=== PATIENT | male | born 1950 | race Caucasian/White ===

== ENCOUNTER 2022-09-02 14:22 | Observation (INO) | payer MEDICARE, OTHER, SELFPAY ==
[2022-09-02] VITALS (11 sets, daily range): BP systolic 139–187; BP diastolic 50–79; PULSE 52–63; RESP 18–20; TEMP 36.3–36.6; O2SAT 94–97; BMI 51.5; BMI 39.6
--- NOTE | 2022-09-02 14:27 | ECG_ITS ---
APPROVED REPORT Exam: Resting ECG HR:64 bpm ECG Measurements Heart Rate 64 AXES DE 206 P 54 QRSd 105 QRS 10 QT 431 T 20 QTc 441 Conclusion SINUS RHYTHM LOW QRS VOLTAGE IN PRECORDIAL LEADS [QRS DEFLECTION < 1.0 mV IN CHEST LEADS] BORDERLINE ECG UNCONFIRMED REPORT Electronically signed by : Jace Silvestre MD 09/02/2022 21:00:37
--- NOTE | 2022-09-02 14:52 | XR_ITS ---
FINAL REPORT CLINICAL HISTORY: Shortness of breath COMPARISON: none FINDINGS: A portable view of the chest was obtained. The heart is normal in size. There is evidence of prior median sternotomy. There are low lung volumes. The lungs are otherwise clear. There is no pleural effusion or pneumothorax. IMPRESSION: Low lung volumes.. Reviewed, Interpreted and Dictated by Nancy Jacobo MD Transcribed by Pearl Oswald Authenticated and . [facility]
--- NOTE | 2022-09-02 14:58 | HMH.EDGENADL ---
Discharge Plan Disposition Patient Disposition: Still a Patient Condition: Good Referrals Follow up/Referrals: Roberta Villalobos APRN [Primary Care Provider] - See instructions Clinical Impressions Clinical Impression: Bilateral leg weakness, Unable to care for self Discharge ED Provider: Lilly Dent General Adult HPI <Vinita Madison MD - Last Filed: 09/02/22 15:41> General Chief complaint: Weakness Stated complaint: Weakness, tired Time Seen by Provider: 09/02/22 14:44 History of Present Illness HPI narrative: Patient is a 71-year-old male presenting today with lower extremity weakness and inability to care for himself at home. He has a history of known strokes and on August 10 of last month he was at his [employer] member office with his when he had a loss of consciousness and some left lower extremity weakness they called 911 he refused to be transported. Since that time he has been at home and has been able to get out of bed or walk he has a history of chronic right lower extremity weakness from an old stroke but this left lower extremity weakness is new. He is also having increasing lower extremity and dependent edema and has a history of heart failure. He came in today because his says she is sick of taking care of him at home and that he wants to be admitted for rehab and believes that he likely had a stroke last month. He denies any new or different pain fevers or any other focal symptoms. Related Data Allergies Allergy/AdvReac Type Severity Reaction Status Date / Time No Known Allergies Allergy Verified 09/02/22 15:24 PFS <Vinita Madison MD - Last Filed: 09/02/22 15:41> [facility] Disclaimer: The information contained in this section may have been updated after the patient was seen, as this information can be updated by other users. Social History (Updated 09/02/22 @ 15:41 by Vinita Madison MD) Smoking Status: Former smoker alcohol intake: never current occupational status: other Travel in the last 8 weeks: None <Vinita Madison MD - Last Filed: 09/02/22 15:41> ROS Obtained: Yes All systems reviewed & no additional complaints except as documented Physical Exam <Vinita Madison MD - Last Filed: 09/02/22 15:41> General General appearance: alert Respiratory Respiratory exam: Present normal lung sounds bilaterally Cardiovascular Cardiovascular exam: Present other (Dependent edema bilateral lower extremities and posterior sacral locations) Neurological Exam Neurological exam: Present other (Left lower extremity weakness able to move them against gravity but no significant strength 4-5 strength bilaterally from a distal standpoint sensation decreased bilaterally to light touch) Medical Decision Making <Vinita Madison MD - Last Filed: 09/02/22 15:41> Javier Inquiry Pt receiving controlled substance: No Vital Signs: 09/02/22 14:22 09/02/22 14:34 09/02/22 15:01 Temperature 97.9 F Temperature Source Oral Pulse Rate 62 60 Pulse Rate [Left] 63 Respiratory Rate 19 Blood Pressure 139/50 L 154/64 H Blood Pressure [Right Arm] 154/64 H Blood Pressure Mean 68 94 Blood Pressure Mean [Right Arm] 94 02 Sat by Pulse Oximetry 95 97 96 09/02/22 15:03 Temperature Temperature Source Pulse Rate 60 Pulse Rate [Left] Respiratory Rate Blood Pressure 145/67 H Blood Pressure [Right Arm] Blood Pressure Mean 93 Blood Pressure Mean [Right Arm] 02 Sat by Pulse Oximetry 96 Lab Data Lab Results 09/02/22 15:00: WBC 4.2 L, RBC 3.83 L, Hgb 11.2 L, Hct 36.2 L, MCV 94.6 H, MCH 29.1, MCHC 30.8 L, RDW 14.3, Plt Count 261, MPV 7.2 L, Neut % (Auto) 39.3, Lymph % (Auto) 39.8, [place] % (Auto) 9.8 H, Eos % (Auto) 10.1, Baso % (Auto) 0.9, Neut # (Auto) 1.7 L, Lymph # (Auto) 1.7, [place] # (Auto) 0.4, Eos # (Auto) 0.4, Baso # (Auto) 0.0, Sodium 138, Potassium 4.3, Chloride 99, Carbon Dioxide 32 H, Anion Gap 11.3, BUN 55 H, Creatinine 2.90 H, Estimated Creat Clear 19, Estimated GFR 21 L, Est GF
[2022-09-02 15:11] LABS: Basophils % 0.9 % (0.1-2.0); Eosinophils # 0.4 K/mm3 (0.0-0.4); Eosinophils % 10.1 % (0.1-12.0); Hematocrit 36.2 % (42.0-52.0); Hemoglobin 11.2 g/dL (14.1-18.0); Lymphocytes # 1.7 K/mm3 (0.7-4.5); Lymphocytes % 39.8 % (10-50); Mean Corpuscular HGB Conc 30.8 g/dL (31.8-35.4); Mean Corpuscular Hemoglobin 29.1 pg (27.0-31.2); Mean Corpuscular Volume 94.6 fl (80-94); Mean Platelet Volume 7.2 fl (7.4-10.4); Monocytes # 0.4 K/mm3 (0.1-1.0); Monocytes % 9.8 % (1.7-9.3); Neutrophils # 1.7 K/mm3 (1.8-7.8); Neutrophils % 39.3 % (37.0-80.0); Platelet Count 261 K/mm3 (142-424); Red Blood Count 3.83 M/mm3 (4.60-6.20); Red Cell Distribution Width 14.3 % (11.5-17.5); White Blood Count 4.2 K/mm3 (4.8-10.8)
[2022-09-02 15:23] LABS: Alanine Aminotransferase 35 U/L (12-78); Albumin Level 3.6 g/dl (3.5-5.0); Alkaline Phosphatase 164 U/L (38-126); Anion Gap 11.3 mEq/L (5-15); Aspartate Amino Transferase 47 U/L (17-59); Bilirubin,Total 0.5 mg/dl (0.2-1.3); Blood Urea Nitrogen 55 mg/dl (9-20); Calcium 8.7 mg/dl (8.4-10.2); Carbon Dioxide 32 mmol/L (22.0-30.0); Chloride 99 mmol/L (98-107); Creatinine Clearance Estimated 19 mL/min (50-200); Estimated Glomerular Filt Rate 21 ml/min (>60); GFR (African American) 26 ML/MIN (>60); Globulin 3.6 g/dL (1.3-3.2); Magnesium 2.2 mg/dl (1.6-2.3); Phosphorous 4.6 mg/dl (2.5-4.5); Potassium 4.3 mmoL/L (3.5-5.1); Sodium 138 mmol/L (136-145); Total Protein,Serum 7.2 g/dl (6.3-8.2)
[2022-09-02 15:24] LABS: Glucose 407 mg/dl (74-100)
--- NOTE | 2022-09-02 15:28 | CT_ITS ---
FINAL REPORT TECHNIQUE: Thin section axial images were obtained from skull base to vertex without contrast. Coronal reconstruction images were obtained from the axial data. Exam was performed using dose reduction technique. CLINICAL HISTORY: weakness FINDINGS: There is atrophy with periventricular hypodensity. There is no mass effect or midline shift. There is no intracranial hemorrhage. There is no hydrocephalus. There is encephalomalacia in the left frontal lobe at the vertex and posterior left parietal lobe. The basilar cisterns are preserved. The posterior fossa is without acute abnormality. The soft tissues are without acute abnormality. No acute osseous abnormality is identified. IMPRESSION: No mass effect, midline shift, or hemorrhage. Atrophy with periventricular hypodensity. Areas of encephalomalacia, likely related to prior infarcts. Consider MRI if symptoms persist. Reviewed, Interpreted and Dictated by Nancy Jacobo MD Transcribed by Fernanda Salmeron Authenticated and [facility]
[2022-09-02 15:29] LABS: Creatine Kinase 130 U/L (55-170)
--- NOTE | 2022-09-02 15:32 | PC.NURSE ---
rounded on pt.to see if they had any needs. pt had no needs at this time also explained that we had had an emergency with another room and we will be with them as soon as possible
[2022-09-02 15:35] LABS: NT Pro Brain Natriuretic Pep. 2140 pg/mL (0-125)
[2022-09-02 15:42] LABS: Troponin I < 0.01 ng/ml (0.00-0.034)
[2022-09-02 16:15] LABS: Microscopic, Urine URINE MICROSCOPIC (MICROSCOPIC)
[2022-09-02 16:19] LABS: Appearance,Urine CLEAR (Clear); Bilirubin,Urine Negative (Negative); Blood, Urine TRACE-I (Negative); Color,Urine YELLOW (Yellow); Glucose,Urine (UA) 3+ (Negative); Ketones,Urine Negative (Negative); Leukocyte Esterase,Urine Negative (Negative); Nitrate,Urine Negative (Negative); Protein,Urine Negative (Negative); Urobilinogen,Urine 0.2 EU/dl (0.2)
[2022-09-02 16:39] LABS: RBC,Urine Occasional #/hpf (0-3)
--- NOTE | 2022-09-02 18:13 | PC.NURSE ---
arrived by stretcher from ED
[2022-09-02 18:57] LABS: POC Glucose,Bedside 357 (70-110)
[2022-09-02 19:10] LABS: Troponin I < 0.01 ng/ml (0.00-0.034)
--- NOTE | 2022-09-02 20:06 | EXP.HP ---
History of Present Illness *Admission Date: 09/02/22 *Reason for visit:: weakness *History of present illness: This is a 71-year-old male with PMHx diabetes insulin-dependent, CVA with right lower extremity residual been complaining of weakness since then, CAD s/p CABG, hypertension, HLD and CKD presenting today with bilateral lower extremity weakness and inability to care for himself at home. 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 Since that time he has been at home and has been able to get out of bed or walk he has a history of chronic right lower extremity weakness from an old stroke but this left lower extremity weakness is new. He is also having increasing lower extremity and dependent edema and has a history of heart failure. Admitted for further evaluation of and treatment. [facility] Disclaimer: The information contained in this section may have been updated after the patient was seen, as this information can be updated by other users. Medical History (Updated 09/02/22 @ 23:05 by Arnoldo Krishnan APRN) CKD (chronic kidney disease) Diabetes GERD (gastroesophageal reflux disease) H/O: CVA (cerebrovascular accident) HLD (hyperlipidemia) HTN (hypertension) Surgical History (Updated 09/02/22 @ 18:23 by Emma Riojas RN) H/O four vessel coronary artery bypass graft Family History (Updated 09/02/22 @ 18:06 by Emma Riojas RN) Other No significant family history Social History (Updated 09/02/22 @ 18:06 by Emma Riojas RN) Smoking Status: Former smoker alcohol intake: never current occupational status: retired and other Travel in the last 8 weeks: None Review of Systems Review of Systems Review of systems:: pertinent systems reviewed and negative unless documented below Meds Home Medications and Allergies Home Medications Medication Instructions Recorded Confirmed Type amlodipine 5 mg tablet 5 mg PO BID Blood Pressure 09/02/22 09/02/22 History atorvastatin 80 mg tablet 80 mg PO DAILY Cholesterol 09/02/22 09/02/22 History bumetanide 2 mg tablet 2 mg PO DAILY Diuretic 09/02/22 09/02/22 History clopidogrel 75 mg tablet 75 mg PO DAILY Antiplatelet/CVA 09/02/22 09/02/22 History famotidine 20 mg tablet 20 mg PO HS PRN GERD 09/02/22 09/02/22 History fenofibrate 160 mg tablet 160 mg PO DAILY Cholesterol 09/02/22 09/02/22 History gabapentin 300 mg capsule 300 mg PO TID Pain 09/02/22 09/02/22 History insulin detemir U-100 100 unit/mL 30 unit SQ HS Diabetes 09/02/22 09/02/22 History subcutaneous solution (Levemir U-100 Insulin) metoprolol tartrate 25 mg tablet 25 mg PO BID Blood Pressure 09/02/22 09/02/22 History montelukast 10 mg tablet 10 mg PO DAILY ALLERGIES 09/02/22 09/02/22 History pioglitazone 30 mg tablet 30 mg PO DAILY Diabetes 09/02/22 09/02/22 History New Prescriptions to Start Prescriptions: Allergies Allergy/AdvReac Type Severity Reaction Status Date / Time No Known Allergies Allergy Verified 09/02/22 15:24 Exam Data for Last 24 hours Vital signs and Labs for Last 24 Hours: Temp Pulse Resp BP Pulse Ox O2 Del Method 97.4 F L 63 18 158/54 H 94 L Room Air 09/02/22 20:00 09/02/22 20:00 09/02/22 20:00 09/02/22 20:00 09/02/22 20:00 09/02/22 20:00 Laboratory Results - last 24 hr 09/02/22 15:00: WBC 4.2 L, RBC 3.83 L, Hgb 11.2 L, Hct 36.2 L, MCV 94.6 H, MCH 29.1, MCHC 30.8 L, RDW 14.3, Plt Count 261, MPV 7.2 L, Neut % (Auto) 39.3, Lymph % (Auto) 39.8, [place] % (Auto) 9.8 H, Eos % (Auto) 10.1, Baso % (Auto) 0.9, Neut # (Auto) 1.7 L, Lymph # (Auto) 1.7, [place] # (Auto) 0.4, Eos # (Auto) 0.4, Baso # (Auto) 0.0, Sodium 138, Potassium 4.3, Chloride 99, Carbon Dioxide 32 H, Anion Gap 11.3, BUN 55 H, Creatinine 2.90 H, Estimated Creat Clear 19, Estimated GFR 21 L, Est GFR ( Amer) 26 L, Glucose 407 H*, Calcium 8.7
[2022-09-02 21:22] LABS: POC Glucose,Bedside 576 (70-110)
[2022-09-02 21:36] LABS: Troponin I < 0.01 ng/ml (0.00-0.034)
[2022-09-02 21:46] LABS: Glucose,Random 526 mg/dL (74-100)
--- NOTE | 2022-09-02 22:02 | PC.NURSE ---
FSBS WAS 576. SERUM GLUCOSE WAS 526. LUDY San NP NOTIFIED . SEE ORDERS.
[2022-09-03 04:00] VITALS: BP 138/68; PULSE 70; RESP 18; TEMP 36.5; O2SAT 95; BMI 40.0
[2022-09-03 05:20] LABS: POC Glucose,Bedside 530 (70-110)
[2022-09-03 05:48] LABS: Alanine Aminotransferase 40 U/L (12-78); Albumin Level 3.6 g/dl (3.5-5.0); Alkaline Phosphatase 157 U/L (38-126); Aspartate Amino Transferase 56 U/L (17-59); Bilirubin,Total 0.4 mg/dl (0.2-1.3); Blood Urea Nitrogen 62 mg/dl (9-20); Calcium 8.9 mg/dl (8.4-10.2); Carbon Dioxide 25 mmol/L (22.0-30.0); Chloride 102 mmol/L (98-107); Chol/HDL Ratio 3.5 (1-3.5); Cholesterol 113 mg/dl (140-200); Creatinine Clearance Estimated 22 mL/min (50-200); Estimated Glomerular Filt Rate 23 ml/min (>60); GFR (African American) 28 ML/MIN (>60); Globulin 3.6 g/dL (1.3-3.2); HDL Cholesterol 32 mg/dl (40-60); Sodium 135 mmol/L (136-145); Total Protein,Serum 7.2 g/dl (6.3-8.2); Triglycerides 107 mg/dl (30-150); VLDL Cholesterol 21 mg/dL (0-40)
[2022-09-03 05:50] LABS: Hemoglobin A1C 11.4 % (4.0-6.0)
[2022-09-03 05:51] LABS: Glucose 492 mg/dl (74-100)
--- NOTE | 2022-09-03 05:54 | PC.NURSE ---
fsbs 530. serum glucose 492. LUDY San NP NOTIFIED AND ORDER RECEIVED TO GIVE 15 UNITS HUMALOG.
[2022-09-03 05:59] LABS: Direct LDL Cholesterol 56.88 mg/dL (100-129)
--- NOTE | 2022-09-03 07:52 | HMH.PHAINT1 ---
Pharmacy Intervention Comments: Patient's home medications reviewed and verified with external pharmacy. -Cesario Montero, Pharm Student
[2022-09-03 08:00] VITALS: BP 156/83; PULSE 84; RESP 20; TEMP 36.5; O2SAT 95; O2SAT 96
--- NOTE | 2022-09-03 08:33 | EXP.PN ---
Subjective *Date: 09/03/22 *Time: 14:09 Interval history: Cr is 2.7, decreased from 2.9 glucose is 592 a1c is 11.4 No acute events overnight Exam Data for Last 24 hours Vital signs and Labs for Last 24 Hours: Temp Pulse Resp BP Pulse Ox O2 Del Method 97.7 F 70 18 138/68 95 Room Air 09/03/22 04:00 09/03/22 04:00 09/03/22 04:00 09/03/22 04:00 09/03/22 04:00 09/03/22 06:32 Laboratory Results - last 24 hr 09/02/22 15:00: WBC 4.2 L, RBC 3.83 L, Hgb 11.2 L, Hct 36.2 L, MCV 94.6 H, MCH 29.1, MCHC 30.8 L, RDW 14.3, Plt Count 261, MPV 7.2 L, Neut % (Auto) 39.3, Lymph % (Auto) 39.8, [place] % (Auto) 9.8 H, Eos % (Auto) 10.1, Baso % (Auto) 0.9, Neut # (Auto) 1.7 L, Lymph # (Auto) 1.7, [place] # (Auto) 0.4, Eos # (Auto) 0.4, Baso # (Auto) 0.0, Sodium 138, Potassium 4.3, Chloride 99, Carbon Dioxide 32 H, Anion Gap 11.3, BUN 55 H, Creatinine 2.90 H, Estimated Creat Clear 19, Estimated GFR 21 L, Est GFR ( Amer) 26 L, Glucose 407 H*, Calcium 8.7, Phosphorus 4.6 H, Magnesium 2.2, Total Bilirubin 0.5, AST 47, ALT 35, Alkaline Phosphatase 164 H, Total Creatine Kinase 130, Troponin I < 0.01, NT-Pro-B Natriuret Pep 2140 H, Total Protein 7.2, Albumin 3.6, Globulin 3.6 H, Albumin/Globulin Ratio 1.0 L 09/02/22 15:56: Urine Color Yellow, Urine Appearance Clear, Urine pH 6.0, Ur Specific Vera 1.010, Urine Protein Negative, Urine Glucose (UA) 3+, Urine Ketones Negative, Urine Blood Trace-i, Urine Nitrate Negative, Urine Bilirubin Negative, Urine Urobilinogen 0.2, Ur Leukocyte Esterase Negative, Urine RBC Occasional, Urine WBC None, Ur Squamous Epith Cells 3-5, Urine Bacteria None 09/02/22 18:01: Troponin I < 0.01 09/02/22 18:49: POC Glucose 357 H* 09/02/22 20:55: Random Glucose 526 H*, Troponin I < 0.01 09/02/22 21:15: POC Glucose 576 H* 09/03/22 05:11: POC Glucose 530 H* 09/03/22 05:22: Sodium 135 L, Potassium 5.0, Chloride 102, Carbon Dioxide 25, Anion Gap 13.0, BUN 62 H, Creatinine 2.70 H, Estimated Creat Clear 22, Estimated GFR 23 L, Est GFR ( Amer) 28 L, Glucose 492 H* D, Hemoglobin A1c 11.4 H, Calcium 8.9, Total Bilirubin 0.4, AST 56, ALT 40, Alkaline Phosphatase 157 H, Total Protein 7.2, Albumin 3.6, Globulin 3.6 H, Albumin/Globulin Ratio 1.0 L, Triglycerides 107, Cholesterol 113 L, LDL Cholesterol Direct 56.88 L, VLDL Cholesterol 21, HDL Cholesterol 32 L, Cholesterol/HDL Ratio 3.5 I & O for Last 24 hours: Intake & Output 08/31/22 09/01/22 09/02/22 09/03/22 23:59 23:59 23:59 23:59 Intake Total 1250 / 1250 Output Total 400 / 400 400 / 400 Balance -400 / 350 850 / 850 Weight 114.759 kg 115.694 kg Constitutional Constitutional: no acute distress *Routine HEENT Exam Head: Present normocephalic Eye: Present EOMI and PERRL ENT: Present mucous membranes moist *Routine Neck Exam Neck: Present supple; Absent lymphadenopathy *Routine Respiratory Exam Respiratory: Present CTA bilaterally *Routine Cardiovascular Exam Cardiovascular: Present RRR *Routine Abdominal Exam Abdominal: Present soft and normoactive bowel sounds; Absent tenderness *Routine Extremities Exam Extremities: Absent cyanosis, clubbing or edema *Routine Skin Exam Skin: Present warm; Absent rash *Routine Neurological Exam Neurological: Present alert and oriented X3 Assessment and Plan *Assessment and plan (1) Diabetes mellitus with hyperglycemia: Status: Acute Qualifiers: Diabetes mellitus type: type 2 Diabetes mellitus penitentiary insulin use: without penitentiary use Qualified Code(s): E11.65 - Type 2 diabetes mellitus with hyperglycemia Category: Medical Code(s): E11.65 - Type 2 diabetes mellitus with hyperglycemia (2) Weakness due to cerebrovascular accident (CVA): Status: Acute Category: Medical (3) Bilateral lower extremity edema: Status: Acute Category: Medical Code(s): R60.0 - Localized edema (4) Dyspnea: Status: Acute Qualifiers: Dyspnea type: uns
[2022-09-03 08:59] LABS: Basophils % 0.3 % (0.1-2.0); Eosinophils % 0.5 % (0.1-12.0); Hematocrit 34.2 % (42.0-52.0); Hemoglobin 11.1 g/dL (14.1-18.0); Lymphocytes % 18.1 % (10-50); Mean Corpuscular HGB Conc 32.5 g/dL (31.8-35.4); Mean Corpuscular Hemoglobin 29.9 pg (27.0-31.2); Mean Corpuscular Volume 92.2 fl (80-94); Mean Platelet Volume 10.7 fl (7.4-10.4); Monocytes % 1.5 % (1.7-9.3); Neutrophils # 3.1 K/mm3 (1.8-7.8); Neutrophils % 78.6 % (37.0-80.0); Platelet Count 201 K/mm3 (142-424); Red Blood Count 3.71 M/mm3 (4.60-6.20); Red Cell Distribution Width 14.2 % (11.5-17.5)
[2022-09-03 09:00] LABS: Lymphocytes # 0.7 K/mm3 (0.7-4.5); Monocytes # 0.1 K/mm3 (0.1-1.0)
--- NOTE | 2022-09-03 09:50 | PC.NURSE ---
SRNA NOTE: pt transfered from bed to chair with the assistance of physical therapy.
--- NOTE | 2022-09-03 09:59 | PC.NURSE ---
Courtesy Round Patient awake sitting up in bed with at bedside. Patient seemed to be content and voiced no needs at this time. Ice water refilled . Call light within reach.
--- NOTE | 2022-09-03 10:20 | SW/DCPLANNER ---
Addendum entered by Asha Bonner 09/04/22 10:29: Beatriz stuart/ [facility] stated that services will start Wednesday. Original Note: I spoke with this patient regarding plans once medically stable for discharge. PT/OT evaluated patient and recommended home w/ home health services. Patient is agreeable to home health at time of discharge and prefer to use [facility]. Discharge date is unknown at this time. Once ready for discharge patient information/order will be faxed to [facility].
--- NOTE | 2022-09-03 10:29 | HMH.PTEV ---
Physical Therapy Evaluation Rehab PT IP Evaluation Start: 09/02/22 23:12 Freq: ONCE Status: Active Protocol: Document 09/03/22 10:19 LUANA (Rec: 09/03/22 10:28 PHOLINDA [id number]) Subjective/History History History 71 yowm adm to [facility] with generalized weakness. Hx of poorly controlled DM, prior CVA with R hemiparesis, CAD with prior CABG, HTN, HLD, CKD . He lives with spouse, 3 steps to enter the home, uses a RW for ambulation, and his spouse assists him with all ADLs. Subjective Subjective He reports he feels tired and generally weak all the time and does not want to do much activity at home at baseline because of these problems. Rehab PT IP Eval Objective Appearance Patient Behavior Appropriate Patient Orientation Person,Place,Time Difficulty following instructions none Speech Pattern Clear Ambulation Patient Able to Ambulate Yes Ambulation Observation IP General Gait Pattern Observation Shuffling Step Ambulation Distance (feet) 10 Ambulation Assistive Device Rolling Walker Ambulation Ability Supervision/Stand by Balance Ability to Arise Able, uses arms to help Sitting Balance Steady, safe Standing Balance Unsteady Dynamic Sitting Balance Ability Fair Dynamic Standing Balance Ability Fair Transfers Bed Transfer Ability Supervision/Stand by Chair Transfer Ability Supervision/Stand by Sit to Stand Bed Transfer Ability Supervision/Stand by Sit to Stand Chair Transfer Ability Supervision/Stand by ROM All Extremities PT ROM Status WFL MMT LLE PT MMT WFL Rehab PT IP prob,goals,plan Problems Date of Evaluation: 09/03/22 Discharge Plan PT Discharge Plan Pt appears to be at baseline currently, which by his own admission is limited mobility peck. He is appropriate to return home once medically stable. Recommend Home Health therapy after d/c home. G -code Required No Eval Complexity Eval Charge Codes 59585 - High Complexity PHYSICIAN CERTIFICATION: I certify the specified therapy services for Praveen Pedroza are required, authorized,
[2022-09-03 10:39] LABS: White Blood Count 3.9 K/mm3 (4.8-10.8)
--- NOTE | 2022-09-03 10:55 | HMH.OTEV ---
OT Inpatient Evaluation Rehab OT IP Evaluation Start: 09/02/22 23:12 Freq: ONCE Status: Active Protocol: Document 09/03/22 10:47 [facility] (Rec: 09/03/22 10:55 [facility] [id number]) Rehab OT IP Assessment Subjective History Pt oriented x 3 on arrival. Pt agreeable to engage in therapy evaluation. Pt's present during therapy evaluation and supportive. Pt was admitted on 09/02/22 due to generalized weakness. Prior to being in the hosptial , pt lived at home with his . Normally pt requires assistance with all ADLs such as dressing and bathing. He also requires set up of food. He is dependent upon his for all IADLs (cleaning, cooking, laundry, etc). Pt uses a rolling walker during all functional transfers. Pt has a past medical history of: CKD (chronic kidney disease) Diabetes GERD (gastroesophageal reflux disease) H/O: CVA (cerebrovascular accident) HLD (hyperlipidemia) HTN (hypertension) Subjective It's hard to move around. Objective Patient Orientation Person,Place,Birthday Upper Extremity Gross ROM WFL Bed Mobility bed mobility-scooting,bed mobility - supine/sit,bed mobility - rolling Assist Level Supervision/Stand by Transfer Training Sit/Stand Transfer Assist Level Supervision/Stand by Chair Transfer Ability Supervision/Stand by Chair Transfer Technique Sit to/from Ambulatory Chair Transfer Assistive Devices Rolling Walker Lower Body Dressing Ability Assistance X1 Rehab OT IP prob,goals,plan Problems Date of Evaluation: 09/03/22 Rehab Potential Rehab Potential Innapropriate for Skilled Therapy Discharge Plan OT Discharge Plan At this time, pt appears to be at his baseline with functional transfers and ADL's . Pt can re
[2022-09-03 11:31] LABS: POC Glucose,Bedside 468 (70-110)
--- NOTE | 2022-09-03 11:33 | PC.NURSE ---
. notified fsbg above 450.
--- NOTE | 2022-09-03 11:44 | HMH.PHAINT1 ---
Pharmacy Intervention Comments: Patient's home medications reviewed and verified with external pharmacy. -Cesario Montero, Pharm Student
[2022-09-03 11:57] VITALS: BP 163/80; PULSE 67; RESP 20; TEMP 36.6; O2SAT 96
[2022-09-03 12:39] VITALS: BMI 40.0
--- NOTE | 2022-09-03 15:13 | PC.NURSE ---
PT. AOX4, UP WITH ASSIST TIMES 1 AND WALKER, FSBG HAVE BEEN HIGH AND MD. AWARE, DNI, PT AND OT WORKING WITH PATIENT.
[2022-09-03 16:00] VITALS: BP 140/81; PULSE 69; RESP 18; TEMP 36.7; O2SAT 96
[2022-09-03 16:24] LABS: POC Glucose,Bedside 313 (70-110)
[2022-09-03 20:00] VITALS: BP 126/64; PULSE 69; RESP 16; TEMP 36.4; O2SAT 96; O2SAT 98
[2022-09-03 21:56] LABS: POC Glucose,Bedside 320 (70-110)
[2022-09-04] VITALS: BP 137/62; PULSE 67; RESP 18; TEMP 36.8; O2SAT 97
[2022-09-04 04:00] VITALS: BP 149/77; PULSE 70; RESP 18; TEMP 36.6; O2SAT 98; BMI 41.1
[2022-09-04 06:48] LABS: Anion Gap 11.3 mEq/L (5-15); Blood Urea Nitrogen 62 mg/dl (9-20); Calcium 8.8 mg/dl (8.4-10.2); Carbon Dioxide 28 mmol/L (22.0-30.0); Chloride 106 mmol/L (98-107); Creatinine Clearance Estimated 23 mL/min (50-200); Estimated Glomerular Filt Rate 24 ml/min (>60); GFR (African American) 29 ML/MIN (>60); Glucose 136 mg/dl (74-100); Potassium 4.3 mmoL/L (3.5-5.1); Sodium 141 mmol/L (136-145)
[2022-09-04 07:22] LABS: Basophils % 0.5 % (0.1-2.0); Eosinophils % 3.1 % (0.1-12.0); Hematocrit 33.3 % (42.0-52.0); Hemoglobin 10.7 g/dL (14.1-18.0); Mean Corpuscular HGB Conc 32.1 g/dL (31.8-35.4); Mean Corpuscular Hemoglobin 29.6 pg (27.0-31.2); Mean Corpuscular Volume 92.2 fl (80-94); Mean Platelet Volume 10.2 fl (7.4-10.4); Monocytes % 9.5 % (1.7-9.3); Neutrophils # 4.2 K/mm3 (1.8-7.8); Neutrophils % 56.8 % (37.0-80.0); Platelet Count 257 K/mm3 (142-424); Red Blood Count 3.61 M/mm3 (4.60-6.20); Red Cell Distribution Width 14.4 % (11.5-17.5); White Blood Count 7.4 K/mm3 (4.8-10.8)
[2022-09-04 07:23] LABS: Eosinophils # 0.2 K/mm3 (0.0-0.4); Lymphocytes # 2.2 K/mm3 (0.7-4.5); Monocytes # 0.7 K/mm3 (0.1-1.0)
[2022-09-04 08:00] VITALS: BP 160/74; PULSE 62; RESP 18; TEMP 36.6; O2SAT 97
--- NOTE | 2022-09-04 08:46 | PC.NURSE ---
TECH NOTE; NOTIFIED NURSE OF BLOOD PRESSURE FOR 0800 VITAL SIGNS Joann SHERMAN, SRNA
--- NOTE | 2022-09-04 09:23 | EXP.DC.SUM ---
General Admission date:: 09/02/22 Discharge date: 09/04/22 HPI HPI HPI: This is a 71-year-old male with PMHx diabetes insulin-dependent, CVA with right lower extremity residual been complaining of weakness since then, CAD s/p CABG, hypertension, HLD and CKD presenting today with bilateral lower extremity weakness and inability to care for himself at home. 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 Since that time he has been at home and has been able to get out of bed or walk he has a history of chronic right lower extremity weakness from an old stroke but this left lower extremity weakness is new. He is also having increasing lower extremity and dependent edema and has a history of heart failure. Admitted for further evaluation of and treatment. Hospital Course Hospital Course Hospital Course: Mr. Pedroza is a 71 year old male with a PMH of insulin-dependent diabetes melltius, CVA with residual right lower extremity weakness, CHF, CAD s/p CABG, htn, hld and CKD. He presented to the ED because of generalized weakness over the past month. CT head revealed old CVA. Initial workup revealed severe hyperglycemia and kidney disease with a cr near 3 (unknown baseline). #real vs real on ckd #uncontrolled type 2 dm with hyperglycemia, a1c is 11.4 #bilateral lower extremity weakness #h/o CVA #h/o CHF The patient's blood sugars were elevated in the 400-500s. After resumption of his home prescription of insulin blood sugar levels normalized. Provided counseling with regard to compliance with medications especially insulin. The patient declined rehab or SNF placement. His strength improved throughout the hospital course. His kidney function was stable; cr trended 2.9 - 2.7 - 2.6. He will be going home with home health services with PT/OT. He will need to f/u with his PCP in one week. Exam Data for Last 24 hours Vital signs and Labs for Last 24 Hours: Temp Pulse Resp BP Pulse Ox O2 Del Method O2 Flow Rate 97.9 F 62 18 160/74 H 97 Room Air 2 09/04/22 08:00 09/04/22 08:00 09/04/22 08:00 09/04/22 08:00 09/04/22 08:00 09/04/22 08:00 09/03/22 11:00 Laboratory Results - last 24 hr 09/03/22 05:22: WBC 3.9 L 09/03/22 11:13: POC Glucose 468 H* 09/03/22 16:10: POC Glucose 313 H* 09/03/22 21:43: POC Glucose 320 H* 09/04/22 05:28: WBC 7.4 D, RBC 3.61 L, Hgb 10.7 L, Hct 33.3 L, MCV 92.2, MCH 29.6, MCHC 32.1, RDW 14.4, Plt Count 257 D, MPV 10.2, Neut % (Auto) 56.8, Lymph % (Auto) 30.0, [place] % (Auto) 9.5 H, Eos % (Auto) 3.1, Baso % (Auto) 0.5, Neut # (Auto) 4.2, Lymph # (Auto) 2.2, [place] # (Auto) 0.7, Eos # (Auto) 0.2, Baso # (Auto) 0.0, Sodium 141, Potassium 4.3, Chloride 106, Carbon Dioxide 28, Anion Gap 11.3, BUN 62 H, Creatinine 2.60 H, Estimated Creat Clear 23, Estimated GFR 24 L, Est GFR ( Amer) 29 L, Glucose 136 H, Calcium 8.8 I & O for Last 24 hours: Intake & Output 09/01/22 09/02/22 09/03/22 09/04/22 23:59 23:59 23:59 23:59 Intake Total 3290 / 3290 480 / 480 Output Total 400 / 400 1850 / 1850 500 / 500 Balance -400 / 350 1440 / 1440 - Weight 114.759 kg 115.694 kg 119.04 kg Constitutional Constitutional: no acute distress *Routine HEENT Exam Head: Present normocephalic Eye: Present EOMI and PERRL ENT: Present mucous membranes moist *Routine Neck Exam Neck: Present supple; Absent lymphadenopathy *Routine Respiratory Exam Respiratory: Present CTA bilaterally *Routine Cardiovascular Exam Cardiovascular: Present RRR *Routine Abdominal Exam Abdominal: Present soft and normoactive bowel sounds; Absent tenderness *Routine Extremities Exam Extremities: Absent cyanosis, clubbing or edema *Routine Skin Exam Skin: Present warm; Absent rash *Routine Neurological Exam Neurological: Present alert and oriented X3 Results Data Completed and Pending Labs on day of discharge:
--- NOTE | 2022-09-04 09:43 | HMH.PHAINT1 ---
Pharmacy Intervention Comments: Discharge medications reviewed with patient. No new medications -Shine Quinn, PharmD student
[2022-09-04 11:29] LABS: POC Glucose,Bedside 112 (70-110)
--- NOTE | 2022-09-07 14:06 | CARE MANAGER ---
Spoke with patient family member for post-discharge follow-up phone call, no issues noted.
== END 2022-09-04 10:17 | disposition home health service (06) ==
LOC: ER 17:43 → 2ND 17:52
PROVIDERS: Nurse Practitioner Family; Student in an Organized Health Care Education/Training Program; Admitting Provider Internal Medicine; Emergency Provider Emergency Medicine; PCP Nurse Practitioner Family; Visit Provider Internal Medicine
DX: E11.65 Type 2 diabetes mellitus with hyperglycemia (principal); R60.0 Localized edema; R06.00 Dyspnea, unspecified; D63.8 Anemia in other chronic diseases classified elsewhere; N18.5 Chronic kidney disease, stage 5; E78.5 Hyperlipidemia, unspecified; I12.0 Hypertensive chronic kidney disease with stage 5 chronic kidney disease or end stage renal disease; K21.9 Gastro-esophageal reflux disease without esophagitis; E11.22 Type 2 diabetes mellitus with diabetic chronic kidney disease; Z79.02 Long term (current) use of antithrombotics/antiplatelets; Z79.4 Long term (current) use of insulin; Z79.899 Other long term (current) drug therapy; Z95.1 Presence of aortocoronary bypass graft; I69.341 Monoplegia of lower limb following cerebral infarction affecting right dominant side; I50.9 Heart failure, unspecified
CPT/HCPCS: G0378; 36415; 70450; 71045; 80048; 80053; 80061; 81001; 82550; 82947; 82962; 83036; 83735; 83880; 84100; 84484; 85025; 93005; 97163; 97165; 99285

== ENCOUNTER 2024-10-09 08:54 | Outpatient (CLI) | payer MEDICARE, OTHER, SELFPAY ==
--- OUTSIDE RECORDS SUMMARY | 2023-08-30 07:50 | XMS_ITS ---
Author Organization [facility] Address [address] [place] [address] Care Team Providers Care Stonework Tracer Name Role Phone Migration, Provider Unavailable Unavailable Rene Patino Unavailable [phone] Encounters Encounter Location Date Provider Diagnosis [facility] [address] [facility] [address] [place] [address] 08/30/2023 Rene Patino Plan Of Treatment No Information Progress Notes * Praveen FOX MDOB:1950 ( 74 yo M)Acc No.[id number]:08/30/2023 Progress Notes Patient: Praveen DYE Provider: Keyla Patino PA-C :1950 A ge:72 Y S ex:Male Date:08/30/2023 [facility] [id number] Subjective: * Chief Complaints: * * Medical History: Objective: * Vitals: Assessment: Plan: * Treatment: Care Plan: * Problems: * Billing Information: * Visit Code: * Procedure Codes: * Electronic signature of JOHN Akers on 10/09/2024 at 09:09 AM EDT Sign off status: Pending * Provider: Keyla Patino PA-C Date: 08/30/2023 Generated for Printi ng/Faxing/eTransmitting on: 10/09/2024 09:09 AM EDT
--- OUTSIDE RECORDS SUMMARY | 2023-09-27 07:30 | XMS_ITS ---
Author Organization [facility] av [facility] Address [address] [place] [address] Care Team Providers Care Store Product Demonstrator Name Role Phone Migration, Provider Unavailable Unavailable Rene Patino Unavailable [phone] Encounters Encounter Location Date Provider Diagnosis [facility] [address] [facility] [address] [place] [address] 09/27/2023 Rene Patino Plan Of Treatment No Information Progress Notes * Praveen FOX MDOB:1950 ( 74 yo M)Acc No.[id number]:09/27/2023 Progress Notes Patient: Praveen DYE Provider: Keyla Patino PA-C :1950 A ge:72 Y S ex:Male Date:09/27/2023 [facility] [id number] Subjective: * Chief Complaints: * * Medical History: Objective: * Vitals: Assessment: Plan: * Treatment: Care Plan: * Problems: * Billing Information: * Visit Code: * Procedure Codes: * Electronic signature of JOHN Akers on 10/09/2024 at 09:12 AM EDT Sign off status: Pending * Provider: Keyla Patino PA-C Date: 09/27/2023 Generated for Printi ng/Faxing/eTransmitting on: 10/09/2024 09:12 AM EDT
--- OUTSIDE RECORDS SUMMARY | 2024-08-26 13:15 | XMS_ITS | Encounter Summary ---
Author Organization [employer] ([place], [place], [place], [place]) Address [address] [place] [address] Care Team Providers Care Mortar Mixer Operator Name Role Phone Nikolai Tse APRN Primary Care Provider + Encounter Details Date Type Department Care Team (Latest Contact Info) Description 08/26/2024 1:15 PM EDT Lab Patient [facility] [address] [place] [address] Nikolai Tse APRN [address] [place], [place] [phone] Urinary tract infection without hematuria, site unspecified Social History Tobacco Use Types Packs/Day Years Used Date Smoking Tobacco: Former Cigarettes Smokeless Tobacco: Never Alcohol Use Standard Drinks/Week Comments Never 0 (1 standard drink = 0.6 oz pur e alcohol) Utilities Answer Date Recorded In the past 12 months, has t he [employer], gas, oil, or water [employer] threatened to shut off services in your home? No 02/18/2024 Interpersonal Safety Answer Date Record ed How often does anyone, david leonard family and friends, physically hurt you? Never 02/18/2024 How often does anyone, david leonard family and friends, insult or talk down to you? Never 02/18/2024 How often does anyone, david leonard family and friends, threaten you with harm? Never 02/18/2024 How often does anyone, david leonard family and friends, scream or curse at you? Never 02/18/2024 Housing Stability Answer Date Recorded What is your living situation today? I have a [place] place to live 02/18/[address] you li ve. Do you have problems with any of the following? None of the above 02/18/2024 Food Insecurity Answer Date Recorded Within the past 12 months, y ou worried that your food would run out before you got money to buy more. Never true 02/18/2024 Within the past 12 months, t he food you bought just didn't last and you didn't have money to get more. Never true 02/18/2024 Transportation Needs Answer Date Record ed In the past 12 months, has l ack of reliable transportation kept you from medical appointments, meetings, work or from getting things needed for daily living? No 02/18/2024 Financial Resource Strain Answer Date R ecorded How hard is it for you to pa y for the very basics like food, housing, medical care, and heating? Would you say it is: Not hard at all 02/18/2024 Employment Answer Date Recorded Do you want help finding or keeping work or a job? I do not need or want help 02/18/2024 Family and Community Support Answer Pieter e Recorded If for any reason you need h elp with day-to-day activities such as bathing, preparing meals, shopping, managing finances, etc., do you get the help you need? I don't need any help 02/18/2024 Feeling Lonely or Isolated 0 02/17 Educational Attainment Answer Date [place] rded Do you speak a language other than [place] at [facility]? No 02/18/2024 Do you want help with school or training? For example, starting or completing job training or getting a high school diploma, GED or equivalent. No 02/18/2024 Physical Activity Answer Date Recorded Number of minutes of exercise per week 0 02/18/2024 Self Management Answer Date Recorded Because of a physical, menta l, or emotional condition, do you have serious difficulty concentrating, remembering, or making decisions? (5 years or older) No 02/18/2024 Because of a physical, menta l, or emotional condition, do you have difficulty doing errands alone such as visiting a doctor's office or shopping? (15 years or older) Yes 02/18/2024 Substance Use Answer Date Recorded How many times in the past y ear have you used prescription drugs for non-medical reasons? Never 02/18/2024 How many times in the past year have you used il legal drugs? Never 02/18/2024 Mental Health Answer Date Recorded Calculation of above two rows 0 Sex and Gender Information Value Date Recorded Sex Assigned at Not on file Legal Sex Male 4:12 PM CDT Gender Identity Not on file Sexual Orientation Not on file documented as of this encounter Plan of Treatment Not on file documented as of this encounter Visit Diagnoses Diagnosis Urinary tract infection without hematuria, site unspecified documented in this encounter Care Teams Mortar Mixer Operator Relationship Specialty Start Date End Date Nikolai Tse, CARPORT ERECTOR [address] [phone] PCP - General Nurse Practitioner 02/17/24 documented as of this encounter
--- OUTSIDE RECORDS SUMMARY | 2024-09-26 05:00 | XMS_ITS | Encounter Summary ---
Author Organization [facility] Address [address] [place] [address] Care Team Providers Care Meal Cooker Name Role Phone Nikolai Tse PLASTIC SURGERY MANAGER Primary Care Provi lui Encounter Details Date Type Department Care Team (Late st Contact Info) Description 09/26/2024 5:00 AM EDT Outside Facility Service [facility] [address] [place] [address] Kat Lee MD [address] [place] [address] Social History Tobacco Use Types Packs/Day Years Used Date Smoking Tobacco: Former Cigarettes Q uit: 2013 Passive Smoke Exposure: Past Smokeless Tobacco: Never Alcohol Use Standard Drinks/Week Comments Defer 0 (1 standard drink = 0.6 oz pur e alcohol) Sex and Gender Information Value Date Recorded Sex Assigned at Male 07/06/2024 2:09 PM EDT Legal Sex Male 1:34 PM EDT Gender Identity Not on file Sexual Orientation Not on file Occupation Industry Job Start Date Job End Date DISABILITY Not on file Not on file Not on file documented as of this encounter Plan of Treatment Not on file documented as of this encounter Visit Diagnoses Not on filedocumented in this encounter Care Teams Meal Cooker Relationship Specialty Start Date End Date Nikolai Tse APRN [address] [place] [address] PCP - General Nurse Practitioner 03/16/24 documented as of this encounter
--- OUTSIDE RECORDS SUMMARY | 2024-10-09 09:08 | XMS_ITS | Encounter Summary ---
Author Organization [employer] ([place], [place], [place], [place]) Address [address] [place] [address] Care Team Providers Care Soa Engineer Name Role Phone Nikolai Tse OPERATIONS BOARDMAN Primary Care Provider + Encounter Details Date Type Department Care Team (Late st Contact Info) Description 01/02/2019 Transcribed Document [facility] [place] [facility] [place] [address] ProviderKevin MD [address] [place], [place] [address] Social History Tobacco Use Types Packs/Day Years Used Date Smoking Tobacco: Never Assessed Sex and Gender Information Value Date Recorded Sex Assigned at Not on file Legal Sex Male 4:12 PM CDT Gender Identity Not on file Sexual Orientation Not on file documented as of this encounter Miscellaneous Notes * Cerner Conversion Note - Kevin ProviderMD - 01/02/2019 5:00 AM CORRECTIONAL OFFICER CAPTAIN Chart Check - Review Order Profile Entered On: 01/02/2019 3:13 EST Performed On: 01/02/2019 5:00 EST by Lacey Harris RN-Chad Chart Check Powerplans Initiated/Discontinued as Appropriate : Yes All Active Orders Reviewed : Yes Lacey Harris RN-Chad - 01/02/2019 3:13 EST documented in this encounter Plan of Treatment Not on file documented as of this encounter Visit Diagnoses Not on filedocumented in this encounter Care Teams Soa Engineer Relationship Specialty Start Date End Date [place] [address] PCP - General Nurse Practitioner 02/17/24 documented as of this encounter
--- OUTSIDE RECORDS SUMMARY | 2024-10-09 09:08 | XMS_ITS | Encounter Summary ---
Author Organization [employer] ([place], [place], [place], [place]) Address [address] [place] [address] Care Team Providers Care Catering Cook Name Role Phone Nikolai Tse APRN Primary Care Provider + Encounter Details Date Type Department Care Team (Late st Contact Info) Description 01/02/2019 Transcribed Document [facility] [place] [facility] [place] [address] ProviderKevin MD [address] [place], [place] [address] Social History Tobacco Use Types Packs/Day Years Used Date Smoking Tobacco: Never Assessed Sex and Gender Information Value Date Recorded Sex Assigned at Not on file Legal Sex Male 4:12 PM CDT Gender Identity Not on file Sexual Orientation Not on file documented as of this encounter Miscellaneous Notes * [employer]ner Conversion Note - Kevin Pickering MD - 01/02/2019 12:41 PM SYSTEM SAFETY MANAGER Pain Assessment Entered On: 01/02/2019 16:40 EST Performed On: 01/02/2019 15:47 EST by Stephanie Reardon, RN Intervention Information: morphine Performed by Stephanie Reardon, RN on 01/02/2019 15:17:00 EST morphine,2mg IV Push,Peripheral Line 1,Pain (Moderate 4-6) Pain Assessment Pain Assessment : Follow-up assessment Pain Scale Goal : 8 Pain Improved by Intervention : Yes Stephanie Reardon, RN - 01/02/2019 16:40 EST documented in this encounter Plan of Treatment Not on file documented as of this encounter Visit Diagnoses Not on filedocumented in this encounter Care Teams Catering Cook Relationship Specialty Start Date End Date Nikolai Tse, MULTIMEDIA ENGINEER [address] [place], [place] [phone] PCP - General Nurse Practitioner 02/17/24 documented as of this encounter
--- OUTSIDE RECORDS SUMMARY | 2024-10-09 09:08 | XMS_ITS | Encounter Summary ---
Author Organization [employer] ([place], [place], [place], [place]) Address [address] [place] [address] Care Team Providers Care Precinct Police Captain Name Role Phone Nikolai Tse APRN Primary Care Provider + Encounter Details Date Type Department Care Team (Late st Contact Info) Description 01/02/2019 Transcribed Document [facility] [place] [address] ProviderKevin MD [address] [place] [address] Social History Tobacco Use Types Packs/Day Years Used Date Smoking Tobacco: Never Assessed Sex and Gender Information Value Date Recorded Sex Assigned at Not on file Legal Sex Male 4:12 PM CDT Gender Identity Not on file Sexual Orientation Not on file documented as of this encounter Miscellaneous Notes * Cerner Conversion Note - Kevin Pickering MD - 01/02/2019 12:41 PM OPTICAL GOODS DRILLING MACHINE OPERATOR Pain Assessment Entered On: 01/02/2019 16:40 EST Performed On: 01/02/2019 15:22 EST by Stephanie Reardon, RN Intervention Information: acetaminophen-HYDROcodone Performed by Stephanie Reardon, RN on 01/02/2019 14:22:00 EST acetaminophen-HYDROcodone,1Tab Oral,Pain (Moderate 4-6) Pain Assessment Pain Assessment : Follow-up assessment Pain Scale Goal : 8 Pain Improved by Intervention : Yes Stephanie Reardon, RN - 01/02/2019 16:40 EST Electronically signed by Kyra [facility] Conversion Telepathist Cerner at 06/04/2022 9:51 AM CDT documented in this encounter Plan of Treatment Not on file documented as of this encounter Visit Diagnoses Not on filedocumented in this encounter Care Teams Precinct Police Captain Relationship Specialty Start Date End Date Nikolai Tse, CHRONOMETER TESTER [address] [place], [place] [phone] PCP - General Nurse Practitioner 02/17/24 documented as of this encounter
--- OUTSIDE RECORDS SUMMARY | 2024-10-09 09:08 | XMS_ITS | Encounter Summary ---
Author Organization [employer] ([place], [place], [place], [place]) Address [address] [place] [address] Care Team Providers Care Doorperson Name Role Phone Yanethanthony Nikolai Dhillon APRN Primary Care Provider + Encounter Details Date Type Department Care Team (Late st Contact Info) Description 01/03/2019 Transcribed Document [facility] [place] [address] [place] [address] Ananda Ibarra MD [address] [place] [address] Social History Tobacco Use Types Packs/Day Years Used Date Smoking Tobacco: Never Assessed Sex and Gender Information Value Date Recorded Sex Assigned at Not on file Legal Sex Male 4:12 PM CDT Gender Identity Not on file Sexual Orientation Not on file documented as of this encounter Miscellaneous Notes * Cerner Conversion Note - Ananda Ibarra MD - 01/03/2019 2:36 PM EST DATE OF DISCHARGE: 01/03/2019 Date of admission, December 23, 2018. CONSULTS: 1. Pedro Zepeda. 2. JOHN Dee. 3. Dr. Ritter. 4. Dr. Thierno Shane. 5. Dr. Samson Salmeron, Neurology. 6. Dr. Brooke Aden. 7. Dr. Akira Servin. Please see discharge summary dictated by Dr. Brooke Aden on December 28, 2018. HOSPITAL COURSE: The patient admitted initially on December 23, seen by Dr. Mckinney with Nephrology and by Dr. Samson Salmeron on December 23. The patient continued to improve. Please see discharge summary dictated by Dr. Brooke Aden on December 28. Seen by Dr. Salmeron on December 28, recommended aspirin. Agreed with TCAR. Not reordering lumbosacral MRIs. I do not think these studies will change the management of his condition. The patient was taken to the operating room on January 02, Octaviano Alba, stated left TCAR was performed without complication, neurologically intact, hemodynamically stable. Okay to transfer to telemetry. Okay to transfer to rehab. Okay with Neurology. DISCHARGE CONDITION: Stable. DISPOSITION: [facility]. ACTIVITY: Advance as tolerated with physical therapy. DIET: Healthy heart, diabetic diet. FOLLOWUP INSTRUCTIONS: Follow up with Neurology, Vascular Surgery, primary care provider. DISCHARGE MEDICATIONS: 1. Aspirin 81 mg daily. 2. Vitamin D3, 1000 p.o. daily. 3. Pioglitazone 30 mg daily. 4. Januvia 100 mg daily. 5. Norvasc 5 mg b.i.d. 6. Atorvastatin 80 mg at bedtime. 7. Plavix 75 mg daily. 8. Fenofibrate 145 mg p.o. daily. 9. Gabapentin 300 mg at bedtime. 10. Hydralazine 25 mg t.i.d. 11. Lantus 30 subcutaneous at bedtime. 12. Lispro before each meals. 13. Metoprolol 25 mg p.o. b.i.d. Thirty-five minutes spent on the followup and discharge on this pleasant patient. Greater than 50% of the time spent on counselling and coordination. /[id number] Ananda Ibarra MD TEQ/AQ / TEQ / MODL /[id number] CC: MD Ally Spicer, JOHN Tyler MD documented in this encounter Plan of Treatment Not on file documented as of this encounter Visit Diagnoses Not on filedocumented in this encounter Care Teams Doorperson Relationship Specialty Start Date End Date Nikolai Tse, LIVESTOCK AUCTIONEER [address] [place], [place] [phone] PCP - General Nurse Practitioner 02/17/24 documented as of this encounter
--- OUTSIDE RECORDS SUMMARY | 2024-10-09 09:09 | XMS_ITS | Encounter Summary ---
Author Organization [employer] ([place], [place], [place], [place]) Address [address] [place] [address] Care Team Providers Care Still Operator Name Role Phone Nikolai Tse APRN Primary Care Provider + Encounter Details Date Type Department Care Team (Late st Contact Info) Description 01/02/2019 Transcribed Document [facility] [place] [facility] [place] [address] ProviderKevin MD [address] [place], [place] [address] Social History Tobacco Use Types Packs/Day Years Used Date Smoking Tobacco: Never Assessed Sex and Gender Information Value Date Recorded Sex Assigned at Not on file Legal Sex Male 4:12 PM CDT Gender Identity Not on file Sexual Orientation Not on file documented as of this encounter Miscellaneous Notes * Cerner Conversion Note - Kevin Pickering MD - 01/02/2019 11:49 AM DIRECTOR OF ORTHOPEDICS Patient: PRAVEEN FOX Age: 68 Years Sex: Male : 1950 *Operation 1. L TCAR Indication for Surgery 1. Symptomatic L ICA stenosis, tandem lesions high lesions) *Preoperative Diagnosis 1. Symptomatic L ICA stenosis, tandem lesions high lesions) *Postoperative Diagnosis 1. Symptomatic L ICA stenosis, tandem lesions high lesions) *Surgeon(s) Primary Surgeon CARISSA HANSON MD (Surgeon/Proceduralist, First) THOMAS FOX MD-AIDEN *Estimated Blood Loss min *Findings good flow post-procedure *Specimen(s) none Complications none Date of Service Date/Time of Service SN - Proc - Start Time: 01/02/19 10:55:00 (01/02/19 11:01:53) documented in this encounter Plan of Treatment Not on file documented as of this encounter Visit Diagnoses Not on filedocumented in this encounter Care Teams Still Operator Relationship Specialty Start Date End Date Nikolai Tse, DANCE COSTUME DESIGNER [address] [place] [address] PCP - General Nurse Practitioner 02/17/24 documented as of this encounter
--- OUTSIDE RECORDS SUMMARY | 2024-10-09 09:09 | XMS_ITS | Encounter Summary ---
Author Organization [employer] ([place], [place], [place], [place]) Address [address] [place] [address] Care Team Providers Care Nozzle And Sleeve Worker Name Role Phone Nikolai Tse APRN Primary Care Provider + Encounter Details Date Type Department Care Team (Late st Contact Info) Description 01/02/2019 Transcribed Document [facility] Family Medicine [facility] [place] [address] ProviderKevin MD [address] [place] [address] Social History Tobacco Use Types Packs/Day Years Used Date Smoking Tobacco: Never Assessed Sex and Gender Information Value Date Recorded Sex Assigned at Not on file Legal Sex Male 4:12 PM CDT Gender Identity Not on file Sexual Orientation Not on file documented as of this encounter Miscellaneous Notes * Cerner Conversion Note - Kevin Pickering MD - 01/02/2019 12:39 PM VP CONSTRUCTION Patient: PRAVEEN FOX Age: 68 Years Sex: Male : 1950 Subjective Patient was seen and examined postoperatively and ICU. He reports feeling well and has no complaints. Vital Signs T: 36.3 ??C TMIN: 36.3 ??C TMAX: 36.7 ??C HR: 59(Monitored) RR: 20 BP: 165/72 BP: 98/46(Line) SpO2: 95% Oxygen Settings (Last) Oxygen Therapy Mode: Nasal cannula (01/02/19 09:22:00) Oxygen Flow Rate: 2 Liter/Min (01/02/19 09:22:00) Intake & Output Totals Last 24 Hours (7a-7a) Input Total: 730 mL Output Total: 300 mL Balance: 430 mL Physical Exam General: [Alert and oriented, well nourished, no acute distress]. Neurologic: [Awake, alert, and oriented X3, CN II-XII intact]. Eye: [PERRL, EOMI, normal conjuctiva]. HENT: [Normocephalic, clear tympanic membranes, normal hearing, moist oral mucosa, no scleral icterus, no sinus tenderness]. Neck: [Supple, non-tender, no carotid bruits, no JVD, no lymphadenopathy]. Lungs: [Clear to auscultation and percussion, non-labored respiration]. Heart: [Normal rate, regular rhythm, no murmur, gallop or edema]. Abdomen: [Soft, non-tender, non-distended, normal bowel sounds, no masses]. Musculoskeletal: [Normal range of motion and strength, no tenderness or swelling]. Skin: [Left neck scar noted Psychiatric: [Cooperative, appropriate mood and affect]. Neuro: Cranial nerves intact, strength is 5 out of 5 in all extremities, gross sensation intact Assessment/Plan 1. Left AKOSUA stroke due to left ICA stenosis s/p L TCAR today , complicated by watershed ischemia due to hypotension. Patient's symptoms are improving. Neurology following. Continue aspirin, plavix, and lipitor 2. CKD stage 3, currently at baseline as per nephrology 3. HTN urgency, better today, management as per nephrology, I will be adding hydralazine 25mg by mouth 3 times a day VTE Prophylaxis - Medical Clopidogrel 75 mg, Oral, Tab, Daily, NOW, Start 12/24/18 22:05:00 EST (TACO ELY) Heparin 5,000 Units, SubCutaneous, Inj, [id number], Routine, Start 12/23/18 14:00:00 EST (MARIN MCCLELLAND MD) Medications Ambien, 5 mg= 1 Tab, Oral, At Bedtime, PRN amLODIPine, 5 mg= 1 Tab, Oral, BID Ancef, 2 Gram= 50 mL, IV Piggyback, PREOP aspirin, 81 mg= 1 Tab, Oral, Daily Ativan, 0.5 mg= 0.25 mL, IV Push, Q6H, PRN atorvastatin, 80 mg= 2 Tab, Oral, At Bedtime calcium gluconate, 2 Gram, IV Piggyback, 1-Time cloNIDine, 0.1 mg= 1 Tab, Oral, Q3H, PRN Colace, 100 mg= 1 Cap, Oral, BID gabapentin, 300 mg= 1 Cap, Oral, At Bedtime Habitrol 21 mg/24 hr transdermal film, extended release, 1 Patch, TransDermal, Daily heparin, 5000 Units= 1 mL, SubCutaneous, [id number] hydrALAZINE, 10 mg= 0.5 mL, IV Push, Q3H, PRN hydrALAZINE, 25 mg= 1 Tab, Oral, TID insulin lispro sliding scale, Scale C:, SubCutaneous, AC and at Bedtime Lactated Ringers Injection intravenous solution 1,000 mL, 1000 mL, IntraVENous Lantus, 30 Units= 0.3 mL, SubCutaneous, At Bedtime Lopressor, 25 mg= 1 Tab, Oral, BID miconazole 2% topical powder, 1 Application, Topical, BID Milk of Magnesia 8% oral suspension, 30 mL, Oral, Q6H, PRN Normal Saline 500 mL, 500 mL, IntraVENous Normal Saline Flush, 10 mL, IV Push, Q12H Normal Saline Flush, 10 mL, IV Push, See Comment, PRN oxyCODONE, 5 mg= 1 Tab, Oral, Q6H, PRN Plavix, 75 mg= 1 Tab, Oral, Daily Protonix, 40 mg= 1 Tab, Oral, Daily TriCor 145 mg oral tablet, 145 mg= 1 Tab, Oral, Daily Tylenol, 650 mg= 2 Tab, Oral, Q6H, PRN Zofran, 4 mg= 2 mL, IV Push, Q4H, PRN Lab Results Test Name Test Result Date/Time Sodium Level 142 mmol/L 01/02/2019 06:03 EST Potassium Level 4.1 mmol/L 01/02/2019 06:03 EST Chloride Level 111 mmol/L 01/02/2019 06:03 EST Carbon Dioxide Level 26 mmol/L 01/02/2019 06:03 EST Anion Gap 9 01/02/2019 06:03 EST Glucose Level 207 mg/dL (High) 01/02/2019 06:03 EST Blood Urea Nitrogen 29 mg/dL (High) 01/02/2019 06:03 EST Creatinine Level 1.80 mg/dL (High) 01/02/2019 06:03 EST eGFR 45 mL/min/1.73m2 (Low) 01/02/2019 06:03 EST eGFR NonAfrican 37 mL/min/1.73m2 (Low) 01/02/2019 06:03 EST Bun/Creatinine 16.1 01/02/2019 06:03 EST Calcium Level 8.8 mg/dL 01/02/2019 06:03 EST Protein Total 7.0 Gram/dL 01/02/2019 06:03 EST Albumin Level 3.0 Gram/dL (Low) 01/02/2019 06:03 EST Globulin 4.0 Gram/dL 01/02/2019 06:03 EST A/G Ratio 0.8 (Low) 01/02/2019 06:03 EST Bilirubin Total 0.4 mg/dL 01/02/2019 06:03 EST Alk Phos 61 Units/Liter 01/02/2019 06:03 EST AST 21 Units/Liter 01/02/2019 06:03 EST ALT 35 Units/Liter 01/02/2019 06:03 EST Magnesium Level 2.2 mg/dL 01/02/2019 06:03 EST Device Comment 1 Notified MD RBV 01/02/2019 08:56 EST Device Comment 1 Received Meds 01/01/2019 16:30 EST Glucose POC2 207 mg/dL (High) 01/02/2019 08:56 EST Glucose POC2 309 mg/dL (High) 01/01/2019 16:30 EST WBC 7.2 K/uL 01/02/2019 06:03 EST RBC 4.34 Million/uL 01/02/2019 06:03 EST Hgb 12.7 g/dL (Low) 01/02/2019 06:03 EST Hct 39.9 % (Low) 01/02/2019 06:03 EST MCV 91.9 fL 01/02/2019 06:03 EST MCH 29.3 pg 01/02/2019 06:03 EST MCHC 31.8 Gram/dL (Low) 01/02/2019 06:03 EST Platelet Count 377 K/uL (High) 01/02/2019 06:03 EST MPV 9.5 fL 01/02/2019 06:03 EST RDW 13.2 % 01/02/2019 06:03 EST Slide Review No 01/02/2019 06:03 EST ABO/Rh (ECHO) O POS 01/02/2019 09:05 EST ABO/Rh Repeat O POS 01/02/2019 06:03 EST Antibody Screen Negative ABSC 01/02/2019 09:05 EST Electronically signed by Kyra, [facility] Conversion Linux Unix Engineer Cerner at 06/04/2022 9:45 AM CDT documented in this encounter Plan of Treatment Not on file documented as of this encounter Visit Diagnoses Not on filedocumented in this encounter Care Teams Nozzle And Sleeve Worker Relationship Specialty Start Date End Date Nikolai Tse, AUTOMATIC SPLICING MACHINE OPERATOR [address] [place], [place] [id number] PCP - General Nurse Practitioner 02/17/24 documented as of this encounter
--- OUTSIDE RECORDS SUMMARY | 2024-10-09 09:09 | XMS_ITS | Encounter Summary ---
Author Organization [employer] ([place], [place], [place], [place]) Address [address] [place] [address] Care Team Providers Care Instructional Manager Name Role Phone LinuskarimeMayakeerthianh Dhillon APRN Primary Care Provider + Encounter Details Date Type Department Care Team (Late st Contact Info) Description 01/02/2019 Transcribed Document [facility] [facility] [place] [address] ProviderKevin MD [address] [place] [address] Social History Tobacco Use Types Packs/Day Years Used Date Smoking Tobacco: Never Assessed Sex and Gender Information Value Date Recorded Sex Assigned at Not on file Legal Sex Male 4:12 PM CDT Gender Identity Not on file Sexual Orientation Not on file documented as of this encounter Miscellaneous Notes * Cerner Conversion Note - Kevin Pickering MD - 01/02/2019 9:20 AM LEAD PRESSMAN ROTO GRAVURE PRINTING On Going Discharge Planning Entered On: 01/02/2019 9:21 EST Performed On: 01/02/2019 9:20 EST by BISI VIRGEN, RN-Marketing Research InternRisk Mgr Progress Note Discharge Arrangements : Patient Post-Acute Information Patient Name: PRAVEEN FOX Gender: Male : [birth year] Age: 68 Years No Post-Acute Placement(s) Listed No Post-Acute Service(s) Listed No [place] Referral(s) Listed BISI VIRGEN, RN-Marketing Research Intern - 01/02/2019 9:21 EST Barriers to Discharge Identified : Clinical Condition of Patient Barriers to Discharge Unresolved : Clinical Condition of Patient Designation of Choice Signed : No Patient Offered Choice/Affiliations Explained : No Were Referrals Sent to Post Acute Providers : No Does the Patient have a Floor to SNF Benefit? : No Is the Patient Meeting Medical Necessity : Yes Physician Agreeable to Move Forward with D/C Plan? : No Did you Attend Multidisciplinary Rounds? : No BISI VIRGEN RN-Marketing Research Intern - 01/02/2019 9:20 EST Narrative Progress Note Narrative Progress Note : Pt scheduled for left CEA today. Transfer to ICU post op. [facility] following. Historical Progress Note : CEA scheduled for Wednesday. Lara from [facility] following. BISI VIRGEN RN-Marketing Research Intern - 12/30/18 10:10:39 CEA scheduled for Wednesday. Lara from [facility] following. BISI VIRGEN RN-Marketing Research Intern - 12/29/18 15:14:54 CEA scheduled for Wednesday per vascular. Lara from [facility] following for rehab when ready for discharge. BISI VIRGEN RN-Marketing Research Intern - 12/28/18 16:31:32 CEA scheduled for Wednesday per vascular. Lara from [facility] states that they most likely cannot take pt for a few days and then send back for procedure. states that she cannot take pt home until after rehab. Called Dr Anh Aden to make him aware. He stated that pt would stay until after procedure. Lara from [facility] following for rehab when ready for discharge. BISI VIRGEN RN-Marketing Research Intern - 12/28/18 16:34:36 surgical consult and recommended left cea--decision TBD by Dr. Green and family. Pt will need inpt rehab and Lara from [facility] is following. may qualify for ems r/t mentation and and weakness. RODNEY CRENSHAW RN-Marketing Research Intern - 12/27/18 10:57:09 [place] from [facility] following for potential DC 12/27 via EMS. RODNEY CRENSHAW RN-Marketing Research Intern - 12/26/18 11:08:12 BISI VIRGEN RN-Marketing Research Intern - 01/02/2019 9:21 EST Electronically signed by [facility] Conversion Auditing Control Clerk Cerner at 06/04/2022 9:30 AM CDT documented in this encounter Plan of Treatment Not on file documented as of this encounter Visit Diagnoses Not on filedocumented in this encounter Care Teams Instructional Manager Relationship Specialty Start Date End Date Nikolai Tse, STATISTICAL SECRETARY [address] [place], [place] [phone] PCP - General Nurse Practitioner 02/17/24 documented as of this encounter
--- OUTSIDE RECORDS SUMMARY | 2024-10-09 09:09 | XMS_ITS | Encounter Summary ---
Author Organization [employer] ([place], [place], [place], [place]) Address [address] [place] [address] Care Team Providers Care Train Engineer Name Role Phone Nikolai Tse APRN Primary Care Provider + Encounter Details Date Type Department Care Team (Late st Contact Info) Description 01/02/2019 Transcribed Document [facility] Family Medicine [facility] [place] [address] ProviderKevin MD [address] [place], [place] [address] Social History Tobacco Use Types Packs/Day Years Used Date Smoking Tobacco: Never Assessed Sex and Gender Information Value Date Recorded Sex Assigned at Not on file Legal Sex Male 4:12 PM CDT Gender Identity Not on file Sexual Orientation Not on file documented as of this encounter Miscellaneous Notes * Cerner Conversion Note - Kevin ProviderMD - 01/02/2019 10:15 AM PUBLIC INFORMATION COORDINATOR CONSUMER MARKETING SPECIALIST Attempt to Treat Entered On: 01/02/2019 11:49 EST Performed On: 01/02/2019 10:15 EST by WALDO BACON SLP Attempt to Treat Inability to Treat Comment : Pt off the floor for CEA. Will then be taken to the ICU. Will need resume tx orders. Will check tomorrow. WALDO BACON SLP - 01/02/2019 11:48 EST Electronically signed by Kyra [facility] Conversion Assembler Flexible Leads Cerner at 06/04/2022 9:42 AM CDT documented in this encounter Plan of Treatment Not on file documented as of this encounter Visit Diagnoses Not on filedocumented in this encounter Care Teams Train Engineer Relationship Specialty Start Date End Date Nikolai Tse, SET UP WORKER [address] [place], [place] [phone] PCP - General Nurse Practitioner 02/17/24 documented as of this encounter
--- OUTSIDE RECORDS SUMMARY | 2024-10-09 09:09 | XMS_ITS | Encounter Summary ---
Author Organization [employer] ([place], [place], [place], [place]) Address [address] [place] [address] Care Team Providers Care Health Assessment And Treatment Teacher Name Role Phone Nikolai Tse APRN Primary Care Provider + Encounter Details Date Type Department Care Team (Late st Contact Info) Description 01/01/2019 Transcribed Document [facility] [place] Family Medicine [facility] [place] [address] ProviderKevin MD [address] [place], [place] [address] Social History Tobacco Use Types Packs/Day Years Used Date Smoking Tobacco: Never Assessed Sex and Gender Information Value Date Recorded Sex Assigned at Not on file Legal Sex Male 4:12 PM CDT Gender Identity Not on file Sexual Orientation Not on file documented as of this encounter Miscellaneous Notes * Cerner Conversion Note - Kevin ProviderMD - 01/01/2019 5:00 AM NATIONAL SECRETARY Chart Check - Review Order Profile Entered On: 01/01/2019 4:28 EST Performed On: 01/01/2019 5:00 EST by Klarissa Mayer, RN Chart Check Powerplans Initiated/Discontinued as Appropriate : Yes All Active Orders Reviewed : Yes Klarissa Mayer RN - 01/01/2019 4:28 EST documented in this encounter Plan of Treatment Not on file documented as of this encounter Visit Diagnoses Not on filedocumented in this encounter Care Teams Health Assessment And Treatment Teacher Relationship Specialty Start Date End Date Nikolai Tse APRN [address] [phone] PCP - General Nurse Practitioner 02/17/24 documented as of this encounter
--- OUTSIDE RECORDS SUMMARY | 2024-10-09 09:09 | XMS_ITS | Encounter Summary ---
Author Organization [employer] ([place], [place], [place], [place]) Address [address] [place] [address] Care Team Providers Care Crochet Machine Operator Name Role Phone Nikolai Tse APRN Primary Care Provider + Encounter Details Date Type Department Care Team (Late st Contact Info) Description 01/02/2019 Transcribed Document [facility] [place] Family Medicine [facility] [place] [address] ProviderKevin MD [address] [place], [place] [address] Social History Tobacco Use Types Packs/Day Years Used Date Smoking Tobacco: Never Assessed Sex and Gender Information Value Date Recorded Sex Assigned at Not on file Legal Sex Male 4:12 PM CDT Gender Identity Not on file Sexual Orientation Not on file documented as of this encounter Miscellaneous Notes * Cerner Conversion Note - Kevin ProviderMD - 01/02/2019 1:03 PM SENIOR PROCESS ENGINEER Attempt to Treat, PT Entered On: 01/02/2019 13:04 EST Performed On: 01/02/2019 13:03 EST by ADAN MARRERO PTA Attempt to Treat Unable to Treat Due To : Patient Unavailable Inability to Treat Comment : Patient is having cartoid endoarterectomy; will required reorder to resume PT. ADAN MARRERO PTA - 01/02/2019 13:03 EST Electronically signed by Kyra [facility] Conversion Warp Worker Cerner at 06/04/2022 9:45 AM CDT documented in this encounter Plan of Treatment Not on file documented as of this encounter Visit Diagnoses Not on filedocumented in this encounter Care Teams Crochet Machine Operator Relationship Specialty Start Date End Date Nikolai Tse, AUTO PHONE INSTALLER [address] [phone] PCP - General Nurse Practitioner 02/17/24 documented as of this encounter
--- OUTSIDE RECORDS SUMMARY | 2024-10-09 09:09 | XMS_ITS | Encounter Summary ---
Author Organization [employer] ([place], [place], [place], [place]) Address [address] [place] [address] Care Team Providers Care Workgroup Leader Name Role Phone Linuskarime Nikolai Dhillon APRN Primary Care Provider + Encounter Details Date Type Department Care Team (Late st Contact Info) Description 01/02/2019 Transcribed Document [facility] Family Medicine [facility] [place] [address] ProviderKevin MD [address] [place] [address] Social History Tobacco Use Types Packs/Day Years Used Date Smoking Tobacco: Never Assessed Sex and Gender Information Value Date Recorded Sex Assigned at Not on file Legal Sex Male 4:12 PM CDT Gender Identity Not on file Sexual Orientation Not on file documented as of this encounter Miscellaneous Notes * Cerner Conversion Note - Kevin ProviderMD - 01/02/2019 2:00 AM AS400 ANALYST Service Unit Operator Details Entered On: 01/02/2019 1:53 EST Performed On: 01/02/2019 2:00 EST by Lacey Harris RN-Resource Order Details Transport Mode Order Detail : Bed (including specialty) Isolation Precautions Order Detail : Standard Precautions Order Detail : N/A IV Order Detail : 1 Oxygen Order Detail : 1 Nurse Collect Order Detail : 0 Lift/Transfer : Moderate assist Central Line Order Detail : No Room Service : Needs Assistance Arterial Line : No Lacey Harris RN-Resource - 01/02/2019 1:53 EST documented in this encounter Plan of Treatment Not on file documented as of this encounter Visit Diagnoses Not on filedocumented in this encounter Care Teams Workgroup Leader Relationship Specialty Start Date End Date Nikolai Tse, PAPER PRODUCTS SUPERVISOR [address] [place], [place] [phone] PCP - General Nurse Practitioner 02/17/24 documented as of this encounter
--- OUTSIDE RECORDS SUMMARY | 2024-10-09 09:09 | XMS_ITS | Clinical Summary ---
Author Organization [facility] Address [address] [place] [address] Care Team Providers Care Flight Engineer Instructor Name Role Phone Roberta Villalobos Chel ANGELA Primary Care Provider Medications erythromycin (Romycin) 5 MG/GM ophthalmic ointment Apply 1 application to left eye 4 (four) times a day if needed (as needed for discomfort). ~1 cm instilled into affected eye 4 times per day x 7 days (quantity = 3.5 g tube) 3.5 g 3 Active Active Problems Problem Noted Date Diagnosed Date Stroke 02/19/2022 Overview (02/19/2022): s/p 2x left carotid stents Immunizations Immunization Administration Dates Next Due Tdap 02/19/2022 Family History Medical History Relation Name Comments Heart failure Father Hypertension Father Stroke Father Diabetes Mother Relation Name Status Comments Father Mother Social History Tobacco Use Types Packs/Day Years Used Date Smoking Tobacco: Former Cigarettes 0.5 50 Passive Smoke Exposure: Current Tobacco Cessation:Counseling Given: Not Answered Sex and Gender Information Value Date Recorded Sex Assigned at Not on file Legal Sex Male 6:56 PM EDT Gender Identity Not on file Sexual Orientation Not on file Last Filed Vital Signs Vital Sign Reading Time Taken Comments Blood Pressure 128/72 02/19/2022 3:36 PM EST Pulse 75 02/19/2022 3:36 PM EST Temperature 36.6 C (97.8 F) 02/19/2022 3:36 PM EST Respiratory Rate 18 02/19/2022 3:36 PM EST Oxygen Saturation 99% 02/19/2022 3:36 PM EST Inhaled Oxygen Concentration - - Weight - - Height - - Body Mass Index - - Plan of Treatment Health Maintenance Due Date Last Done Comments [facility]-Depression Screening 1950 [facility]-Hepatitis C Screening 1950 [facility]-Medicare Annual Wellness (AWV) 1950 [facility]-/Child/Adol SDOH Screenings 1950 [facility]- SDOH Screenings 1966 [facility]-Adult SDOH Screenings 1966 [facility]-Pneumococcal Vaccine: 50+ Years (1 of 1 - PCV) 1998 [facility]-Zoster Vaccines (1 of 2) 1998 [facility]-RSV Vaccine: 60+ Years or (1 - 1-dose 75+ series) 09/30/2023 [facility]-SPHCI-50 Vaccine ( - 2023- season) 2023 11/04/2021, 11/28/2020, 05/16/2020, Additional history exists [facility]-Influenza Vaccine (#1) 2024 11/10/2020, [facility]-DTaP,Tdap,and Td Vaccines (2 - Td or Tdap) 02/20/2032 02/19/2022 HPV Vaccines Aged Out No longer eligi ble based on patient's age to complete this topic [facility]-HIB Vaccines Aged Out No longer e ligible based on patient's age to complete this topic [facility]-Hepatitis A Vaccines Aged Out No longer eligible based on patient's age to complete this topic [facility]-IPV Vaccines Aged Out No longer e ligible based on patient's age to complete this topic [facility]-Rotavirus Vaccines Aged Out No lo nger eligible based on patient's age to complete this topic Insurance MEDICARE [employer] Care Teams Flight Engineer Instructor Relationship Specialty Start Date End Date Roberta Villalobos APRN [address] [place] [address] PCP - General Family Medicine 02/19/22
--- OUTSIDE RECORDS SUMMARY | 2024-10-09 09:09 | XMS_ITS | Encounter Summary ---
Author Organization [employer] ([place], [place], [place], [place]) Address [address] [place] [address] Care Team Providers Care Ux Specialist Name Role Phone Nikolai Tse APRN Primary Care Provider + Encounter Details Date Type Department Care Team (Late st Contact Info) Description 01/03/2019 Transcribed Document [facility] [place] Family Medicine [address] [place] [address] ProviderKevin MD [address], [place] [id number] Social History Tobacco Use Types Packs/Day Years Used Date Smoking Tobacco: Never Assessed Sex and Gender Information Value Date Recorded Sex Assigned at Not on file Legal Sex Male 4:12 PM CDT Gender Identity Not on file Sexual Orientation Not on file documented as of this encounter Miscellaneous Notes * Cerner Conversion Note - Kevin Pickering MD - 01/03/2019 2:34 PM FUR MATCHER Patient: PRAVEEN FOX Age: 68 Years Sex: Male : 1950 Subjective Patient had TCAR procedure yesterday and tolerated procedure well. He feels right sided weakness is continuing to get better and is looking forward to going to [facility] this afternoon. Review of Systems Heme - Patient remains on Plavix. Dr. Ritter stopped aspirin yesterday. Eyes - patient denies any trouble seeing on the right side. Objective Vitals & Measurements T: 36.8 ??C TMIN: 36.3 ??C TMAX: 36.9 ??C HR: 71 RR: 25 BP: 142/62 BP: 125/59(Line) SpO2: 99% HT: 170.18 cm WT: 94.4 kg BMI: 32.6 Physical Exam Patient is alert and oriented to person, place and time. Motor - 5/5 in both arms and legs. Tone - normal in both arms and legs. PERRL CN 2 - able to count fingers in all visual rasheed. CN 3, 4 and 6 - intact extraocular muscles. Facies Symmetric Tongue - midline No dysarthria Coordination - intact finger to nose and heel to winters bilaterally . Reflexes - 0-1+ sensory Exam - no extinction to double simultaneous stimulation in arms. Assessment/Plan Praveen Fox is a 68-year-old male with multiple stroke risk factors including diabetes, hypertension, hyperlipidemia, and coronary artery disease, who on December 22 had some transient right arm numbness followed by right leg weakness. He waited until December 23 to go to [facility] and then was transferred here. The patient had worsening right sided hemiparesis on the morning of December 24 after receiving Hydralazine for hypertension while sitting in chair . When he worsened , his systolic blood pressure was transiently 104. I think he had extension of his stroke on the morning of December 24 in the setting of relative hypotension. The patient however, has greatly improved since December 24. His cranial MRI of December 26 shows multiple small areas of cortical infarction ( left > right ) and many of these areas of ischemia appear to be in the watershed areas of the bilateral AKOSUA/MCA distribution. His CTA of the neck shows severe stenosis of the left ICA. Thus , he underwent a TCAR for the left carotid stenosis on January 02 and tolerated procedure without any clinical concern for a new stroke. I feel that his initial stroke of December 22 was probably a left AKOSUA stroke secondary to the left ICA stenosis and then he had watershed infarctions in the setting of hypotension on December 24 . He is clinically improving. RECOMMENDATIONS: At this time, I would recommend the followin. I agree with the stroke order sets that have been ordered. 2. I agree with heparin for DVT prevention. 3. I have added Plavix to aspirin as this stroke occurred while on aspirin . However, yesterday the vascular surgery service stopped aspirin. 4. I agree with TCAR . 5. I am not reordering lumbar and sacral MRIs as I do not think these studies will change the management of condition. I have left instructions for patient to discuss the lumbar CT report from [facility] with his outpatient physicians. I have discussed this with patient and his today as well. 6. If his heart monitor was to show atrial fibrillation, we would need to consider anticoagulating the patient. 7. At discharge, he should follow up with an outpatient neurologist and we instructed him not to drive until released by physician. 8. Try to avoid hypotension if possible. I have spent over 25 minutes on this case today . Over half that time was spent reviewing chart, counseling patient and coordinating cre with staff regarding discharge planning. Medications Inpatient acetaminophen-HYDROcodone 325 mg-5 mg oral tablet, 1 Tab, Oral, Q4H, PRN amLODIPine, 5 mg= 1 Tab, Oral, BID Ancef, 2 Gram= 50 mL, IV Piggyback, PREOP atorvastatin, 80 mg= 2 Tab, Oral, At Bedtime cloNIDine, 0.1 mg= 1 Tab, Oral, Q3H, PRN Colace, 100 mg= 1 Cap, Oral, BID gabapentin, 300 mg= 1 Cap, Oral, At Bedtime Habitrol 21 mg/24 hr transdermal film, extended release, 1 Patch, TransDermal, Daily heparin, 5000 Units= 1 mL, SubCutaneous, [id number] hydrALAZINE, 10 mg= 0.5 mL, IV Push, Q3H, PRN hydrALAZINE, 25 mg= 1 Tab, Oral, TID insulin lispro sliding scale, Scale C:, SubCutaneous, AC and at Bedtime labetalol, 10 mg= 2 mL, IV Push, Q1H, PRN Lactated Ringers Injection intravenous solution 1,000 mL, 1000 mL, IntraVENous Lantus, 30 Units= 0.3 mL, SubCutaneous, At Bedtime Lopressor, 25 mg= 1 Tab, Oral, BID miconazole 2% topical powder, 1 Application, Topical, BID Milk of Magnesia 8% oral suspension, 30 mL, Oral, Q6H, PRN morphine, 2 mg= 1 mL, IV Push, Q2H, PRN Normal Saline 500 mL, 500 mL, IntraVENous Normal Saline Flush, 10 mL, IV Push, Q12H Normal Saline Flush, 10 mL, IV Push, See Comment, PRN oxyCODONE, 5 mg= 1 Tab, Oral, Q6H, PRN phenylephrine injection 20 mg + NaCl 0.9% for drip 250 mL Plavix, 75 mg= 1 Tab, Oral, Daily Protonix, 40 mg= 1 Tab, Oral, Daily TriCor 145 mg oral tablet, 145 mg= 1 Tab, Oral, Daily Tylenol, 650 mg= 2 Tab, Oral, Q6H, PRN Zofran, 4 mg= 2 mL, IV Push, Q4H, PRN Zofran, 4 mg= 2 mL, IV Push, Q4H, PRN Electronically signed by [facility] Conversion Head Usher Cerner at 06/04/2022 10:01 AM CDT documented in this encounter Plan of Treatment Not on file documented as of this encounter Visit Diagnoses Not on filedocumented in this encounter Care Teams Ux Specialist Relationship Specialty Start Date End Date Nikolai Tse APRN [address] [place] [id number] PCP - General Nurse Practitioner 02/17/24 documented as of this encounter
--- OUTSIDE RECORDS SUMMARY | 2024-10-09 09:09 | XMS_ITS | Encounter Summary ---
Author Organization [employer] ([place], [place], [place], [place]) Address [address] [place] [address] Care Team Providers Care Director Trading Name Role Phone Nikolai Tse APRN Primary Care Provider + Encounter Details Date Type Department Care Team (Late st Contact Info) Description 01/03/2019 Transcribed Document [facility] [place] Family Medicine [facility] [place] [address] ProviderKevin MD [address] [place] [address] Social History Tobacco Use Types Packs/Day Years Used Date Smoking Tobacco: Never Assessed Sex and Gender Information Value Date Recorded Sex Assigned at Not on file Legal Sex Male 4:12 PM CDT Gender Identity Not on file Sexual Orientation Not on file documented as of this encounter Miscellaneous Notes * Cerner Conversion Note - Kevin Pickering MD - 01/03/2019 11:20 AM PIGGERY WORKER Patient: PRAVEEN FOX [facility]: [id number] Age: 68 Years Sex: Male : 1950 Subjective At the time of nephrology rounds, the patient is ablating in the hallway with a walker and assisted by therapy staff. He continues to have some right leg weakness but otherwise he is feeling much better. He tolerated his left carotid surgery without difficulty. He denies neck pain, fever, sweats, chills. He denies new weakness, paralysis or numbness. In general he's feeling better and he is anticipating discharge to rehabilitation today. Vital Signs T: 36.4 ??C TMIN: 35.6 ??C TMAX: 36.6 ??C HR: 63 HR: 63 RR: 10 BP: 116/57 BP: 128/56(Line) SpO2: 98% HT: 170.18 cm WT: 94.4 kg BMI: 32.6 Oxygen Settings (Last) Oxygen Therapy Mode: Nasal cannula (01/03/19 08:26:00) Oxygen Flow Rate: 2 Liter/Min (01/03/19 08:26:00) Intake & Output Totals Last 24 Hours (7a-7a) Input Total: 1091.625 mL Output Total: 700 mL Balance: 391.625 mL Physical Exam Gen.: Alert, no acute distress, ambulates with a walker HEENT: No temporal wasting, no scleral icterus, no conjunctival erythema Neck: Left supraclavicular surgical incision is clean dry and intact, good range of motion, no associated erythema, warmth or drainage. Cardiovascular: Normal S1-S2, regular rhythm, normal rate no rub no gallop Pulmonary: Clear to auscultation bilaterally no wheezes or rhonchi, fair air movement Musculoskeletal good muscle tone no significant lower extremity edema Neuro/psych: Mood and affect are appropriate, thoughts are fluent, moves all extremities spontaneously, right leg weakness persists. Right leg strength is 4+/5 Skin: No lesions, rashes or ecchymoses, I did not examine the sacral area, surgical site is recovering well. Assessment and plan: Chronic kidney disease stage III CVA Vascular surgery and left carotid endarterectomy Diabetes mellitus with probable diabetic nephropathy From a nephrology standpoint he is clinically stable. His creatinine is being maintained at 1.8 mg/dL. He will need routine outpatient nephrology clinic follow-up after he has completed his rehabilitation. From a nephrology standpoint he is okay for discharge to rehabilitation today. I'm encouraged that he tolerated his vascular surgery without difficulty. He needs good oral nutrition and good oral fluid intake. He also needs good glycemic control in order to avoid hyperglycemia and osmotic diuresis. I've discussed the case briefly with vascular surgery team members. Epifanio Blum M.D. Nephrology Partner with , Dr. Cole and Dr. Jackson dictated with [employer] recognition system Medications acetaminophen-HYDROcodone 325 mg-5 mg oral tablet, 1 [...] Daily heparin, 5000 Units= 1 mL, SubCutaneous, [id number] hydrALAZINE, 10 mg= 0.5 mL, IV Push, [...] Test Name Test Result Date/Time Sodium Level 141 mmol/L 01/03/2019 03:06 EST Potassium Level 4.3 mmol/L 01/03/2019 03:06 EST Chloride Level 113 mmol/L (High) 01/03/2019 03:06 EST Carbon Dioxide Level 24 mmol/L 01/03/2019 03:06 EST Anion Gap 8 (Low) 01/03/2019 03:06 EST Glucose Level 153 mg/dL (High) 01/03/2019 03:06 EST Blood Urea Nitrogen 29 mg/dL (High) 01/03/2019 03:06 EST Creatinine Level 1.80 mg/dL (High) 01/03/2019 03:06 EST eGFR 45 mL/min/1.73m2 (Low) 01/03/2019 03:06 EST eGFR NonAfrican 37 mL/min/1.73m2 (Low) 01/03/2019 03:06 EST Bun/Creatinine 16.1 01/03/2019 03:06 EST Calcium Level 8.7 mg/dL 01/03/2019 03:06 EST Protein Total 6.3 Gram/dL (Low) 01/03/2019 03:06 EST Albumin Level 2.7 Gram/dL (Low) 01/03/2019 03:06 EST Globulin 3.6 Gram/dL 01/03/2019 03:06 EST A/G Ratio 0.8 (Low) 01/03/2019 03:06 EST Bilirubin Total 0.3 mg/dL 01/03/2019 03:06 EST Alk Phos 33 Units/Liter 01/03/2019 03:06 EST AST 18 Units/Liter 01/03/2019 03:06 EST ALT 32 Units/Liter 01/03/2019 03:06 EST Magnesium Level 1.7 mg/dL 01/03/2019 03:06 EST Device Comment 1 Protocols Followed 01/02/2019 21:01 EST Device Comment 1 Protocols Followed 01/02/2019 16:34 EST Device Comment 1 Received Meds 01/02/2019 13:06 EST Glucose POC2 225 mg/dL (High) 01/03/2019 10:25 EST Glucose POC2 123 mg/dL (High) 01/03/2019 06:19 EST Glucose POC2 169 mg/dL (High) 01/02/2019 21:01 EST Glucose POC2 135 mg/dL (High) 01/02/2019 16:34 EST Glucose POC2 188 mg/dL (High) 01/02/2019 13:06 EST WBC 5.9 K/uL 01/03/2019 03:06 EST WBC 8.2 K/uL 01/02/2019 13:43 EST RBC 3.59 Million/uL (Low) 01/03/2019 03:06 EST RBC 3.86 Million/uL (Low) 01/02/2019 13:43 EST Hgb 10.6 g/dL (Low) 01/03/2019 03:06 EST Hgb 11.5 g/dL (Low) 01/02/2019 13:43 EST Hct 32.5 % (Low) 01/03/2019 03:06 EST Hct 35.1 % (Low) 01/02/2019 13:43 EST MCV 90.5 fL 01/03/2019 03:06 EST MCV 90.9 fL 01/02/2019 13:43 EST MCH 29.5 pg 01/03/2019 03:06 EST MCH 29.8 pg 01/02/2019 13:43 EST MCHC 32.6 Gram/dL 01/03/2019 03:06 EST MCHC 32.8 Gram/dL 01/02/2019 13:43 EST Platelet Count 298 K/uL 01/03/2019 03:06 EST Platelet Count 369 K/uL 01/02/2019 13:43 EST MPV 9.4 fL 01/03/2019 03:06 EST MPV 9.3 fL (Low) 01/02/2019 13:43 EST RDW 13.3 % 01/03/2019 03:06 EST RDW 13.3 % 01/02/2019 13:43 EST Neut % 49.1 % 01/02/2019 13:43 EST Neut # 4.02 K/uL 01/02/2019 13:43 EST Lymph % 31.6 % 01/02/2019 13:43 EST Lymph # 2.59 x10(3)/uL 01/02/2019 13:43 EST [place] % 10.0 % (High) 01/02/2019 13:43 EST [place] # 0.82 K/uL 01/02/2019 13:43 EST Eos % 7.7 % (High) 01/02/2019 13:43 EST Eos # 0.63 x10(3)/uL 01/02/2019 13:43 EST Baso % 1.0 % 01/02/2019 13:43 EST Baso # 0.08 x10(3)/uL 01/02/2019 13:43 EST Slide Review No 01/03/2019 03:06 EST Slide Review No 01/02/2019 13:43 EST IG# 0.05 x10(3)/uL 01/02/2019 13:43 EST IG% 0.60 % 01/02/2019 13:43 EST Electronically signed by Kyra, [facility] Conversion Fender Finisher Cerner at 06/04/2022 10:01 AM CDT documented in this encounter Plan of Treatment Not on file documented as of this encounter Visit Diagnoses Not on filedocumented in this encounter Care Teams Director Trading Relationship Specialty Start Date End Date Nikolai Tse, PANEL EDGE PAINTER [address] [place] [address] PCP - General Nurse Practitioner 02/17/24 documented as of this encounter
--- OUTSIDE RECORDS SUMMARY | 2024-10-09 09:09 | XMS_ITS | Encounter Summary ---
Author Organization [employer] ([place], [place], [place], [place]) Address [address] [place] [address] Care Team Providers Care Regional Office Coordinator Name Role Phone Nikolai Tse Aeljo ANGELA Primary Care Provider + Encounter Details Date Type Department Care Team (Late st Contact Info) Description 01/02/2019 Transcribed Document [facility] [place] Family Medicine [address] [place] [address] ProviderKevin MD [address], [place] [address] Social History Tobacco Use Types Packs/Day Years Used Date Smoking Tobacco: Never Assessed Sex and Gender Information Value Date Recorded Sex Assigned at Not on file Legal Sex Male 4:12 PM CDT Gender Identity Not on file Sexual Orientation Not on file documented as of this encounter Miscellaneous Notes * Cerner Conversion Note - Kevin Pickering MD - 01/02/2019 10:55 AM MEAT LOINER [facility] Main OR Preop Summary Primary Physician: CARISSA HANSON MD Finalized Date/Time: 01/02/19 13:52:28 Pt. Name: PRAVEEN FOX D.O.B./Sex: 1950 Male Med Rec #: [id number] Physician: PAT JACKSON MD Financial #: [id number] Pt. Type: I Room/Bed: [facility] Admit/Disch: 12/23/18 13:03:00 - Institution: [facility] PreOp Case Times Entry 1 In Preop 01/02/19 08:40:00 Ready for Holding n/a Room Patient Ready for 01/02/19 09:34:00 Surgery Patient Out of Preop 01/02/19 10:27:00 Patient Out of n/a Holding Room Last Modified By: Stefani Garcia, RN 01/02/19 13:52:26 [facility] PreOp Case Times Audit 01/02/19 13:52:26 Branch Operations Manager: [email or web address] Modifier: [email or web address] <+> 1 Patient Out of Preop 01/02/19 09:39:45 Branch Operations Manager: [email or web address] Modifier: [email or web address] <+> 1 Patient Ready for Surgery Finalized By: Stefani Garcia, RN Document Signatures Signed By: Stefani Garcia RN 01/02/19 13:52 Electronically signed by Kyra [facility] Conversion Sheet Tailer Cerner at 06/04/2022 9:30 AM CDT documented in this encounter Plan of Treatment Not on file documented as of this encounter Visit Diagnoses Not on filedocumented in this encounter Care Teams Regional Office Coordinator Relationship Specialty Start Date End Date Nikolai Tse, FISHERIES BIOLOGIST [address] [place] [id number] PCP - General Nurse Practitioner 02/17/24 documented as of this encounter
--- OUTSIDE RECORDS SUMMARY | 2024-10-09 09:09 | XMS_ITS | Encounter Summary ---
Author Organization [employer] ([place], [place], [place], [place]) Address [address] [place] [address] Care Team Providers Care Hospital Technician Name Role Phone LinuslongNikolai cruz APRN Primary Care Provider + Encounter Details Date Type Department Care Team (Late st Contact Info) Description 01/01/2019 Transcribed Document [facility] [place] [facility] [place] [address] ProviderKevin MD [address] [place] [address] Social History Tobacco Use Types Packs/Day Years Used Date Smoking Tobacco: Never Assessed Sex and Gender Information Value Date Recorded Sex Assigned at Not on file Legal Sex Male 4:12 PM CDT Gender Identity Not on file Sexual Orientation Not on file documented as of this encounter Miscellaneous Notes * Cerner Conversion Note - Kevin Pickering MD - 01/01/2019 12:17 PM FARM MACHINE OPERATOR Patient: PRAVEEN FOX Age: 68 Years Sex: Male : 1950 Subjective He generally feels okay. He has no focal complaints. He reports a good appetite. He denies shortness of breath, fever or sweats. He denies nausea. He believes that his right leg strength is improving. He is anticipating carotid endarterectomy surgery tomorrow. Vital Signs T: 36.4 ??C TMIN: 36.3 ??C TMAX: 36.6 ??C HR: 66 RR: 16 BP: 150/60 SpO2: 98% Oxygen Settings (Last) Oxygen Therapy Mode: Room air (12/31/18 20:00:00) Oxygen Flow Rate: 2 Liter/Min (12/25/18 14:30:00) Intake & Output Totals Last 24 Hours (7a-7a) Input Total: 500 mL Output Total: 250 mL Balance: 250 mL Physical Exam Gen.: Alert, no acute distress, talkative Cardiovascular: Normal S1-S2, regular rhythm, normal rate no rub no gallop Pulmonary: Clear to auscultation bilaterally no wheezes or rhonchi, fair air movement Gastrointestinal: Abdomen is soft, nontender, nondistended, no guarding Musculoskeletal good muscle tone no significant lower extremity edema Neuro/psych: Mood and affect are appropriate, thoughts are fluent, some residual right leg weakness. This seems slightly better than yesterday. No other focal deficits. Skin: No lesions, rashes or ecchymoses, I did not examine the sacral area Assessment and plan: Chronic kidney disease stage III Acute kidney injury CVA Diabetes mellitus type 2-uncontrolled Acute kidney injury on chronic kidney disease stage III: His serum creatinine continues to make slow improvements. From a nephrology standpoint he is okay to undergo CEA surgery tomorrow. We will initiate gentle maintenance IV fluids at midnight in order to maintain volume status/renal perfusion in the perioperative setting. I'm reassured about his clinical stability. CVA: His right leg weakness seems to be stabilizing. He is receiving medical therapy with antiplatelet agents, beta ann, aspirin and statin. Diabetes mellitus type II, uncontrolled: He continues to make poor choices regarding food selection. He describes eating candy. -He should avoid hyperglycemia since this results in glucosuria and osmotic diuresis. Epifanio Blum M.D. Nephrology Partner with , Dr. Cole and Dr. Jackson dictated with [employer] recognition system Medications Ambien, 5 mg= 1 Tab, Oral, At Bedtime, PRN amLODIPine, 5 mg= 1 Tab, Oral, BID aspirin, 81 mg= 1 Tab, Oral, Daily [...] Daily heparin, 5000 Units= 1 mL, SubCutaneous, [id number] hydrALAZINE, 10 mg= 0.5 mL, IV Push, Q3H, PRN hydrALAZINE, 25 mg= 1 Tab, Oral, TID insulin lispro sliding scale, Scale C:, SubCutaneous, AC and at Bedtime Lantus, 30 Units= 0.3 mL, SubCutaneous, At Bedtime Lopressor, 25 mg= 1 Tab, Oral, BID miconazole 2% topical powder, 1 Application, Topical, BID Milk of Magnesia 8% oral suspension, 30 mL, Oral, Q6H, PRN Normal Saline 1,000 mL, 1000 mL, IntraVENous Normal Saline Flush, 10 mL, [...] Test Result Date/Time Sodium Level 141 mmol/L 01/01/2019 06:52 EST Potassium Level 4.2 mmol/L 01/01/2019 06:52 EST Chloride Level 111 mmol/L 01/01/2019 06:52 EST Carbon Dioxide Level 25 mmol/L 01/01/2019 06:52 EST Anion Gap 9 01/01/2019 06:52 EST Glucose Level 166 mg/dL (High) 01/01/2019 06:52 EST Blood Urea Nitrogen 33 mg/dL (High) 01/01/2019 06:52 EST Creatinine Level 1.80 mg/dL (High) 01/01/2019 06:52 EST eGFR 45 mL/min/1.73m2 (Low) 01/01/2019 06:52 EST eGFR NonAfrican 37 mL/min/1.73m2 (Low) 01/01/2019 06:52 EST Bun/Creatinine 18.3 01/01/2019 06:52 EST Calcium Level 9.6 mg/dL 01/01/2019 06:52 EST Protein Total 7.5 Gram/dL 01/01/2019 06:52 EST Albumin Level 3.1 Gram/dL (Low) 01/01/2019 06:52 EST Globulin 4.4 Gram/dL 01/01/2019 06:52 EST A/G Ratio 0.7 (Low) 01/01/2019 06:52 EST Bilirubin Total 0.4 mg/dL 01/01/2019 06:52 EST Alk Phos 50 Units/Liter 01/01/2019 06:52 EST AST 22 Units/Liter 01/01/2019 06:52 EST ALT 32 Units/Liter 01/01/2019 06:52 EST Magnesium Level 2.0 mg/dL 01/01/2019 06:52 EST Device Comment 1 Received Meds 01/01/2019 05:58 EST Device Comment 1 Received Meds 12/31/2018 20:51 EST Glucose POC2 151 mg/dL (High) 01/01/2019 05:58 EST Glucose POC2 308 mg/dL (High) 12/31/2018 20:51 EST WBC 7.4 K/uL 01/01/2019 06:52 EST RBC 4.86 Million/uL 01/01/2019 06:52 EST Hgb 14.0 g/dL 01/01/2019 06:52 EST Hct 44.3 % 01/01/2019 06:52 EST MCV 91.2 fL 01/01/2019 06:52 EST MCH 28.8 pg 01/01/2019 06:52 EST MCHC 31.6 Gram/dL (Low) 01/01/2019 06:52 EST Platelet Count 381 K/uL (High) 01/01/2019 06:52 EST MPV 9.3 fL (Low) 01/01/2019 06:52 EST RDW 13.2 % 01/01/2019 06:52 EST Slide Review No 01/01/2019 06:52 EST Electronically signed by [facility], [facility] Conversion Front Loader Residential Driver Cerner at 06/04/2022 9:32 AM CDT documented in this encounter Plan of Treatment Not on file documented as of this encounter Visit Diagnoses Not on filedocumented in this encounter Care Teams Hospital Technician Relationship Specialty Start Date End Date Nikolai Tse, MACHINIST 2ND SHIFT [address] [phone] PCP - General Nurse Practitioner 02/17/24 documented as of this encounter
--- OUTSIDE RECORDS SUMMARY | 2024-10-09 09:09 | XMS_ITS | Encounter Summary ---
Author Organization [employer] ([place], [place], [place], [place]) Address [address] [place] [address] Care Team Providers Care Pipe Blanks Cut Off Saw Operator Name Role Phone LinuskarimeMayakeerthianthony Dhillon APRN Primary Care Provider + Encounter Details Date Type Department Care Team (Late st Contact Info) Description 01/01/2019 Transcribed Document [facility] [place] [facility] [place] [address] ProviderKevin MD [address] [place] [address] Social History Tobacco Use Types Packs/Day Years Used Date Smoking Tobacco: Never Assessed Sex and Gender Information Value Date Recorded Sex Assigned at Not on file Legal Sex Male 4:12 PM CDT Gender Identity Not on file Sexual Orientation Not on file documented as of this encounter Miscellaneous Notes * Cerner Conversion Note - Kevin Pickering MD - 01/01/2019 10:46 AM COMMUNICATIONS TOWER TECHNICIAN Patient: [facility]: [id number] Age: 68 Years Sex: Male : 1950 Subjective Patient was seen and examined this morning, he denies any speech deficits, or right-sided symptoms. Vital Signs T: 36.3 ??C TMIN: 36.3 ??C TMAX: 36.6 ??C HR: 59 RR: 16 BP: 160/77 SpO2: 98% Oxygen Settings (Last) Oxygen Therapy Mode: Room air (12/31/18 20:00:00) Oxygen Flow Rate: 2 Liter/Min (12/25/18 14:30:00) Intake & Output Totals Last 24 Hours (7a-7a) Input Total: 500 mL Output Total: 250 mL Balance: 250 mL Physical Exam General: [Alert and oriented, [...] and strength, no tenderness or swelling]. Skin: [Skin is warm, dry and pink, no rashes or lesions]. Psychiatric: [Cooperative, appropriate mood and affect]. neuro: Cranial nerves intact, strength is 5 out of 5 in all extremities, gross sensation intact Assessment/Plan 1. Left AKOSUA stroke due to left ICA stenosis , complicated by watershed ischemia due to hypotension. Patient will go for left TCAR on Wednesday. Patient's symptoms are improving. Neurology following. Continue [...] (TACO ELY) Heparin 5,000 Units, SubCutaneous, Inj, [id number], Routine, Start 12/23/18 14:00:00 EST (MARIN MCCLELLAND [...] Daily heparin, 5000 Units= 1 mL, SubCutaneous, [id number] hydrALAZINE, 10 mg= 0.5 mL, IV Push, [...] Sodium Level 141 mmol/L 01/01/2019 06:52 EST Sodium Level 140 mmol/L 12/31/2018 11:07 EST Potassium Level 4.2 mmol/L 01/01/2019 06:52 EST Potassium Level 4.5 mmol/L 12/31/2018 11:07 EST Chloride Level 111 mmol/L 01/01/2019 06:52 EST Chloride Level 108 mmol/L 12/31/2018 11:07 EST Carbon Dioxide Level 25 mmol/L 01/01/2019 06:52 EST Carbon Dioxide Level 26 mmol/L 12/31/2018 11:07 EST Anion Gap 9 01/01/2019 06:52 EST Anion Gap 10 12/31/2018 11:07 EST Glucose Level 166 mg/dL (High) 01/01/2019 06:52 EST Glucose Level 329 mg/dL (High) 12/31/2018 11:07 EST Blood Urea Nitrogen 33 mg/dL (High) 01/01/2019 06:52 EST Blood Urea Nitrogen 33 mg/dL (High) 12/31/2018 11:07 EST Creatinine Level 1.80 mg/dL (High) 01/01/2019 06:52 EST Creatinine Level 2.20 mg/dL (High) 12/31/2018 11:07 EST eGFR 45 mL/min/1.73m2 (Low) 01/01/2019 06:52 EST eGFR 36 mL/min/1.73m2 (Low) 12/31/2018 11:07 EST eGFR NonAfrican 37 mL/min/1.73m2 (Low) 01/01/2019 06:52 EST eGFR NonAfrican 30 mL/min/1.73m2 (Low) 12/31/2018 11:07 EST Bun/Creatinine 18.3 01/01/2019 06:52 EST Bun/Creatinine 15.0 12/31/2018 11:07 EST Calcium Level 9.6 mg/dL 01/01/2019 06:52 EST Calcium Level 9.1 mg/dL 12/31/2018 11:07 EST Protein Total 7.5 Gram/dL 01/01/2019 06:52 EST Protein Total 6.9 Gram/dL 12/31/2018 11:07 EST Albumin Level 3.1 Gram/dL (Low) 01/01/2019 06:52 EST Albumin Level 3.0 Gram/dL (Low) 12/31/2018 11:07 EST Globulin 4.4 Gram/dL 01/01/2019 06:52 EST Globulin 3.9 Gram/dL 12/31/2018 11:07 EST A/G Ratio 0.7 (Low) 01/01/2019 06:52 EST A/G Ratio 0.8 (Low) 12/31/2018 11:07 EST Bilirubin Total 0.4 mg/dL 01/01/2019 06:52 EST Bilirubin Total 0.4 mg/dL 12/31/2018 11:07 EST Alk Phos 50 Units/Liter 01/01/2019 06:52 EST Alk Phos 50 Units/Liter 12/31/2018 11:07 EST AST 22 Units/Liter 01/01/2019 06:52 EST AST 21 Units/Liter 12/31/2018 11:07 EST ALT 32 Units/Liter 01/01/2019 06:52 EST ALT 30 Units/Liter 12/31/2018 11:07 EST Magnesium Level 2.0 mg/dL 01/01/2019 06:52 EST Magnesium Level 2.2 mg/dL 12/31/2018 11:07 EST Device Comment 1 Received Meds 01/01/2019 05:58 EST Device Comment 1 Received Meds 12/31/2018 20:51 EST Device Comment 1 Received Meds 12/31/2018 11:29 EST Glucose POC2 151 mg/dL (High) 01/01/2019 05:58 EST Glucose POC2 308 mg/dL (High) 12/31/2018 20:51 EST Glucose POC2 304 mg/dL (High) 12/31/2018 11:29 EST WBC 7.4 K/uL 01/01/2019 06:52 EST WBC 6.0 K/uL 12/31/2018 11:07 EST RBC 4.86 Million/uL 01/01/2019 06:52 EST RBC 4.37 Million/uL 12/31/2018 11:07 EST Hgb 14.0 g/dL 01/01/2019 06:52 EST Hgb 12.7 g/dL (Low) 12/31/2018 11:07 EST Hct 44.3 % 01/01/2019 06:52 EST Hct 40.0 % (Low) 12/31/2018 11:07 EST MCV 91.2 fL 01/01/2019 06:52 EST MCV 91.5 fL 12/31/2018 11:07 EST MCH 28.8 pg 01/01/2019 06:52 EST MCH 29.1 pg 12/31/2018 11:07 EST MCHC 31.6 Gram/dL (Low) 01/01/2019 06:52 EST MCHC 31.8 Gram/dL (Low) 12/31/2018 11:07 EST Platelet Count 381 K/uL (High) 01/01/2019 06:52 EST Platelet Count 361 K/uL 12/31/2018 11:07 EST MPV 9.3 fL (Low) 01/01/2019 06:52 EST MPV 9.5 fL 12/31/2018 11:07 EST RDW 13.2 % 01/01/2019 06:52 EST RDW 13.3 % 12/31/2018 11:07 EST Slide Review No 01/01/2019 06:52 EST Slide Review No 12/31/2018 11:07 EST Electronically signed by [facility], [facility] Conversion French Professor Cerner at 06/04/2022 9:48 AM CDT documented in this encounter Plan of Treatment Not on file documented as of this encounter Visit Diagnoses Not on filedocumented in this encounter Care Teams Pipe Blanks Cut Off Saw Operator Relationship Specialty Start Date End Date Nikolai Tse, NATIONAL SERVICE OFFICER [address] [place] [address] PCP - General Nurse Practitioner 02/17/24 documented as of this encounter
--- OUTSIDE RECORDS SUMMARY | 2024-10-09 09:09 | XMS_ITS | Encounter Summary ---
Author Organization [employer] ([place], [place], [place], [place]) Address [address] [place] [address] Care Team Providers Care Prime Broker Name Role Phone Linuskarime Mayakeerthianthony Dhillon APRN Primary Care Provider + Encounter Details Date Type Department Care Team (Late st Contact Info) Description 01/02/2019 Transcribed Document [facility] [place] [facility] [place] [address] ProviderKevin MD [address] [place], [place] [address] Social History Tobacco Use Types Packs/Day Years Used Date Smoking Tobacco: Never Assessed Sex and Gender Information Value Date Recorded Sex Assigned at Not on file Legal Sex Male 4:12 PM CDT Gender Identity Not on file Sexual Orientation Not on file documented as of this encounter Miscellaneous Notes * Cerner Conversion Note - Kevin Pickering MD - 01/02/2019 9:22 AM ELECTRICAL SIGN WIRER HELPER Procedural Documentation Entered On: 01/02/2019 9:23 EST Performed On: 01/02/2019 9:22 EST by Uma Lin RN Procedure Documentation Procedure to be Performed : irina Time Out Pause Time : 01/02/2019 9:16 EST All Activity Suspended : Yes Team Verbally Confirms Information : Correct patient identity, Correct side and site are marked, Consent form is present and accurate, Agreement on the procedure to be done Procedure Performed : irina Proper Use of Sterile Apparel per Policy : Yes Procedure Case Attendee : JAYNE THOMPSON MD-ANS Procedure Case Attendee Role : Anesthesiologist Procedure Case Attendee Role 2 : covered buckle assembler Case Attendee 2 : Uma Lin RN Procedure Case Attendee Role 3 : covered buckle assembler Case Attendee 3 : CHERYL LAKHANI RN Wright, Vicky P, RN - 01/02/2019 9:22 EST Postprocedure Documentation Current Time : 9:22 EST Uma Lin RN - 01/02/2019 9:22 EST Gopi Level I Post Anesthesia Assessment Gopi I Activity Status : Moves 4 extremities voluntarily or on command Gopi l Respiratory Component : Able to deep breathe and cough freely Gopi I Circulation Component : BP 20% of preanesthetic level Gopi I Consciousness : Arouses on calling Gopi l Oxygen Saturation : Needs oxygen to maintain > 92% Gopi l Score : 8 Uma Lin RN - 01/02/2019 9:22 EST Vital Measurements Systolic Blood Pressure : 163 mmHg (HI) Diastolic Blood Pressure : 65 mmHg Uma Lin RN - 01/02/2019 9:30 EST Pulse Method : Arterial line Pulse Source : Arterial Uma Lin RN - 01/02/2019 9:22 EST Peripheral Pulse Rate : 60 bpm Uma Lin RN - 01/02/2019 9:30 EST Pulse Rhythm : Regular Uma Lin RN - 01/02/2019 9:22 EST Respiratory Rate : 13 Breaths/Min (LOW) Uma Lin RN - 01/02/2019 9:30 EST Blood Pressure Location : Arterial Blood Pressure Source : Arterial Pressure Line Blood Pressure Position : Supine Uma Lin RN - 01/02/2019 9:22 EST Oxygen Therapy Oxygen Titrated : No Oxygen Therapy Mode : Nasal cannula Oxygen Flow Rate : 2 Liter/Min Pulse Oximeter Probe Site : Hand, right O2 Saturation Monitoring Frequency : Continuous Uma Lin RN - 01/02/2019 9:22 EST Oxygen Saturation : 97 % Uma Lin RN - 01/02/2019 9:30 EST Oxygen Humidification : None Uma Lin RN - 01/02/2019 9:22 EST Electronically signed by Suzy Rae Conversion Search Engine Optimization Specialist Cerner at 06/04/2022 9:42 AM CDT documented in this encounter Plan of Treatment Not on file documented as of this encounter Visit Diagnoses Not on filedocumented in this encounter Care Teams Prime Broker Relationship Specialty Start Date End Date Nikolai Tse, ELECTROTYPER [address] [place] [address] PCP - General Nurse Practitioner 02/17/24 documented as of this encounter
--- OUTSIDE RECORDS SUMMARY | 2024-10-09 09:09 | XMS_ITS | Encounter Summary ---
Author Organization [employer] ([place], [place], [place], [place]) Address [address] [place] [address] Care Team Providers Care Water Taxi Operator Name Role Phone Linuskarime Mayakeerthianthony Dhillon APRN Primary Care Provider + Encounter Details Date Type Department Care Team (Late st Contact Info) Description 01/01/2019 Transcribed Document [facility] [place] Family Medicine [facility] [place] [address] ProviderKevin MD [address] [place], [place] [id number] Social History Tobacco Use Types Packs/Day Years Used Date Smoking Tobacco: Never Assessed Sex and Gender Information Value Date Recorded Sex Assigned at Not on file Legal Sex Male 4:12 PM CDT Gender Identity Not on file Sexual Orientation Not on file documented as of this encounter Miscellaneous Notes * Cerner Conversion Note - Kevin Pickering MD - 01/01/2019 2:00 AM PREPAROLE COUNSELING AIDE Volunteer Recruitment Coordinator Details Entered On: 01/01/2019 1:49 EST Performed On: 01/01/2019 2:00 EST by Klarissa Mayer, RN Order Details Transport Mode Order Detail : Bed (including specialty) Isolation Precautions Order Detail : Standard Precautions Order Detail : N/A IV Order Detail : 1 Oxygen Order Detail : 1 Nurse Collect Order Detail : 0 Lift/Transfer : Moderate assist Central Line Order Detail : No Room Service : Needs Assistance Arterial Line : No Klarissa Mayer RN - 01/01/2019 1:49 EST documented in this encounter Plan of Treatment Not on file documented as of this encounter Visit Diagnoses Not on filedocumented in this encounter Care Teams Water Taxi Operator Relationship Specialty Start Date End Date Nikolai Tse, DIRECTOR OF COMPLIANCE [address] [place], [place] [id number] PCP - General Nurse Practitioner 02/17/24 documented as of this encounter
--- OUTSIDE RECORDS SUMMARY | 2024-10-09 09:09 | XMS_ITS | Encounter Summary ---
Author Organization [employer] ([place], [place], [place], [place]) Address [address] [place] [address] Care Team Providers Care Notch Grinder Name Role Phone Nikolai Tse APRN Primary Care Provider + Encounter Details Date Type Department Care Team (Late st Contact Info) Description 01/02/2019 Transcribed Document [facility] [place] [address] ProviderKevin MD [address] [place] [place], [place] [address] Social History Tobacco Use Types Packs/Day Years Used Date Smoking Tobacco: Never Assessed Sex and Gender Information Value Date Recorded Sex Assigned at Not on file Legal Sex Male 4:12 PM CDT Gender Identity Not on file Sexual Orientation Not on file documented as of this encounter Miscellaneous Notes * Cerner Conversion Note - Kevin ProviderMD - 01/02/2019 10:37 AM KINDERGARTEN AIDE Attempt to Treat, OT Entered On: 01/02/2019 10:38 EST Performed On: 01/02/2019 10:37 EST by RAFAT ANDERSON OTR/Chel Attempt to Treat Unable to Treat Due To : Patient on hold Inability to Treat Comment : Pt off floor for L CEA. OT will need new orders s/p procedure to resume therapy. RN aware. Notification : FRANCISCO Kat SHEENAGH E OTR/L - 01/02/2019 10:37 EST Electronically signed by [facility] Conversion Corrugator Operator Cerner at 06/04/2022 9:33 AM CDT documented in this encounter Plan of Treatment Not on file documented as of this encounter Visit Diagnoses Not on filedocumented in this encounter Care Teams Notch Grinder Relationship Specialty Start Date End Date Nikolai Tse, MANAGER INVENTORY CONTROL [address] [place] [address] PCP - General Nurse Practitioner 02/17/24 documented as of this encounter
--- OUTSIDE RECORDS SUMMARY | 2024-10-09 09:09 | XMS_ITS | Encounter Summary ---
Author Organization [employer] ([place], [place], [place], [place]) Address [address] [place] [address] Care Team Providers Care Materials Clerk Name Role Phone Nikolai Tse APRN Primary Care Provider + Encounter Details Date Type Department Care Team (Late st Contact Info) Description 01/01/2019 Transcribed Document [facility] [place] Family Medicine [facility] [address] ProviderKevin MD [address] [place] [address] Social History Tobacco Use Types Packs/Day Years Used Date Smoking Tobacco: Never Assessed Sex and Gender Information Value Date Recorded Sex Assigned at Not on file Legal Sex Male 4:12 PM CDT Gender Identity Not on file Sexual Orientation Not on file documented as of this encounter Miscellaneous Notes * Cerner Conversion Note - Kevin Pickering MD - 01/01/2019 5:45 PM SLEEVE MAKER Spiritual Care Short Form Entered On: 01/01/2019 19:45 EST Performed On: 01/01/2019 17:45 EST by COLLEEN ZAMBRANO Chaplain-Non Cert General Information, Spiritual Care Spiritual Care Referred by : Financial Cost Analyst initiated Reason for Visit : Initial Ministry Provided to : Patient, Family/Significant other Intervention/Comment/Summary Points : Pre-surgery visit to patient; his and several family members were present. Patent said he is ready for his procedure and had no distressing concerns at time of visit. No other needs at this time. Spiritual/Emotional Acuity : No Concern Spiritual Framework : Integrated, provides strength/resource Hinduism Preference : Other: unaffiliated at this time, though raised [employer] COLLEEN ZAMBRANO Chaplain-Non Cert - 01/01/2019 19:43 EST Electronically signed by [facility], [facility] Conversion Composite Bond Technician Cerner at 06/04/2022 9:46 AM CDT documented in this encounter Plan of Treatment Not on file documented as of this encounter Visit Diagnoses Not on filedocumented in this encounter Care Teams Materials Clerk Relationship Specialty Start Date End Date Nikolai Tse, FOSTER CARE WORKER [address] [place] [address] PCP - General Nurse Practitioner 02/17/24 documented as of this encounter
--- OUTSIDE RECORDS SUMMARY | 2024-10-09 09:09 | XMS_ITS | Encounter Summary ---
Author Organization [employer] ([place], [place], [place], [place]) Address [address] [place] [address] Care Team Providers Care Special Tester Name Role Phone Nikolai Tse Alejo ANGELA Primary Care Provider + Encounter Details Date Type Department Care Team (Late st Contact Info) Description 01/02/2019 Transcribed Document [facility] [place] [address] [place] [address] ProviderKevin MD [address] [place] [address] Social History Tobacco Use Types Packs/Day Years Used Date Smoking Tobacco: Never Assessed Sex and Gender Information Value Date Recorded Sex Assigned at Not on file Legal Sex Male 4:12 PM CDT Gender Identity Not on file Sexual Orientation Not on file documented as of this encounter Miscellaneous Notes * Cerner Conversion Note - Kevin Pickering MD - 01/02/2019 10:[address] [facility] Main OR IntraOp Summary Primary Physician: CARISSA HANSON MD Finalized Date/Time: 01/10/19 13:46:50 Pt. Name: SUPA PEDROZAO.B./Sex: 1950 Male Med Rec #: [id number] Physician: PAT JACKSON MD Financial #: [id number] Pt. Type: I Room/Bed: [facility] Admit/Disch: 12/23/18 13:03:00 - 01/03/19 15:52:00 Institution: [facility] IntraOp Case Attendance Entry 1 Entry 2 Entry 3 Case Attendee CARISSA HANSON MD ABEDI, HOME CALLEJAS Elizabeth A, RN Role Performed Surgeon/Proceduralist, Surgeon/Proceduralist, Latex Fashions Designer, First First Third Time In 01/02/19 10:29:00 01/02/19 11:13:00 01/02/19 10:29:00 Time Out 01/02/19 12:06:00 01/02/19 12:06:00 01/02/19 12:06:00 Procedure Aortic Stent Placement Aortic Stent Placement Aortic Stent Placement Endovascular(Left) Endovascular(Left) Endovascular(Left) Other Attendee Superficial Wound Closed By: Last Modified By: Gladis He, Gladis Lucero, Gladis Lucero, RN 01/02/19 12:08:05 01/02/19 12:08:05 01/02/19 12:08:05 Entry 4 Entry 5 Entry 6 Case Attendee RAMSEY SALAS, SCRUB Ashlee Monte [employer] Taylor, Tara, TECH Cardiovascular Helper Maintenance Cleaning Role Performed Scrub, First Helper Maintenance Cleaning Helper Maintenance Cleaning Time In 01/02/19 10:29:00 01/02/19 10:29:00 01/02/19 10:29:00 Time Out 01/02/19 11:10:00 01/02/19 12:06:00 01/02/19 12:06:00 Procedure Aortic Stent Placement Aortic Stent Placement Aortic Stent Placement Endovascular(Left) Endovascular(Left) Endovascular(Left) Other Attendee Superficial Wound Closed By: Last Modified By: Gladis He, Gladis Lucero, RN Gladis He, RN 01/02/19 12:08:05 01/02/19 12:08:05 01/02/19 12:08:05 Entry 7 Entry 8 Entry 9 Case Attendee REAGAN GARCIA MD-LATANYA LAYNE, JULIO CÉSAR, OTHER, ATTENDEE #1 GROUND INSTRUCTOR ADVANCED Role Performed Anesthesiologist of GROUND INSTRUCTOR ADVANCED/Nurse Willow Analyst Vendor Record Time In 01/02/19 10:29:00 01/02/19 10:29:00 01/02/19 10:29:00 Time Out 01/02/19 12:06:00 01/02/19 12:06:00 01/02/19 12:06:00 Procedure Aortic Stent Placement Aortic Stent Placement Aortic Stent Placement Endovascular(Left) Endovascular(Left) Endovascular(Left) Other Attendee ENOCH RODRIGUEZ Superficial Wound Closed By: Last Modified By: Gladis He RN Napier, Elizabeth A, RN Napier, Elizabeth A, RN 01/02/19 12:08:05 01/02/19 12:08:05 01/02/19 12:08:05 Entry 10 Case Attendee Stephanie Nayak RN Role Performed Latex Fashions Designer, First Time In 01/02/19 11:06:00 Time Out 01/02/19 11:42:00 Procedure Aortic Stent Placement Endovascular(Left) Other Attendee Superficial Wound Closed By: Last Modified By: Gladis He RN 01/02/19 12:08:05 [facility] IntraOp Case Attendance Audit 01/02/19 12:08:05 Tow Motor Driver: EANAPIER Modifier: EANAPIER 1 <+> Time Out 1 <*> Procedure Aortic Stent Placement Endovascular(Left) 2 <+> Time Out 2 <*> Procedure Aortic Stent Placement Endovascular(Left) 3 <+> Time Out 3 <*> Procedure Aortic Stent Placement Endovascular(Left) 4 <*> Procedure Aortic Stent Placement Endovascular(Left) 5 <+> Time Out 5 <*> Procedure Aortic Stent Placement Endovascular(Left) 6 <+> Time Out 6 <*> Procedure Aortic Stent Placement Endovascular(Left) 7 <+> Time Out 7 <*> Procedure Aortic Stent Placement Endovascular(Left) 8 <+> Time Out 8 <*> Procedure Aortic Stent Placement Endovascular(Left) 9 <+> Time Out 9 <*> Procedure Aortic Stent Placement Endovascular(Left) 10 <*> Procedure Aortic Stent Placement Endovascular(Left) 01/02/19 11:46:14 Tow Motor Driver: EANAPIER Modifier: EANAPIER 10 <+> Time Out 10 <*> Procedure Aortic Stent Placement Endovascular(Left) 01/02/19 11:24:04 Tow Motor Driver: EANAPIER Modifier: EANAPIER 2 <*> Time In 01/02/19 10:29:00 2 <*> Procedure Aortic Stent Placement Endovascular(Left) 4 <+> Time Out 4 <*> Procedure Aortic Stent Placement Endovascular(Left) 01/02/19 11:06:32 Tow Motor Driver: BRUCENAPIER Modifier: EANAPIER <+> 10 Case Attendee <+> 10 Role Performed <+> 10 Time In <+> 10 Procedure 01/02/19 11:01:53 Tow Motor Driver: RAVINDRAPIER Modifier: EANAPIER <+> 1 Procedure <+> 2 Procedure 3 <*> Procedure Aortic Stent Placement Endovascular(Left) 4 <*> Procedure Aortic Stent Placement Endovascular(Left) 5 <*> Procedure Aortic Stent Placement Endovascular(Left) 6 <*> Procedure Aortic Stent Placement Endovascular(Left) 7 <*> Procedure Aortic Stent Placement Endovascular(Left) 8 <*> Procedure Aortic Stent Placement Endovascular(Left) 9 <*> Procedure Aortic Stent Placement Endovascular(Left) 01/02/19 10:59:22 Tow Motor Driver: RAVINDRAPIER Modifier: EANAPIER 3 <*> Procedure Aortic Stent Placement Endovascular(Left) 4 <*> Procedure Aortic Stent Placement Endovascular(Left) 5 <*> Procedure Aortic Stent Placement Endovascular(Left) 6 <*> Procedure Aortic Stent Placement Endovascular(Left) 7 <*> Procedure Aortic Stent Placement Endovascular(Left) 8 <+> Time In 8 <*> Procedure Aortic Stent Placement Endovascular(Left) 9 <+> Time In 9 <*> Procedure Aortic Stent Placement Endovascular(Left) 01/02/19 10:55:04 Tow Motor Driver: CHULA Modifier: EANAPIER 3 <+> Time In 3 <*> Procedure Aortic Stent Placement Endovascular(Left) 4 <+> Time In 4 <*> Procedure Aortic Stent Placement Endovascular(Left) 5 <+> Time In 5 <*> Procedure Aortic Stent Placement Endovascular(Left) 6 <+> Time In 6 <*> Procedure Aortic Stent Placement Endovascular(Left) 7 <+> Time In 7 <*> Procedure Aortic Stent Placement Endovascular(Left) <+> 8 Case Attendee <+> 8 Role Performed <+> 8 Procedure <+> 9 Case Attendee <+> 9 Role Performed <+> 9 Procedure <+> [address] [facility] IntraOp Case Times Entry 1 Patient In Room Time 01/02/19 10:29:00 Out Room Time 01/02/19 12:06:00 Anesthesia Start Time 01/02/19 10:29:00 Stop Time 01/02/19 12:06:00 Surgery / Procedure Times Start Time 01/02/19 10:55:00 Stop Time 01/02/19 11:45:00 Last Modified By: Gladis He RN 01/02/19 12:07:17 [facility] IntraOp Case Times Audit 01/02/19 12:07:17 Tow Motor Driver: EANAPIER Modifier: EANAPIER <+> 1 Out Room Time <+> 1 Stop Time 01/02/19 11:46:45 Tow Motor Driver: EANAPIER Modifier: EANAPIER <+> 1 Stop Time 01/02/19 10:54:26 Tow Motor Driver: EANAPIER Modifier: EANAPIER <+> [address] [facility] IntraOp Cautery Entry 1 ESU Identification Cautery Type Monopolar ESU ID Number [id number] ID Type Hospital Number Cautery Settings Cut Setting 30 Coag Setting 30 ESU Grounding Pad Ground Pad Type Reusable electrode pad Grounding Pad Site Right Buttock Grounding Pad Gladis He RN Applied By Grounding Pad Site Intact, Warm, Dry Skin Condition Before Cautery Grounding Pad Site Unchanged Skin Condition After Cautery Last Modified By: Gladis He RN 01/02/19 10:57:18 [facility] IntraOp Communication Entry 1 Entry 2 Communication To Family/Significant other Family/Significant other Comment START CLOSE Communication By Gladis He RN Edwards, Kelsey, RN Date and Time 01/02/19 10:55:00 01/02/19 11:46:00 Last Modified By: Gladis He RN Napier, Elizabeth A, RN 01/02/19 10:55:29 01/02/19 11:46:37 [facility] IntraOp Communication Audit 01/02/19 11:46:37 Tow Motor Driver: EANAPIER Modifier: EANAPIER <+> 2 Communication By <+> 2 Date and Time <+> 2 Communication To <+> [address] [facility] IntraOp Counts Verification Entry 1 Entry 2 Procedure Aortic Stent Placement Aortic Stent Placement Endovascular(Left) Endovascular(Left) Count Info Count Type Sponge, Sharps, Sponge, Sharps, Miscellaneous Miscellaneous Counts Verification Baseline/pre-procedure Before wound closure Sequence Count Results Not Applicable If Incorrect or Waived complete the Counts Action Taken form: If Intentional Retention, complete the Intential Retention form: Counts Performed By Count Performed By RAMSEY SALAS, RAMSEY FRANKLIN SCRUB (Scrub) TECH TECH Count Performed By Gladis He RN Edwards, Kelsey, RN (RN) Last Modified By: Gladis He RN Napier, Elizabeth A, RN 01/02/19 12:07:08 01/02/19 11:53:34 [facility] IntraOp Counts Verification Audit 01/02/19 12:07:08 Tow Motor Driver: EANAPIER Modifier: EANAPIER 1 <*> Procedure Aortic Stent Placement Endovascular(Left) 01/02/19 11:53:34 Tow Motor Driver: EANAPIER Modifier: EANAPIER 2 <*> Procedure Aortic Stent Placement Endovascular(Left) 2 <+> Count Performed By (Scrub) 2 <+> Count Performed By (RN) 01/02/19 10:56:30 Tow Motor Driver: EANAPIER Modifier: EANAPIER <+> 2 Procedure <+> 2 Count Type <+> 2 Counts Verification Sequence [facility] IntraOp Counts Final Entry 1 Procedure Aortic Stent Placement Endovascular(Left) Final Count Info Count Type Sponge, Sharps, Miscellaneous Counts Verification Skin Closure/end of Sequence procedure Count Results Correct, surgeon notified Counts Performed By Count Performed By Ashlee Monte [employer] (Scrub) Count Performed By Stephanie Nayak RN (RN) Last Modified By: Gladis He RN 01/02/19 11:53:55 [facility] IntraOp Counts Final Audit 01/02/19 11:53:55 Tow Motor Driver: EANAPIER Modifier: EANAPIER 1 <*> Procedure Aortic Stent Placement Endovascular(Left) 1 <+> Count Results 1 <+> Count Performed By (Scrub) 1 <+> Count Performed By (RN) [facility] IntraOp Departure from OR Entry 1 Integumentary Assessment Integumentary WDL Assessment WDL Transfer/Handoff Transfer to ICU - Cardiovascular Handoff Method Bedside/Face to face Post-op Transport Bed (including Via specialty) Patient Transport Gladis He, Accompanied by RN, LATANYA GONSALVES APRN, JACOB Transfer/Handoff ICU BED REQUESTED Comments Last Modified By: Gladis He RN 01/02/19 12:07:58 [facility] IntraOp Departure from OR Audit 01/02/19 12:07:58 Tow Motor Driver: CHULA Modifier: BRUCENAPIER <+> 1 Patient Transport Accompanied by [facility] IntraOp Dressing and Packing Entry 1 Type Dressing Location GROIN Wound Dressing Item Occlusive dressing Applied By CARISSA HANSON MD Last Modified By: Gladis He RN 01/02/19 11:01:52 [facility] IntraOp Fire Risk Assessment Entry 1 Fire Info Surgical Site or 1- Yes Incision Above the Xyphoid Open O2 Source 1- Yes (Mask or Cannula) Available Ignition 1- Yes (ESU, Laser, Light Source) Fire Risk 3 Assessment Score Fire Score Fire Risk Yes Assessment Complete Fire Risk Gladis He RN Assessment Verified By Fire Risk 01/02/19 10:58:00 Assessment Verified Date/Time Fire Risk High Risk Protocol Yes Implemented Standard Fire Yes Safety Precautions Followed Last Modified By: Gladis He RN 01/02/19 10:58:01 General Comments: MD NOTIFIED. [facility] IntraOp General Case Inspector Agricultural Commodities 1 Case Information OR OR 20 [facility] Case Level 1 Room Verified Yes Wound Class I - Clean Specialty SN Endovascular Anesthesia Type MAC ASA Class 3 Diagnosis Preop Diagnosis CAROTID STENOSIS Postop Same As Preop Yes Postop Diagnosis CAROTID STENOSIS Last Modified By: Gladis He RN 01/02/19 10:58:19 [facility] IntraOp General Case Data Audit 01/02/19 10:58:19 Tow Motor Driver: CHULA Modifier: EANAPIER <+> 1 Specialty <+> 1 ASA Class <+> 1 Anesthesia Type <+> 1 Postop Same As Preop <+> 1 Preop Diagnosis <+> 1 Postop Diagnosis <+> [address] [facility] IntraOp Implant Log Entry 1 Type Implant (Synthetic) Implant Log Implant Type Other Implant STNT TRNSCRTD ENROUTE Identification [id number] Description Implant Quantity 1 Implant Site OPSITE Implant [id number] Identification Lot Number Implant [facility] Identification Citrus Picker Name: Implant [id number] Identification Catalog Number Implant Has an Yes Expiration Date Implant Expiration 06/15/19 Date Tissue Implant Last Modified By: Gladis He RN 01/02/19 11:52:48 [facility] IntraOp Implant Log Audit 01/02/19 11:52:48 Tow Motor Driver: CHULA Modifier: CHULA 1 <*> Implant Identification Description KHRIS TRNSCRTD CLAUDIA [id number] [facility] IntraOp Intraoperative Assessment Entry 1 Handoff Method Online nursing summary Valid History / Yes Physical in Chart Preoperative Yes Checklist Reviewed/Evaluated Allergies Reviewed Yes Patient is Latex No Sensitive Isolation Not applicable Precautions Noted Level of WDL Consciousness (WDL = Alert, Oriented to Person, Place, and Time) Skin Assessment Yes Verified Present Upon IVs Arrival to OR Last Modified By: Gladis He RN 01/02/19 10:59:06 [facility] IntraOp Intraoperative Equipment Entry 1 Type Monitoring Equipment Equipment Other Intraop Monitoring Electrocardiogram Three lead placement (ECG) Electrode Placement Blood Pressure Arterial Pressure Line Source Blood Pressure Arterial Location Pulse Oximeter Hand, left Probe Site Antiembolic Devices Scopes Photo/Video Documentation Last Modified By: Gladis He RN 01/02/19 11:01:07 [facility] IntraOp Medication Admin Entry 1 Entry 2 Entry 3 Medication/Irrigant REMY VISIPAQUE 320MG 150 REMY NACL 0.9PCT HPRN lidocaine 1% 50ml vial 200ML --[id number] 1000U .5L -[id number] - [id number] Combo Med List Time Administered Route of contrast flush SUB Q Administration Dose Dose 20 2000 10 Unit of Measure ml units ml Volume Administered By CARISSA HANSON MD VOSKRESENSKY, IGOR, MD VOSKRESENSKY, IGOR, MD Procedure Irrigation Irrigant Volume In Irrigant Volume Out Last Modified By: Gladis He RN Napier, Elizabeth A, RN Napier, Elizabeth A, RN 01/02/19 11:47:42 01/02/19 11:02:32 01/02/19 11:02:32 Entry 4 Medication/Irrigant REMY VISIPAQUE 320MG 150 200ML --[id number] Combo Med List Time Administered Route of contrast Administration Dose Dose Unit of Measure ml Volume Administered By CARISSA HANSON MD Procedure Irrigation Irrigant Volume In Irrigant Volume Out Last Modified By: Gladis He RN 01/02/19 11:02:32 [facility] IntraOp Medication Admin Audit 01/02/19 11:47:42 Tow Motor Driver: CHULA Modifier: EANAPIER 1 <*> Dose 55 01/02/19 11:02:32 Tow Motor Driver: ISAACER Modifier: EANAPIER <+> 2 Medication/Irrigant <+> 2 Route of Administration <+> 2 Administered By <+> 2 Dose <+> 2 Unit of Measure <+> 3 Medication/Irrigant <+> 3 Route of Administration <+> 3 Administered By <+> 3 Dose <+> 3 Unit of Measure <+> 4 Medication/Irrigant <+> 4 Route of Administration <+> 4 Administered By <+> [address] [facility] IntraOp Patient Positioning Entry 1 Procedure Aortic Stent Placement Endovascular(Left) Body Position Supine Left Arm Position Tucked and padded at side Right Arm Position Tucked and padded at side Left Leg Position Uncrossed, parallel Right Leg Position Uncrossed, parallel Feet Uncrossed Yes Pressure Points Yes Checked Positioning Devices Head Rest, Safety Strap, Thighs, Pad, Elbow, Pad, Heel, Roll, Shoulder Positioned By Gladis He RN, CARISSA HANSON MD, LATANYA GONSALVES APRN, GROUND INSTRUCTOR ADVANCED Position Verified Positioning Yes Verified by Anesthesia Positioning Yes Verified by Surgeon Last Modified By: Gladis He RN 01/02/19 11:03:31 [facility] IntraOp Sign In Entry 1 Patient, Site, Yes Procedure Identified Surgical Consent Yes Confirmed Relevant Surgical Yes Documents Available Surgical Site N/A Marked by person performing procedure Anesthesia Machine Yes Check Completed Medication Checks Yes Completed Allergies Yes Airway Difficult Yes Airway/Aspiration Risk Difficult Yes Airway/Aspiration Intervention Equipment Available Blood Loss Risk Yes Blood Loss Yes Intervention Equipment Prepared and Ready Blood Identifiers Yes Verified Per Policy Hypothermia Risk Yes Warming Measures Yes Taken Last Modified By: Gladis He RN 01/02/19 10:59:21 [facility] IntraOp Sign Out Entry 1 RN Confirmation Surgical Yes Procedure(s) Identified Instrument, Sponge Yes and Sharps Counts Correct/Documented Equipment Problems N/A Documented Specimen Labeled N/A Correctly Urinary Catheter N/A Documented in IView Sharp Patient Yes Recovery Concerns Reviewed with Anesthesia Provider, Surgeon and RN Sharp Patient Yes Management Concerns Reviewed with Anesthesia Provider, Surgeon and RN Safety Checklist Yes Elements Complete? RN Sign Out Gladis He RN Signature RN Sign Out 01/02/19 12:07:00 Signature Date/Time Plan of Care Outcome - Fire Risk OUTCOME STATEMENT: Goal met Patient is free from injury related to surgical fire Plan of Care Outcome - Pt Positioning OUTCOME STATEMENT: Goal met Absence of signs and symptoms of positioning injury. Plan of Care Outcome - Skin Prep OUTCOME STATEMENT: Goal met Intraoperative care is consistent with measures to prevent infection Plan of Care Outcome - Xray/Images OUTCOME STATEMENT: Goal met Absence of observable signs or symptoms of radiation injury Plan of Care Outcome - Counts OUTCOME STATEMENT: Goal met Absence of signs and symptoms of injury related to extraneous objects Last Modified By: Gladis He RN 01/02/19 12:07:43 [facility] IntraOp Sign Out Audit 01/02/19 12:07:43 Tow Motor Driver: CHULA Modifier: BRUCENAPIER <+> 1 RN Sign Out Signature Date/Time [facility] IntraOp Skin Prep Entry 1 Procedure Aortic Stent Placement Endovascular(Left) Prescribed Yes Pre-Surgical Prep Completed Prep Area LEFT NECK, BILATERAL GROINS Intraop Prep Integumentary WDL Assessment WDL Prep Agents Chloraprep Prep by Gladis He RN Hair Removal Methods Clipper/Scissors Hair Removal Site LEFT NECK Hair Removal By Gladis He RN Last Modified By: Gladis He RN 01/02/19 11:00:44 [facility] IntraOp Surgical Procedures Entry 1 Procedure Aortic Stent Placement Endovascular Modifiers Left Additional (LT TCAR) Procedure Description Primary Procedure Yes Primary Surgeon CARISSA HANSON MD Start 01/02/19 10:55:00 Stop 01/02/19 11:45:00 Anesthesia Type MAC Specialty SN Endovascular Wound Class I - Clean Last Modified By: Gladis He RN 01/02/19 12:08:14 [facility] IntraOp Surgical Procedures Audit 01/02/19 12:08:14 Tow Motor Driver: CHULA Modifier: EANAPIER 1 <*> Procedure Aortic Stent Placement Endovascular 1 <+> Stop 01/02/19 11:03:48 Tow Motor Driver: RAVINDRAPISANIA Modifier: EANAPIER 1 <*> Procedure Aortic Stent Placement Endovascular 1 <+> Specialty 1 <*> Anesthesia Type General [facility] IntraOp Temp Regulation Devices Entry 1 Temp Regulation Temperature Room temperature, Warm Regulation Device blankets Temperature Lower body Regulation Site Temperature Gladis He RN Regulation Device Applied by Last Modified By: Gladis He RN 01/02/19 11:01:40 [facility] IntraOP Time Out Entry 1 Procedure to be Aortic Stent Placement Performed Endovascular(Left) Time Out Time Out Pause Time 01/02/19 10:52:00 All activity Yes suspended (unless life threatening emergency) Team Verbally Correct patient Confirms Information identity, Correct side and site are marked, Consent form is present and accurate, Agreement on the procedure to be done, Correct patient position, Relevant images/results properly labeled/appropriately displayed, Confirm antibiotics have been administered, Confirm the skin prep has dried, Confirm prosthesis/implant/devic e is present, Performed in location of procedure after prepped/draped Antibiotic Yes Prophylaxis Administered Or In Progress Within the Last 60 Minutes Beta Kaushal Yes Administered Venous N/A Thromboembolism Prophylaxis Required Anticipated Critical Events Surgeon None expected Anesthesia Provider None expected Nursing Assures Sterility of instruments, Equipment concerns or issues, Implant Availability Essential Imaging Yes Labeled and Displayed Last Modified By: Gladis He RN 01/02/19 11:34:31 [facility] IntraOP Time Out Audit 01/02/19 11:34:31 Tow Motor Driver: CHULA Modifier: CHULA 1 <+> Beta Kaushal Administered 1 <*> All activity suspended (unless life Yes threatening emergency) 1 <+> Venous Thromboembolism Prophylaxis Required 1 <+> Antibiotic Prophylaxis Administered Or In Progress Within the Last 60 Minutes 1 <+> Surgeon 1 <+> Anesthesia Provider 1 <+> Nursing Assures 1 <+> Essential Imaging Labeled and Displayed 1 <*> Time Out Pause Time 01/02/19 10:52:00 1 <*> Procedure to be Performed Aortic Stent Placement Endovascular(Left) 1 <+> Team Verbally Confirms Information 2 <-> Beta Kaushal Administered Yes 2 <-> All activity suspended (unless life Yes threatening emergency) 2 <-> Venous Thromboembolism Prophylaxis N/A Required 2 <-> Antibiotic Prophylaxis Administered Yes Or In Progress Within the Last 60 Minutes 2 <-> Surgeon None expected 2 <-> Anesthesia Provider None expected 2 <-> Nursing Assures Sterility of instruments, Equipment concerns or issues, Implant Availability 2 <-> Essential Imaging Labeled and Yes Displayed 2 <-> Time Out Pause Time 01/02/19 10:52:00 2 <-> Procedure to be Performed Aortic Stent Placement Endovascular(Left) 2 <-> Team Verbally Confirms Information Correct patient identity, Correct side and site are marked, Consent form is present and accurate, Agreement on the procedure to be done, Correct patient position, Relevant images/results properly labeled/appropriately displayed, Confirm antibiotics have been administered, Confirm the skin prep has dried, Confirm prosthesis/implant/device is present, Performed in location of procedure after prepped/draped 01/02/19 10:59:05 Tow Motor Driver: CHULA Modifier: RAVINDRAPIER 1 <*> All activity suspended (unless life Yes threatening emergency) 1 <*> Time Out Pause Time 01/02/19 10:52:00 1 <*> Procedure to be Performed Aortic Stent Placement Endovascular(Left) <+> 2 Beta Kaushal Administered <+> 2 All activity suspended (unless life threatening emergency) <+> 2 Venous Thromboembolism Prophylaxis Required <+> 2 Antibiotic Prophylaxis Administered Or In Progress Within the Last 60 Minutes <+> 2 Surgeon <+> 2 Anesthesia Provider <+> 2 Nursing Assures <+> 2 Essential Imaging Labeled and Displayed <+> 2 Time Out Pause Time <+> 2 Procedure to be Performed <+> 2 Team Verbally Confirms Information [facility] IntraOp X-Ray and Images Entry 1 X-Ray/Imaging Type Fluoroscopy Fluoroscopy Type Fixed Site OPSITE Ceramic Tile Setter Name Ashlee Monte [employer] Protective Devices Yes Used Exposure Time 4.0 Last Modified By: Gladis He RN 01/02/19 11:53:02 [facility] IntraOp X-Ray and Images Audit 01/02/19 11:53:02 Tow Motor Driver: CHULA Modifier: CHULA 1 <+> Protective Devices Used 1 <*> Fluoroscopy Type C-Arm Case Comments <None> Finalized By: SHARATH RAWLS Document Signatures Signed By: SHARATH RAWLS 01/03/19 17:09 Gladis He RN 01/02/19 12:08 SHARATH RAWLS 01/10/19 13:46 Unfinalized History Date/Time Username Reason for Unfinalizing Freetext Reason for Unfinalizing 01/03/19 17:06 WATTSDR Correct Billing 01/10/19 13:46 WATTSDR Correct Billing documented in this encounter Plan of Treatment Not on file documented as of this encounter Visit Diagnoses Not on filedocumented in this encounter Care Teams Special Tester Relationship Specialty Start Date End Date Nikolai Tse, NURSE RECEPTIONIST [address] [place], [place] [id number] PCP - General Nurse Practitioner 02/17/24 documented as of this encounter
--- OUTSIDE RECORDS SUMMARY | 2024-10-09 09:09 | XMS_ITS | Encounter Summary ---
Author Organization [employer] ([place], [place], [place], [place]) Address [address] [place] [address] Care Team Providers Care Client Support Associate Name Role Phone Yanethanthony Nikolai Dhillon APRN Primary Care Provider + Encounter Details Date Type Department Care Team (Late st Contact Info) Description 01/02/2019 Transcribed Document [facility] [place] Family Medicine [facility] [place] [address] ProviderKevin MD [address] [place], [place] [address] Social History Tobacco Use Types Packs/Day Years Used Date Smoking Tobacco: Never Assessed Sex and Gender Information Value Date Recorded Sex Assigned at Not on file Legal Sex Male 4:12 PM CDT Gender Identity Not on file Sexual Orientation Not on file documented as of this encounter Miscellaneous Notes * Cerner Conversion Note - Kevin Pickering MD - 01/02/2019 12:41 PM FRIT BURNER Consult Phone Call Documentation Entered On: 01/02/2019 14:19 EST Performed On: 01/02/2019 12:41 EST by Betty Griffith, [facility] Unit Coord Phone Call for Consults Consult Phone Call/Page Attempt : Other: Dr. Salmeron already on case. for post stroke Provider Service Notified Name : Neurology Betty Griffith, [facility] Unit Coord - 01/02/2019 14:18 EST Electronically signed by Kyra [facility] Conversion Barrel Plater Cerner at 06/04/2022 9:56 AM CDT documented in this encounter Plan of Treatment Not on file documented as of this encounter Visit Diagnoses Not on filedocumented in this encounter Care Teams Client Support Associate Relationship Specialty Start Date End Date Nikolai Tse, COST MANAGER [address] [place] [address] PCP - General Nurse Practitioner 02/17/24 documented as of this encounter
--- OUTSIDE RECORDS SUMMARY | 2024-10-09 09:10 | XMS_ITS | Encounter Summary ---
Author Organization [employer] ([place], [place], [place], [place]) Address [address] [place] [address] Care Team Providers Care Healthcare Market Consultant Name Role Phone Linuskarime Mayabertrand Alejo ANGELA Primary Care Provider + Encounter Details Date Type Department Care Team (Late st Contact Info) Description 01/03/2019 Transcribed Document [facility] [address] [place] [address] Ananda Baker MD [address] [place] [address] Social History Tobacco Use Types Packs/Day Years Used Date Smoking Tobacco: Never Assessed Sex and Gender Information Value Date Recorded Sex Assigned at Not on file Legal Sex Male 4:12 PM CDT Gender Identity Not on file Sexual Orientation Not on file documented as of this encounter Miscellaneous Notes * Cerner Conversion Note - Ananda Baker MD - 01/03/2019 12:00 PM EST Patient: PRAVEEN FOX Age: 68 years Sex: Male : 1950 Associated Diagnoses: None Author: ANANDA BAKER MD-INT Subjective Chief complaint. January 03, 2019. No fevers or chills. Patient's very pleasant is at the bedside. Patient still suffers from right-sided weakness. He has right-handed. Patient had stent placed in the left carotid yesterday without complications. No shortness of breath coughing wheezing. No dysuria hematuria. Patient's still weak on the left side but his speech and language has improved. The states that he's cussing at his baseline which is normal for him. Review of Systems Constitutional: Decreased activity, No fever, No chills. Respiratory: No shortness of breath, No cough. Cardiovascular: No chest pain, No palpitations. Gastrointestinal: No nausea, No vomiting, No diarrhea, No constipation. Genitourinary: No dysuria. Musculoskeletal: Right-sided weakness improving. Neurologic: Alert and oriented X4, No confusion. Psychiatric: No anxiety, No depression. Health Status Allergies: Allergic Reactions (Selected) No Known Allergies, Allergies (1) Active Reaction No Known Allergies None Documented Problem list: Medical At risk for sleep apnea / IMO [id number] / Confirmed CAD - Coronary artery disease / SNOMED CT 8870462931 / Confirmed HLD - Hyperlipidemia / SNOMED CT 399392111 / Confirmed HTN - Hypertension / SNOMED CT 5772836752 / Confirmed Type 2 diabetes mellitus / SNOMED CT 459726248 / Confirmed, Active Problems (9) At risk for sleep apnea CAD - Coronary artery disease Chronic kidney insufficiency Diabetes mellitus type II HLD - Hyperlipidemia HTN - Hypertension Hyperlipidemia Hypertension Type 2 diabetes mellitus Current medications: (Selected) Inpatient Medications Ordered Ancef: 2 Gram, 50 mL, 100 mL/Hr, IV Piggyback, PREOP Colace: 100 mg, Oral, BID Habitrol 21 mg/24 hr transdermal film, extended release: 1 Patch, TransDermal, Daily Lactated Ringers Injection intravenous solution 1,000 mL: 20 mL/Hr, IntraVENous Lantus: 30 Units, SubCutaneous, At Bedtime Lopressor: 25 mg, Oral, BID Milk of Magnesia 8% oral suspension: 30 mL, Oral, Q6H, PRN: Constipation Normal Saline 500 mL: 50 mL/Hr, IntraVENous Normal Saline Flush: 10 mL, IV Push, Q12H Normal Saline Flush: 10 mL, IV Push, See Comment, PRN: IV Use Plavix: 75 mg, Oral, Daily Protonix: 40 mg, Oral, Daily TriCor 145 mg oral tablet: 145 mg, Oral, Daily Tylenol: 650 mg, Oral, Q6H, PRN: Fever Zofran: 4 mg, IV Push, Q4H, PRN: Nausea Zofran: 4 mg, IV Push, Q4H, PRN: Nausea/Vomiting acetaminophen-HYDROcodone 325 mg-5 mg oral tablet: 1 Tab, Oral, Q4H, PRN: Pain (Moderate 4-6) amLODIPine: 5 mg, Oral, BID atorvastatin: 80 mg, Oral, At Bedtime cloNIDine: 0.1 mg, Oral, Q3H, PRN: Hypertension gabapentin: 300 mg, Oral, At Bedtime heparin: 5,000 Units, SubCutaneous, [id number] hydrALAZINE: 10 mg, IV Push, Q3H, PRN: Hypertension hydrALAZINE: 25 mg, Oral, TID insulin lispro sliding scale: Scale C:, SubCutaneous, AC and at Bedtime labetalol: 10 mg, IV Push, Q1H, PRN: Hypertension miconazole 2% topical powder: 1 Application, Topical, BID morphine: 2 mg, IV Push, Q2H, PRN: Pain (Moderate 4-6) oxyCODONE: 5 mg, Oral, Q6H, PRN: Pain (Moderate 4-6) phenylephrine injection 20 mg + NaCl 0.9% for drip 250 mL: TITRATE, IntraVENous Documented Medications Documented D3 1000 oral tablet: Tab, Oral, Daily, 0 Refill(s) Gen-Pioglitazone: 30 mg, 0 Refill(s) Januvia 100 mg oral tablet: 1 Tab, Oral, Daily, 30 Tab, 0 Refill(s) Lantus 100 units/mL subcutaneous solution: 30 Units, SubCutaneous, At Bedtime, 0 Refill(s) Lopressor 50 mg oral tablet: 0.5 Tab, Oral, BID, 0 Refill(s) Plavix 75 mg oral tablet: 1 Tab, Oral, Daily, 0 Refill(s) amLODIPine 5 mg oral tablet: 1 Tab, Oral, BID, 0 Refill(s) aspirin 81 mg oral tablet, chewable: 1 Tab, Oral, Daily, 0 Refill(s) atorvastatin 40 mg oral tablet: 2 Tab, Oral, At Bedtime, 0 Refill(s) fenofibrate 145 mg oral tablet: 1 Tab, Oral, Daily, 0 Refill(s) gabapentin 300 mg oral capsule: 1 Cap, Oral, Once a day (at bedtime), 30 Cap, 0 Refill(s) insulin lispro 100 units/mL injectable solution: Scale C:, SubCutaneous, AC and at Bedtime, 0 Refill(s), Home Medications (12) Active amLODIPine 5 mg oral tablet 5 mg = 1 Tab, Oral, BID aspirin 81 mg oral tablet, chewable 81 mg = 1 Tab, Oral, Daily atorvastatin 40 mg oral tablet 80 mg = 2 Tab, Oral, At Bedtime D3 1000 oral tablet , Oral, Daily fenofibrate 145 mg oral tablet 145 mg = 1 Tab, Oral, Daily gabapentin 300 mg oral capsule 300 mg = 1 Cap, Oral, Once a day (at bedtime) Gen-Pioglitazone 30 mg insulin lispro 100 units/mL injectable solution Scale C:, SubCutaneous, AC and at Bedtime Januvia 100 mg oral tablet 100 mg = 1 Tab, Oral, Daily Lantus 100 units/mL subcutaneous solution 30 Units, SubCutaneous, At Bedtime Lopressor 50 mg oral tablet 25 mg = 0.5 Tab, Oral, BID Plavix 75 mg oral tablet 75 mg = 1 Tab, Oral, Daily , Medications (30) Active Scheduled: (16) #NaCl 0.9% *FLUSH* inj 10 mL 10 mL, IV Push, Q12H amLODIPine 5 mg tab 5 mg 1 Tab, Oral, BID atorvastatin 40 mg tab 80 mg 2 Tab, Oral, At Bedtime ceFAZolin/D5w 2 Gram 50 mL, IV Piggyback, PREOP clopidogrel 75 mg tab 75 mg 1 Tab, Oral, Daily docusate sodium 100 mg cap 100 mg 1 Cap, Oral, BID fenofibrate 145 mg tab 145 mg 1 Tab, Oral, Daily gabapentin 300 mg cap 300 mg 1 Cap, Oral, At Bedtime heparin 5,000 units/1 mL inj 5,000 Units 1 mL, SubCutaneous, [id number] hydrALAZINE 25 mg tab 25 mg 1 Tab, Oral, TID insulin glargine 1 unit/0.01 mL inj 30 Units 0.3 mL, SubCutaneous, At Bedtime insulin lispro 1 unit/0.01 mL inj Scale C:, SubCutaneous, AC and at Bedtime metoprolol tartrate 25 mg tab 25 mg 1 Tab, Oral, BID miconazole nitrate 2% pwd 45 g 1 Application, Topical, BID nicotine 21 mg/24 hr patch 1 Patch, TransDermal, Daily pantoprazole EC 40 mg tab 40 mg 1 Tab, Oral, Daily Continuous: (3) lactated ringers 1,000 mL 1,000 mL, IntraVENous, 20 mL/Hr NaCl 0.9% 500 mL 500 mL, IntraVENous, 50 mL/Hr phenylephrine 20 mg + NaCl 0.9% T ITRATE 250 mL 250 mL, IntraVENous PRN: (11) #NaCl 0.9% *FLUSH* inj 10 mL 10 mL, IV Push, See Comment acetaminophen 325 mg tab 650 mg 2 Tab, Oral, Q6H acetaminophen/HYDROcodone 325/5 mg tab 1 Tab, Oral, Q4H cloNIDine 0.1 mg tab 0.1 mg 1 Tab, Oral, Q3H hydrALAZINE 20 mg/1 mL inj 10 mg 0.5 mL, IV Push, Q3H labetalol 20 mg/4 mL inj *SYRINGE* 10 mg 2 mL, IV Push, Q1H magnesium hydroxide 8% liq 30 mL 30 mL, Oral, Q6H morphine 2 mg/1 ml inj 2 mg 1 mL, IV Push, Q2H ondansetron 4 mg/2 mL inj 4 mg 2 mL, IV Push, Q4H ondansetron 4 mg/2 mL inj 4 mg 2 mL, IV Push, Q4H oxyCODONE 5 mg tab 5 mg 1 Tab, Oral, Q6H Objective VS/Measurements Vitals Signs (last 24 hrs) Last Charted Minimum Maximum Temp 98.3 (JAN 03 12:00) L 96.1 (JAN 02 13:30) 98.5 (JAN 03 08:00) Apical HR 63 (JAN 03 10:36) 63 (JAN 03 10:36) 63 (JAN 03 10:36) Mon HR 68 (JAN 03 12:00) 49 (JAN 03 00:09) 106 (JAN 03 09:00) Resp Rate H 25 (JAN 03 09:00) L 8 (JAN 02 17:45) H 25 (JAN 03 09:00) SBP H 142 (JAN 03 12:00) 97 (JAN 02 16:30) H 151 (JAN 02 18:00) DBP 62 (JAN 03 12:00) L 46 (JAN 02 18:15) 74 (JAN 02 18:00) MAP 89 (JAN 03 12:00) 65 (JAN 02 17:45) 98 (JAN 02 16:15) SpO2 99 (JAN 03 12:00) L 91 (JAN 02 18:30) 100 (JAN 03 07:00) Physical Examination VS/Measurements Vitals Signs (last 24 hrs) Last Charted Minimum Maximum Temp 98.3 (JAN 03 12:00) L 96.1 (JAN 02 13:30) 98.5 (JAN 03 08:00) Apical HR 63 (JAN 03 10:36) 63 (JAN 03 10:36) 63 (JAN 03 10:36) Mon HR 68 (JAN 03 12:00) 49 (JAN 03 00:09) 106 (JAN 03 09:00) Resp Rate H 25 (JAN 03 09:00) L 8 (JAN 02 17:45) H 25 (JAN 03 09:00) SBP H 142 (JAN 03 12:00) 97 (JAN 02 16:30) H 151 (JAN 02 18:00) DBP 62 (JAN 03 12:00) L 46 (JAN 02 18:15) 74 (JAN 02 18:00) MAP 89 (JAN 03 12:00) 65 (JAN 02 17:45) 98 (JAN 02 16:15) SpO2 99 (JAN 03 12:00) L 91 (JAN 02 18:30) 100 (JAN 03 07:00) , Measurements from flowsheet : Measurements 01/03/2019 6:15 EST Height Source Stated Height Entry Format Hickman Height/Length, IRAQI (ft) 5 ft Height/Length IRAQI 7 Inch CLINICALHEIGHT 170.18 cm [place] Body Weight 65 kg Weight Source Bed scale Weight Entry Format Metric, kilograms Weight METRIC kg 94.4 kg CLINICALWEIGHT 94.4 kg Body Surface Area (BSA) 2.06 m2 Body Mass Index 32.6 kg/m2 HI General: Alert and oriented, No acute distress. Eye: Pupils are equal, round and reactive to light, Extraocular movements are intact. HENT: Normocephalic, Normal hearing. Neck: Supple, No jugular venous distention. Respiratory: Lungs are clear to auscultation, Breath sounds are equal. Cardiovascular: Normal rate, Regular rhythm. Gastrointestinal: Soft, Non-tender, Normal bowel sounds. Genitourinary: No costovertebral angle tenderness. Lymphatics: No lymphadenopathy neck, axilla, groin. Musculoskeletal: Normal range of motion, Normal strength, Right-sided weakness. Integumentary: Dry, Intact. Neurologic: Alert, Oriented, Normal sensory. Psychiatric: Cooperative, Appropriate mood & affect. Review / Management Results review: Labs (Last four charted values) WBC 5.9 (NOV 19) 8.2 (NOV 18) 7.2 (NOV 18) 7.4 (NOV 17) HB L 10.6 (NOV 19) L 11.5 (NOV 18) L 12.7 (NOV 18) 14.0 (NOV 17) HCT L 32.5 (NOV 19) L 35.1 (NOV 18) L 39.9 (NOV 18) 44.3 (NOV 17) Plt 298 (NOV 19) 369 (NOV 18) H 377 (NOV 18) H 381 (NOV 17) Na 141 (NOV 19) 142 (NOV 18) 141 (NOV 17) 140 (NOV 16) K 4.3 (NOV 19) 4.1 (NOV 18) 4.2 (NOV 17) 4.5 (NOV 16) Cl H 113 (NOV 19) 111 (NOV 18) 111 (NOV 17) 108 (NOV 16) CO2 24 (NOV 19) 26 (NOV 18) 25 (NOV 17) 26 (NOV 16) BUN H 29 (NOV 19) H 29 (NOV 18) H 33 (NOV 17) H 33 (NOV 16) Cr H 1.80 (NOV 19) H 1.80 (NOV 18) H 1.80 (NOV 17) H 2.20 (NOV 16) Glu R H 153 (NOV 19) H 207 (NOV 18) H 166 (NOV 17) H 329 (NOV 16) Ca 8.7 (NOV 19) 8.8 (NOV 18) 9.6 (NOV 17) 9.1 (NOV 16) PT 11.0 (NOV 10) INR 1.0 (NOV 10) AST 18 (NOV 19) 21 (NOV 18) 22 (NOV 17) 21 (NOV 16) ALT 32 (NOV 19) 35 (NOV 18) 32 (NOV 17) 30 (NOV 16) ALK P 33 (NOV 19) 61 (NOV 18) 50 (NOV 17) 50 (NOV 16) T Bili 0.3 (NOV 19) 0.4 (NOV 18) 0.4 (NOV 17) 0.4 (NOV 16) PTN L 6.3 (NOV 19) 7.0 (NOV 18) 7.5 (NOV 17) 6.9 (NOV 16) ALB L 2.7 (JAN 03) L 3.0 (JAN 02) L 3.1 (JAN 01) L 3.0 (DEC 31) . Impression and Plan . Left AKOSUA stroke due to left ICA stenosis s/p L TCAR , -complicated by watershed ischemia due to hypotension. Patient's symptoms are improving. -Right-sided weakness improving but not to baseline. -Neurology following. - Continue aspirin, - plavix 75 mg - lipitor 2. CKD stage 3, currently at baseline as per nephrology -Creatinine 1.8 down to 1.8. 3. HTN urgency, -, management as per nephrology, - hydralazine 25mg by mouth 3 times a day -Amlodipine 5 mg twice a day -Metoprolol 25 mg twice a day. 4.Diabetes on insulin. -Lantus 30 daily -Sliding scale insulin see. 5. Dyslipidemia. Lipitor. TriCor 145 mg daily. 6. Pain. Gabapentin 3 mg by mouth daily at bedtime. 7. GI. Protonix 40 daily. January 03, 2019. 35 minutes spent on the follow-up this really pleasant 68-year-old gentleman. Patient did have acute stroke is right-sided strength is improving but awaiting for placement. Just had a stent placed yesterday. Patient's white blood cell counts 5, hemoglobin is 10, creatinine is 1.8. [employer] dictation system used. Computer program makes numerous spelling grammar mistakes. If you have any questions or concerns do not hesitate call Dr. Ananda Sharp at cell phone number [phone]. documented in this encounter Plan of Treatment Not on file documented as of this encounter Visit Diagnoses Not on filedocumented in this encounter Care Teams Healthcare Market Consultant Relationship Specialty Start Date End Date Nikolai Tse, MOTORBOAT OPERATOR [address] [id number] PCP - General Nurse Practitioner 02/17/24 documented as of this encounter
--- OUTSIDE RECORDS SUMMARY | 2024-10-09 09:10 | XMS_ITS | Encounter Summary ---
Author Organization [employer] ([place], [place], [place], [place]) Address [address] [place] [address] Care Team Providers Care Hop Strainer Name Role Phone Nikolai Tse APRN Primary Care Provider + Encounter Details Date Type Department Care Team (Late st Contact Info) Description 01/03/2019 Transcribed Document [facility] [place] [facility] [place] [address] ProviderKevin MD [address] [place] [address] Social History Tobacco Use Types Packs/Day Years Used Date Smoking Tobacco: Never Assessed Sex and Gender Information Value Date Recorded Sex Assigned at Not on file Legal Sex Male 4:12 PM CDT Gender Identity Not on file Sexual Orientation Not on file documented as of this encounter Miscellaneous Notes * Cerner Conversion Note - Kevin Pickering MD - 01/03/2019 1:38 PM GAS WELL PUMPER Final Discharge Planning Entered On: 01/03/2019 13:41 EST Performed On: 01/03/2019 13:38 EST by RAMSEY SAUCEDO Rn-Optical Fabrication Technician Final Discharge Planning Patient/Family Notified of Plan : Yes RAMSEY SAUCEDO Rn-Optical Fabrication Technician - 01/03/2019 13:50 EST Discharge Arrangements : Patient Post-Acute Information Patient Name: PRAVEEN FOX Gender: Male : [birth year] Age: 68 Years No Post-Acute Placement(s) Listed No Post-Acute Service(s) Listed No [place] Referral(s) Listed RAMSEY SAUCEDO Rn-Optical Fabrication Technician - 01/03/2019 14:00 EST Patient Offered Choice/Affiliations Explained : Yes Designation of Choice Signed : Yes Important Medicare Message Reviewed With : Patient Important Medicare Message Reviewed D/T : 01/03/2019 13:30 EST Transportation Needs : Family/Friend Discharge To Care Management : [facility]Inpatient [facility] Facility[facility] RAMSEY SAUCEDO Rn-Optical Fabrication Technician - 01/03/2019 13:38 EST Physician Notified of Patient Discharge Comment : Patient to be evaluated by Neuro f/u for postop from Vascular procedure; Dr. Ibarra requests any additional information from Neurology so he can incorporate into the d/c summary. Pt to be admitted to the Stroke Unit, transported by patient's spouse. RAMSEY SAUCEDO Rn-Optical Fabrication Technician - 01/03/2019 13:50 EST Final Narrative Note Historical Narrative Note : Anticipate d/c to [facility]; IM/Choice completed; RAMSEY SAUCEDO Rn-Optical Fabrication Technician - 01/03/19 13:51:57 Anticipate d/c to [facility]; IM/Choice completed; [facility] advised pt needs to be seen by provider within 24 hr, MRR. RAMSEY SAUCEDO Rn-Optical Fabrication Technician - 01/03/19 13:58:19 RAMSEY SAUCEDO Rn-Optical Fabrication Technician - 01/03/2019 14:00 EST Final Narrative Note : Anticipate d/c to [facility]; IM/Choice completed; [facility] advised pt needs to be seen by provider within 24 hr, MRR. RAMSEY SAUCEDO Rn-Optical Fabrication Technician - 01/03/2019 13:56 EST Electronically signed by Kyra [facility] Conversion General Labor Forklift Operator Cerner at 06/04/2022 9:47 AM CDT documented in this encounter Plan of Treatment Not on file documented as of this encounter Visit Diagnoses Not on filedocumented in this encounter Care Teams Hop Strainer Relationship Specialty Start Date End Date Nikolai Tse, TENNIS PLAYER [address] [place] [address] PCP - General Nurse Practitioner 02/17/24 documented as of this encounter
--- OUTSIDE RECORDS SUMMARY | 2024-10-09 09:10 | XMS_ITS | Encounter Summary ---
Author Organization [employer] ([place], [place], [place], [place]) Address [address] [place] [address] Care Team Providers Care Complaint Adjuster Name Role Phone Nikolai Tse APRN Primary Care Provider + Encounter Details Date Type Department Care Team (Late st Contact Info) Description 01/03/2019 Transcribed Document [facility] [place] Family Medicine [address] [place] [address] ProviderKevin MD [address] [place], [place] [id number] Social History Tobacco Use Types Packs/Day Years Used Date Smoking Tobacco: Never Assessed Sex and Gender Information Value Date Recorded Sex Assigned at Not on file Legal Sex Male 4:12 PM CDT Gender Identity Not on file Sexual Orientation Not on file documented as of this encounter Miscellaneous Notes * Cerner Conversion Note - Kevin Pickering MD - 01/03/2019 3:00 AM INBOUND TELEMARKETER Nutrition Assessment Entered On: 01/03/2019 11:43 EST Performed On: 01/03/2019 11:42 EST by ARETHA CORTES RD, [place] Nutrition Assessment Nutrition Assessment Reason : Follow Up ARETHA CORTES RD, [place] - 01/03/2019 11:42 EST Nutrition Recommendations Dietitian Recommendations : 01/03: Rescreened pt, continues eating well, avg 75-100% of meals. LBM 12/30. RD previously provided diet edu, no other nutrition dx at this time, RD will continue to rescreen q 7-10 days 12/28: Rescreen. surgery recommending L-CEA. Decision still pending. Pt is also pending rehab. During visit, pt reported a good appetite with no n/v/d. He has constipation, but per family, it was an issue prior to admit. Pt and family unsure of any recent wt changes. His UBW is ~200#. Pt dislikes ONS. Family at bedside reported that the pt is eating very well. He is on a diabetic diet. Family did not have any nutrition questions at this time and usually monitor his carbohydrate intake. Will re-screen in 5-[address] available PRN. 12/24: RD consult rec'd for stroke. Seen by LOFT WORKER today and placed on 60gCHO diet. Intakes are being established. Spoke with RN who states family brought pt food in today and he ordered lunch. Pt is eating well. Noted no wt recorded in pt chart. Labs/meds reviewed. No skin breakdown noted. LBM 12/23. RD will rescreen in 3-4 days to reassess po intakes and provide diet education if desired. RD available prn. ARETHA CORTES RD, LD - 01/03/2019 11:42 EST documented in this encounter Plan of Treatment Not on file documented as of this encounter Visit Diagnoses Not on filedocumented in this encounter Care Teams Complaint Adjuster Relationship Specialty Start Date End Date Nikolai Tse, JULIO CÉSAR [address] [place] [id number] PCP - General Nurse Practitioner 02/17/24 documented as of this encounter
--- OUTSIDE RECORDS SUMMARY | 2024-10-09 09:10 | XMS_ITS | Encounter Summary ---
Author Organization [employer] ([place], [place], [place], [place]) Address [address] [place] [address] Care Team Providers Care Sales Representative Public Utilities Name Role Phone Maya Tsekeerthianthony Dhillon APRN Primary Care Provider + Encounter Details Date Type Department Care Team (Late st Contact Info) Description 03/17/2018 Transcribed Document [facility] [place] [facility] [place] [address] ProviderKevin MD [address] [place] [id number] Social History Tobacco Use Types Packs/Day Years Used Date Smoking Tobacco: Never Assessed Sex and Gender Information Value Date Recorded Sex Assigned at Not on file Legal Sex Male 4:12 PM CDT Gender Identity Not on file Sexual Orientation Not on file documented as of this encounter Miscellaneous Notes * Cerner Conversion Note - Kevin Pickering MD - 03/17/2018 6:30 PM PHYSICIAN [address] [place] [address] Patient Copy Patient Information: Name: PRAVEEN FOX Current Date: 03/17/2018 18:30:02 : 1950 Patient Address: [address] [place] [address] Patient Attending Physician: KRISTINE GENAO MD-CAR Primary Care Provider: HEAVENLY BREWER PA-ADAM Primary Care Provider Discharge Diagnosis: Weight on Admission: 191 lb, 0 oz Comment: Follow-up Instructions: With: Address: When: KRISTINE GENAO [address] [facility] [facility], [address] [place] [id number] Technical Machine (1) Within 2 to 3 days Comments: Follow-up as instructed Discharge Instructions: Diet after Discharge: Resume usual diet as tolerated Activity after Discharge: Rest and relax today, No heavy lifting over 10 pounds Driving after Discharge: Other: May NOT drive for 24 hours Showering/Bathing:Other: May remove bandage and shower after 24 hours. May NOT bath or soak for 5 days. Immunizations Documented During Stay: No Immunizations Found Heart Failure Discharge Instructions (if any): Stroke Related Discharge Instructions (if any): Warfarin Related Discharge Instructions (if any): Final Medication List: Other Medications aspirin 81 Milligram(s). aspirin (aspirin 81 mg oral tablet) 3 Tablet(s) Oral Every Day. cholecalciferol (D3 1000 oral tablet) Oral Every Day. fenofibrate 160 Milligram(s) Oral Every Day. losartan (losartan 50 mg oral tablet) 1/2 tab Oral Every Day. metoclopramide 25 Milligram(s) Oral Two Times A Day. pioglitazone (Gen-Pioglitazone) 30 Milligram(s). vancomycin 250 Milligram(s) Every 6 Hours. Patient Allergies: No Known Allergies Medication Instructions: Take your medications faithfully. Do NOT skip medication. Do NOT stop taking medications without the direction of a physician. Carry a list of your medications with you at all times, and take this medication list with you to your first follow up visit. Report any side effects. Avoid herbal remedies unless discussed with your physician. As part of your treatment plan, your physician may have prescribed a limited course of a controlled substance. This medication may be given to help people with moderate or severe pain or for other medical conditions, but there are risks involved with treatment. Common side effects may include nausea, constipation, drowsiness, sweating, itching, dry mouth, and rash. More serious side effects may include cognitive and motor impairment, like problems with thinking, concentrating, alertness, and movement (e.g. slowed reflexes), and driving and operating heavy machinery can be dangerous. It is important for you to talk to your physician if you have these side effects or questions. These controlled substances can produce physical dependence and be habit-forming if taken for an extended period of time, which means that the body has gotten used to them and may experience withdrawal symptoms if they are abruptly stopped. Withdrawal symptoms can include runny nose, sweating, goose bumps, diarrhea, abdominal cramping, rapid heartbeat, difficulty sleeping, and nervousness. Patient education materials: Carbohydrate Counting for Diabetes Mellitus, Adult Carbohydrate counting is a method for keeping track of how many carbohydrates you eat. Eating carbohydrates naturally increases the amount of sugar (glucose) in the blood. Counting how many carbohydrates you eat helps keep your blood glucose within normal limits, which helps you manage your diabetes (diabetes mellitus). It is important to know how many carbohydrates you can safely have in each meal. This is different for every person. A diet and nutrition services associate (registered dietitian) can help you make a meal plan and calculate how many carbohydrates you should have at each meal and snack. Carbohydrates are found in the following foods: ??? Grains, such as breads and cereals. ??? Dried beans and soy products. ??? Starchy vegetables, such as potatoes, peas, and corn. ??? Fruit and fruit juices. ??? Milk and yogurt. ??? Sweets and snack foods, such as cake, cookies, candy, chips, and soft drinks. How do I count carbohydrates? There are two ways to count carbohydrates in food. You can use either of the methods or a combination of both. Reading Nutrition Facts on packaged foodThe Nutrition Facts list is included on the labels of almost all packaged foods and beverages in the [place] It includes: ??? The serving size. ??? Information about nutrients in each serving, including the grams (g) of carbohydrate per serving. To use the ?Nutrition Facts : ??? Decide how many servings you will have. ??? Multiply the number of servings by the number of carbohydrates per serving. ??? The resulting number is the total amount of carbohydrates that you will be having. Learning standard serving sizes of other foodsWhen you eat foods containing carbohydrates that are not packaged or do not include Nutrition Facts on the label, you need to measure the servings in order to count the amount of carbohydrates: ??? Measure the foods that you will eat with a food scale or measuring cup, if needed. ??? Decide how many standard-size servings you will eat. ??? Multiply the number of servings by 15. Most carbohydrate-rich foods have about 15 g of carbohydrates per serving. ? For example, if you eat 8 oz (170 g) of strawberries, you will have eaten 2 servings and 30 g of carbohydrates (2 servings x 15 g = 30 g). ??? For foods that have more than one food mixed, such as soups and casseroles, you must count the carbohydrates in each food that is included. The following list contains standard serving sizes of common carbohydrate-rich foods. Each of these servings has about 15 g of carbohydrates: ? hamburger bun or ? Danish muffin. ? oz (15 mL) syrup. ? oz (14 g) jelly. ??? 1 slice of bread. ??? 1 six-inch tortilla. ??? 3 oz (85 g) cooked rice or pasta. ??? 4 oz (113 g) cooked dried beans. ??? 4 oz (113 g) starchy vegetable, such as peas, corn, or potatoes. ??? 4 oz (113 g) hot cereal. ??? 4 oz (113 g) mashed potatoes or ? of a large baked potato. ??? 4 oz (113 g) canned or frozen fruit. ??? 4 oz (120 mL) fruit juice. ??? 4?6 crackers. ??? 6 chicken nuggets. ??? 6 oz (170 g) unsweetened dry cereal. ??? 6 oz (170 g) plain fat-free yogurt or yogurt sweetened with artificial sweeteners. ??? 8 oz (240 mL) milk. ??? 8 oz (170 g) fresh fruit or one small piece of fruit. ??? 24 oz (680 g) popped popcorn. Example of carbohydrate counting Sample meal??? 3 oz (85 g) chicken breast. ??? 6 oz (170 g) brown rice. ??? 4 oz (113 g) corn. ??? 8 oz (240 mL) milk. ??? 8 oz (170 g) strawberries with sugar-free whipped topping. Carbohydrate calculation1. Identify the foods that contain carbohydrates: ??? Rice. ??? [place]. ??? Milk. ??? Strawberries. 2. Calculate how many servings you have of each food: ??? 2 servings rice. ??? 1 serving corn. ??? 1 serving milk. ??? 1 serving strawberries. 3. Multiply each number of servings by 15 g: ??? 2 servings rice x 15 g = 30 g. ??? 1 serving corn x 15 g = 15 g. ??? 1 serving milk x 15 g = 15 g. ??? 1 serving strawberries x 15 g = 15 g. 4. Add together all of the amounts to find the total grams of carbohydrates eaten: ??? 30 g + 15 g + 15 g + 15 g = 75 g of carbohydrates total. This information is not intended to replace advice given to you by your health care provider. Make sure you discuss any questions you have with your health care provider. Document Released: 02/01/2006 Document Revised: 08/21/2016 Document Reviewed: 07/15/2016 [employer] Interactive Patient Education ? 2017 [employer] Coronary Angiogram A coronary angiogram is an X-ray procedure that is used to examine the arteries in the heart. In this procedure, a dye (contrast dye) is injected through a long, thin tube (catheter). The catheter is inserted through the groin, wrist, or arm. The dye is injected into each artery, then X-rays are taken to show if there is a blockage in the arteries of the heart. This procedure can also show if you have valve disease or a disease of the aorta, and it can be used to check the overall function of your heart muscle. You may have a coronary angiogram if: ??? You are having chest pain, or other symptoms of angina, and you are at risk for heart disease. ??? You have an abnormal electrocardiogram (ECG) or stress test. ??? You have chest pain and heart failure. ??? You are having irregular heart rhythms. ??? You and your health care provider determine that the benefits of the test information outweigh the risks of the procedure. Let your health care provider know about: ??? Any allergies you have, including allergies to contrast dye. ??? All medicines you are taking, including vitamins, herbs, eye drops, creams, and qacv-riy-qtxvgzj medicines. ??? Any problems you or family members have had with anesthetic medicines. ??? Any blood disorders you have. ??? Any surgeries you have had. ??? History of kidney problems or kidney failure. ??? Any medical conditions you have. ??? Whether you are or may be . What are the risks? Generally, this is a safe procedure. However, problems may occur, including: ??? Infection. ??? Allergic reaction to medicines or dyes that are used. ??? Bleeding from the access site or other locations. ??? Kidney injury, especially in people with impaired kidney function. ??? Stroke (rare). ??? Heart attack (rare). ??? Damage to other structures or organs. What happens before the procedure? Staying hydratedFollow instructions from your health care provider about hydration, which may include: ??? Up to 2 hours before the procedure ? you may continue to drink clear liquids, such as water, clear fruit juice, black coffee, and plain tea. Eating and drinking restrictionsFollow instructions from your health care provider about eating and drinking, which may include: ??? 8 hours before the procedure ? stop eating heavy meals or foods such as meat, fried foods, or fatty foods. ??? 6 hours before the procedure ? stop eating light meals or foods, such as toast or cereal. ??? 2 hours before the procedure ? stop drinking clear liquids. General instructions ??? Ask your health care provider about: ? Changing or stopping your regular medicines. This is especially important if you are taking diabetes medicines or blood thinners. ? Taking medicines such as ibuprofen. These medicines can thin your blood. Do not take these medicines before your procedure if your health care provider instructs you not to, though aspirin may be recommended prior to coronary angiograms. ??? Plan to have someone take you home from the hospital or clinic. ??? You may need to have blood tests or X-rays done. What happens during the procedure? An IV tube will be inserted into one of your veins. ??? You will be given one or more of the following: ? A medicine to help you relax (sedative). ? A medicine to numb the area where the catheter will be inserted into an artery (local anesthetic). ??? To reduce your risk of infection: ? Your health care team will wash or sanitize their hands. ? Your skin will be washed with soap. ? Hair may be removed from the area where the catheter will be inserted. ??? You will be connected to a continuous ECG monitor. ??? The catheter will be inserted into an artery. The location may be in your groin, in your wrist, or in the fold of your arm (near your elbow). ??? A type of X-ray (fluoroscopy) will be used to help guide the catheter to the opening of the blood vessel that is being examined. ??? A dye will be injected into the catheter, and X-rays will be taken. The dye will help to show where any narrowing or blockages are located in the heart arteries. ??? Tell your health care provider if you have any chest pain or trouble breathing during the procedure. ??? If blockages are found, your health care provider may perform another procedure, such as inserting a coronary stent. The procedure may vary among health care providers and hospitals. What happens after the procedure? After the procedure, you will need to keep the area still for a few hours, or for as long as told by your health care provider. If the procedure is done through the groin, you will be instructed to not bend and not cross your legs. ??? The insertion site will be checked frequently. ??? The pulse in your foot or wrist will be checked frequently. ??? You may have additional blood tests, X-rays, and a test that records the electrical activity of your heart (ECG). ??? Do notdrive for 24 hours if you were given a sedative. Summary ??? A coronary angiogram is an X-ray procedure that is used to look into the arteries in the heart. ??? During the procedure, a dye (contrast dye) is injected through a long, thin tube (catheter). The catheter is inserted through the groin, wrist, or arm. ??? Tell your health care provider about any allergies you have, including allergies to contrast dye. ??? After the procedure, you will need to keep the area still for a few hours, or for as long as told by your health care provider. This information is not intended to replace advice given to you by your health care provider. Make sure you discuss any questions you have with your health care provider. Document Released: 08/08/2003 Document Revised: 11/13/2016 Document Reviewed: 11/13/2016 [employer] Interactive Patient Education ? 2017 [employer] Moderate Conscious Sedation, Adult, Care After These instructions provide you with information about caring for yourself after your procedure. Your health care provider may also give you more specific instructions. Your treatment has been planned according to current medical practices, but problems sometimes occur. Call your health care provider if you have any problems or questions after your procedure. What can I expect after the procedure? After your procedure, it is common: ??? To feel sleepy for several hours. ??? To feel clumsy and have poor balance for several hours. ??? To have poor judgment for several hours. ??? To vomit if you eat too soon. Follow these instructions at home: For at least 24 hours after the procedure: ??? Do not: ? Participate in activities where you could fall or become injured. ? Drive. ? Use heavy machinery. ? Drink alcohol. ? Take sleeping pills or medicines that cause drowsiness. ? Make important decisions or sign legal documents. ? Take care of children on your own. ??? Rest. Eating and drinking ??? Follow the diet recommended by your health care provider. ??? If you vomit: ? Drink water, juice, or soup when you can drink without vomiting. ? Make sure you have little or no nausea before eating solid foods. General instructions ??? Have a responsible adult stay with you until you are awake and alert. ??? Take ordd-iwh-esuuori and prescription medicines only as told by your health care provider. ??? If you smoke, do not smoke without supervision. ??? Keep all follow-up visits as told by your health care provider. This is important. Contact a health care provider if: ??? You keep feeling nauseous or you keep vomiting. ??? You feel light-headed. ??? You develop a rash. ??? You have a fever. Get help right away if: ??? You have trouble breathing. This information is not intended to replace advice given to you by your health care provider. Make sure you discuss any questions you have with your health care provider. Document Released: 11/22/2013 Document Revised: 07/06/2016 Document Reviewed: 05/23/2016 [employer] Interactive Patient Education ? 2017 [employer] CIGARETTE SMOKING: The facts are clear, cigarette smoking will shorten your life. Smoking can cause many illnesses along the way. As a healthcare provider, we recommend that you stop smoking. Assistance with quitting is available by contacting 9-707-IXUX-NOW. This is a free resource providing counseling, support, and referral. Or you may contact your personal physician. 4 WAYS TO GET AHEAD OF SEPSIS SEPSIS is a MEDICAL EMERGENCY. Time matters! Infections put you and your family at risk for a life-threatening condition called sepsis. Sepsis is the body???s extreme response to an infection. It is life-threatening, and without timely treatment, sepsis can rapidly lead to tissue damage, organ failure, and . Sepsis happens when an infection you already have???in your skin, lungs, urinary tract or somewhere else???triggers a chain reaction throughout your body. 1 PREVENT INFECTIONS Take good care of chronic conditions. Talk to your doctor about getting the recommended vaccines. 2 PRACTICE GOOD HYGIENE Wash your hands frequently. Keep cuts or open sores clean and covered until they are healed. 3 KNOW THE SYMPTOMS Confusion or disorientation Shortness of breath High heart rate Fever, shivering, or feeling very cold Extreme pain or discomfort Clammy or sweaty skin 4 ACT FAST Get medical care IMMEDIATELY if you suspect sepsis or if you have an infection that???s not getting better or is getting worse. To learn more about sepsis and how to prevent infections, visit www.cdc.gov/sepsis. STROKE is an EMERGENCY Every [employer] ACT F.A.S.T! FACE ?? Facial droop ?? Uneven smile ARM ?? Arm numbness ?? Arm weakness SPEECH ?? Slurred speech ?? Difficulty speaking or understanding TIME ?? Call 911 and get to the hospital immediately Have the ambulance go to the nearest stroke center. STROKE Risk Factors High blood pressure High cholesterol Heart Disease Diabetes Smoking Heavy alcohol use Physical inactivity and obesity Atrial Fibrillation (irregular heartbeat) Family history of stroke Reminder: Be sure to sign up for the [employer] patient portal, which gives you 24/ access to your medical information ??? including these discharge instructions ??? using your computer, smartphone, or tablet. Just go to groopify to get started. Questions? Call . [facility] would like to thank you for allowing us to assist you with your healthcare needs. DOMINIQUE Turner DANNY M, (or quality control representative) have received the above patient education materials/instructions and have verbalized understanding: Patient Signature _ Date/Time Patient Beef Farmer Signature (if needed) Date/Time Clinician/Hospital Beef Farmer Signature (if needed) Date/Time Electronically signed by Kyra, [facility] Conversion Salvage Engineer Cerner at 06/04/2022 9:39 AM CDT documented in this encounter Plan of Treatment Not on file documented as of this encounter Visit Diagnoses Not on filedocumented in this encounter Care Teams Sales Representative Public Utilities Relationship Specialty Start Date End Date Nikolai Tse, TERRITORY MANAGER [address] [place] [address] PCP - General Nurse Practitioner 02/17/24 documented as of this encounter
--- OUTSIDE RECORDS SUMMARY | 2024-10-09 09:10 | XMS_ITS | Encounter Summary ---
Author Organization [employer] ([place], [place], [place], [place]) Address [address] [place] [address] Care Team Providers Care Public Transit Bus Driver Name Role Phone Nikolai Tse APRN Primary Care Provider + Encounter Details Date Type Department Care Team (Late st Contact Info) Description 01/09/2019 Transcribed Document [facility] [place] [facility] [place] [address] ProviderKevin MD [facility] [place], [place] [id number] Social History Tobacco Use Types Packs/Day Years Used Date Smoking Tobacco: Never Assessed Sex and Gender Information Value Date Recorded Sex Assigned at Not on file Legal Sex Male 4:12 PM CDT Gender Identity Not on file Sexual Orientation Not on file documented as of this encounter Miscellaneous Notes * Cerner Conversion Note - Kevin Pickering MD - 01/09/2019 3:29 PM INCIDENT RESPONSE ENGINEER Nursing Discharge Summary Entered On: 01/09/2019 15:30 EST Performed On: 01/09/2019 15:29 EST by ELANA BECKER RN Discharge Documentation Discharge Date/Time : 01/03/2019 14:52 EST Patient Disposition, General : Discharge Discharge To : Extended care facility Name of Receiving Facility/Provider : [facility] Comment : pt's brother present also ELANA BECKER RN - 01/09/2019 15:29 EST Electronically signed by Kyra [facility] Conversion Database Support Cerner at 06/04/2022 9:37 AM CDT documented in this encounter Plan of Treatment Not on file documented as of this encounter Visit Diagnoses Not on filedocumented in this encounter Care Teams Public Transit Bus Driver Relationship Specialty Start Date End Date Nikolai Tse, OIL WELL SERVICE UNIT OPERATOR [address] [place], [place] [phone] PCP - General Nurse Practitioner 02/17/24 documented as of this encounter
--- OUTSIDE RECORDS SUMMARY | 2024-10-09 09:10 | XMS_ITS | Encounter Summary ---
Author Organization [employer] ([place], [place], [place], [place]) Address [address] [place] [address] Care Team Providers Care Senior Designer/Art Director Name Role Phone Nikolai Tse APRN Primary Care Provider + Encounter Details Date Type Department Care Team (Late st Contact Info) Description 01/03/2019 Transcribed Document [facility] [place] [facility] [place] [address] ProviderKevin MD [address] [place], [place] [id number] Social History Tobacco Use Types Packs/Day Years Used Date Smoking Tobacco: Never Assessed Sex and Gender Information Value Date Recorded Sex Assigned at Not on file Legal Sex Male 4:12 PM CDT Gender Identity Not on file Sexual Orientation Not on file documented as of this encounter Miscellaneous Notes * Cerner Conversion Note - Kevin ProviderMD - 01/03/2019 10:32 AM EARLY YEARS TEACHER Attempt to Treat, OT Entered On: 01/03/2019 10:33 EST Performed On: 01/03/2019 10:32 EST by ELSA CAMEJO OTR/Chel Attempt to Treat Unable to Treat Due To : Patient on hold Inability to Treat Comment : Pt needs new order after aortic stent placement. Will re-eval when order is given and pt appropriate for therapy. ELSA CAMEJO OTR/Chel - 01/03/2019 10:32 EST documented in this encounter Plan of Treatment Not on file documented as of this encounter Visit Diagnoses Not on filedocumented in this encounter Care Teams Senior Designer/Art Director Relationship Specialty Start Date End Date Nikolai Tse, CLIENT SUPPORT COORDINATOR [address] [place] [phone] PCP - General Nurse Practitioner 02/17/24 documented as of this encounter
--- OUTSIDE RECORDS SUMMARY | 2024-10-09 09:10 | XMS_ITS | Encounter Summary ---
Author Organization [employer] ([place], [place], [place], [place]) Address [address] [place] [address] Care Team Providers Care Advisory Software Engineer Name Role Phone Nikolai Tse APRN Primary Care Provider + Encounter Details Date Type Department Care Team (Late st Contact Info) Description 01/03/2019 Transcribed Document [facility] [place] [address] [place] [address] ProviderKevin MD [address] [place], [place] [id number] Social History Tobacco Use Types Packs/Day Years Used Date Smoking Tobacco: Never Assessed Sex and Gender Information Value Date Recorded Sex Assigned at Not on file Legal Sex Male 4:12 PM CDT Gender Identity Not on file Sexual Orientation Not on file documented as of this encounter Miscellaneous Notes * Cerner Conversion Note - Kevin Pickering MD - 01/03/2019 2:46 PM PAPER BOX MAKER Stroke/Warfarin Instructions Entered On: 01/03/2019 14:48 EST Performed On: 01/03/2019 14:46 EST by Lilly Lake RN Stroke/Warfarin Instructions Stroke/TIA Discharge Ins : Open Warfarin Discharge Ins : N/A Lilly Lake RN - 01/03/2019 14:46 EST Stroke/TIA Discharge Instructions Individualized Stroke Risk Factors *Q : Carotid stenosis, Diabetes Stroke Education Handouts Given *Q : Yes Lilly Lake RN - 01/03/2019 14:46 EST Stroke Education Materials Given-Grid Activation of EMS *Q : Verbalizes understanding Follow-up Care After Discharge *Q : Verbalizes understanding Medications prescribed at [place] *Q : Verbalizes understanding Risk Factors for Stroke *Q : Verbalizes understanding Warning S&S of Stroke *Q : Verbalizes understanding Lilly Lake RN - 01/03/2019 14:46 EST Stroke/TIA Signs/Symptoms to Report Immediately : Sudden onset difficulty speaking, Sudden onset difficulty understanding speech, Sudden onset change in vision, Sudden onset weakness particulary on one side of the body, Sudden onset numbness/tingling, Sudden severe headache, Sudden dizziness or trouble with gait, Call : EMS activation is crucial My LDL Level: : LDL Level Cholesterol LDL Calculation: 49.8 mg/dL (12/24/18 07:03:00) Lilly Lake RN - 01/03/2019 14:46 EST Electronically signed by Kyra, [facility] Conversion Utilization Engineer Cerner at 06/04/2022 9:56 AM CDT documented in this encounter Plan of Treatment Not on file documented as of this encounter Visit Diagnoses Not on filedocumented in this encounter Care Teams Advisory Software Engineer Relationship Specialty Start Date End Date Nikolai Tse, CLINIC ASSISTANT [address] [place] [address] PCP - General Nurse Practitioner 02/17/24 documented as of this encounter
--- OUTSIDE RECORDS SUMMARY | 2024-10-09 09:10 | XMS_ITS | Encounter Summary ---
Author Organization [facility] ([place], [place], [place], [place]) Address [address] [place] [address] Care Team Providers Care Ginner Name Role Phone Nikolai Tse APRN Primary Care Provider + Encounter Details Date Type Department Care Team (Late st Contact Info) Description 01/03/2019 Transcribed Document [facility] [place] [address] [place] [address] ProviderKevin MD [address] [place], [place] [phone] Social History Tobacco Use Types Packs/Day Years Used Date Smoking Tobacco: Never Assessed Sex and Gender Information Value Date Recorded Sex Assigned at Not on file Legal Sex Male 4:12 PM CDT Gender Identity Not on file Sexual Orientation Not on file documented as of this encounter Miscellaneous Notes * Cerner Conversion Note - Kevin Pickering MD - 01/03/2019 6:15 AM CIGAR PACKER Height and Weight, Clinical Dosing Entered On: 01/03/2019 6:15 EST Performed On: 01/03/2019 6:15 EST by Lenard Jett RN Height and Weight, Clinical Dosing Height Source : Stated Height Entry Format : [place] Height, Feet : 5 ft(Converted to: 152 cm, 60 Inch) Height, Inches : 7 Inch(Converted to: 0 ft 7 Inch, 17.78 cm) Clinical Height : 170.18 cm Weight Source : Bed scale Weight Entry Format : Metric, kilograms Weight, Kilograms : 94.4 kg(Converted to: 208 lb 2 oz) Clinical Dosing Weight : 94.4 kg Body Surface Area (BSA) : 2.06 m2 Body Mass Index : 32.6 kg/m2 (HI) [place] Body Weight : 65 kg Lenard Jett RN - 01/03/2019 6:15 EST Electronically signed by Rolando Rae Conversion Stitching Machine Feeder Or Offbearer Cerner at 06/04/2022 9:50 AM CDT documented in this encounter Plan of Treatment Not on file documented as of this encounter Visit Diagnoses Not on filedocumented in this encounter Care Teams Ginner Relationship Specialty Start Date End Date Nikolai Tse, HEALTH CARE MANAGER [address] [place] [address] PCP - General Nurse Practitioner 02/17/24 documented as of this encounter
--- OUTSIDE RECORDS SUMMARY | 2024-10-09 09:10 | XMS_ITS | Encounter Summary ---
Author Organization [employer] ([place], [place], [place], [place]) Address [address] [place] [address] Care Team Providers Care Small Engine Mechanic Name Role Phone Nikolai Tse APRN Primary Care Provider + Encounter Details Date Type Department Care Team (Late st Contact Info) Description 01/06/2019 Transcribed Document [facility] [place] [address] ProviderKevin MD [address] [place] [id number] Social History Tobacco Use Types Packs/Day Years Used Date Smoking Tobacco: Never Assessed Sex and Gender Information Value Date Recorded Sex Assigned at Not on file Legal Sex Male 4:12 PM CDT Gender Identity Not on file Sexual Orientation Not on file documented as of this encounter Miscellaneous Notes * Cerner Conversion Note - Kevin Pickering MD - 01/06/2019 8:46 AM OFFLINE CUTTER DATE OF PROCEDURE: 01/02/2019 SURGEON: Juan Ritter MD PREOPERATIVE DIAGNOSIS: Symptomatic 80% left internal carotid artery stenosis with a tandem lesion. POSTOPERATIVE DIAGNOSIS: Symptomatic 80% left internal carotid artery stenosis with a tandem lesion. PROCEDURES PERFORMED: Left transcarotid artery revascularization. FARMWORKER CRANBERRY: Bud Hdz MD. INDICATION FOR PROCEDURE: This is a 68-year-old male who presented with left hemispheric stroke secondary to an ulcerated 80% plaque in the proximal left internal carotid artery. On the CT scan, the patient was noted to have tandem lesions making distal control for a standard carotid endarterectomy high risk. The patient was deemed to be a good candidate for a TCAR procedure due to his tandem lesion and anatomic inability to access distal normal internal carotid artery for clamping. The patient was offered the procedure for stroke risk reduction and is brought to the operating room for intervention. TCAR DETAILS: Aorta type 1 arch. Lesion is symptomatic. Lesion diameter stenosis is 80%. Length of lesion is 25 mm. Lesion localized to the left ICA. ICA tortuosity is mild. 50% calcium circumference around the lesion. Access is transverse under local anesthesia. Total embolic protection time was 10 minutes of flow reversal. Lesion was crossed with an 0.014 [employer] guidewire. Predilatation performed with a 5 mm x 20 mm balloon distally and a 6 mm x 20 mm balloon proximally. Stenting is performed utilizing Enroute 8 x 40 mm stent. No post-dilation of stent was performed. CONTRAST VOLUME USED: 20 mL. TOTAL FLUOROSCOPY TIME: 4 minutes. TOTAL DOSE AREA FOR RADIATION: 31.26 Gy per cm2. TOTAL PROCEDURE TIME: 45 minutes. OPERATIVE PROCEDURE IN DETAIL: The patient was brought to the operating room and laid on the operating table in supine position. The patient's left neck was prepped and draped in standard surgical fashion. Perioperative antibiotics were administered. Final time-out was performed. Base of the left neck was ultrasounded, and common carotid artery was identified. Bifurcation of the carotid artery was identified as well. Base of the neck was then infiltrated with local anesthetic, and a transverse incision was made with a scalpel. Subcutaneous dissection was performed utilizing Metzenbaum scissors, and small self-retaining retractors were placed. The sternocleidomastoid muscle was split along the longitudinal fibers, and dissection was carried down to the common carotid artery. Heparin was administered, and ACT was maintained over 250 seconds throughout the procedure. At this point in time, common carotid artery was circumferentially dissected and encircled with vessel loop. Attention was then turned to the right femoral vein. Vessel was identified with ultrasound guidance. Skin and subcutaneous tissue were infiltrated with local anesthetic. Vein was accessed utilizing micropuncture technique, and Enroute flow reversal venous sheath was placed and flushed. Attention was then turned back to the left neck where access site was identified and a 5-0 Prolene stitch was placed. Artery was then accessed utilizing micropuncture technique, and a micro wire along with the sheath was advanced to 2.5 cm. At this point in time, left carotid angiogram was performed. The degree of stenosis was difficult to identify due to the ulcerated lesion. However, on the CT scan, the lesion was at least 80% causing at least an 80% stenosis. Once this was accomplished, the micro sheath was reinserted and advanced into the external carotid artery for engage technique. The micro wire was exchanged for the stiff wire, and the Enroute sheath was advanced and positioned into the common carotid artery. The sheath was then affixed to the skin with silk sutures. At this point in time, the flow reversal system was connected and checked signifying good flow reversal. Images were then obtained of the left carotid artery to ensure that the sheath was in good position and away from the arterial wall. Once we were satisfied with the position of the sheath and visualized the bifurcation well, we proceeded with our intervention. A TCAR time-out was performed at this time. The blood pressure was maintained between 140 and 160 mmHg. Robinul was administered. The vessel loops on the common carotid artery were pulled up, and flow reversal was checked once more showing good arteriovenous flow. At this point in time, the 0.014 guidewire was advanced past the lesion and positioned in the mid ICA. Over this wire, a 5 mm [employer] balloon was advanced, and angioplasty of the distal lesion was performed. Insufflation was up to 8 atmospheres. This balloon was then removed, and a 6 mm balloon was used proximally for predilation. Once this was accomplished, the 8 x 40 mm Enroute stent was advanced over this wire and deployed. Deployment was visualized to be in good position. After this, 2 minutes was allowed to elapse for any debris to be removed via flow reversal. After this, we performed completion angiogram that showed excellent position of the stent with full coverage of the lesion. The vessel loops were then removed, and antegrade flow was reestablished. Another minute was lapsed to allow for any additional debris to be removed via reversal of flow. Once this minute elapsed, we disconnected the arteriovenous sheath and drained the rest of the blood back into the patient via the venous circulation. The venous sheath was removed, and pressure was held for manual hemostasis. The arterial sheath was then removed from the left common carotid artery, and the 5-0 Prolene suture was tightened for hemostasis. Heparin effect was reversed with protamine. Meticulous hemostasis was achieved around the carotid artery. Wound was irrigated and closed in layers. There was no hematoma. Skin was closed with 4-0 Monocryl. Dermabond was applied. Sterile dressing was applied in the right groin. At this point in time, the patient was awakened. He had normal neurologic exam. He was taken to the stretcher and taken to ICU in stable condition. /[id number] Juan Ritter MD IV/AQ / IV / MODL /[id number] documented in this encounter Plan of Treatment Not on file documented as of this encounter Visit Diagnoses Not on filedocumented in this encounter Care Teams Small Engine Mechanic Relationship Specialty Start Date End Date Nikolai Tse, JULIO CÉSAR [address] [place] [id number] PCP - General Nurse Practitioner 02/17/24 documented as of this encounter
--- OUTSIDE RECORDS SUMMARY | 2024-10-09 09:10 | XMS_ITS | Encounter Summary ---
Author Organization [employer] ([place], [place], [place], [place]) Address [address] [place] [address] Care Team Providers Care Telephone Solicitor Supervisor Name Role Phone Lin[place]armie Nikolai Dhillon APRN Primary Care Provider + Encounter Details Date Type Department Care Team (Late st Contact Info) Description 01/03/2019 Transcribed Document [facility] [place] [facility] [place] [address] ProviderKevin MD [address] [place] [id number] Social History Tobacco Use Types Packs/Day Years Used Date Smoking Tobacco: Never Assessed Sex and Gender Information Value Date Recorded Sex Assigned at Not on file Legal Sex Male 4:12 PM CDT Gender Identity Not on file Sexual Orientation Not on file documented as of this encounter Miscellaneous Notes * Cerner Conversion Note - Kevin Pickering MD - 01/03/2019 9:13 AM WIRE MACHINE CUTTER Re-Evaluation, Physical Therapy Entered On: 01/03/2019 11:37 EST Performed On: 01/03/2019 9:13 EST by Jessica Barnhart Student-Physical Therapist General Information, PT Visit Type, PT : Re-evaluation Jessica Barnhart Student-Physical Therapist - 01/03/2019 11:19 EST Patient Orders : Order Date Order Ordering 12/23/2018 13:27 PT Evaluation and Treatment Ordered By: MARIN MCCLELLAND MD 12/24/2018 09:53 PT Additional Treatment Ordered By: ARNOLD COOK, PT 01/03/2019 08:49 PT Evaluation and Treatment Ordered By: PAT JACKSON MD Active Diagnoses : 12/28/2018 12:00 Weakness TALIB BURROUGHS, PT - 01/03/2019 14:27 EST Therapy Diagnosis, PT : Impaired gait and functional mobility secondary to RLE weakness. Onset of Problem, PT : 12/23/2018 EST Jessica Barnhart Student-Physical Therapist - 01/03/2019 11:19 EST Admission Date : 12/23/2018 13:03 TALIB BURROUGHS, PT - 01/03/2019 14:27 EST Assisted by, PT : Physical Therapist Jessica Barnhart Student-Physical Therapist - 01/03/2019 11:19 EST Personal Devices : Personal Devices No Devices Recorded Assistive Devices : Assistive Devices No Devices Recorded TALIB BURROUGHS, PT - 01/03/2019 14:27 EST General Information Comment, PT : Admitted with RLE and numbness secondary to L AKOSUA stroke s/p L TCAR on 01/02. Pt also diagnosed with severe stenosis of L5-S1. PMHx: T2DM, HTN, HLD, CAD, chronic kidney insufficiency Jessica Barnhart Student-Physical Therapist - 01/03/2019 11:38 EST General Status Patient Received Status : Up in chair, Chair alarm activated Treatment Start Time : 01/03/2019 8:51 EST Patient Left Status : Up in chair, Chair alarm activated, Family/Visitors at bedside, All needs met and within reach RN/PCT Informed Comment : FRANCISCO Carr OK'd PT re-eval Treatment End Time : 01/03/2019 9:13 EST Treatment Time : 22 Minute(s) Jessica Barnhart Student-Physical Therapist - 01/03/2019 11:19 EST History and Environment Living Situation, Therapy : Home Patient Lives With : Spouse Persons Assisting Patient at Home : Spouse Professional Skilled Services : None Persons Providing Information : Patient, Spouse Home Equipment Therapy, PT : Cane Home Setup : Basement Bedroom Location : Main level Bathroom #1 Location : Main level Bathroom #1 Features : Tub Stairs : Yes Stair Location(s) : Inside, Outside Stairs Inside Comment : Patient does not have to climb steps inside home; does not need to go into basement Outside Stairs, Number of Steps : 2 Railing Outside : Yes Jessica Barnhart Student-Physical Therapist - 01/03/2019 11:19 EST Prior Level of Function PT GRID Prior LOF Ambulation, Household : Independent Prior LOF Ambulation, Community : Independent Prior LOF Bed Mobility : Independent Prior LOF Toileting : Independent Prior LOF Transfer : Independent Jessica Barnhart Student-Physical Therapist - 01/03/2019 11:19 EST Prior LOF Assist with ADL Comment : Pt ind. with ADLs Jessica Barnhart Student-Physical Therapist - 01/03/2019 11:19 EST Intervention Summary Heart Rate/Pulse Pre-intervention : 82 bpm BP Systolic Pre-intervention : 128 mmHg BP Diastolic Pre-intervention : 68 mmHg O2 Pre-Intervention : 2L SpO2 Pre-Intervention : 96 % Heart Rate/Pulse Post-intervention : 90 bpm BP Systolic Post-intervention : 113 mmHg BP Diastolic Post-intervention : 58 mmHg O2 Post-Intervention : 2L SpO2 Post-Intervention : 94 % Jessica Barnhart Student-Physical Therapist - 01/03/2019 11:19 EST Upper Extremity Right UE Active ROM : WFL Right UE Strength : L Left UE Active ROM : WFL Left UE Strength : L Right UE Strength : [facility] Left UE Strength : [facility] Jessica Barnhart Student-Physical Therapist - 01/03/2019 11:19 EST Lower Extremity RLE Active ROM : [facility] Right LE Strength : [facility] LLE Active ROM : [facility] Left LE Strength : [facility] Jessica Barnhart Student-Physical Therapist - 01/03/2019 11:19 EST Right Lower Extremity MMT Knee Flexion (0-140) : 4/good Knee Extension (0-0) : 5/normal Ankle Dorsiflexion (0-20) : 4/good Ankle Plantarflexion (0-45) : 4/good Jessica Barnhart Student-Physical Therapist - 01/03/2019 11:19 EST Lower Extremity Comment : Pt had some weakness evident in RLE with ambulation but with MMT had good strength. Pt fatigues with ambulation and has decreased foot clearance on R. Jessica Barnhart Student-Physical Therapist - 01/03/2019 11:19 EST Functional Mobility Mobility Grid Sit to Stand : Supervision/set-up Stand to Sit : Supervision/set-up Jessica Barnhart Student-Physical Therapist - 01/03/2019 11:19 EST Sit to Stand Device : Belt, gait, Walker, front wheel Stand to Sit Device : Belt, gait, Walker, front wheel Jessica Barnhart Student-Physical Therapist - 01/03/2019 11:19 EST Gait Training/Assessment, PT Gait Assistance Level : Supervision Walking Distance : ~120' x 2 one seated rest break RWx Ambulatory Devices : Gait belt, Walker, front wheel Gait Deviations : Yes Left Lower Gait Deviation : Stance time, increased Right Lower Gait Deviation : Ataxia, Circumduction, Foot clearance, decreased, Other: ER of R foot Gait Training Comment : Pt had some decreased foot clearance on R LE and with further ambulation and activity as he fatigued clearance became less. Pt circumducts somewhat to allow clearance but does swing through for the most part with RLE. Jessica Barnhart, Student-Physical Therapist - 01/03/2019 11:19 EST Neurological/Sensory Overall Sensory Response : Impaired Overall Sensory Response Comment : Pt reported some slight numbness/tingling in RUE but reported intact sensation on LUE and BLE Jessica Barnhart, Student-Physical Therapist - 01/03/2019 11:19 EST Cognition Assessment, PT Orientation : Oriented x 4 Safety/Judgment Comment : intact Follows Basic Command Assessment : intact Attention Assessment : Present Attention Assessment Comment : intact Jessica Barnhart Student-Physical Therapist - 01/03/2019 11:19 EST [facility] Topics Physical Therapy Education Grid Gait Training : Verbalizes understanding, Returns demonstration, Needs reinforcement Role of Physical Therapy : Verbalizes understanding, Returns demonstration Safety : Verbalizes understanding, Returns demonstration, Needs reinforcement Transfer Training : Needs reinforcement, Returns demonstration, Verbalizes understanding Use of Assistive Device : Verbalizes understanding, Returns demonstration, Needs reinforcement Jessica Barnhart, Student-Physical Therapist - 01/03/2019 11:19 EST Indication Assesessment, PT Physical Therapy Indicated : Yes PT Problem List : Impaired, activities daily living, Impaired, bed mobility, Impaired, coordination/proprioception, Impaired, endurance tolerance, Impaired, gait, Impaired, stair mobility, Impaired, standing balance, Impaired, strength, Impaired, transfers Potential Barriers To Therapy : None evident Rehabilitation Potential : Good Jessica Barnhart, Student-Physical Therapist - 01/03/2019 11:19 EST Plan of Care, PT PT Tx Plan/Goals Established w Patient : Yes PT Frequency Rehab : Other: 1-2x/day PT Duration Rehab : Fourteen days PT Treatments Planned : Balance training, Bed mobility training, Gait training, Neuromuscular reeducation, Safety education, Stair training, Therapeutic exercises, Transfer training Jessica Barnhart, Student-Physical Therapist - 01/03/2019 11:19 EST Short Term Goals Mobility/Bed Mobility STG PT Grid Goal #1 Goal #2 Activity : Supine to sit Sit to stand Assist : Independent, modified Independent, modified Date to Meet : 01/10/2019 EST 01/10/2019 EST Goal Status : Revised Revised Comment : re-evion 01/03 re-evion 01/03 TALIB BURROUGHS, PT - 01/03/2019 14:27 EST TALIB BURROUGHS, PT - 01/03/2019 14:27 EST Transfer STG Grid Goal #1 Destination : Chair, with arms Type : Stand Pivot Sit Assist : Independent, modified Equipment : Walker, front wheel Date to Meet : 12/31/2018 EST Goal Status : Discontinue Comment : re-evion 01/03 TALIB BURROUGHS, PT - 01/03/2019 14:27 EST Ambulation STG Grid Goal #1 Device : Walker, front wheel Distance : 50' Cues : Minimum verbal cues Assist : Assist, minimal Date to Meet : 12/31/2018 EST Goal Status : Goal met Date Met : 12/30/2018 EST Jessica Barnhart, Student-Physical Therapist - 01/03/2019 11:19 EST Long-Term Goals Ambulation LTG Grid Goal #1 Device : Walker, front wheel Distance : 200' Cues : No cues Assist : Independent, modified Date to Meet : 01/17/2019 EST Goal Status : Revised Comment : re-evion 01/03 TALIB BURROUGHS, PT - 01/03/2019 14:27 EST Treatment Note Subjective Comment : Pt agreed to PT re-eval Patient's Response to Treatment : Pt tolerated treatment well. Pt became fatigued after ambulating. Jessica Barnhart, Student-Physical Therapist - 01/03/2019 11:19 EST Assessment : Pt was supervision for to and from sit transfers from bedside chair using RWx. Pt walked ~120' with a seated rest break and an additional 120' back to room to return to bedside chair. Pt became fatigued upon return to room and had more difficulty clearing R toe with gait. Pt circumducts slightly and foot remains in externally rotated position with gait. When cued to straighten out his foot pt reported he was unable. Pt will likely benefit from continued PTx in this setting to address these impairments. Pt would likely benefit from continued PTx upon discharge. Plan for Treatment : Continue per POC PT has reviewed PT student documentation and is in agreement. TALIB BURROUGHS, PT - 01/03/2019 14:27 EST Pain Assessment Pain Scaled Used : 0-10 Pain scale Pain Score Pre-Intervention : 0 Jessica Barnhart, Student-Physical Therapist - 01/03/2019 11:19 EST Image 1 - Images currently included in the form version of this document have not been included in the text rendition version of the form. Anticipated Discharge Needs, OT/PT Anticipated Discharge to : Unit, rehabilitation Anticipated Home Equipment : None Anticipated D/C Provider Notified : Physical Therapy Recommend Continued Therapy at Discharge : Yes Jessica Barnhart Student-Physical Therapist - 01/03/2019 11:[address] [facility] Charges PT Re-Evaluation : 1 Jessica Barnhart Student-Physical Therapist - 01/03/2019 11:19 EST Electronically signed by Kyra [facility] Conversion Health Services Coordinator Cerner at 06/04/2022 9:50 AM CDT documented in this encounter Plan of Treatment Not on file documented as of this encounter Visit Diagnoses Not on filedocumented in this encounter Care Teams Telephone Solicitor Supervisor Relationship Specialty Start Date End Date Nikolai Tse, EVP MANAGING DIRECTOR [address] [place] [id number] PCP - General Nurse Practitioner 02/17/24 documented as of this encounter
--- OUTSIDE RECORDS SUMMARY | 2024-10-09 09:10 | XMS_ITS | Encounter Summary ---
Author Organization [employer] ([place], [place], [place], [place]) Address [address] [place] [address] Care Team Providers Care Slat Basket Top Maker Name Role Phone Nikolai Tse APRN Primary Care Provider + Encounter Details Date Type Department Care Team (Late st Contact Info) Description 01/03/2019 Transcribed Document [facility] [place] [facility] [place] [address] ProviderKevin MD [address] [place] [id number] Social History Tobacco Use Types Packs/Day Years Used Date Smoking Tobacco: Never Assessed Sex and Gender Information Value Date Recorded Sex Assigned at Not on file Legal Sex Male 4:12 PM CDT Gender Identity Not on file Sexual Orientation Not on file documented as of this encounter Miscellaneous Notes * Cerner Conversion Note - Kevin Pickering MD - 01/03/2019 12:46 PM PLAIN GOODS HEMMER QA CONSULTANT Attempt to Treat Entered On: 01/03/2019 12:47 EST Performed On: 01/03/2019 12:46 EST by LALITA BENITEZ SLP Attempt to Treat Unable to Treat Due To : Pending order clarification Inability to Treat Comment : Awaiting new orders for continued cognitive tx. Per RN, pt likely d/c to [facility] today. Notification : FRANCISCO Carr CARLY, QA CONSULTANT - 01/03/2019 12:46 EST documented in this encounter Plan of Treatment Not on file documented as of this encounter Visit Diagnoses Not on filedocumented in this encounter Care Teams Slat Basket Top Maker Relationship Specialty Start Date End Date Nikolai Tse, METAL ENGINEERING PROCESS WORKER [address] [place], [place] [phone] PCP - General Nurse Practitioner 02/17/24 documented as of this encounter
--- OUTSIDE RECORDS SUMMARY | 2024-10-09 09:10 | XMS_ITS | Encounter Summary ---
Author Organization [employer] ([place], [place], [place], [place]) Address [address] [place] [address] Care Team Providers Care Signals Intelligence Analyst Name Role Phone Dedrick Nikolai Dhillon APRN Primary Care Provider + Encounter Details Date Type Department Care Team (Late st Contact Info) Description 03/17/2018 Transcribed Document [facility] Family Medicine [address] [place] [address] ProviderKevin MD [address] [place] [address] Social History Tobacco Use Types Packs/Day Years Used Date Smoking Tobacco: Never Assessed Sex and Gender Information Value Date Recorded Sex Assigned at Not on file Legal Sex Male 4:12 PM CDT Gender Identity Not on file Sexual Orientation Not on file documented as of this encounter Miscellaneous Notes * Cerner Conversion Note - Kevin Pickering MD - 03/17/2018 6:28 PM INSTRUMENT LENS INSPECTOR Discharge Instructions Entered On: 03/17/2018 18:29 EST Performed On: 03/17/2018 18:28 EST by JOSEPHINE ZAIDI RN DC Instructions HWD Stroke/TIA Discharge Ins : N/A Heart Failure Discharge Ins : N/A Warfarin Discharge Ins : N/A Diet After Discharge : Resume usual diet as tolerated Activity After Discharge : Rest and relax today, No heavy lifting over 10 pounds Driving After Discharge : Other: May NOT drive for 24 hours Showering/Bathing : Other: May remove bandage and shower after 24 hours. May NOT bath or soak for 5 days. JOSEPHINE ZAIDI RN - 03/17/2018 18:28 EST Electronically signed by Interface, Sj Conversion [employer] Solution Architect Cerner at 06/04/2022 9:43 AM CDT documented in this encounter Plan of Treatment Not on file documented as of this encounter Visit Diagnoses Not on filedocumented in this encounter Care Teams Signals Intelligence Analyst Relationship Specialty Start Date End Date Nikolai Tse, BURGLARY INVESTIGATOR [address] [place] [id number] PCP - General Nurse Practitioner 02/17/24 documented as of this encounter
--- OUTSIDE RECORDS SUMMARY | 2024-10-09 09:10 | XMS_ITS | Encounter Summary ---
Author Organization [employer] ([place], [place], [place], [place]) Address [address] [place] [address] Care Team Providers Care Sales Assistant Name Role Phone Nikolai Tse APRN Primary Care Provider + Encounter Details Date Type Department Care Team (Late st Contact Info) Description 01/04/2019 Transcribed Document [facility] [place] [facility] [place] [address] ProviderKevin MD [address] [place] [id number] Social History Tobacco Use Types Packs/Day Years Used Date Smoking Tobacco: Never Assessed Sex and Gender Information Value Date Recorded Sex Assigned at Not on file Legal Sex Male 4:12 PM CDT Gender Identity Not on file Sexual Orientation Not on file documented as of this encounter Miscellaneous Notes * Cerner Conversion Note - Kevin Pickering MD - 01/04/2019 8:35 AM PULMONOLOGY TECHNICIAN Discharge Summary, PT Entered On: 01/04/2019 8:39 EST Performed On: 01/04/2019 8:35 EST by Jessica Barnhart Student-Physical Therapist Discharge Summary Discharge Summary Provider Notified : Physical Therapy Reason for Discharge : Discharged from hospital Discharged to, Therapy : Unit, rehabilitation Discharge Equipment, PT : None Jessica Barnhart Student-Physical Therapist - 01/04/2019 8:35 EST Discharge Summary Comment, PT : On 01/03 session pt was supervision for to and from sit [...] likely benefit from continued PTx upon discharge. Pt met 1/4 goals in this setting. PT in agreement with student documentation. TALIB BURROUGHS, PT - 01/04/2019 8:40 EST Short Term Goals Mobility/Bed Mobility STG PT Grid Goal #1 Goal #2 Activity : Supine to sit Sit to stand Assist : Independent, modified Independent, modified Date to Meet : 01/10/2019 EST 01/10/2019 EST Goal Status : Not met Not met Comment : daniel 01/03 daniel 01/03 Jessica Barnhart, Student-Physical Therapist - 01/04/2019 8:35 EST Jessica Barnhart, Student-Physical Therapist - 01/04/2019 8:35 EST Transfer STG Grid Goal #1 Destination : Chair, with arms Type : Stand Pivot Sit Assist : Independent, modified Equipment : Walker, front wheel Date to Meet : 12/31/2018 EST Goal Status : Discontinue Comment : daniel 01/03 Jessica Barnhart, Student-Physical Therapist - 01/04/2019 8:35 EST Ambulation STG Grid Goal #1 Device : Walker, front wheel Distance : 50' Cues : Minimum verbal cues Assist : Assist, minimal Date to Meet : 12/31/2018 EST Goal Status : Goal met Date Met : 12/30/2018 EST Jessica Barnhart, Student-Physical Therapist - 01/04/2019 8:35 EST Chcf Goals Ambulation LTG Grid Goal #1 Device : Walker, front wheel Distance : 200' Cues : No cues Assist : Independent, modified Date to Meet : 01/17/2019 EST Goal Status : Not met Comment : daniel 01/03 Jessica Barnhart, Student-Physical Therapist - 01/04/2019 8:35 EST documented in this encounter Plan of Treatment Not on file documented as of this encounter Visit Diagnoses Not on filedocumented in this encounter Care Teams Sales Assistant Relationship Specialty Start Date End Date Nikolai Tse, FIELD ORGANIZER [address] [place] [address] PCP - General Nurse Practitioner 02/17/24 documented as of this encounter
--- OUTSIDE RECORDS SUMMARY | 2024-10-09 09:10 | XMS_ITS | Encounter Summary ---
Author Organization [employer] ([place], [place], [place], [place]) Address [address] [place] [address] Care Team Providers Care Custom Clothier Name Role Phone Dedrick Nikolai Dhillon APRN Primary Care Provider + Encounter Details Date Type Department Care Team (Late st Contact Info) Description 01/03/2019 Transcribed Document [facility] [place] [facility] [place] [address] ProviderKevin MD [place] [address] Social History Tobacco Use Types Packs/Day Years Used Date Smoking Tobacco: Never Assessed Sex and Gender Information Value Date Recorded Sex Assigned at Not on file Legal Sex Male 4:12 PM CDT Gender Identity Not on file Sexual Orientation Not on file documented as of this encounter Miscellaneous Notes * Cerner Conversion Note - Kevin Pickering MD - 01/03/2019 2:49 PM MEDICAL AUDITOR Nursing Discharge Summary Entered On: 01/03/2019 14:52 EST Performed On: 01/03/2019 14:49 EST by Lilly Lake RN Discharge Documentation Patient Disposition, General : Discharge Discharge To : Rehabilitation unit/facility Name of Receiving Facility/Provider : [facility] Mode Of Departure, General Discharge : Private vehicle Accompanied By, Discharge : Friend, Spouse IV Discontinued : Yes Medications Given to Patient : No Personal Belongings With Patient : Yes Pt's Own Supply of Medications Returned : No Prescriptions Given to Patient : No Discharge Instructions Reviewed With, Opportunity For Questions Given : Patient, Spouse Patient Education Completed : Yes Teaching Method : Explanation, Printed materials Teaching Evaluation : Verbalizes understanding Education Comment : pt's brother present also Nurse Report w/Opportunity for Questions : Called External Facility Requested Documentation : Yes Lilly Lake, RN - 01/03/2019 14:49 EST Electronically signed by Kyra, [facility] Conversion Safety Director Cerner at 06/04/2022 9:37 AM CDT documented in this encounter Plan of Treatment Not on file documented as of this encounter Visit Diagnoses Not on filedocumented in this encounter Care Teams Custom Clothier Relationship Specialty Start Date End Date Nikolai Tse, SIEBEL CONSULTANT [address] [place] [address] PCP - General Nurse Practitioner 02/17/24 documented as of this encounter
--- OUTSIDE RECORDS SUMMARY | 2024-10-09 09:10 | XMS_ITS | Encounter Summary ---
Author Organization [facility] Address [address] [place] [address] Care Team Providers Care Group Program Manager Name Role Phone Nikolai Tse THERAPIST Primary Care Provi lui Encounter Details Date Type Department Care Team (Late st Contact Info) Description 04/24/2024 Results Follow-Up [facility] CARDIOLOGY [address] [phone] Chandrika Hoover, THERAPIST [address] [place] [address] Social History Tobacco Use Types Packs/Day Years [...] on filedocumented in this encounter Care Teams Group Program Manager Relationship Specialty Start Date End Date Nikolai Tse APRN [address] [address] PCP - General Nurse Practitioner 03/16/24 documented as of this encounter
--- OUTSIDE RECORDS SUMMARY | 2024-10-09 09:10 | XMS_ITS | Encounter Summary ---
Author Organization [employer] ([place], [place], [place], [place]) Address [address] [place] [address] Care Team Providers Care Security Systems Sales Representative Name Role Phone Nikolai Tse APRN Primary Care Provider + Encounter Details Date Type Department Care Team (Late st Contact Info) Description 01/03/2019 Transcribed Document [facility] [place] [facility] [place] [address] ProviderKevin MD [address] [place] [address] Social History Tobacco Use Types Packs/Day Years Used Date Smoking Tobacco: Never Assessed Sex and Gender Information Value Date Recorded Sex Assigned at Not on file Legal Sex Male 4:12 PM CDT Gender Identity Not on file Sexual Orientation Not on file documented as of this encounter Miscellaneous Notes * Cerner Conversion Note - Kevin Pickering MD - 01/03/2019 2:14 PM ANIMAL SERVICES OFFICER Discharge Summary, [facility] Entered On: 01/03/2019 14:16 EST Performed On: 01/03/2019 14:14 EST by LALITA BENITEZ, CAMELIA Discharge Notation. [facility] Dysphagia Treatment After Discharge : No Discharge Diet : Regular Discharge Liquids : Thin Discharge Cognitive Deficits : Yes Ongoing Cognitive Treatment Indicated : Yes Discharge Summary Comment, [facility] : Pt being d/c'd to [facility]. Cognitive deficits persist. Pt would benefit from continued cognitive tx. 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 Pt's speech is mildly dysarthric but without apraxia. 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 Pt's speech is largely fluent but with some hesitations and word finding difficulties. He has difficulty with higher level auditory comprehension questions as well as directions. He has fairly confrontational naming skills (8/10). Breakdown occurs during conversation and in unstructured thought organization tasks (5/15 in 60 seconds with concrete category). In addition, pt was also not oriented to year though had circumlocutions until he was able to state 2018. At this time, pt would benefit from aphasia and speech therapy, and may benefit from further cog-linguistic testing in the future. No definitive time has been set for CEA but ST will follow. Education with pt and brother LALITA BENITEZ, [facility] - 01/03/2019 14:14 EST LTG Lang/Comm/Cog LTG [facility] Assisted Goal 1 Assisted Goal 2 Assisted Goal 3 Goals : Improved auditory/spoken language comprehension at the time of discharge Improved spoken language expression at the time of discharge Improved speech intelligibility at the time of discharge Status : Not met Not met Not met LALITA BENITEZ SLP - 01/03/2019 14:14 EST LALITA BENITEZ SLP - 01/03/2019 14:14 EST LALITA BENITEZ SLP - 01/03/2019 14:14 EST STG Lang_Comm_Cog Treatment Frequency, LCC : 5 times per wk Treatment Plan Est w/Pt/Caregvr, LCC : Yes Treatment Duration, LCC : Two weeks Therapy at Next Level of Care, LCC : Acute inpatient rehab LALITA BENITEZ SLP - 01/03/2019 14:14 EST Motor Speech STG Grid Goal #1 Activity : Improve intelligibility of speech Status : Progressing, continue LALITA BENITEZ SLP - 01/03/2019 14:14 EST Auditory Comprehension Grid Goal #1 Goal #2 Activity : Answer yes/no questions, complex Follow directions, 3 step commands simple Status : Not met Not met LALITA BENITEZ SLP - 01/03/2019 14:14 LALITA ROGER SLP - 01/03/2019 14:14 EST Verbal Expression STG Grid Goal #1 Goal #2 Activity : Verbally complete phrases Generate items in a category Status : Not met Not met LALITA BENITEZ SLP - 01/03/2019 14:14 LALITA ROGER SLP - 01/03/2019 14:14 EST Reading Comprehension STG Grid Goal #1 Activity : Other: probe LALITA BENITEZ SLP - 01/03/2019 14:14 EST Written Exrpression STG Grid Goal #1 Activity : Other: probe Status : Not met LALITA BENITEZ SLP - 01/03/2019 14:14 EST Electronically signed by [facility], [facility] Conversion Insurance Salesperson Cerner at 06/04/2022 9:39 AM CDT documented in this encounter Plan of Treatment Not on file documented as of this encounter Visit Diagnoses Not on filedocumented in this encounter Care Teams Security Systems Sales Representative Relationship Specialty Start Date End Date Nikolai Tse, MANAGER MANAGEMENT [address] [place] [address] PCP - General Nurse Practitioner 02/17/24 documented as of this encounter
--- OUTSIDE RECORDS SUMMARY | 2024-10-09 09:10 | XMS_ITS | Encounter Summary ---
Author Organization [employer] ([place], [place], [place], [place]) Address [address] [place] [address] Care Team Providers Care Shop And Alteration Tailor Name Role Phone LinuslongMaya cruzkeerthianthony Dhillon APRN Primary Care Provider + Encounter Details Date Type Department Care Team (Late st Contact Info) Description 01/03/2019 Transcribed Document [facility] [place] Family Medicine [address] [place] [address] ProviderKevin MD [address] [place] [address] Social History Tobacco Use Types Packs/Day Years Used Date Smoking Tobacco: Never Assessed Sex and Gender Information Value Date Recorded Sex Assigned at Not on file Legal Sex Male 4:12 PM CDT Gender Identity Not on file Sexual Orientation Not on file documented as of this encounter Miscellaneous Notes * Cerner Conversion Note - Kevin Pickering MD - 01/03/2019 3:17 PM CHECKROOM CHIEF [facility] [place], [place] [id number] DOMINIQUE SUPA M :1950 Visit Time:12/23/2018 Your Visit Summary Your Care Team Admitting Physician - PAT JACKSON MD Attending Physician - PAT JACKSON MD Primary Care Physician - HEAVENLY BREWER PA-ADAM Referring Physician - TACO HINOJOSA (REF)MD-INT Your Diagnosis Acute cerebrovascular insufficiency, Acute cerebrovascular insufficiency Weakness Discharge Vitals Temperature 36.8 ??C Heart Rate 71 Blood Pressure 166/71 What to do next Instructions From Your Care Team Diet after Discharge: _, _, _ Fluid Restriction after Discharge: _ Activity after Discharge: _, _, _ Lifting Restrictions: _ Weight Bearing: _ Bedrest: _ Driving after Discharge: _ May Return to Work/School: Showering/Bathing: _, _ Notify Provider of: Wound/Incision Care after Discharge: _, _ Medical Equipment for Home Use: Home Health Services: Community Services: [facility]/Stroke Unit Report # [phone]; [phone] Discharge Follow Up Instructions: call [phone] for routine follow up appointment in nephrology clinic with Dr. Blum after rehab. needs labs collected prior to appointment: BMP, CBC, UA, random urine protein, random urine creatinine, phosphorus, intact PTH diagnosis CKD stage 3 Activity: Discharge Activity: Activity as tolerated Diet: Discharge Diet: Heart healthy diet Follow-Up Appointments Follow Up with CARISSA HANSON When In 2 weeks 01/17/2019 [facility] Where: [address] [place] [address]- Business (1) Follow Up with HEAVENLY BREWER PA-FAM When Within 2 to 3 days Where: [address] [place] [address]- Follow Up with neurology in 2 weeks. pcp in 2 weeks. When Within 2 to 3 days Follow Up with EULOGIO RIVAS When Within 6 weeks Comments [facility] Where: [address] [place] [address]- Business (1) Follow Up with Patient should discuss the CT Scan of lumbar spine done at [facility] with his outpatient physicians. When Within 2 to 3 days Medications What How Much When Instructions Next Dose amLODIPine (amLODIPine 5 mg oral tablet) 1 Tablet(s) Oral Two Times A Day clopidogrel (Plavix 75 mg oral tablet) 1 Tablet(s) Oral Every Day hydrALAZINE (hydrALAZINE 25 mg oral tablet) 1 Tablet(s) Oral Three Times A Day Printed Prescription insulin glargine (Lantus 100 units/ mL subcutaneous solution) 30 Unit(s) SubCutaneous At Bedtime insulin lispro (insulin lispro 100 units/ mL injectable solution) Scale C: SubCutaneous Before Meals and at Bedtime aspirin (aspirin 81 mg oral tablet, chewable) 1 Tablet(s) Oral Every Day atorvastatin (atorvastatin 40 mg oral tablet) 2 Tablet(s) Oral At Bedtime fenofibrate (fenofibrate 145 mg oral tablet) 1 Tablet(s) Oral Every Day metoprolol (Lopressor 50 mg oral tablet) 0.5 Tablet(s) Oral Two Times A Day cholecalciferol (D3 1000 oral tablet) Oral Every Day gabapentin (gabapentin 300 mg oral capsule) 1 Capsule(s) Oral Once a day (at bedtime) pioglitazone (Gen-Pioglitazone) 30 Milligram(s) SITagliptin (Januvia 100 mg oral tablet) 1 Tablet(s) Oral Every Day Take your medications faithfully. Do NOT skip [...] cramping, rapid heartbeat, difficulty sleeping, and nervousness. Please dispose of unused and medications per your retail pharmacy guidance. Allergies No Known Allergies Immunizations This Visit No Immunizations Found Stroke/TIA Instructions Individualized Stroke Risk Factors Individualized Stroke Risk Factors *Q: Carotid stenosis, Diabetes Stroke/TIA Signs/Symptoms to Report Immediately: Sudden onset difficulty speaking, Sudden onset difficulty understanding speech, Sudden onset change in vision, Sudden onset weakness particulary on one side of the body, Sudden onset numbness/tingling, Sudden severe headache, Sudden dizziness or trouble with gait, Call : EMS activation is crucial Mutually Agreed Upon Goals My LDL Level: My LDL Level: Education Materials Stroke Prevention Some medical conditions and behaviors are associated with a higher chance of having a stroke. You can help prevent a stroke by making nutrition, lifestyle, and other changes, including managing any medical conditions you may have. What nutrition changes can be made? Eat healthy foods. You can do this by: ? Choosing foods high in fiber, such as fresh fruits and vegetables and whole grains. ? Eating at least 5 or more servings of fruits and vegetables a day. Try to fill half of your plate at each meal with fruits and vegetables. ? Choosing lean protein foods, such as lean cuts of meat, poultry without skin, fish, tofu, beans, and nuts. ? Eating low-fat dairy products. ? Avoiding foods that are high in salt (sodium). This can help lower blood pressure. ? Avoiding foods that have saturated fat, trans fat, and cholesterol. This can help prevent high cholesterol. ? Avoiding processed and premade foods. ??? Follow your health care provider's specific guidelines for losing weight, controlling high blood pressure (hypertension), lowering high cholesterol, and managing diabetes. These may include: ? Reducing your daily calorie intake. ? Limiting your daily sodium intake to 1,500 milligrams (mg). ? Using only healthy fats for cooking, such as olive oil, canola oil, or sunflower oil. ? Counting your daily carbohydrate intake. What lifestyle changes can be made? Maintain a healthy weight. Talk to your health care provider about your ideal weight. ??? Get at least 30 minutes of moderate physical activity at least 5 days a week. Moderate activity includes brisk walking, biking, and swimming. ??? Do not use any products that contain nicotine or tobacco, such as cigarettes and e-cigarettes. If you need help quitting, ask your health care provider. It may also be helpful to avoid exposure to secondhand smoke. ??? Limit alcohol intake to no more than 1 drink a day for non women and 2 drinks a day for men. One drink equals 12 oz of beer, 5 oz of wine, or 1?? oz of hard liquor. ??? Stop any illegal drug use. ??? Avoid taking control pills. Talk to your health care provider about the risks of taking control pills if: ? You are over 35 years old. ? You smoke. ? You get migraines. ? You have ever had a blood clot. What other changes can be made? Manage your cholesterol levels. ? Eating a healthy diet is important for preventing high cholesterol. If cholesterol cannot be managed through diet alone, you may also need to take medicines. ? Take any prescribed medicines to control your cholesterol as told by your health care provider. ??? Manage your diabetes. ? Eating a healthy diet and exercising regularly are important parts of managing your blood sugar. If your blood sugar cannot be managed through diet and exercise, you may need to take medicines. ? Take any prescribed medicines to control your diabetes as told by your health care provider. ??? Control your hypertension. ? To reduce your risk of stroke, try to keep your blood pressure below 130/80. ? Eating a healthy diet and exercising regularly are an important part of controlling your blood pressure. If your blood pressure cannot be managed through diet and exercise, you may need to take medicines. ? Take any prescribed medicines to control hypertension as told by your health care provider. ? Ask your health care provider if you should monitor your blood pressure at home. ? Have your blood pressure checked every year, even if your blood pressure is normal. Blood pressure increases with age and some medical conditions. ??? Get evaluated for sleep disorders (sleep apnea). Talk to your health care provider about getting a sleep evaluation if you snore a lot or have excessive sleepiness. ??? Take [id number] and prescription medicines only as told by your health care provider. Aspirin or blood thinners (antiplatelets or anticoagulants) may be recommended to reduce your risk of forming blood clots that can lead to stroke. ??? Make sure that any other medical conditions you have, such as atrial fibrillation or atherosclerosis, are managed. What are the warning signs of a stroke? The warning signs of a stroke can be easily remembered as BEFAST. ??? B is for balance. Signs include: ? Dizziness. ? Loss of balance or coordination. ? Sudden trouble walking. ??? E is for eyes. Signs include: ? A sudden change in vision. ? Trouble seeing. ??? F is for face. Signs include: ? Sudden weakness or numbness of the face. ? The face or eyelid drooping to one side. ??? A is for arms. Signs include: ? Sudden weakness or numbness of the arm, usually on one side of the body. ??? S is for speech. Signs include: ? Trouble speaking (aphasia). ? Trouble understanding. ??? T is for time. ? These symptoms may represent a serious problem that is an emergency. Do not wait to see if the symptoms will go away. Get medical help right away. Call your local emergency services (911 in the [place] Do not drive yourself to the hospital. ??? Other signs of stroke may include: ? A sudden, severe headache with no known cause. ? Nausea or vomiting. ? Seizure. Where to find more information For more information, visit: ??? [place] Stroke Association: www.strokeassociation.org ??? National Stroke Association: www.stroke.org Summary ??? You can prevent a stroke by eating healthy, exercising, not smoking, limiting alcohol intake, and managing any medical conditions you may have. ??? Do not use any products that contain nicotine or tobacco, such as cigarettes and e-cigarettes. If you need help quitting, ask your health care provider. It may also be helpful to avoid exposure to secondhand smoke. ??? Remember BEFAST for warning signs of stroke. Get help right away if you or a loved one has any of these signs. This information is not intended to replace advice given to you by your health care provider. Make sure you discuss any questions you have with your health care provider. Document Released: 03/11/2005 Document Revised: 03/09/2017 Document Reviewed: 03/09/2017 [employer] Patient Education ?? 2019 [employer] Emergency Awareness and Preventative Care STROKE is an EMERGENCY Every Minute Counts Act FAST and Check for these signs: FACE Does the face look uneven? ARM Does one arm drift down? SPEECH Does their speech sound strange? TIME Call at any sign of stroke Stroke Risk Factors Atrial Fibrillation (irregular heartbeat) Diabetes Family history of stroke Heart Disease Heavy alcohol use High Blood Pressure High Cholesterol Physical inactivity and obesity Smoking Cigarette Smoking The facts are clear, cigarette smoking will shorten your life. Smoking can cause many illnesses along the way. As a healthcare provider, we recommend that you stop smoking. Assistance with quitting is available by contacting 7-524-ELHE-NOW. This is a free resource providing counseling, support, and referral. Or you may contact your personal physician. National Suicide Prevention Lifeline: The National Suicide Prevention Lifeline is a national network of local crisis centers that provides free and confidential emotional support to people in suicidal crisis or emotional distress 24 hours a day, 7 days a week. Don't Wait! Stop a Heart Attack Before it Starts What is a heart attack? A heart attack is damage or to a part of the heart from severely decreased or lack of blood flow to the heart. Over time, arteries can become narrow from the buildup of fat and cholesterol, which is called plaque. The plaque can rupture causing a blood clot to form. When the blood clot forms, the artery can become severely narrowed or completely blocked, causing a heart attack. Heart attack is the leading cause of in the [place]. 85% of muscle damage occurs within the first 2 hours. Delay in the recognition of heart attack symptoms increases the chances of . Know the early symptoms of a heart attack: Nausea Feeling of fullness in chest Jaw Pain Pain that travels down one or both arms Fatigue/being tired Anxiety Back Pain Chest pressure, squeezing, or discomfort Shortness of breath Sweating, or a cold sweat Feeling of impending doom There are unusual signs of a heart attack, too! Women, the elderly, and diabetics may present with atypical symptoms: Fainting/dizziness Weakness Confusion Risk Factors for a Heart Attack Some heart disease risk factors, such as age and family history, cannot be changed. Others, like smoking and lack of exercise, can be changed. Smoking High Cholesterol High Blood Pressure Family History Obesity Age Gender (Males are at higher risk) Lack of Exercise Diabetes Diet Stress Excessive Alcohol Intake If you or someone you know is experiencing the signs and symptoms of a heart attack, DON???T DELAY. Call immediately and seek help. If someone collapses, perform CPR! Do not attempt to drive if you are having symptoms of heart attack. Hands-Only CPR Why Hands-Only CPR? Hands-Only CPR has been shown to be as effective as conventional CPR for cardiac arrests that occur outside of a hospital. Survival depends on immediately receiving CPR from someone nearby. How do you perform Hands-Only CPR? There are two easy steps: Call 9-1-1 if you see a teen or adult collapse Push hard and fast in the center of the chest at a beat of 100 beats per minute. Save a life! 4 WAYS TO GET AHEAD OF SEPSIS SEPSIS is a MEDICAL EMERGENCY. Time matters! Infections put you and your family at risk for a life-threatening condition called sepsis. Sepsis is the body's extreme response to an infection. It is life-threatening, and without timely treatment, sepsis can rapidly lead to tissue damage, organ failure, and . Sepsis happens when an infection you already have-in your skin, lungs, urinary tract or somewhere else-triggers a chain reaction throughout your body. 1 [...] sepsis or if you have an infection that is not getting better or is getting worse. To learn more about sepsis and how to prevent infections, visit www.cdc.gov/sepsis. Test Results Laboratory or Other Results This Visit (last charted value for your 12/23/2018 visit) Hematology 01/03/2019 3:06 AM WBC: 5.9 K/uL -- Normal range between ( 3.6 and 9.5 ) RBC: 3.59 Million/uL -- Normal range between ( 4.20 and 5.70 ) Hct: 32.5 % -- Normal range between ( 40.1 and 51.0 ) Hgb: 10.6 g/dL -- Normal range between ( 13.5 and 17.3 ) Platelet Count: 298 K/uL -- Normal range between ( 163 and 369 ) MCH: 29.5 pg -- Normal range between ( 25.6 and 32.2 ) MCHC: 32.6 Gram/dL -- Normal range between ( 32.2 and 36.5 ) MCV: 90.5 fL -- Normal range between ( 79.0 and 94.8 ) Slide Review: No RDW: 13.3 % -- Normal range between ( 11.7 and 14.9 ) MPV: 9.4 fL -- Normal range between ( 9.4 and 12.4 ) 01/02/2019 1:43 PM Eos %: 7.7 % -- Normal range between ( 0.0 and 7.0 ) Sauk #: 0.82 K/uL -- Normal range between ( 0.16 and 1.00 ) Eos #: 0.63 x10(3)/uL -- Normal range between ( 0.00 and 0.80 ) Sauk %: 10.0 % -- Normal range between ( 3.0 and 9.0 ) Baso %: 1.0 % -- Normal range between ( 0.0 and 1.5 ) Baso #: 0.08 x10(3)/uL -- Normal range between ( 0.00 and 0.20 ) Neut %: 49.1 % -- Normal range between ( 34.0 and 71.0 ) Neut #: 4.02 K/uL -- Normal range between ( 1.56 and 6.13 ) Lymph %: 31.6 % -- Normal range between ( 19.3 and 53.1 ) Lymph #: 2.59 x10(3)/uL -- Normal range between ( 1.00 and 3.90 ) IG#: 0.05 x10(3)/uL -- Normal range between ( 0.00 and 0.05 ) IG%: 0.60 % -- Normal range between ( 0.00 and 0.60 ) Blood Bank 01/02/2019 9:05 AM ABO/Rh (ECHO): O POS Antibody Screen: Negative ABSC 01/02/2019 6:03 AM ABO/Rh Repeat: O POS Urine Chemistry 12/25/2018 10:20 AM Creatinine Urine Random: 91 mg/dL Sodium Ur [place]: 104 mMole/Liter Protein Ur [place]: 40 mg/dL General Chemistry 01/03/2019 10:25 AM Glucose POC2: 225 mg/dL -- Normal range between ( 70 and 110 ) 01/03/2019 3:06 AM Creatinine Level: 1.80 mg/dL -- Normal range between ( 0.70 and 1.30 ) Sodium Level: 141 mmol/L -- Normal range between ( 136 and 146 ) Potassium Level: 4.3 mmol/L -- Normal range between ( 3.5 and 5.1 ) Chloride Level: 113 mmol/L -- Normal range between ( 102 and 112 ) Carbon Dioxide Level: 24 mmol/L -- Normal range between ( 21 and 32 ) Anion Gap: 8 -- Normal range between ( 9 and 20 ) Bilirubin Total: 0.3 mg/dL -- Normal range between ( 0.2 and 1.2 ) A/G Ratio: 0.8 -- Normal range between ( 1.1 and 2.5 ) ALT: 32 Units/Liter -- Normal range between ( 16 and 61 ) AST: 18 Units/Liter -- Normal range between ( 5 and 37 ) Globulin: 3.6 Gram/dL -- Normal range between ( 1.5 and 4.5 ) Alk Phos: 33 Units/Liter -- Normal range between ( 27 and 136 ) Bun/Creatinine: 16.1 -- Normal range between ( 8.0 and 20.0 ) Calcium Level: 8.7 mg/dL -- Normal range between ( 8.4 and 10.1 ) eGFR : 45 mL/min/1.73m2 eGFR NonAfrican: 37 mL/min/1.73m2 Glucose Level: 153 mg/dL -- Normal range between ( 74 and 106 ) Magnesium Level: 1.7 mg/dL -- Normal range between ( 1.5 and 2.4 ) Blood Urea Nitrogen: 29 mg/dL -- Normal range between ( 7 and 22 ) Protein Total: 6.3 Gram/dL -- Normal range between ( 6.4 and 8.2 ) Albumin Level: 2.7 Gram/dL -- Normal range between ( 3.4 and 5.0 ) 01/02/2019 9:01 PM Device Comment 1: Device Comment 1 12/30/2018 11:19 AM Device Comment 2: Device Comment 2 12/24/2018 7:03 AM Hgb A1C: 12.6 % eAVG Glucose: 315 mg/dL Coagulation 12/25/2018 7:33 AM INR: 1.0 -- Normal range between ( 0.9 and 1.1 ) PT: 11.0 Second(s) -- Normal range between ( 9.6 and 12.0 ) Lipid Studies 12/24/2018 7:03 AM Cholesterol Tot: 117 mg/dL -- Normal range between ( 0 and 199 ) Cholesterol HDL: 25.0 mg/dL Cholesterol LDL Calculation: 49.8 mg/dL -- Normal range between ( 0.0 and 99.0 ) Cholesterol VLDL Calculation: 42.2 mg/dL -- Normal range between ( 5.0 and 40.0 ) Cholesterol/HDL Ratio: 4.7 -- Normal range between ( 0.0 and 3.2 ) Triglyceride: 211 mg/dL -- Normal range between ( 0 and 249 ) LDL/HDL Ratio: 2.0 -- Normal range between ( 0.0 and 3.6 ) Endocrinology 12/24/2018 7:03 AM TSH: 3.500 mcInt Units/mL -- Normal range between ( 0.358 and 3.740 ) Computed Tomography 12/26/2018 3:03 PM CTA Neck: CTA Neck 12/26/2018 3:01 PM CTA Head: CTA Head 12/24/2018 2:[address] Head WO: CT Head WO Magnetic Resonance Imaging 12/26/2018 8:34 AM MRI Brain WO: MRI Brain WO Echo 12/23/2018 2:40 PM EC 2D Echo Complete W Bubble Study: EC 2D Echo Complete W Bubble Study Vascular Ultrasound 12/23/2018 2:06 PM VL Carotid Duplex BILAT: VL Carotid Duplex BILAT Patient Name:SUPA FOX I have received and understand this information and was given the opportunity to ask questions. Patient/Ceramist Name: Patient/Ceramist Signature: Relationship to Patient: Clinician/Hospital Ceramist Signature: Date: documented in this encounter Plan of Treatment Not on file documented as of this encounter Visit Diagnoses Not on filedocumented in this encounter Care Teams Shop And Alteration Tailor Relationship Specialty Start Date End Date Nikolai Tse, CALF SKINNER [address] [id number] PCP - General Nurse Practitioner 02/17/24 documented as of this encounter
--- OUTSIDE RECORDS SUMMARY | 2024-10-09 09:10 | XMS_ITS | Encounter Summary ---
Author Organization [employer] ([place], [place], [place], [place]) Address [address] [place] [address] Care Team Providers Care Superintendent Measurement Name Role Phone Nikolai Tse APRN Primary Care Provider + Encounter Details Date Type Department Care Team (Late st Contact Info) Description 01/03/2019 Transcribed Document [facility] [address] [place] [address] ProviderKevin MD [address] [place] [address] Social History Tobacco Use Types Packs/Day Years Used Date Smoking Tobacco: Never Assessed Sex and Gender Information Value Date Recorded Sex Assigned at Not on file Legal Sex Male 4:12 PM CDT Gender Identity Not on file Sexual Orientation Not on file documented as of this encounter Miscellaneous Notes * Cerner Conversion Note - Kevin Pickering MD - 01/03/2019 8:30 AM HOME ECONOMIST CONSUMER SERVICE Patient: PRAVEEN FOX Age: 68 Years Sex: Male : 1950 Subjective Patient is doing well. No acute events noted No neurologic complaints No other major complaints Vital Signs T: 36.4 ??C TMIN: 35.6 ??C TMAX: 36.6 ??C HR: 51(Monitored) RR: 10 BP: 116/57 BP: 128/56(Line) SpO2: 98% HT: 170.18 cm WT: 94.4 kg BMI: 32.6 Physical Exam GEN: A&Ox3 CARD: RRR PULM: clear Left NECK: incision c/d/i, no hematoma, trachea is midline Right femoral vein access site: no hematoma, soft NEURO: CN II-XII intact, no deficit appreciated Assessment/Plan Symptomatic LEFT ICA stenosis Procedure 01/02/19: Left TCAR(op note pending) -Neurologically intact (stable deficit) -Hemodynamically stable >will need routine TCAR post op neurology evaluation >ok to transfer to tele >ok to d/c to rehab when med team deems appropriate Acute cerebrovascular insufficiency I67.81, Acute cerebrovascular insufficiency I67.81 Weakness R53.1 Medications Inpatient acetaminophen-HYDROcodone 325 mg-5 mg oral [...] Daily heparin, 5000 Units= 1 mL, SubCutaneous, [id number] hydrALAZINE, 10 mg= 0.5 mL, IV Push, [...] mg= 2 mL, IV Push, Q4H, PRN Home amLODIPine 5 mg oral tablet, 5 mg= 1 Tab, Oral, BID aspirin 81 mg oral tablet, chewable, 81 mg= 1 Tab, Oral, Daily atorvastatin 40 mg oral tablet, 80 mg= 2 Tab, Oral, At Bedtime D3 1000 oral tablet, Oral, Daily fenofibrate 145 mg oral tablet, 145 mg= 1 Tab, Oral, Daily gabapentin 300 mg oral capsule, 300 mg= 1 Cap, Oral, Once a day (at bedtime) Gen-Pioglitazone, 30 mg insulin lispro 100 units/mL injectable solution, Scale C:, SubCutaneous, AC and at Bedtime Januvia 100 mg oral tablet, 100 mg= 1 Tab, Oral, Daily Lantus 100 units/mL subcutaneous solution, 30 Units, SubCutaneous, At Bedtime Lopressor 50 mg oral tablet, 25 mg= 0.5 Tab, Oral, BID Plavix 75 mg oral tablet, 75 mg= 1 Tab, Oral, Daily Labs Results DEC 30 07:01 140 110 H 34 / H 233 4.6 28 H 2.00 \ JAN 03 03:06 \ L 10.6 / 5.9 298 / L 32.5 \ Albumin Level: 2.7 Gram/dL Low Alk Phos: 33 Units/Liter ALT: 32 Units/Liter Anion Gap: 8 Low AST: 18 Units/Liter Bilirubin Total: 0.3 mg/dL Calcium Level: 8.7 mg/dL Magnesium Level: 1.7 mg/dL Protein Total: 6.3 Gram/dL Low Imaging Results (Last 24 Hours) No Radiology Results Found Problem List/Past Medical History Ongoing At risk for sleep apnea CAD - Coronary artery disease Chronic kidney insufficiency Diabetes mellitus type II HLD - Hyperlipidemia HTN - Hypertension Hyperlipidemia Hypertension Type 2 diabetes mellitus Historical No qualifying data Procedure/Surgical History CABG x 4 (2012), CABG, Circumcision, Heart Cath. Allergies No Known Allergies documented in this encounter Plan of Treatment Not on file documented as of this encounter Visit Diagnoses Not on filedocumented in this encounter Care Teams Superintendent Measurement Relationship Specialty Start Date End Date Nikolai Tse, QUENCHER OPERATOR [address] [place] [address] PCP - General Nurse Practitioner 02/17/24 documented as of this encounter
--- OUTSIDE RECORDS SUMMARY | 2024-10-09 09:10 | XMS_ITS | Encounter Summary ---
Author Organization [employer] ([place], [place], [place], [place]) Address [address] [place] [address] Care Team Providers Care Transformer Builder Name Role Phone LinuslongMaya cruzkeerthianthony Dhillon APRN Primary Care Provider + Encounter Details Date Type Department Care Team (Late st Contact Info) Description 01/03/2019 Transcribed Document [facility] Family Medicine [address] [place] [address] ProviderKevin MD [address] [place] [address] Social History Tobacco Use Types Packs/Day Years Used Date Smoking Tobacco: Never Assessed Sex and Gender Information Value Date Recorded Sex Assigned at Not on file Legal Sex Male 4:12 PM CDT Gender Identity Not on file Sexual Orientation Not on file documented as of this encounter Miscellaneous Notes * Cerner Conversion Note - Kevin Pickering MD - 01/03/2019 2:58 PM MECHANICAL PRODUCT ENGINEER [facility] [place], [place] [id number] YOVANY SUPA M :1950 Visit Time:12/23/2018 Your Visit Summary Your Care Team Admitting Physician - PAT JACKSON MD Attending Physician - PAT JACKSON MD Primary Care Physician - HEAVENLY BREWER PA-ADAM Referring Physician - TACO HINOJOSA (REF)MD-INT Your Diagnosis Acute cerebrovascular insufficiency, Acute cerebrovascular insufficiency Weakness Discharge Vitals Temperature 36.8 ??C Heart Rate 71 Respiratory Rate 25 Blood Pressure 166/71 What to do next [...] Home Use: Home Health Services: Community Services: [facility]/Stroke Unit Report # [phone]; [phone] Discharge Follow Up Instructions: call [phone] for routine follow up appointment in nephrology clinic with Dr. Blum after rehab. needs labs collected prior to appointment: BMP, CBC, UA, random urine protein, random urine creatinine, phosphorus, intact PTH diagnosis CKD stage 3 Activity: Discharge Activity: Activity as tolerated Diet: Discharge Diet: Heart healthy diet Follow-Up Appointments Follow Up with CARISSA HANSON When In 2 weeks 01/17/2019 [facility] Where: [address] [facility] [place] [address]- Business (1) Follow Up with HEAVENLY BREWER PA-FAM When Within 2 to 3 days Where: [address] [place] [address]- Follow Up with neurology in 2 weeks. pcp in 2 weeks. When Within 2 to 3 days Follow Up with EULOGIO RIVAS When Within 6 weeks Comments [facility] Where: [address] [place] [address]- Business (1) Follow Up with Patient should discuss the CT Scan of lumbar spine done at [facility] with his outpatient physicians. When Within 2 [...] lot or have excessive sleepiness. ??? Take cgel-llw-clfhreg and prescription medicines only as told by [...] more information For more information, visit: ??? [place] Stroke Association: www.strokeassociation.org ??? National Stroke Association: [...] 03/11/2005 Document Revised: 03/09/2017 Document Reviewed: 03/09/2017 [employer]Control Interactive Patient Education ?? 2019 [employer] Inc[employer] Emergency Awareness and Preventative Care STROKE [...] Assistance with quitting is available by contacting 9-587-DNXENOW. This is a free resource providing counseling, support, and referral. Or you may contact your personal physician. [place] Suicide Prevention Lifeline: The National Suicide Prevention [...] range between ( 0.0 and 7.0 ) [place] #: 0.82 K/uL -- Normal range between ( 0.16 and 1.00 ) [place] #: 0.63 x10(3)/uL -- Normal range between ( 0.00 and 0.80 ) [place] %: 10.0 % -- Normal range between [...] Creatinine Urine Random: 91 mg/dL Sodium Ur [place]: 104 mMole/Liter Protein Ur [place]: 40 mg/dL General Chemistry 01/03/2019 10:25 AM [...] was given the opportunity to ask questions. Patient/Personal Care Aide Name: Patient/Personal Care Aide Signature: Relationship to Patient: Clinician/Hospital Personal Care Aide Signature: Date: Electronically signed by Kyra, [facility] Conversion Store Sales Consultant Cerner at 06/04/2022 9:54 AM CDT documented in this encounter Plan of Treatment Not on file documented as of this encounter Visit Diagnoses Not on filedocumented in this encounter Care Teams Transformer Builder Relationship Specialty Start Date End Date Nikolai Tse, CORROSION CONTROL TECHNICIAN [address] [place] [address] PCP - General Nurse Practitioner 02/17/24 documented as of this encounter
--- OUTSIDE RECORDS SUMMARY | 2024-10-09 09:10 | XMS_ITS | Encounter Summary ---
Author Organization [employer] ([place], [place], [place], [place]) Address [address] [place] [address] Care Team Providers Care Lead Athlete Name Role Phone Nikolai Tse APRN Primary Care Provider + Encounter Details Date Type Department Care Team (Late st Contact Info) Description 01/03/2019 Transcribed Document [facility] [place] Medicine [address] [place] [address] ProviderKevin MD [address] [place], [place] [address] Social History Tobacco Use Types Packs/Day Years Used Date Smoking Tobacco: Never Assessed Sex and Gender Information Value Date Recorded Sex Assigned at Not on file Legal Sex Male 4:12 PM CDT Gender Identity Not on file Sexual Orientation Not on file documented as of this encounter Miscellaneous Notes * Cerner Conversion Note - Kevin Pickering MD - 01/03/2019 3:05 PM CARDIOTHORACIC ICU RN Patient Education Materials Follows: Stroke Prevention Some medical conditions and behaviors [...] of beer, 5 oz of wine, or 1? oz of hard liquor. ??? Stop any [...] lot or have excessive sleepiness. ??? Take rtah-mhd-fkqthfx and prescription medicines only as told by [...] more information For more information, visit: ??? [place] Stroke Association: www.strokeassociation.org ??? National Stroke Association: [...] 03/11/2005 Document Revised: 03/09/2017 Document Reviewed: 03/09/2017 ElseSellaround Interactive Patient Education ? 2019 [employer] documented in this encounter Plan of Treatment Not on file documented as of this encounter Visit Diagnoses Not on filedocumented in this encounter Care Teams Lead Athlete Relationship Specialty Start Date End Date Nikolai Tse, CITIZENSHIP INSTRUCTOR [address] [place], [place] [id number] PCP - General Nurse Practitioner 02/17/24 documented as of this encounter
--- OUTSIDE RECORDS SUMMARY | 2024-10-09 09:10 | XMS_ITS | Encounter Summary ---
Author Organization [employer] ([place], [place], [place], [place]) Address [address] [place] [address] Care Team Providers Care Funeral Arrangement Director Name Role Phone Nikolai Tse APRN Primary Care Provider + Encounter Details Date Type Department Care Team (Late st Contact Info) Description 03/17/2018 Transcribed Document [facility] [place] [address] [place] [address] ProviderKevin MD [address] [place], [place] [address] Social History Tobacco Use Types Packs/Day Years Used Date Smoking Tobacco: Never Assessed Sex and Gender Information Value Date Recorded Sex Assigned at Not on file Legal Sex Male 4:12 PM CDT Gender Identity Not on file Sexual Orientation Not on file documented as of this encounter Miscellaneous Notes * Cerner Conversion Note - Kevin Pickering MD - 03/17/2018 6:30 PM WATER/WASTEWATER ENGINEER Patient Education Materials Follows: Carbohydrate Counting for Diabetes Mellitus, Adult Carbohydrate [...] different for every person. A diet and operation specialist (registered dietitian) can help you make a [...] of carbohydrates: ? hamburger bun or ? Slovenian muffin. ? oz (15 mL) syrup. ? [...] foods that contain carbohydrates: ??? Rice. ??? Roll. ??? Milk. ??? Strawberries. 2. Calculate how [...] 02/01/2006 Document Revised: 08/21/2016 Document Reviewed: 07/15/2016 [employer] Interactive Patient Education ? 2017 [employer] Pharmacology Moderate Conscious Sedation, Adult, Care After These [...] you are awake and alert. ??? Take nmwq-yeo-npsetmq and prescription medicines only as told by [...] 11/22/2013 Document Revised: 07/06/2016 Document Reviewed: 05/23/2016 [employer] Interactive Patient Education ? 2017 Elsevier Inc. Radiology Coronary Angiogram A coronary angiogram is an [...] including vitamins, herbs, eye drops, creams, and zzsz-dlj-ydvaaig medicines. ??? Any problems you or family [...] 08/08/2003 Document Revised: 11/13/2016 Document Reviewed: 11/13/2016 Elsevier Interactive Patient Education ? 2017 [employer] documented in this encounter Plan of Treatment Not on file documented as of this encounter Visit Diagnoses Not on filedocumented in this encounter Care Teams Funeral Arrangement Director Relationship Specialty Start Date End Date Nikolai Tse, JULIO CÉSAR [address] [place] [address] PCP - General Nurse Practitioner 02/17/24 documented as of this encounter
--- OUTSIDE RECORDS SUMMARY | 2024-10-09 09:10 | XMS_ITS | Encounter Summary ---
Author Organization [facility] Address [address] [id number] Care Team Providers Care Assistant Executive Housekeeper Name Role Phone Roberta Villalobos JULIO CÉSAR Primary Care Provider Encounter Details Date Type Department Care Team (Late st Contact Info) Description 02/19/2022 Ophth Exam [facility] [address] [place] [address] Keith Abreu MD [address] [place] [address] Social History Tobacco Use Types Packs/Day Years Used Date Smoking Tobacco: Former Cigarettes 0.5 50 Passive Smoke Exposure: Current Sex and Gender Information Value Date Recorded Sex Assigned at Not on file Legal Sex Male 6:56 PM EDT Gender Identity Not on file Sexual Orientation Not on file COVID-19 Exposure Response Date Recorded In the last 10 days, have yo u been in contact with someone who was confirmed or suspected to have Coronavirus/COVID-19? No / Unsure 02/19/2022 12:39 PM EST documented as of this encounter Functional Status * Calculated C-SSRS Risk Score (Lifetime/Recent) Answer Date of Assessment Author No Risk Indicated 02/19/2022 12:54 PM EST Fernanda Lowry RN * Question Answer Date of Assessment Author 1. Wish to be (Past 1 Month) No 02/19/2022 12:54 PM Fernanda Salas RN 2. Non-Specific Active Suici sofi Thoughts (Past 1 Month) No 02/19/2022 12:54 PM EST Jaqueline Lowry RN 6. Suicidal Behavior (Lifetime) No 12:54 PM Fernanda Salas, RN documented as of this encounter Plan of Treatment Not on file documented as of this encounter Visit Diagnoses Not on filedocumented in this encounter Care Teams Assistant Executive Housekeeper Relationship Specialty Start Date End Date Roberta Villalobos APRN [address] [place] [address] PCP - General Family Medicine 02/19/22 documented as of this encounter
--- OUTSIDE RECORDS SUMMARY | 2024-10-09 09:10 | XMS_ITS | Encounter Summary ---
Author Organization [employer] ([place], [place], [place], [place]) Address [address] [place] [address] Care Team Providers Care Appliance Installer Name Role Phone Nikolai Tse APRN Primary Care Provider + Encounter Details Date Type Department Care Team (Late st Contact Info) Description 03/17/2018 Transcribed Document [facility] [place] [facility] [place] [address] [place] [address] ProviderKevin MD [address], [place] [address] Social History Tobacco Use Types Packs/Day Years Used Date Smoking Tobacco: Never Assessed Sex and Gender Information Value Date Recorded Sex Assigned at Not on file Legal Sex Male 4:12 PM CDT Gender Identity Not on file Sexual Orientation Not on file documented as of this encounter Miscellaneous Notes * Cerner Conversion Note - Kevin Pickering MD - 03/17/2018 12:52 PM SHOE TURNER Pre Procedure Adult Entered On: 03/17/2018 12:58 EST Performed On: 03/17/2018 12:52 EST by JOSEPHINE ZAIDI RN Height and Weight, Clinical Dosing Height Source : Measured Height Entry Format : [place] Height, Feet : 5 ft(Converted to: 152 cm, 60 Inch) Height, Inches : 7 Inch(Converted to: 0 ft 7 Inch, 17.78 cm) Clinical Height : 170.18 cm Weight Source : Standing scale Weight Entry Format : [place] Clinical Dosing Weight : 86.82 kg Weight, Pounds : 191 lb Body Surface Area (BSA) : 1.98 m2 Body Mass Index : 30 kg/m2 (HI) [place] Body Weight : 65 kg JOSEPHINE ZAIDI RN - 03/17/2018 12:52 EST Health Histories Smoking Status : Never (less than 100 in lifetime; none in last 30 days), Former smoker, quit more than 30 days ago Smokeless Tobacco Status : Former smokeless tobacco user, quit more than 30 days ago JOSEPHINE ZAIDI RN - 03/17/2018 12:52 EST Social History (As Of: 03/17/2018 12:58:57 EST) Tobacco: Smoking Status Current every day smoker. Years of Use: 50. Packs/Tins Daily: 1. (Last Updated: 09/23/2012 08:05:08 EDT by PRAVEEN STEPHENS, RN) Alcohol: Days/Week: 7. # Drinks/Day: 4. Total Drinks/Week: 28. (Last Updated: 09/23/2012 08:05:33 EDT by PRAVEEN STEPHENS, RN) Infectious Disease History Infectious Disease History : None, C-Difficile, Influenza Fever/Chills Last 48 Hours : No Travel To Regions with Travel Advisories : No Travel Outside [place]S. Within Last 30 Days : No Contact With Traveler to Advisory Region : No Tuberculosis Symptoms : None JOSEPHINE ZAIDI RN - 03/17/2018 12:52 EST Anesthesia/Transfusion History Family History of Anesthesia Reaction : No prior transfusion(s) Blood Transfusion Acceptable to Patient : Yes Transfusion History : No prior anesthesia Family History of Anesthesia Reaction : None JOSEPHINE ZAIDI RN - 03/17/2018 12:52 EST Functional Assessment Living Situation : Home Patient Lives With : Spouse Current Home Treatments : Blood glucose monitoring, Oxygen therapy JOSEPHINE ZAIDI RN - 03/17/2018 12:52 EST Psychosocial History Currently in Unsafe Situation : No Tried to Harm Yourself in the Past? : No Thoughts of Harming/Killing Yourself : No JOSEPHINE ZAIDI RN - 03/17/2018 12:52 EST Advance Directive Patient has Advance Directive *Q : Yes, Advance Directive on file Advance Directive Type : Living will Copy Advance Directive Verified/on Chart : No JOSEPHINE ZAIDI RN - 03/17/2018 12:52 EST General Info Want Family/Rep/Phys Notified of Admit : No Emergency Contact #1 : Alma Delia Pedroza Emergency Contact #1 Phone Number : Emergency Contact #1 Relationship : [phone] Emergency Contact #2 : none Emergency Contact #2 Phone Number : none Emergency Contact #2 Relationship : none Primary Language : Liberian Communication Barrier : None JOSEPHINE ZAIDI RN - 03/17/2018 12:52 EST Sleep Apnea Risk Assmt Hx of Obstructive Sleep Apnea Diagnosis : No Snore Loudly : No Tired, Fatigued, or Sleepy During Day : Yes Observed Stopping Breathing During Sleep : No Have/Are Being Treated for Hypertension : No STOP Sleep Apnea Risk Level Score : 1 STOP Sleep Apnea Risk Level : Low BMI Greater Than 35 kg/m2 : No Age over 50 Years Old : No Gender Male : Yes Neck Circumference Measured (cms) : 41 cm STOP-BANG Sleep Apnea Risk Level Score : 2 Neck Circumference Greater Than 40 cm : Yes JOSEPHINE ZAIDI RN - 03/17/2018 12:52 EST Malick Scale Malick Sensory Perception : Slightly limited Malick Moisture : Rarely moist Malick Activity : Walks frequently Malick Mobility : Slightly limited Malick Nutrition : Probably inadequate Malick Friction and Shear : Potential problem Malick Score : 18 JOSEPHINE ZAIDI RN - 03/17/2018 12:52 EST Fall Risk Scales ABCs Fall Injury Risk Identification : None ZHOU Hx Falls Immediate/Within 3 Months : No Zhou Secondary Diagnosis : No ZHOU Use of Ambulatory Aid : None ZHOU IV Therapy or IV Access : Yes Zhou Gait/Transferring : Normal, bedrest, immobile Zhou Mental Status : Oriented to own ability Zhou Fall Risk Score : 20 ZHOU Fall Scale Risk Level : 0-24 Low Risk [place] Fall Interventions : Adequate lighting, Assistive devices within reach, Bed in low position, Call device within reach, Fall prevention handout/education per facility policy, Hourly comfort/safety rounds, Non-slip footwear, Personal items within reach, Reinforced to call for assistance before getting out of bed, Room free of clutter/spills, Upper side-rails up, Wheels locked, Wires/Cords secured JOSEPHINE ZAIDI RN - 03/17/2018 12:52 EST Valuables and Belongings Valuables and Belongings : Clothing Clothing : Common streetwear Clothing Disposition : Bedside JOSEPHINE ZAIDI RN - 03/17/2018 12:52 EST Electronically signed by Kyra [facility] Conversion Health And Wellness Coach Cerner at 06/04/2022 9:45 AM CDT documented in this encounter Plan of Treatment Not on file documented as of this encounter Visit Diagnoses Not on filedocumented in this encounter Care Teams Appliance Installer Relationship Specialty Start Date End Date Nikolai Tse, CHIEF OF STAFF [address] [place] [address] PCP - General Nurse Practitioner 02/17/24 documented as of this encounter
--- OUTSIDE RECORDS SUMMARY | 2024-10-09 09:11 | XMS_ITS | Encounter Summary ---
Author Organization [employer] ([place], [place], [place], [place]) Address [address] [place] [address] Care Team Providers Care Funeral Professional Name Role Phone Nikolai Tse APRN Primary Care Provider + Encounter Details Date Type Department Care Team (Late st Contact Info) Description 12/28/2018 Transcribed Document [facility] [place] Family Medicine [facility] [place] [address] ProviderKevin MD [address] [place], [place] [id number] Social History Tobacco Use Types Packs/Day Years Used Date Smoking Tobacco: Never Assessed Sex and Gender Information Value Date Recorded Sex Assigned at Not on file Legal Sex Male 4:12 PM CDT Gender Identity Not on file Sexual Orientation Not on file documented as of this encounter Miscellaneous Notes * Cerner Conversion Note - Kevin ProviderMD - 12/28/2018 5:00 AM WORKERS COMPENSATION PARALEGAL Chart Check - Review Order Profile Entered On: 12/28/2018 4:45 EST Performed On: 12/28/2018 5:00 EST by Eunice Iraheta RN Chart Check Powerplans Initiated/Discontinued as Appropriate : Yes Eunice Iraheta RN - 12/28/2018 4:45 EST Electronically signed by Suzy Rae Conversion Audio Visual Production Specialist Cerner at 06/04/2022 9:45 AM CDT documented in this encounter Plan of Treatment Not on file documented as of this encounter Visit Diagnoses Not on filedocumented in this encounter Care Teams Funeral Professional Relationship Specialty Start Date End Date Nikolai Tse APRN [address] [place] [address] PCP - General Nurse Practitioner 02/17/24 documented as of this encounter
--- OUTSIDE RECORDS SUMMARY | 2024-10-09 09:11 | XMS_ITS | Encounter Summary ---
Author Organization [employer] ([place], [place], [place], [place]) Address [address] [place] [address] Care Team Providers Care Paper Reel Operator Name Role Phone Nikolai Tse APRN Primary Care Provider + Encounter Details Date Type Department Care Team (Late st Contact Info) Description 12/28/2018 Transcribed Document [facility] [place] [facility] [place] [address] ProviderKevin MD [address] [place] [address] Social History Tobacco Use Types Packs/Day Years Used Date Smoking Tobacco: Never Assessed Sex and Gender Information Value Date Recorded Sex Assigned at Not on file Legal Sex Male 4:12 PM CDT Gender Identity Not on file Sexual Orientation Not on file documented as of this encounter Miscellaneous Notes * Cerner Conversion Note - Kevin Pickering MD - 12/28/2018 2:07 PM COOK HELPER PASTRY DATE OF DISCHARGE: 12/29/2018 DISCHARGE DIAGNOSES: 1. 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 2. Hypertensive urgency. 3. Acute renal failure. 4. Chronic kidney disease. 5. Diabetes mellitus, type 2. 6. Hyperlipidemia. 7. Peripheral neuropathy. 8. Left internal carotid stenosis. DISCHARGE INSTRUCTIONS: Diet, according to [place] Diabetic Association. Activities as tolerated. Followup appointment with primary care physician in 3 to 4 days. DISPOSITION: Home. FOLLOWUP: Follow up with Vascular Surgery next Wednesday for surgery for left internal carotid stenosis. HISTORY AND HOSPITAL COURSE: This is a 68-year-old male admitted to the hospital with acute stroke. 1. Acute stroke. The patient admitted to the hospital, was seen by Neurology. The patient started on physical therapy, was admitted with right-sided weakness, expressive aphasia, started to resolve slowly. The patient started on physical therapy, will be transferred to rehab to continue physical therapy. The patient has been on aspirin, Plavix, and statin. 2. Left internal carotid stenosis. The patient is seen by Vascular Surgery, scheduled next Wednesday for surgery. The patient will be on aspirin 81 mg daily, Plavix 75 mg daily, and Lipitor 80 mg at bedtime. Continue this medication till surgery. Discussed with Vascular Surgery. 3. Dehydration, resolved with IV fluids. 4. Acute renal failure. The patient is seen by utility division project manager. Medication adjusted as mentioned. 5. Diabetes mellitus. The patient will be on Lantus and sliding scale. 6. For other medical problem, medication to be continued as mentioned. The patient is medically stable, will be transferred to long-term facility for rehab, and the patient will come back on Wednesday for surgery for left internal carotid artery stenosis. The patient will be on aspirin, Plavix, and statin. Plan discussed with Vascular Surgery, with RN, with the heel caser. Chart was reviewed. Time spent, 40 minute. /[id number] MD SHANDRA Estevez/CIERRA / SHANDRA / MODL /[id number] documented in this encounter Plan of Treatment Not on file documented as of this encounter Visit Diagnoses Not on filedocumented in this encounter Care Teams Paper Reel Operator Relationship Specialty Start Date End Date Nikolai Tse, BULK STATION AGENT [address] [place] [address] PCP - General Nurse Practitioner 02/17/24 documented as of this encounter
--- OUTSIDE RECORDS SUMMARY | 2024-10-09 09:11 | XMS_ITS | Encounter Summary ---
Author Organization [employer] ([place], [place], [place], [place]) Address [address] [place] [address] Care Team Providers Care Straw Hat Plunger Operator Name Role Phone Nikolai Tse APRN Primary Care Provider + Encounter Details Date Type Department Care Team (Late st Contact Info) Description 12/26/2018 Transcribed Document [facility] [place] Family Medicine [facility] [place] [address] ProviderKevin MD [address] [place] [address] Social History Tobacco Use Types Packs/Day Years Used Date Smoking Tobacco: Never Assessed Sex and Gender Information Value Date Recorded Sex Assigned at Not on file Legal Sex Male 4:12 PM CDT Gender Identity Not on file Sexual Orientation Not on file documented as of this encounter Miscellaneous Notes * Cerner Conversion Note - Kevin Pickering MD - 12/26/2018 10:12 AM EXHIBITS MANAGER Patient: PRAVEEN FOX Age: 68 Years Sex: Male : 1950 Subjective Patient and family report continued right sided hemiparesis. It has not worsened since the . Family reports that patient sometimes gets frustrated because not only is he weak on the right side but at times he has word finding difficulties. Patient had cranial MRI today. Review of Systems Renal - Creatinine is 2.[address] Mckinney of Renal has seen this patient yesterday and feels that is is probable that patient's creatinine is at his baseline. Dr. Mckinney wrote that if CTA is needed, a CTA is probably worth the risk as long as patient receives IV fluids before and after the CTA. Objective Vitals & Measurements T: 36.2 ??C TMIN: 36.2 ??C TMAX: 36.8 ??C HR: 74 RR: 20 BP: 197/96 SpO2: 97% Physical Exam Facies - mildly decreased nasolabial fold on right . EOMI At times, he appears to have trouble seeing some fingers on the right . Motor - 5/5 in left arm and left leg. 3-4/5 in right arm and right leg. TESTS Creatinine - 2.1 Cranial MRI -a) Numerous small bilateral areas of cortical acute infarction including the left frontal , left parietal, left occipital lobes as well as less conspicuous areas in the right frontal and right occipital lobe. b) Acute ischemia in the left caudate head. c) A larger area of acute ischemia in the left parietal lobe. I have looked at this film and believe most of the areas of ischemia are in the territory of the left MCA but many of the smaller areas seem to be in the watershed territories of the bilateral AKOSUA/MCA regions. Assessment/Plan Praveen Fox is a 68-year-old male with multiple stroke risk factors including diabetes, hypertension, hyperlipidemia, and coronary artery disease, who on December 22 had some transient right arm numbness followed by right leg weakness. He waited until December 23 to go to [facility] and then was transferred here. The patient had worsening right sided hemiparesis on the morning of December 24 after receiving Hydralazine for hypertension while sitting in chair . When he worsened , his systolic blood pressure was transiently 104. He is now improving but still has worse right sided hemiparesis than admission. He also has some mild word finding difficulties and some visual field problems on the right . I think he has had extension of his stroke on the morning of December 24 in the setting of relative hypotension. His cranial MRI today shows multiple small areas of cortical infarction ( left > right ) and many of these areas of ischemia appear to be in the watershed areas of the bilateral AKOSUA/MCA distribution. The differential for his strokes could include one or a combination of the following : a) Carotid artery disease. b) Intrinsic atherosclerosis of the [place] of [place]. c) An embolus. d) A hypercoaguable state. I am keeping an open mind as to the cause of his stroke but I am suspicious that he may have carotid artery disease worse than the findings of the carotid ultrasound. RECOMMENDATIONS: At this time, I would recommend the followin. I agree with the stroke order sets that have been ordered. 2. I agree with heparin for DVT prevention. 3. I have added Plavix to aspirin as this stroke occurred while on aspirin . 4. Given my concern for carotid artery disease, I am ordering a CTA of head and neck. 5. I am not reordering lumbar and sacral MRIs as I do not think these studies will change the management of condition. I have left instructions for patient to discuss the lumbar CT report from [place] with his outpatient physicians. 6. If his heart monitor was to show atrial fibrillation, we would need to consider anticoagulating the patient. 7. As I am ordering a CTA of head and neck, I am ordering Acetylcysteine 1200 mg bid and starting IV fluids. 8. At discharge, he should follow up with an outpatient neurologist and we instructed him not to drive until released by physician. 9. Try to avoid hypotension if possible. I have had a long discussion with patient and his family today . I explained my concern for carotid artery disease as the cause of his strokes and I explained my rationale for wanting to do a CTA of head and neck to evaluate the carotid system in more detail. I explained that the dye used for CTA can potentially cause kidney injury but that I feel that the potential benefit of CTA outlining the anatomy of carotid arteries outweigh the potential risks of kidney injury. The patient and his family agree and therefore I have ordered a CTA of head and neck. I have spent over 35 minutes on this case today . Over half that time was spent reviewing cranial MRI and counseling patient and his family. Medications Inpatient acetylcysteine 600 mg oral capsule, 1200 mg= 2 Cap, Oral, BID amLODIPine, 5 mg= 1 Tab, Oral, BID aspirin, 81 mg= 1 Tab, Oral, Daily Ativan, 0.5 mg= 0.25 mL, IV Push, Q6H, PRN cloNIDine, 0.1 mg= 1 Tab, Oral, Q3H, PRN gabapentin, 300 mg= 1 Cap, Oral, At Bedtime Habitrol 21 mg/24 hr transdermal film, extended release, 1 Patch, TransDermal, Daily heparin, 5000 Units= 1 mL, SubCutaneous, [id number] hydrALAZINE, 10 mg= 0.5 mL, IV Push, Q3H, PRN insulin lispro sliding scale, Scale C:, SubCutaneous, AC and at Bedtime Lantus, 30 Units= 0.3 mL, SubCutaneous, At Bedtime Lipitor, 20 mg= 1 Tab, Oral, Daily miconazole 2% topical powder, 1 Application, Topical, BID Normal Saline 1,000 mL, 1000 mL, IntraVENous Normal Saline Flush, 10 mL, IV Push, Q12H Normal Saline Flush, 10 mL, IV Push, See Comment, PRN oxyCODONE, 5 mg= 1 Tab, Oral, Q6H, PRN Plavix, 75 mg= 1 Tab, Oral, Daily Protonix, 40 mg= 1 Tab, Oral, Daily Toprol-XL, 25 mg= 1 Tab, Oral, Daily TriCor 145 mg oral tablet, 145 mg= 1 Tab, Oral, Daily Tylenol, 650 mg= 2 Tab, Oral, Q6H, PRN Zofran, 4 mg= 2 mL, IV Push, Q4H, PRN Electronically signed by [facility], [facility] Conversion Assistant Professor Of Life Sciences Cerner at 06/04/2022 9:37 AM CDT documented in this encounter Plan of Treatment Not on file documented as of this encounter Visit Diagnoses Not on filedocumented in this encounter Care Teams Straw Hat Plunger Operator Relationship Specialty Start Date End Date Nikolai Tse, JULIO CÉSAR [address] [phone] PCP - General Nurse Practitioner 02/17/24 documented as of this encounter
--- OUTSIDE RECORDS SUMMARY | 2024-10-09 09:11 | XMS_ITS | Encounter Summary ---
Author Organization [employer] ([place], [place], [place], [place]) Address [address] [place] [address] Care Team Providers Care Manager Research And Development Name Role Phone Nikolai Tse APRN Primary Care Provider + Encounter Details Date Type Department Care Team (Late st Contact Info) Description 12/27/2018 Transcribed Document [facility] [place] Family Medicine [facility] [place] [address] ProviderKevin MD [address], [place] [address] Social History Tobacco Use Types Packs/Day Years Used Date Smoking Tobacco: Never Assessed Sex and Gender Information Value Date Recorded Sex Assigned at Not on file Legal Sex Male 4:12 PM CDT Gender Identity Not on file Sexual Orientation Not on file documented as of this encounter Miscellaneous Notes * Cerner Conversion Note - Kevin Pickering MD - 12/27/2018 1:09 PM BUILDING ENGINEER DIRECTOR AUTOMOTIVE Note Entered On: 12/28/2018 14:29 EST Performed On: 12/28/2018 14:24 EST by VIVI VIRGEN SLP Pain Assessment Pain Scaled Used : FACES Pain Score Pre-Intervention : 2 VIVI VIRGEN SLP - 12/28/2018 14:24 EST Image 1 - Images currently included in the form version of this document have not been included in the text rendition version of the form. Subjective/Assessment/Plan DIRECTOR AUTOMOTIVE Patient Concern : Pt is restless in bed, shaking arms and legs, attempting to get out of bed Additional Objective Information : and brother present DIRECTOR AUTOMOTIVE Therapy/Treatment Asmt Cmnt : and brother present. Spoke very briefly with vascular surgeon who reports surgery will be Wednesday. Pt, and endorse significant agitation with pt and state that when he gets angry he starts shaking. Pt with no verbalizations today, he simply fell asleep after he was repositioned. Education with re: communication deficits. upset re: d/c to [facility] cancelled, began pointing her finger at DIRECTOR AUTOMOTIVE and stated if you send him home after this, I can't take care of him. I restated that I am a Speech Pathologist and have no control over d/c plans or arrangements. I excused myself and requested that CM provide education as to potential d/c plans for patient. DIRECTOR AUTOMOTIVE Plan : Discussed with FRANCISCO Connolly. Tx tomorrow VIVI VIRGEN SLP - 12/28/2018 14:24 EST Education Barriers To Learning : Emotional state Individuals Taught : Spouse Education Comment : pt's brother present also VIVI VIRGEN SLP - 12/28/2018 14:24 EST DIRECTOR AUTOMOTIVE Education Assessment Grid 1 Cognition, Effects of Impairment : Needs further teaching Communication, Effects of Impairment : Needs further teaching Communication, Strategies For Partner : Needs further teaching Communication, Strategies For Patient : Needs further teaching Evaluation Results : Needs further teaching, WAB bedside Language, Effects of Impairment : Needs further teaching VIVI VIRGEN SLP - 12/28/2018 14:24 EST DIRECTOR AUTOMOTIVE Education Assessment Grid 2 Speech Language Pathology Treatment Plan : Needs further teaching Speech/Language/Cognition Education : Needs further teaching VIVI VIRGEN SLP - 12/28/2018 14:[address] [facility] DIRECTOR AUTOMOTIVE Charges [facility] Ea 15 Min : 1 (Comment: 12 mins [VIVI VIRGEN SLP - 12/28/2018 14:24 EST] ) VIVI VIRGEN SLP - 12/28/2018 14:24 EST documented in this encounter Plan of Treatment Not on file documented as of this encounter Visit Diagnoses Not on filedocumented in this encounter Care Teams Manager Research And Development Relationship Specialty Start Date End Date Nikolai Tse, INSPECTOR OUTSIDE PRODUCTION [address] [phone] PCP - General Nurse Practitioner 02/17/24 documented as of this encounter
--- OUTSIDE RECORDS SUMMARY | 2024-10-09 09:11 | XMS_ITS | Encounter Summary ---
Author Organization [employer] ([place], [place], [place], [place]) Address [address] [place] [address] Care Team Providers Care Mobile Electronics Installer Name Role Phone Dedrick Mayakeerthianthony Dhillon APRN Primary Care Provider + Encounter Details Date Type Department Care Team (Late st Contact Info) Description 12/26/2018 Transcribed Document [facility] [place] Family Medicine [facility] [place] [address] ProviderKevin MD [address] [place] [id number] Social History Tobacco Use Types Packs/Day Years Used Date Smoking Tobacco: Never Assessed Sex and Gender Information Value Date Recorded Sex Assigned at Not on file Legal Sex Male 4:12 PM CDT Gender Identity Not on file Sexual Orientation Not on file documented as of this encounter Miscellaneous Notes * Cerner Conversion Note - Kevin Pickering MD - 12/26/2018 11:00 AM CHARTERED FINANCIAL ANALYST Patient: PRAVEEN FOX Age: 68 years Sex: Male : 1950 Associated Diagnoses: None Author: GORDO APPLE MD-[facility] Subjective Chief complaint. was confused last night slurred speech Rt LE weakness weak not feeling well anxious family at bed side Health Status Allergies: Allergic Reactions (Selected) No Known Allergies, Allergies (1) Active Reaction No Known Allergies None Documented Current medications: (Selected) Inpatient Medications Ordered Ativan: 0.5 mg, IV Push, Q6H, PRN: Agitation Habitrol 21 mg/24 hr transdermal film, extended release: 1 Patch, TransDermal, Daily Lantus: 30 Units, SubCutaneous, At Bedtime Lipitor: 20 mg, Oral, Daily Normal Saline 1,000 mL: 75 mL/Hr, IntraVENous Normal Saline Flush: 10 mL, IV Push, Q12H Normal Saline Flush: 10 mL, IV Push, See Comment, PRN: IV Use Plavix: 75 mg, Oral, Daily Protonix: 40 mg, Oral, Daily Toprol-XL: 25 mg, Oral, Daily TriCor 145 mg oral tablet: 145 mg, Oral, Daily Tylenol: 650 mg, Oral, Q6H, PRN: Fever Zofran: 4 mg, IV Push, Q4H, PRN: Nausea/Vomiting acetylcysteine 600 mg oral capsule: 1,200 mg, 2 Cap, Oral, BID amLODIPine: 5 mg, Oral, BID aspirin: 81 mg, Oral, Daily cloNIDine: 0.1 mg, Oral, Q3H, PRN: Hypertension gabapentin: 300 mg, Oral, At Bedtime heparin: 5,000 Units, SubCutaneous, [id number] hydrALAZINE: 10 mg, IV Push, Q3H, PRN: Hypertension insulin lispro sliding scale: Scale C:, SubCutaneous, AC and at Bedtime miconazole 2% topical powder: 1 Application, Topical, BID oxyCODONE: 5 mg, Oral, Q6H, PRN: Pain (Moderate 4-6) Documented Medications Documented D3 1000 oral tablet: Tab, Oral, Daily, 0 Refill(s) Gen-Pioglitazone: 30 mg, 0 Refill(s) Januvia 100 mg oral tablet: 1 Tab, Oral, Daily, 30 Tab, 0 Refill(s) Levemir: 45 Units, SubCutaneous, 0 Refill(s) Metoprolol Succinate ER 25 mg oral tablet, extended release: Tab, Oral, Daily, 0 Refill(s) aspirin 81 mg oral tablet: 3 Tab, Oral, Daily, 0 Refill(s) aspirin: 81 mg, 0 Refill(s) atorvastatin 20 mg oral tablet: Tab, Oral, Daily, 0 Refill(s) fenofibrate: 160 mg, Oral, Daily, 0 Refill(s) gabapentin 300 mg oral capsule: 1 Cap, Oral, Once a day (at bedtime), 30 Cap, 0 Refill(s) losartan 50 mg oral tablet: 1/2 tab, Oral, Daily, 30 Tab, 0 Refill(s) meloxicam 15 mg oral tablet: Tab, Oral, Daily, 0 Refill(s) metoclopramide: 25 mg, Oral, BID, 0 Refill(s) tiZANidine 4 mg oral tablet: 1 Tab, Oral, At Bedtime, 90 Tab, 0 Refill(s) vancomycin: 250 mg, Q6H, 0 Refill(s), Home Medications (15) Active aspirin 81 mg aspirin 81 mg oral tablet 243 mg = 3 Tab, Oral, Daily atorvastatin 20 mg oral tablet , Oral, Daily D3 1000 oral tablet , Oral, Daily fenofibrate 160 mg, Oral, Daily gabapentin 300 mg oral capsule 300 mg = 1 Cap, Oral, Once a day (at bedtime) Gen-Pioglitazone 30 mg Januvia 100 mg oral tablet 100 mg = 1 Tab, Oral, Daily Levemir 45 Units, SubCutaneous losartan 50 mg oral tablet 1/2 tab, Oral, Daily meloxicam 15 mg oral tablet , Oral, Daily metoclopramide 25 mg, Oral, BID Metoprolol Succinate ER 25 mg oral tablet, extended release , Oral, Daily tiZANidine 4 mg oral tablet 4 mg = 1 Tab, Oral, At Bedtime vancomycin 250 mg, Q6H , Medications (23) Active Scheduled: (15) #NaCl 0.9% *FLUSH* inj 10 mL 10 mL, IV Push, Q12H acetylcysteine 600 mg cap 1,200 mg 2 Cap, Oral, BID amLODIPine 5 mg tab 5 mg 1 Tab, Oral, BID aspirin 81 mg chew tab 81 mg 1 Tab, Oral, Daily atorvastatin 20 mg tab 20 mg 1 Tab, Oral, Daily clopidogrel 75 mg tab 75 mg 1 Tab, Oral, Daily fenofibrate 145 mg tab 145 mg 1 Tab, Oral, Daily gabapentin 300 mg cap 300 mg 1 Cap, Oral, At Bedtime heparin 5,000 units/1 mL inj 5,000 Units 1 mL, SubCutaneous, [id number] insulin glargine 1 unit/0.01 mL inj 30 Units 0.3 mL, SubCutaneous, At Bedtime insulin lispro 1 unit/0.01 mL inj Scale C:, SubCutaneous, AC and at Bedtime metoprolol succinate XL 25 mg tab 25 mg 1 Tab, Oral, Daily miconazole nitrate 2% pwd 45 g 1 Application, Topical, BID nicotine 21 mg/24 hr patch 1 Patch, TransDermal, Daily pantoprazole EC 40 mg tab 40 mg 1 Tab, Oral, Daily Continuous: (1) NaCl 0.9% 1,000 mL 1,000 mL, IntraVENous, 75 mL/Hr PRN: (7) #NaCl 0.9% *FLUSH* inj 10 mL 10 mL, IV Push, See Comment acetaminophen 325 mg tab 650 mg 2 Tab, Oral, Q6H cloNIDine 0.1 mg tab 0.1 mg 1 Tab, Oral, Q3H hydrALAZINE 20 mg/1 mL inj 10 mg 0.5 mL, IV Push, Q3H LORazepam 2 mg/mL inj 0.5 mg 0.25 mL, IV Push, Q6H ondansetron 4 mg/2 mL inj 4 mg 2 mL, IV Push, Q4H oxyCODONE 5 mg tab 5 mg 1 Tab, Oral, Q6H Problem list: Medical Type 2 diabetes mellitus / SNOMED CT 988734047 / Confirmed HTN - Hypertension / SNOMED CT 7120055531 / Confirmed HLD - Hyperlipidemia / SNOMED CT 492000356 / Confirmed CAD - Coronary artery disease / SNOMED CT 8592878699 / Confirmed At risk for sleep apnea / IMO [id number] / Confirmed, Active Problems (9) At risk for sleep apnea CAD - Coronary artery disease Chronic kidney insufficiency Diabetes mellitus type II HLD - Hyperlipidemia HTN - Hypertension Hyperlipidemia Hypertension Type 2 diabetes mellitus Objective VS/Measurements Vitals Signs (last 24 hrs) Last Charted Minimum Maximum Temp 97.2 (DEC 26:36) 97.2 (DEC 26:36) 98.1 (DEC 25:) Apical HR 74 (DEC 26:) 74 (DEC 26 06:38) 74 (DEC 26 06:38) Mon HR 74 (DEC 26:36) 70 (DEC 25 17:28) 75 (DEC 25 23:30) Resp Rate 20 (DEC 26 06:30) 16 (DEC 25 14:30) 20 (DEC 26 06:30) SBP H 197 (DEC 26 06:36) H 145 (DEC 25:) H 197 (DEC 26:36) DBP H 96 (DEC 26:36) 65 (DEC 25:28) H 96 (DEC 25 23:30) MAP 114 (DEC 26 06:36) 101 (DEC 25 17:28) 120 (DEC 25 23:30) SpO2 97 (DEC 26 06:36) 97 (DEC 25 17:28) 98 (DEC 25 14:30) General: Alert and oriented, No acute distress. Eye: Pupils are equal, round and reactive to light, Normal conjunctiva. HENT: Normocephalic, Normal hearing. Neck: Supple, Non-tender. Respiratory: Lungs are clear to auscultation, Respirations are non-labored. Cardiovascular: Normal rate, Regular rhythm. Gastrointestinal: Soft, Non-tender. Genitourinary: No costovertebral angle tenderness. Musculoskeletal: No tenderness. Integumentary: Warm, Dry. Neurologic: Alert, Oriented, Cranial Nerves II-XII are grossly intact. Psychiatric: Cooperative, Appropriate mood & affect, Normal judgment. Results Review DEC 26 06:46 137 106 H 31 / H 263 4.5 23 H 2.10 \ DEC 26 06:46 \ L 13.2 / 5.1 314 / 41.3 \ DEC 26 06:46 137 106 H 31 / H 263 4.5 23 H 2.10 \ DEC 26 06:46 \ L 13.2 / 5.1 314 / 41.3 \ Impression and Plan Right lower extremity numbness and weakness, suspected ischemic stroke CT head noted without acute changes Echocardiogram with possible study Carotid ultrasound MRI brain without contrast Continue aspirin May need to switch to Plavix Neurology consulted Physical therapy Speech evaluation Cardiac diet Watch patient on telemetry Lower extremity weakness with L5-S1 severe stenosis MRI lumbar spine May need neurosurgery consultation Pain control Hypertensive urgency Continue home medication Hold losartan for acute kidney injury IV hydralazine as needed Clonidine by mouth as needed Acute kidney injury, question chronic kidney disease creatinine baseline unknown Gentle hydration Watch kidney function closely Avoid nephrotoxic medication May need renal ultrasound and nephrology consultation if no improvement with IV fluid resuscitation Diabetes mellitus with hyperglycemia Start Lantus 35 units Patient take Levemir 45 units at home Sliding-scale insulin Diabetic diet Hyperlipidemia Check lipid panel in a.m. Lipitor 20 mg at bedtime Peripheral neuropathy Continue gabapentin Neurology consulted ARF nephrology following plan MRI PT/OT in am Labs in am neurology following d/w patient and family CM for DC plan may need rehab time spent 28 min documented in this encounter Plan of Treatment Not on file documented as of this encounter Visit Diagnoses Not on filedocumented in this encounter Care Teams Mobile Electronics Installer Relationship Specialty Start Date End Date Nikolai Tse, TREE SPECIALIST [address] [place], [place] [phone] PCP - General Nurse Practitioner 02/17/24 documented as of this encounter
--- OUTSIDE RECORDS SUMMARY | 2024-10-09 09:11 | XMS_ITS | Encounter Summary ---
Author Organization [employer] ([place], [place], [place], [place]) Address [address] [place] [address] Care Team Providers Care Check Writer Salesperson Name Role Phone Nikolai Tse APRN Primary Care Provider + Encounter Details Date Type Department Care Team (Late st Contact Info) Description 12/27/2018 Transcribed Document [facility] [place] Family Medicine [address] [place] [address] ProviderKevin MD [address], [place] [address] Social History Tobacco Use Types Packs/Day Years Used Date Smoking Tobacco: Never Assessed Sex and Gender Information Value Date Recorded Sex Assigned at Not on file Legal Sex Male 4:12 PM CDT Gender Identity Not on file Sexual Orientation Not on file documented as of this encounter Miscellaneous Notes * Cerner Conversion Note - Kevin Pickering MD - 12/27/2018 4:35 PM LIME BURNER PLEASE MODIFY BEFORE SIGNING CLINICAL DOCUMENTATION CLARIFICATION FORM: Dear : __Chantel Aden / Hospitalist____ Date: __12/27/2018__ Please exercise your independent, professional judgment in responding to the clarification form. Clinical indicators are provided on the bottom of this form for your review. Please check appropriate box(es): [x ] Encephalopathy: Type: [ x ] Acute [ ] Subacute [ ] Chronic Etiology: [ x ] Metabolic [ ] Hypertensive [ ] Unspecified [ ] Other (please specify) [ x ] Transient Alteration of Awareness [ ] Other diagnosis [ ] Unable to determine For continuity of documentation, please document condition throughout progress notes and discharge summary. Thank You. To be completed by CDI/Coding staff for physician review: Present Clinical Indicators - Signs / Symptoms / Labs Results and Location in Medical Record [ X ] Altered mental status / confusion 12/23/18 through 12/25/18 RN Neurological, Orientation Assessment - oriented x 4 12/26/18 RN Neurological, Orientation Assessment - not oriented to situation, not oriented to time 12/26/18 Progress Note ([facility]) - Subjective: was confused last night [ X ] MRI results 12/26/18 MRI Brain without contrast - IMPRESSION: Numerous bilateral areas of cortical acute infarction [ X ] CT results 12/26/18 CTA Head - IMPRESSION: Greater than 80% stenosis in the proximal left internal carotid artery. [ X ] Metabolic / electrolyte abnormality Lab Results 12/24/18 creatinine 2.20 12/25/18 creatinine 2.00 12/26/18 creatinine 2.10 12/27/18 creatinine 1.60 blood glucose 12/24/18 315 12/25/18 181 12/26/18 263 12/27/18 184 [ ] [ ] [ ] [ ] [ ] [ ] Present Risk Factors Results and Location in Medical Record [ X ] Hypertension - uncontrolled 12/26/18 Progress Note (Zohary) - hypertensive urgency [ X ] CVA / stroke 12/23/18 H&P ([place]) - suspect ischemic stroke 12/27/18 Progress Note ([facility]ohary) - suspect ischemic strike [ X ] Acute organ failure / dysfunction 12/27/18 Progress Note ([facility]ohary) - DAVIS [ ] [ ] [ ] Present Treatments Results and Location in Medical Record [ X ] Neurology Consult 12/23/18 - Neurology consult per orders [ X ] Restraints 12/27/18 - order for soft restraints [ X ] Medications 12/25/18 lorazepam 0.5 mg IVP q6h prn for agitation 12/26/18 lorazepam 1.0 mg IVP 1 time for MRI [ ] [ ] [ ] [ ] [ ] CDS Signature: __Kimberly Casas RN, CCDS___ Phone #: _[phone]___ This is a permanent part of the Medical Record 2018 [facility] Updated: documented in this encounter Plan of Treatment Not on file documented as of this encounter Visit Diagnoses Not on filedocumented in this encounter Care Teams Check Writer Salesperson Relationship Specialty Start Date End Date Nikolai Tse, SENIOR PROCESS ENGINEER [address] [place], [place] [phone] PCP - General Nurse Practitioner 02/17/24 documented as of this encounter
--- OUTSIDE RECORDS SUMMARY | 2024-10-09 09:11 | XMS_ITS | Clinical Summary ---
Author Organization [employer] ([place], [place], [place], [place]) Address [address] [place] [address] Care Team Providers Care Supervisor Molding Name Role Phone Nikolai Tse APRN Primary Care Provider + Allergies No known active allergies Medications aspirin 81 MG EC tablet Take 1 tablet (81 mg total) by mouth daily. Active montelukast (SINGULAIR) 10 mg tablet Take 1 tablet (10 mg total) by mouth nightly. Active tamsulosin (FLOMAX) 0.4 mg cap 24 hr capsule Take 1 capsule (0.4 mg total) by mouth daily. Active atorvastatin (LIPITOR) 10 MG tablet Take 1 tablet (10 mg total) by mouth nightly. 5 Active bumetanide (BUMEX) 1 MG tablet Take 1 tablet (1 mg total) by mouth daily. 5 Active gabapentin (NEURONTIN) 100 MG capsule Take 1 capsule (100 mg total) by mouth 3 (three) times daily. Max Daily Amount: 300 mg 5 Active metoprolol tartrate (LOPRESSOR) 37.5 mg tab Take 0.5 tablets (18.75 mg total) by mouth 2 (two) times daily. 5 Active spironolactone (ALDACTONE) 25 MG tablet Take 1 tablet (25 mg total) by mouth 2 (two) times daily. 5 Active ferrous sulfate 325 (65 FE) MG EC tablet Take 1 tablet (325 mg total) by mouth daily. 5 Active finasteride (PROSCAR) 5 mg tablet Take 1 tablet (5 mg total) by mouth daily. 5 Active insulin glargine-yfgn (SEMGLEE) 100 unit/mL soln solution Inject 10 Units subcutaneously nightly. Active lactulose (CHRONULAC) 20 gram/30 mL soln solution Take 30 mLs (20 g total) by mouth 3 (three) times daily as needed. Active melatonin 3 mg tablet Take 1 tablet (3 mg total) by mouth every night as needed for insomnia. Active sennosides-doc usate sodium (SENOKOT S) 8.6-50 mg per tablet Take 1 tablet by mouth 2 (two) times daily. 5 Active Active Problems Problem Noted Date Diagnosed Date CHF (congestive heart failur e), NYHA class I, acute on chronic, combined 02/17/2024 Encounters Date Type Department Care Team Description 08/26/2024 1:15 PM EDT Lab Patient Walk-In [facility] Lab [address] [place] [address] Nikolai Tse APRN Urinary tract infection without hematuria, site unspecified 08/26/2024 Lab Requisition [facility] Lab [address] [place] [address] Nikolai Tse APRN Urinary tract infection, site not specified 08/26/2024 Outside Orders [facility] Admitting [address] [place] [address] Nikolai Tse APRN Urinary tract infection without hematuria, site unspecified (Primary Dx) 07/27/2024 1:00 PM EDT Evaluation [facility] Lymphedema Therapy [address] [place] [address] [address] Sonal El PA Curd, Jennifer W, PT Lymphedema (Primary Dx); Neoplasm of uncertain behavior 07/26/2024 4:45 PM EDT Lab Patient Walk-In [facility] Lab [address] [facility] [address] [facility], Provider Not In The System, Urinary tract infection, site not specified 07/26/2024 Lab Requisition [facility] Lab [address] [place] [address] Justine Tse, FACTORER Urinary tract infection, site not specified; Encounter for screening for other disorder 07/26/2024 Travel 07/26/2024 Outside Orders [facility] Admitting [address] [place] [address] Justine Tse, FACTORER Urinary tract infection, site not specified (Primary Dx) 07/11/2024 3:45 PM EDT Lab Patient Walk-In [facility] Lab [address] [place] [address] Nikolai Tse, FACTORER Urinary tract infection, site not specified 07/11/2024 Lab Requisition [facility] Lab [address] [place] [address] Nikolai Tse, FACTORER Urinary tract infection, site not specified 07/11/2024 Travel 07/11/2024 Outside Orders [facility] Admitting [address] [place] [address] Nikolai Tse, FACTORER Urinary tract infection, site not specified (Primary Dx) from Last 3 Months Social History Tobacco Use Types Packs/Day Years Used Date Smoking Tobacco: Former Cigarettes Smokeless Tobacco: Never Tobacco Cessation:Counseling Given: Not Answered Alcohol Use Standard Drinks/Week Comments Never 0 (1 standard drink = 0.6 oz pur e alcohol) Utilities Answer Date Recorded In the past 12 months, has t he [employer], gas, oil, or water [employer] threatened to shut off services in your [...] Do you speak a language other than Telugu at [facility]? No 02/18/2024 Do you want help with [...] Sign Reading Time Taken Comments Blood Pressure 144/53 02/24/2024 11:37 AM EST Pulse 73 02/24/2024 11:37 AM EST Temperature 36.3 C (97.4 F) 02/24/2024 12:00 PM EST Respiratory Rate 18 02/24/2024 12:0 0 PM EST Oxygen Saturation 97% 02/24/2024 12: 00 PM EST Inhaled Oxygen Concentration - - Weight 149.1 kg (328 lb 11.3 oz) 02/24/2024 5:55 AM EST Height 170.2 cm (5' 7 ) 02/17/2024 11:5 8 AM EST Body Mass Index 51.48 02/17/2024 11:58 AM EST Plan of Treatment Health Maintenance Due Date Last Done Comments Diabetic Eye Exam 1958 Depression Screening (12+) 1960 Hepatitis C Screening 1966 Pneumococcal 50+ years (1 of 2 - PCV) 09/30/1967 Shingles Vaccine (Zoster) (1 of 2) 1998 Medicare Initial AWV G0438 09/16/2014 Respiratory Syncytial Virus (RSV) Adult or (1 - 1-dose 75+ series) 09/30/2023 COVID-19 VACCINE ( - 2023-2 5 season) 2023 11/04/2021, 11/28/2020, 05/16/2020, Additional history exists Falls Risk Screening 02/16/2024 Hemoglobin A1C 09/22/2024 06/22/2024, 02/17/2024 Influenza Vaccine (#1) 2024 3, 11/10/2020, 10/25/2019, Additional history exists Diabetic Kidney Health Evalu ation (KED) 02/16/2025 02/17/2024 Tobacco Cessation Counseling and Screening (12+) 02/16/2025 02/17/2024 DTAP/TDAP/TD VACCINES (2 - T d or Tdap) 02/20/2032 02/19/2022 Procedures Procedure Name Priority Date/Time Associated Diagnosis Comments URINALYSIS MICROSCOPIC Routine 08/26/2024 1:12 PM EDT Urinary tract infection, site not specified URINALYSIS, REFLEX MICROSCOPIC AND CULTURE IF INDICATED Routine 08/26/2024 1:12 PM EDT Urinary tract infection, site not specified URINE CULTURE Routine 08/26/2024 1:12 PM EDT Urinary tract infection, site not specified URINALYSIS MICROSCOPIC Routine 07/26/2024 11:50 AM EDT Urinary tract infection, site not specified Encounter for screening for other disorder URINALYSIS, REFLEX MICROSCOPIC AND CULTURE IF INDICATED Routine 07/26/2024 11:50 AM EDT Urinary tract infection, site not specified Encounter for screening for other disorder URINE CULTURE Routine 07/26/2024 11:50 AM EDT Urinary tract infection, site not specified Encounter for screening for other disorder URINALYSIS MICROSCOPIC Routine 07/11/2024 12:00 PM EDT Urinary tract infection, site not specified URINALYSIS, REFLEX MICROSCOPIC AND CULTURE IF INDICATED Routine 07/11/2024 12:00 PM EDT Urinary tract infection, site not specified URINE CULTURE Routine 07/11/2024 12:00 PM EDT Urinary tract infection, site not specified HEMOGLOBIN A1C Routine 06/22/2024 12:25 PM EDT Chronic diastolic (congestive) heart failure (HCC) Essential (primary) hypertension Hypothyroidism, unspecified Type 2 diabetes mellitus with unspecified complications (HCC) Hypomagnesemia from Last 3 Months or Most Recently Relevant to Health Maintenance Results * (ABNORMAL) Urinalysis, Reflex Microscopic and Culture If Indicated (08/26/2024 1:12 PM EDT) Only the most recent of3 resultswithin the time period is included. Color, UA Yellow 08/26/2024 1:28 PM EDT [facility] Clarity, UA Cloudy 08/26/2024 1:28 PM EDT [facility] Specific [place], UA 1.010 1.002 - 1.030 08/26/2024 1:28 PM EDT [facility] pH, UA 6.5 5.0 - 9.0 08/26/2024 1:28 PM EDT [facility] Leukocytes, UA 3+(A) Negative 08/26/2024 1:28 PM EDT [facility] Nitrite, UA Negative Negative 08/26/2024 1:28 PM EDT [facility] Protein, UA 1+(A) Negative 08/26/2024 1:28 PM EDT [facility] Glucose, UA 3+(A) Negative 08/26/2024 1:28 PM EDT [facility] Ketones, UA Negative Negative 08/26/2024 1:28 PM EDT [facility] Bilirubin, UA Negative Negative 08/26/2024 1:28 PM EDT [facility] Blood, UA 1+(A) Negative 08/26/2024 1:28 PM EDT [facility] Urobilinogen, UA 0.2 mg/dL Normal 08/26/2024 1:28 PM EDT [facility] Specimen Source Urine, clean catch 08/26/2024 1:28 PM EDT [facility] Urine 08/26/2024 1:12 PM EDT 08/26/2024 1:12 PM EDT Nikolai Tse FACTORER URINE ORDERABLES Final R esult Performing Organization Address City/[facility] Co de Phone Number [facility] [address] [place] [address] * (ABNORMAL) Urinalysis Microscopic Only (08/26/2024 1:12 PM EDT) Only the most recent of3 resultswithin the time period is included. WBC, UA Too Numerous To Count(A) None Seen, Occasional , 0-5 /HPF 08/26/2024 1:28 PM EDT [facility] RBC, UA 5-10(A) None Seen, Rare /HPF 08/26/2024 1:28 PM EDT [facility] Bacteria, UA 2+(A) None Seen 08/26/2024 1:28 PM EDT [facility] Yeast 2+(A) Trace 08/26/2024 1:28 PM EDT [facility] SQUAMOUS EPITHELIAL 5-10(A) None Seen, Rare /HPF 08/26/2024 1:28 PM EDT [facility] Urine 08/26/2024 1:12 PM EDT 08/26/2024 1:12 PM EDT Nikolai Tse APRN URINE ORDERABLES Final R esult [facility] [address] [place] [address] * Urine Culture (08/26/2024 1:12 PM EDT) Only the most recent of3 resultswithin the time period is included. Result Recollect Specimen - 3 or more organisms suggests contamination 08/28/2024 9:33 AM EDT [facility] Urine 08/26/2024 1:12 PM EDT 08/26/2024 1:27 PM EDT us Nikolai Tse APRN MICROBIOLOGY - GENERAL O RDERABLES Final Result [facility] [address] [place], [place] [address] [phone] * Hemoglobin A1c (06/22/2024 12:25 PM EDT) Hemoglobin A1C 13.8 % 06/23/2024 11:57 AM EDT [facility] eAVG Glucose 349.36 mg/dL 06/23/2024 11:57 AM EDT [facility] Blood 06/22/2024 12:2 5 PM EDT 06/23/2024 10:31 AM EDT us Nikolai Tse APRN LAB BLOOD ORDERABLES Fin al Result Performing Organization Address City/[facility] Co de Phone Number [facility] [address] [phone] from Last 3 Months or Most Recently Relevant to Health Maintenance Insurance MEDICARE PART A B SUPP Advance Directives For more information, please contact: [phone] Documents on File Type Date Recorded Patient Regional Business Manager Expl anation Advance Directives and Living Will 02/17/2024 * Full Code (Latest Code Status on File) Date Activated Date Inactivated Comments 02/17/2024 12:19 PM 02/24/2024 6:13 PM Care Teams Supervisor Molding Relationship Specialty Start Date End Date Nikolai Tse, FACTORER [address] [place], [place] [id number] PCP - General Nurse Practitioner 02/17/24
--- OUTSIDE RECORDS SUMMARY | 2024-10-09 09:11 | XMS_ITS | Encounter Summary ---
Author Organization [employer] ([place], [place], [place], [place]) Address [address] [place] [address] Care Team Providers Care Multiple Drill Operator Name Role Phone Nikolai Tse DOOR AND ARRIVAL ATTENDANT Primary Care Provider + Encounter Details Date Type Department Care Team (Late st Contact Info) Description 12/28/2018 Transcribed Document [facility] [place] [address] ProviderKevin MD [address] [place] [address] Social History Tobacco Use Types Packs/Day Years Used Date Smoking Tobacco: Never Assessed Sex and Gender Information Value Date Recorded Sex Assigned at Not on file Legal Sex Male 4:12 PM CDT Gender Identity Not on file Sexual Orientation Not on file documented as of this encounter Miscellaneous Notes * Cerner Conversion Note - Kevin Pickering MD - 12/28/2018 5:00 PM DETAIL ASSEMBLER Chart Check - Review Order Profile Entered On: 12/28/2018 16:01 EST Performed On: 12/28/2018 17:00 EST by Lois Sewell RN Chart Check Power[employer] Initiated/Discontinued as Appropriate : Yes All Active Orders Reviewed : Yes Lois Sewell RN - 12/28/2018 16:01 EST documented in this encounter Plan of Treatment Not on file documented as of this encounter Visit Diagnoses Not on filedocumented in this encounter Care Teams Multiple Drill Operator Relationship Specialty Start Date End Date Nikolai Tse APRN [address] [place] [address] PCP - General Nurse Practitioner 02/17/24 documented as of this encounter
--- OUTSIDE RECORDS SUMMARY | 2024-10-09 09:11 | XMS_ITS | Encounter Summary ---
Author Organization [employer] ([place], [place], [place], [place]) Address [address] [place] [address] Care Team Providers Care Reinforcing Rod Layer Name Role Phone Nikolai Tse Alejo ANGELA Primary Care Provider + Encounter Details Date Type Department Care Team (Late st Contact Info) Description 12/27/2018 Transcribed Document [facility] [place] [address] ProviderKevin MD [address] [place] [address] Social History Tobacco Use Types Packs/Day Years Used Date Smoking Tobacco: Never Assessed Sex and Gender Information Value Date Recorded Sex Assigned at Not on file Legal Sex Male 4:12 PM CDT Gender Identity Not on file Sexual Orientation Not on file documented as of this encounter Miscellaneous Notes * Cerner Conversion Note - Kevin Pickering MD - 12/27/2018 10:34 AM 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 better today moves all extermities talking better Health Status Allergies: Allergic Reactions (Selected) No Known Allergies, Allergies (1) Active Reaction No Known Allergies None Documented Current medications: (Selected) Inpatient Medications Ordered Ativan: 0.5 mg, IV Push, Q6H, PRN: Agitation Habitrol 21 mg/24 hr transdermal film, extended release: 1 Patch, TransDermal, Daily Lantus: 30 Units, SubCutaneous, At Bedtime Lopressor: 25 mg, Oral, BID Normal Saline 1,000 mL: 75 mL/Hr, IntraVENous [...] Oral, BID aspirin: 81 mg, Oral, Daily atorvastatin: 40 mg, Oral, At Bedtime cloNIDine: 0.1 mg, Oral, Q3H, PRN: Hypertension gabapentin: 300 mg, Oral, At Bedtime heparin: 5,000 Units, SubCutaneous, [id number] hydrALAZINE: 10 mg, IV Push, Q3H, PRN: [...] 81 mg 1 Tab, Oral, Daily atorvastatin 40 mg tab 40 mg 1 Tab, Oral, At Bedtime clopidogrel 75 mg tab 75 mg 1 Tab, Oral, Daily fenofibrate 145 mg tab 145 mg 1 Tab, Oral, Daily gabapentin 300 mg cap 300 mg 1 Cap, Oral, At Bedtime heparin 5,000 units/1 mL inj 5,000 Units 1 mL, SubCutaneous, [id number] insulin glargine 1 unit/0.01 mL inj 30 [...] Type 2 diabetes mellitus / SNOMED CT 530958140 / Confirmed HTN - Hypertension / SNOMED CT 4358958747 / Confirmed HLD - Hyperlipidemia / SNOMED CT 553089888 / Confirmed CAD - Coronary artery disease / SNOMED CT 9878947334 / Confirmed At risk for sleep apnea / IMO [id number] / Confirmed, Active Problems (9) At risk for sleep apnea CAD - Coronary artery disease Chronic kidney insufficiency Diabetes mellitus type II HLD - Hyperlipidemia HTN - Hypertension Hyperlipidemia Hypertension Type 2 diabetes mellitus Objective VS/Measurements Vitals Signs (last 24 hrs) Last Charted Minimum Maximum Temp 97.1 (DEC 27:00) 97 (DEC 26:37) 97.2 (DEC 26:) Apical HR 66 (DEC 26 21:02) 66 (DEC 26 21:02) 66 (DEC 26 21:02) Mon HR 65 (DEC 27 06:00) 64 (DEC 27 01:56) 68 (DEC 26:21) Resp Rate 16 (DEC 27 06:00) L 12 (DEC 26:) 17 (DEC 27 01:56) SBP H 161 (DEC 27 06:00) 128 (DEC 26 18:21) H 161 (DEC 27 06:00) DBP 75 (DEC 27 06:00) 72 (DEC 26 18:21) 81 (DEC 26 21:37) MAP 94 (DEC 27 06:00) 88 (DEC 26 18:21) 115 (DEC 26 21:02) SpO2 96 (DEC 26 20:00) 96 (DEC 26 20:00) 97 (DEC 26 18:21) General: Alert and oriented, No acute distress. [...] & affect, Normal judgment. Results Review DEC 27 06:40 138 H 114 H 28 / H 184 4.6 L 19 H 1.60 \ DEC 27 06:40 \ L 12.9 / 5.8 299 / 40.3 \ DEC 27 06:40 138 H 114 H 28 / H 184 4.6 L 19 H 1.60 \ DEC 27 06:40 \ L 12.9 / 5.8 299 / 40.3 \ Impression and Plan Right lower extremity [...] patient and family CM for DC plan Rehab in am time spent 25 min documented in this encounter Plan of Treatment Not on file documented as of this encounter Visit Diagnoses Not on filedocumented in this encounter Care Teams Reinforcing Rod Layer Relationship Specialty Start Date End Date Nikolai Tse, ELECTRONIC COMMERCE SPECIALIST [address] [place], [place] [id number] PCP - General Nurse Practitioner 02/17/24 documented as of this encounter
--- OUTSIDE RECORDS SUMMARY | 2024-10-09 09:11 | XMS_ITS | Encounter Summary ---
Author Organization [employer] ([place], [place], [place], [place]) Address [address] [place] [address] Care Team Providers Care Cloth Dyeing Range Tender Name Role Phone Nikolai Tse APRN Primary Care Provider + Encounter Details Date Type Department Care Team (Late st Contact Info) Description 12/27/2018 Transcribed Document [facility] [place] Family Medicine [facility] [place] [address] ProviderKevin MD [address] [place] [address] Social History Tobacco Use Types Packs/Day Years Used Date Smoking Tobacco: Never Assessed Sex and Gender Information Value Date Recorded Sex Assigned at Not on file Legal Sex Male 4:12 PM CDT Gender Identity Not on file Sexual Orientation Not on file documented as of this encounter Miscellaneous Notes * Cerner Conversion Note - Kevin Pickering MD - 12/27/2018 9:23 AM STAFF VETERINARIAN Patient: PRAVEEN FOX Age: 68 years Sex: Male : 1950 Associated Diagnoses: None Author: MJ ANG MD-[facility] NEPHROLOGY CONSULTATION NOTE Basic Information Agent is feeling much better today, he is able to move his right lower and upper extremities, he is alert and answering questions appropriately History of Present Illness 68 years old with hypertension, diabetes, coronary artery disease and dyslipidemia. He was admitted for right lower extremity weakness. At presentation he was noted to have an elevated serum creatinine of 2.2 with severe hypertension. He was felt he had ischemic stroke. He was started on multiple antihypertensives. We are asked to see him in consultation for assessment and management of abnormal renal functions. Noted he has been on losartan 25 mg daily and meloxicam 15 mg daily as reported on his home medications. The patient reports that he had seen nephrology in [place] and was told he has chronic kidney disease stage III and his baseline clearance was around 30-35 mL per minute. He has had poorly controlled diabetes and hypertension for a while. He denies NSAID use although listed as being on meloxicam. Denies any urinary symptoms. Patient is somewhat confused today, most of the history was taken from his chart, he is unable to ambulate. Health Status Problem list: Medical At risk for sleep apnea / IMO [id number] / Confirmed CAD - Coronary artery disease / SNOMED CT 0813805316 / Confirmed HLD - Hyperlipidemia / SNOMED CT 493665071 / Confirmed HTN - Hypertension / SNOMED CT 4071322920 / Confirmed Type 2 diabetes mellitus / SNOMED CT 686756284 / Confirmed, Active Problems (9) At risk for sleep apnea CAD - Coronary artery disease Chronic kidney insufficiency Diabetes mellitus type II HLD - Hyperlipidemia HTN - Hypertension Hyperlipidemia Hypertension Type 2 diabetes mellitus Allergies: Allergic Reactions (All) No Known Allergies, Allergies (1) Active Reaction [...] Oral, At Bedtime heparin: 5,000 Units, SubCutaneous, [id number] hydrALAZINE: 10 mg, IV Push, Q3H, PRN: [...] Refill(s) vancomycin: 250 mg, Q6H, 0 Refill(s), Medications (23) Active Scheduled: (15) #NaCl 0.9% [...] mL inj 5,000 Units 1 mL, SubCutaneous, [id number] insulin glargine 1 unit/0.01 mL inj 30 [...] tab 5 mg 1 Tab, Oral, Q6H Histories Past Medical History: Active CAD - Coronary artery disease (3759600155) HTN - Hypertension (7102168275) HLD - Hyperlipidemia (284052950) Type 2 diabetes mellitus (360093707) Family History: No family history items have been selected or recorded., No family hx of renal disease Procedure history: CABG x 4 in 2013 at 62 Years. CABG. Circumcision. Heart Cath. Social History Social & Psychosocial Habits Alcohol 09/23/2012 Days Per Week of Alcohol Use 7 Number of Drinks per Day 4 Total Drinks Per Week 28 Tobacco 09/23/2012 Smoking Status Current every day smoker Years of Tobacco Use 50 Packs/Tins Daily 1 . Review of Systems Constitutional Physical Examination VS/Measurements Vitals Signs (last 24 hrs) Last Charted Minimum Maximum Temp 97.1 (DEC 27:00) 97 (DEC 26:37) 97.2 (DEC 26:) Apical HR 66 (DEC 26 21:02) 66 (DEC 26 21:02) 74 (DEC 26:10) Mon HR 65 (DEC 27 06:00) 64 (DEC 27 01:56) 70 (DEC 26:) Resp Rate 16 (DEC 27 06:00) L 12 (DEC 26 18:21) 17 (DEC 27 01:56) SBP H 161 (DEC 27 06:00) 128 (DEC 26 18:21) H 161 (DEC 27 06:00) DBP 75 (DEC 27 06:00) 68 (DEC 26:) 81 (DEC 26:37) MAP 94 (DEC 27 06:00) 85 (DEC 26:05) 115 (DEC 26 21:02) SpO2 96 (DEC 26 20:00) 96 (DEC 26 20:00) 97 (DEC 26:) Intake & Output Totals Last 24 Hours (7a-7a) Intake (4 Events) Medications (11.75 mL) Output (1 Events) Urine Voided (Volume) (100 mL) Input Total: 11.75 mL Output Total: 100 mL Balance: -88.25 mL GENERAL: Awake, in no distress HEENT: normocepalic atraumatic without lesions. EYES: PERRLA, EOMI NECK: supple, no JVD. CHEST: Diminished air entery bilaterally over front and sideds HEART: S1, S2, no gallp or rub ABD: flat, SNT, +ve BS. EXT: No pedal edema. no tender calves. peripheral pulses not felt NEURO: Awake , Right sided weakness. Normal speech normal cranial nerves SKIN: dry, cool, no rash, no ulcer LABORATORY Review / Management Results review: Labs (Last four charted values) WBC 5.8 (DEC 27) 5.1 (DEC 26) 6.5 (DEC 25) 4.6 (DEC 24) HB L 12.9 (DEC 27) L 13.2 (DEC 26) L 13.3 (DEC 25) L 12.1 (DEC 24) HCT 40.3 (DEC 27) 41.3 (DEC 26) 41.6 (DEC 25) L 37.8 (DEC 24) Plt 299 (DEC 12) 314 (NOV 11) 330 (DEC 25) 285 (DEC 09) Na 138 (DEC 12) 137 (DEC 11) 140 (DEC 25) 139 (DEC 09) K 4.6 (DEC 12) 4.5 (DEC 26) 4.2 (DEC 25) 4.6 (DEC 09) Cl H 114 (DEC 12) 106 (DEC 11) 109 (DEC 25) 110 (DEC 09) CO2 L 19 (DEC 27) 23 (DEC 11) 24 (DEC 25) 22 (DEC 24) BUN H 28 (DEC 27) H 31 (DEC 26) H 26 (DEC 25) H 31 (DEC 24) Cr H 1.60 (DEC 27) H 2.10 (DEC 26) H 2.00 (DEC 25) H 2.20 (DEC 24) Glu R H 184 (DEC 27) H 263 (DEC 26) H 181 (DEC 25) H 315 (DEC 24) Ca L 8.3 (DEC 27) 9.2 (DEC 26) 8.7 (DEC 25) 9.0 (DEC 24) PT 11.0 (DEC 25) INR 1.0 (DEC 25) AST 13 (DEC 24) ALT 22 (DEC 24) ALK P 41 (DEC 24) T Bili 0.3 (DEC 24) PTN 6.8 (DEC 24) ALB L 2.9 (DEC 24) . Blood Gases (Current Encounter/Past 24 Hours) No Blood Gas Results Found (Past 24 Hours) Radiology Results (Last 48 hours) [id number] -- 12/23/2018 13:03 MRI Brain WO (12/26/2018 08:34) Result: MRI OF THE BRAIN.HISTORY: Altered mental status.PROCEDURE: Multiplanar MR imaging of the brain was performed in multipleMR sequences.FINDINGS: Limited images the proximal cord are unremarkable. Theventricles are normal in size. There is no extra-axial fluid or midlineshift. There is no evidence of acute hemorrhage. Flow-voids areappropriate. Diffusion weighted images demonstrate restricted diffusionin the left caudate head. There is mild restricted diffusion in thecortex of the right frontal. There is extensive left frontal par[place] occipital restricted diffusion. There is minimal right occipitalrestricted diffusion. Limited images of the paranasal sinuses areunremarkable. IMPRESSION: Numerous bilateral areas of cortical acute infarction.The patient's nurse Judit was notified of these findings at the time ofdictation.Images reviewed, interpreted, and dictated by Dr. Guanako Faria.Transcribed by Klarissa Arndt PA-C.I have personally viewed, interpreted and dictated the examination. Ihave read and agree with the above final transcribed report. CTA Head (12/26/2018 15:01) Result: CT ANGIOGRAM OF THE HEAD AND NECKINDICATION: Right arm weakness, recent infarct.TECHNIQUE: Following the administration of intravenous contrasthelically acquired axial multidetector CT images were obtained from thevertex to the aortic arch. Multiplanar, MIP, and 3-D reconstructionswere performed. Dose reduction techniques were employed. FINDINGS:The common carotid arteries are widely patent bilaterally.There is severe atherosclerotic calcification at the origin of the leftinternal carotid artery. This is most severe just at the origin withresidual diameter of approximately 1 mm. This leads to greater than 80%stenosis based on NASCET criteria.There is no significant atherosclerotic disease in the right carotidbulb or proximal internal carotid artery.The bilateral vertebral arteries are patent. The left vertebral arteryis dominant.With regards to the intracranial vessels, the bilateral anteriorcerebral, middle cerebral, and posterior cerebral arteries are patent.The basilar artery is patent.There is no evidence of aneurysm formation.IMPRESSION: Greater than 80% stenosis in the proximal left internalcarotid artery. CTA Neck (12/26/2018 15:03) Result: CT ANGIOGRAM OF THE HEAD AND NECKINDICATION: Right arm weakness, recent infarct.TECHNIQUE: Following the administration of intravenous contrasthelically acquired axial multidetector CT images were obtained from thevertex to the aortic arch. Multiplanar, MIP, and 3-D reconstructionswere performed. Dose reduction techniques were employed. FINDINGS:The common carotid arteries are widely patent bilaterally.There is severe atherosclerotic calcification at the origin of the leftinternal carotid artery. This is most severe just at the origin withresidual diameter of approximately 1 mm. This leads to greater than 80%stenosis based on NASCET criteria.There is no significant atherosclerotic disease in the right carotidbulb or proximal internal carotid artery.The bilateral vertebral arteries are patent. The left vertebral arteryis dominant.With regards to the intracranial vessels, the bilateral anteriorcerebral, middle cerebral, and posterior cerebral arteries are patent.The basilar artery is patent.There is no evidence of aneurysm formation.IMPRESSION: Greater than 80% stenosis in the proximal left internalcarotid artery. Impression and Plan 1. Chronic kidney disease stage III: Related to diabetic nephropathy and hypertensive nephrosclerosis. Current serum creatinine is probably close to his usual baseline, serum creatinine is stable and improved down to 1.6 mg/dL today 2. Uncontrolled hypertension: Possibly related to his renal disease and possible renovascular disease. Continue with the current regimen. Blood pressure is acceptable today, avoid tight control of the blood pressure during this period. 3. New CVA: Has had right lower extremity weakness and some new right upper extremity weakness after a hypotensive episode, workup and management as per hospitalist service and neurology service, carotid stenosis noted and surgical consultation is requested Professional Services documented in this encounter Plan of Treatment Not on file documented as of this encounter Visit Diagnoses Not on filedocumented in this encounter Care Teams Cloth Dyeing Range Tender Relationship Specialty Start Date End Date Nikolai Tse, JULIO CÉSAR [address] [place], [place] [id number] PCP - General Nurse Practitioner 02/17/24 documented as of this encounter
--- OUTSIDE RECORDS SUMMARY | 2024-10-09 09:11 | XMS_ITS | Encounter Summary ---
Author Organization [employer] ([place], [place], [place], [place]) Address [address] [place] [address] Care Team Providers Care Painter Aircraft Name Role Phone Nikolai Tse Alejo ANGELA Primary Care Provider + Encounter Details Date Type Department Care Team (Late st Contact Info) Description 12/28/2018 Transcribed Document [facility] [place] Family [place] [facility] [place] [address] ProviderKevin MD [address] [place] [address] Social History Tobacco Use Types Packs/Day Years Used Date Smoking Tobacco: Never Assessed Sex and Gender Information Value Date Recorded Sex Assigned at Not on file Legal Sex Male 4:12 PM CDT Gender Identity Not on file Sexual Orientation Not on file documented as of this encounter Miscellaneous Notes * Cerner Conversion Note - Kevin Pickering MD - 12/28/2018 11:41 AM RN OR LVN Patient: PRAVEEN FOX Age: 68 years Sex: Male : 1950 Associated Diagnoses: None Author: GORDO APPLE MD-[facility] Subjective Chief complaint. better today moves all extermities talking better Health Status Allergies: Allergic Reactions (Selected) No Known Allergies, Allergies (1) Active Reaction No Known Allergies None Documented Current medications: (Selected) Inpatient Medications Ordered Ativan: 0.5 mg, IV Push, Q6H, PRN: Agitation Colace: 100 mg, Oral, BID Habitrol 21 mg/24 hr transdermal film, extended release: 1 Patch, TransDermal, Daily Lantus: 30 Units, SubCutaneous, At Bedtime Lopressor: 25 mg, Oral, BID Milk of Magnesia 8% oral suspension: 30 mL, Oral, Q6H, PRN: Constipation Normal Saline 1,000 mL: 75 mL/Hr, IntraVENous Normal Saline Flush: 10 mL, IV Push, Q12H Normal Saline Flush: 10 mL, IV Push, See Comment, PRN: IV Use Plavix: 75 mg, Oral, Daily Protonix: 40 mg, Oral, Daily TriCor 145 mg oral tablet: 145 mg, Oral, Daily Tylenol: 650 mg, Oral, Q6H, PRN: Fever Zofran: 4 mg, IV Push, Q4H, PRN: Nausea/Vomiting amLODIPine: 5 mg, Oral, BID aspirin: 81 mg, Oral, Daily atorvastatin: 80 mg, Oral, At Bedtime cloNIDine: 0.1 mg, Oral, Q3H, PRN: Hypertension gabapentin: 300 mg, Oral, At Bedtime heparin: 5,000 Units, SubCutaneous, [id number] hydrALAZINE: 10 mg, IV Push, Q3H, PRN: [...] Bedtime vancomycin 250 mg, Q6H , Medications (24) Active Scheduled: (15) #NaCl 0.9% *FLUSH* inj 10 mL 10 mL, IV Push, Q12H amLODIPine 5 mg tab 5 mg 1 Tab, Oral, BID aspirin 81 mg chew tab 81 mg 1 Tab, Oral, Daily atorvastatin 40 mg tab 80 mg 2 Tab, Oral, At Bedtime clopidogrel 75 mg tab 75 mg 1 Tab, Oral, Daily docusate sodium 100 mg cap 100 mg 1 Cap, Oral, BID fenofibrate 145 mg tab 145 mg 1 Tab, Oral, Daily gabapentin 300 mg cap 300 mg 1 Cap, Oral, At Bedtime heparin 5,000 units/1 mL inj 5,000 Units 1 mL, SubCutaneous, [id number] insulin glargine 1 unit/0.01 mL inj 30 [...] mL 1,000 mL, IntraVENous, 75 mL/Hr PRN: (8) #NaCl 0.9% *FLUSH* inj 10 mL 10 mL, IV Push, See Comment acetaminophen 325 mg tab 650 mg 2 Tab, Oral, Q6H cloNIDine 0.1 mg tab 0.1 mg 1 Tab, Oral, Q3H hydrALAZINE 20 mg/1 mL inj 10 mg 0.5 mL, IV Push, Q3H LORazepam 2 mg/mL inj 0.5 mg 0.25 mL, IV Push, Q6H magnesium hydroxide 8% liq 30 mL 30 mL, Oral, Q6H ondansetron 4 mg/2 mL inj 4 mg 2 mL, IV Push, Q4H oxyCODONE 5 mg tab 5 mg 1 Tab, Oral, Q6H Problem list: Medical Type 2 diabetes mellitus / SNOMED CT 631317011 / Confirmed HTN - Hypertension / SNOMED CT 4733501604 / Confirmed HLD - Hyperlipidemia / SNOMED CT 227593917 / Confirmed CAD - Coronary artery disease / SNOMED CT 4338214153 / Confirmed At risk for sleep apnea / IMO [id number] / Confirmed, Active Problems (9) At risk for sleep apnea CAD - Coronary artery disease Chronic kidney insufficiency Diabetes mellitus type II HLD - Hyperlipidemia HTN - Hypertension Hyperlipidemia Hypertension Type 2 diabetes mellitus Objective VS/Measurements Vitals Signs (last 24 hrs) Last Charted Minimum Maximum Temp 97.3 (DEC 28 05:58) 97.3 (DEC 28:58) 97.9 (DEC 28 01:30) Apical HR 64 (DEC 28 09:32) 64 (DEC 28 09:32) 80 (DEC 27 21:14) Mon HR 64 (DEC 28 05:58) 64 (DEC 28 05:58) 80 (DEC 27 21:14) Resp Rate 18 (DEC 28 05:58) 18 (DEC 28 04:40) 18 (DEC 28 04:40) SBP H 153 (DEC 28 05:58) 131 (DEC 28 01:30) H 162 (DEC 27:14) DBP 78 (DEC 28 05:58) 71 (DEC 28 01:30) 90 (DEC 27:14) MAP 95 (DEC 28 05:58) 90 (DEC 28 04:40) 115 (DEC 27:14) SpO2 98 (DEC 28 04:40) 98 (DEC 28 04:40) 98 (DEC 28 04:40) General: Alert and oriented, No acute distress. [...] & affect, Normal judgment. Results Review DEC 28 07:45 140 112 H 33 / H 219 4.2 24 H 1.80 \ DEC 28 07:45 \ L 13.2 / 5.2 348 / 40.8 \ DEC 28 07:45 140 112 H 33 / H 219 4.2 24 H 1.80 \ DEC 28 07:45 \ L 13.2 / 5.2 348 / 40.8 \ Impression and Plan Right lower extremity [...] patient and family CM for DC plan carotid Stenosis vascular surgery following Need [facility] if ok by vascular surgery time spent 28 min Electronically signed by Kyra, [facility] Conversion Television Repairman Cerner at 06/04/2022 9:54 AM CDT documented in this encounter Plan of Treatment Not on file documented as of this encounter Visit Diagnoses Not on filedocumented in this encounter Care Teams Painter Aircraft Relationship Specialty Start Date End Date Nikolai Tse, WATER MANGLE TENDER [address] [place] [address] PCP - General Nurse Practitioner 02/17/24 documented as of this encounter
--- OUTSIDE RECORDS SUMMARY | 2024-10-09 09:11 | XMS_ITS | Patient Health Record ---
Author Organization [facility] Address [address] [place] [address] Care Team Providers Care Pillowcase Cutter Name Role Phone Migration, Provider Unavailable Unavailable Luis Manuel Mckinney Unavailable [phone] Allergies Allergen (clinical drug ingredient) Drug/Non Drug Allergy documented on EMR Reaction Allergy Type Onset Date Status semaglutide Rybelsus diarrhea Drug Allergy 11/12/2021 Acti ve Reason For Referral No Information Medications Medication SIG (Take, Route, Frequency, Duration) Notes Start Date End Date Status Atorvastatin Calcium 80 MG 1 tablet Oral ly Once a day; Duration: 30 day(s) 05/31/2023 Active Albuterol Sulfate HFA 108 (90 Base) MCG/ACT 1 puff as needed Inhalation every 6 hrs; Duration: 30 days 11/18/2022 Active Clopidogrel Bisulfate 75 MG 1 tablet Ora lly Once a day; Duration: 30 day(s) 05/31/2023 Active Florastor Baby 250 MG 1 packet Orally Tw ice a day; Duration: 30 days Active Bumetanide 2 MG 1 tablet Orally twic e a day; Duration: 90 days 07/07/2021 Active amLODIPine Besylate 5 MG 1 tablet Orally bid 05/30 Active Lantus SoloStar 100 UNIT/ML as directed Subcutaneous daily 05/31/2023 Active Metoprolol Tartrate 25 MG 1 tablet with food Orally Twice a day; Duration: 30 day(s) 05/31/2023 Active Gabapentin 300 MG 1 capsule Orally Onc e a day 05/31/2023 Active Famotidine 20 MG 1 tablet at bedtime as needed Orally Once a day; Duration: 30 day(s) 05/31/2023 Active tiZANidine HCl 4 MG 1 tablet as needed O rally qd 05/31/2023 Active Vitamin B12 1000 MCG 1 tablet Orally Onc e a day 05/31/2023 Active Pioglitazone HCl 30 MG 1 tablet Orally O nce a day 05/31/2023 Active Acetaminophen 500 MG 1 capsule as needed Orally every 6 hrs 05/31/2023 Active Ferrous Sulfate 325 (65 Fe) MG 1 tablet Orally Every other day 05/31/2023 Active Aspir-Low 81 MG 1 tablet Orally Once a day; Duration: 30 day(s) 05/31/2023 Active Betamethasone Valerate 0.1 % 1 application Externally Once a day 05/31/2023 Active metOLazone 5 MG 1 tablet as directed Orally every other day; Duration: 90 days 05/31/2023 Active Problems Problem Type SNOMED Code ICD Code Onset Dates Problem Status W/U Status Risk Notes Problem Vitamin D deficiency (20517058) Vitamin D deficiency (E55.9) Active confirmed Vitamin D level is above goal at 120 ng/mL. Patient is encouraged to reduce supplementation to every other day. I will check vitamin D level periodically Problem Hypertension (51906459) Hypertension (I10) Active confirmed blood pressure is well controlled on current regimen unfortunately angiotensin receptor ann was stopped due to acute kidney injury. Problem Anemia (986026797) Anemia (D64.9) Active confirmed Hemoglobi n has had been very stable , Patient was started on ferrous sulfate dailyand he will continue on the same supplements as his iron sat is 18%. Problem Type 2 diabetes mellitus (93457291) Type 2 diabetes mellitus (E11.9) Active confirmed Hb A1c is 11.4% he was counseled again about the importance of having good glycemic control and he understands that diabetic nephropathy with get worse from here on. Problem Hyperlipidemia (17659846) Hyperlipidemia (E78.5) Active confirmed Patient has bee n on statin medication for an extended period of time, managed by his primary care and cardiology team. Patient asked about atorvastatin and renal toxicity, and I assured them that they should take statin medication if prescribed by the primary care physician or egg buyer. Problem Benign prostatic hyperplasia (417990088) BPH (benign prostatic hyperplasia) (N40.0) Active confirmed as above patien t has symptoms of lower tract obstructive symptoms, will start tamsulosin 0.4 daily Problem Chronic kidney disease stage 4 (833930131) Chronic kidney disease (CKD) stage G4/A1, severely decreased glomerular filtration rate (GFR) between 15-29 mL/min/1.73 square meter and albuminuria creatinine ratio less than 30 mg/g (N18.4) Active confirmed diabetic nephropathy, with renovascular disease Problem Coronary artery disease (27160554) Coronary artery disease (I25.10) Active confirmed Quadruple bypas s in 2013, left carotid stents in 2019, patient is followed by his egg buyer Dr. Bennett. He is on Plavix, aspirin and statin medication. Encounters Encounter Location Date Provider Diagnosis [facility] [address] [facility] [address] [place] [address] 12/08/2023 Luis Manuel Mckinney Chronic kidney disease (CKD) stage G4/A1, severely decreased glomerular filtration rate (GFR) between 15-29 mL/min/1.73 square meter and albuminuria creatinine ratio less than 30 mg/g N18.4 Assessments Encounter Date Diagnosis (ICD Code) Assessment Notes Treatment Notes Treatment Clinical Notes Section Notes 12/08/2023 Chronic kidney disease (CKD) stage G4/A1, severely decreased glomerular filtration rate (GFR) between 15-29 mL/min/1.73 square meter and albuminuria creatinine ratio less than 30 mg/g (ICD-10 - N18.4) diabetic nephropathy, with renovascular disease Plan Of Treatment Pending Test Test Name Order Date Uric Acid, Serum 01/20/2022 Uric Acid, Serum 08/10/2022 Uric Acid, Serum 11/17/2022 Uric Acid, Serum 05/31/2023 Urinalysis, Complete 08/10/2022 Urinalysis, Complete 10/14/2021 Urinalysis, Complete 05/05/2022 Urinalysis, Complete 01/20/2022 Urinalysis, Complete 02/21/2019 Urinalysis, Complete 04/25/2019 Urinalysis, Complete 11/28/2019 Urinalysis, Complete 04/02/2020 PTH, Intact 04/02/2020 PTH, Intact 05/05/2022 PTH, Intact 04/25/2019 PTH, Intact 05/31/2023 IRON, TIBC AND FERRITIN PANEL 11/17/2022 IRON, TIBC AND FERRITIN PANEL 10/14/2021 Urinalysis 05/31/2023 .Renal Function Panel 11/17/2022 .Renal Function Panel 05/31/2023 .Renal Function Panel 08/10/2022 .Renal Function Panel 10/14/2021 .Renal Function Panel 05/05/2022 .Renal Function Panel 04/02/2020 .Renal Function Panel 04/25/2019 .Renal Function Panel 11/28/2019 .Renal Function Panel 01/20/2022 .Renal Function Panel 02/21/2019 HGB & HCT 04/25/2019 HGB & HCT 11/28/2019 HGB & HCT 10/14/2021 CBC W/AUTO DIFF 05/05/2022 CBC W/AUTO DIFF 04/02/2020 CBC W/AUTO DIFF 01/20/2022 CBC W/AUTO DIFF 08/10/2022 CBC W/AUTO DIFF 11/17/2022 VIT D (25-OH) 11/17/2022 VIT D (25-OH) 05/31/2023 VIT D (25-OH) 04/25/2019 VIT D (25-OH) 11/28/2019 VIT D (25-OH) 04/02/2020 VIT D (25-OH) 05/05/2022 HGB A1C (GLYCOHEMOGLOBIN) 08/10/2022 urine protein/creatinine ratio 3 urine protein/creatinine ratio 2 urine protein/creatinine ratio 3 urine protein/creatinine ratio 4 urine protein/creatinine ratio 1 urine protein/creatinine ratio 0 urine protein/creatinine ratio 0 urine protein/creatinine ratio 2 urine protein/creatinine ratio 0 Future Test Test Name Order Date Uric Acid, Serum 12/01/2019 Urinalysis, Complete 12/01/2019 .Renal Function Panel 12/01/2019 HGB & HCT 12/01/2019 urine protein/creatinine ratio 0 .Renal Function Panel 03/30/2020 Uric Acid, Serum 09/22/2020 PTH, Intact 09/22/2020 Vitamin D, 25 -hydroxy 09/22/2020 .spot urine for creatinine 09/22/2020 .spot urine for protein 09/22/2020 RENAL FUNCTION PANEL 09/22/2020 URINALYSIS COMPLETE 09/22/2020 CBC W AUTOMATED DIFFERENTIAL 09/22/2020 Uric Acid, Serum 11/24/2020 .spot urine for creatinine 11/24/2020 .spot urine for protein 11/24/2020 RENAL FUNCTION PANEL 11/24/2020 URINALYSIS COMPLETE 11/24/2020 Urinalysis, Complete 03/15/2021 IRON, TIBC AND FERRITIN PANEL 03/15/2021 .Renal Function Panel 03/15/2021 HGB & HCT 03/15/2021 urine protein/creatinine ratio Urinalysis, Complete 07/09/2021 .Renal Function Panel 07/09/2021 HGB & HCT 07/09/2021 VIT D (25-OH) 07/09/2021 MAGNESIUM LEVEL 07/09/2021 urine protein/creatinine ratio .spot urine for creatinine 10/07/2021 .spot urine for protein 10/07/2021 RENAL FUNCTION PANEL 10/07/2021 URINALYSIS COMPLETE 10/07/2021 CBC W AUTOMATED DIFFERENTIAL 10/07/2021 HGB A1C (GLYCOHEMOGLOBIN) 10/07/2021 Uric Acid, Serum 05/26/2023 Vitamin D, 25 -hydroxy 05/26/2023 .spot urine for creatinine 05/26/2023 .spot urine for protein 05/26/2023 IRON, TIBC AND FERRITIN PANEL 05/26/2023 RENAL FUNCTION PANEL 05/26/2023 Insurance Providers Payer Name Payer Address Payer Phone Subscriber Number Group Number Insured Name Patient Relationship to Insured Coverage Start Date Coverage End Date [place] [address] [place] [phone] [id number] Praveen Pedroza Self - patient is the insured Medical (General) History Medical History History ICD Code At risk for sleep apnea Z91.89 Coronary artery disease, ang norma presence unspecified, unspecified vessel or lesion type, unspecified whether [place] or transplanted heart I25.10 Hyperlipidemia, unspecified hyperlipidem ia type E78.5 HTN (hypertension), benign I10 Type 2 diabetes mellitus wit hout complication, unspecified whether long wall mining machine tender insulin use E11.9 Chronic renal impairment, unspecified CK D stage N18.9 Surgical History Surgery Date(Month/Year) CABG X4 circumcision heart cath Hospitalization History Reason Date(Month/Year) stroke 12/2018
--- OUTSIDE RECORDS SUMMARY | 2024-10-09 09:11 | XMS_ITS | Encounter Summary ---
Author Organization [employer] ([place], [place], [place], [place]) Address [address] [place] [place] [address] Care Team Providers Care Manager Beauty Name Role Phone Nikolai Tse APRN Primary Care Provider + Encounter Details Date Type Department Care Team (Late st Contact Info) Description 12/28/2018 Transcribed Document [facility] [place] [address] ProviderKevin MD [address] [place] [address] Social History Tobacco Use Types Packs/Day Years Used Date Smoking Tobacco: Never Assessed Sex and Gender Information Value Date Recorded Sex Assigned at Not on file Legal Sex Male 4:12 PM CDT Gender Identity Not on file Sexual Orientation Not on file documented as of this encounter Miscellaneous Notes * Cerner Conversion Note - Kevin Pickering MD - 12/28/2018 11:19 AM SITE INTERPRETER Patient: PRAVEEN FOX Age: 68 years Sex: Male : 1950 Associated Diagnoses: None Author: MJ ANG MD-[facility] NEPHROLOGY CONSULTATION NOTE Basic Information Patient is feeling stronger, no new complaints. History of Present Illness 68 years old [...] At risk for sleep apnea / IMO [id number] / Confirmed CAD - Coronary artery disease / SNOMED CT 2712668019 / Confirmed HLD - Hyperlipidemia / SNOMED CT 396159248 / Confirmed HTN - Hypertension / SNOMED CT 0962144214 / Confirmed Type 2 diabetes mellitus / SNOMED CT 721538010 / Confirmed, Active Problems (9) At risk [...] Oral, At Bedtime heparin: 5,000 Units, SubCutaneous, [id number] hydrALAZINE: 10 mg, IV Push, Q3H, PRN: [...] vancomycin: 250 mg, Q6H, 0 Refill(s), Medications (24) Active Scheduled: (15) #NaCl 0.9% [...] mL inj 5,000 Units 1 mL, SubCutaneous, [id number] insulin glargine 1 unit/0.01 mL inj 30 [...] History: Active CAD - Coronary artery disease (9940440774) HTN - Hypertension (5866945900) HLD - Hyperlipidemia (804931955) Type 2 diabetes mellitus (211312036) Family History: No family history items have [...] Temp 97.3 (DEC 28 05:58) 97.3 (DEC 28 05:58) 97.9 (DEC 28 01:30) Apical HR 64 (DEC 28 09:32) 64 (DEC 28 09:32) 80 (DEC 27 21:14) Mon HR 64 (DEC 28 05:58) 64 (DEC 28 05:58) 80 (DEC 27:14) Resp Rate 18 (DEC 28 05:58) 18 [...] (DEC 28 04:40) 98 (DEC 28 04:40) Intake & Output Totals Last 24 Hours (7a-7a) Intake (2 Events) Medications (10.25 mL) Output (0 Events) No output events found in the last 24 hours. Input Total: 10.25 mL Output Total: 0 mL Balance: 10.25 mL GENERAL: Awake, in no distress HEENT: [...] review: Labs (Last four charted values) WBC 5.2 (DEC 28) 5.8 (DEC 27) 5.1 (DEC 26) 6.5 (DEC 25) HB L 13.2 (DEC 28) L 12.9 (DEC 27) L 13.2 (DEC 26) L 13.3 (DEC 25) HCT 40.8 (DEC 28) 40.3 (NOV 12) 41.3 (NOV 11) 41.6 (DEC 10) Plt 348 (DEC 13) 299 (NOV 12) 314 (NOV 11) 330 (NOV 10) Na 140 (DEC 13) 138 (DEC 12) 137 (DEC 11) 140 (DEC 10) K 4.2 (DEC 13) 4.6 (DEC 12) 4.5 (DEC 11) 4.2 (DEC 10) Cl 112 (DEC 13) H 114 (DEC 12) 106 (DEC 11) 109 (DEC 10) CO2 24 (DEC 13) L 19 (DEC 12) 23 (DEC 11) 24 (DEC 10) BUN H 33 (DEC 28) H 28 (DEC 27) H 31 (DEC 26) H 26 (DEC 25) Cr H 1.80 (DEC 28) H 1.60 (DEC 27) H 2.10 (DEC 26) H 2.00 (DEC 25) Glu R H 219 (DEC 28) H 184 (DEC 27) H 263 (DEC 26) H 181 (DEC 25) Ca 9.5 (DEC 28) L 8.3 (DEC 27) 9.2 (DEC 26) 8.7 (DEC 25) PT 11.0 (DEC 25) INR 1.0 (DEC 25) AST 13 (DEC 24) ALT 22 (DEC 24) ALK P 41 (DEC 24) T Bili 0.3 (DEC 24) PTN 6.8 (DEC 24) ALB L 2.9 (DEC 24) . Blood Gases (Current Encounter/Past 24 Hours) No Blood Gas Results Found (Past 24 Hours) Radiology Results (Last 48 hours) [id number] -- 12/23/2018 13:03 CTA Head (12/26/2018 15:01) Result: CT ANGIOGRAM [...] creatinine is stable and improved down to 1.6-1.8 mg/dL, no evidence of acute kidney injury from the IV contrast given on 12/26/2018. 2. Uncontrolled hypertension: Possibly related to his [...] carotid stenosis noted and surgical consultation is appreciated. Professional Services documented in this encounter Plan of Treatment Not on file documented as of this encounter Visit Diagnoses Not on filedocumented in this encounter Care Teams Manager Beauty Relationship Specialty Start Date End Date Nikolai Tse, DEPLOYMENT TECHNICIAN [address] [place] [address] PCP - General Nurse Practitioner 02/17/24 documented as of this encounter
--- OUTSIDE RECORDS SUMMARY | 2024-10-09 09:11 | XMS_ITS | Encounter Summary ---
Author Organization [employer] ([place], [place], [place], [place]) Address [address] [place] [address] Care Team Providers Care Clinical Nursing Director Name Role Phone Nikolai Tse APRN Primary Care Provider + Encounter Details Date Type Department Care Team (Late st Contact Info) Description 12/28/2018 Transcribed Document [facility] [place] Family Medicine [facility] [place] [address] ProviderKevin MD [address] [place], [place] [id number] Social History Tobacco Use Types Packs/Day Years Used Date Smoking Tobacco: Never Assessed Sex and Gender Information Value Date Recorded Sex Assigned at Not on file Legal Sex Male 4:12 PM CDT Gender Identity Not on file Sexual Orientation Not on file documented as of this encounter Miscellaneous Notes * Cerner Conversion Note - Kevin Pickering MD - 12/28/2018 3:00 AM FILM PROCESSING SUPERVISOR Nutrition Assessment Entered On: 12/28/2018 10:17 EST Performed On: 12/28/2018 10:17 EST by Kareen Ignacio Dietitian Nutrition Assessment Nutrition Assessment Reason : Follow Up Kareen Ignacio Dietitian - 12/28/2018 10:17 EST Nutrition Recommendations Dietitian Recommendations : 12/28: Rescreen. surgery recommending L-CEA. Decision still [...] RD consult rec'd for stroke. Seen by MARKETING TRAINEE today and placed on 60gCHO diet. Intakes are being established. Spoke with RN who states family brought pt food in today and he ordered lunch. Pt is eating well. Noted no wt recorded in pt chart. Labs/meds reviewed. No skin breakdown noted. LBM 12/23. RD will rescreen in 3-4 days to reassess po intakes and provide diet education if desired. RD available prn. Kareen Ignacio, Dietitian - 12/28/2018 13:37 EST Electronically signed by Kyra [facility] Conversion Manager [employer] Cerner at 06/04/2022 9:54 AM CDT documented in this encounter Plan of Treatment Not on file documented as of this encounter Visit Diagnoses Not on filedocumented in this encounter Care Teams Clinical Nursing Director Relationship Specialty Start Date End Date Nikolai Tse, SKEIN WINDER [address] [place] [address] PCP - General Nurse Practitioner 02/17/24 documented as of this encounter
--- OUTSIDE RECORDS SUMMARY | 2024-10-09 09:11 | XMS_ITS | Encounter Summary ---
Author Organization [employer] ([place], [place], [place], [place]) Address [address] [place] [address] Care Team Providers Care Poultry Sexer Name Role Phone YanethanthonyNikolai APRN Primary Care Provider + Encounter Details Date Type Department Care Team (Late st Contact Info) Description 12/25/2018 Transcribed Document [facility] Radiology [address] [place] [address] Luis Manuel Tobar MD [address] [place] [address] [place] [address] Social History Tobacco Use Types Packs/Day Years Used Date Smoking Tobacco: Never Assessed Sex and Gender Information Value Date Recorded Sex Assigned at Not on file Legal Sex Male 4:12 PM CDT Gender Identity Not on file Sexual Orientation Not on file documented as of this encounter Miscellaneous Notes * Cerner Conversion Note - Luis Manuel Tobar MD - 12/25/2018 10:28 AM EST Patient: PRAVEEN FOX Age: 68 years Sex: Male : 1950 Associated Diagnoses: None Author: LUIS MANUEL TOBAR MD-[facility] NEPHROLOGY CONSULTATION NOTE Basic Information Source of history: Medical record, Patient, Not nurse. History of Present Illness 68 years old [...] being on meloxicam. Denies any urinary symptoms. Health Status Problem list: Medical At risk for sleep apnea / IMO [id number] / Confirmed CAD - Coronary artery disease / SNOMED CT 9811949341 / Confirmed HLD - Hyperlipidemia / SNOMED CT 124634700 / Confirmed HTN - Hypertension / SNOMED CT 9715141798 / Confirmed Type 2 diabetes mellitus / SNOMED CT 247743335 / Confirmed Allergies: Allergic Reactions (All) No Known Allergies Current medications: (Selected) Inpatient Medications Ordered Ativan: 0.5 mg, IV Push, Q6H, PRN: Agitation Habitrol 21 mg/24 hr transdermal film, extended release: 1 Patch, TransDermal, Daily Lantus: 30 Units, SubCutaneous, At Bedtime Lipitor: 20 mg, Oral, Daily Normal Saline Flush: 10 mL, IV Push, Q12H Normal Saline Flush: 10 mL, IV Push, See Comment, PRN: IV Use Plavix: 75 mg, Oral, Daily Protonix: 40 mg, Oral, Daily Sodium Chloride 0.9% intravenous solution 1,000 mL: 100 mL/Hr, IntraVENous Toprol-XL: 25 mg, Oral, Daily TriCor 145 mg oral tablet: 145 mg, Oral, Daily Tylenol: 650 mg, Oral, Q6H, PRN: Fever Zofran: 4 mg, IV Push, Q4H, PRN: Nausea/Vomiting amLODIPine: 5 mg, Oral, BID aspirin: 81 mg, Oral, Daily cloNIDine: 0.1 mg, Oral, Q3H, PRN: Hypertension gabapentin: 300 mg, Oral, At Bedtime heparin: 5,000 Units, SubCutaneous, [id number] hydrALAZINE: 10 mg, IV Push, Q3H, PRN: [...] 0 Refill(s) vancomycin: 250 mg, Q6H, 0 Refill(s) Histories Family History: No family hx of renal disease Social History Social & Psychosocial Habits Alcohol 09/23/2012 Days Per Week of Alcohol Use 7 Number of Drinks per Day 4 Total Drinks Per Week 28 Tobacco 09/23/2012 Smoking Status Current every day smoker Years of Tobacco Use 50 Packs/Tins Daily 1 . Review of Systems Constitutional Physical Examination VS/Measurements Vitals Signs (last 24 hrs) Last Charted Minimum Maximum Temp 97.6 (DEC 25 03:09) 97.6 (DEC 25 03:09) 97.3 (DEC 24 10:00) Apical HR 91 (DEC 25 08:11) 91 (DEC 25 08:11) 91 (DEC 25 08:11) Mon HR 63 (DEC 25 03:09) 63 (DEC 25 03:09) 84 (DEC 24 10:15) Resp Rate 14 (DEC 25:09) 14 (DEC 24 23:17) 18 (DEC 24 10:00) SBP H 170 (DEC 25 03:09) 104 (DEC 24 10:00) H 185 (DEC 24 19:46) DBP 84 (DEC 25 03:09) L 58 (DEC 24 11:00) H 97 (DEC 24 18:59) MAP 100 (DEC 25 03:09) 73 (DEC 24 10:45) 133 (DEC 24 11:30) SpO2 98 (DEC 25:09) 95 (DEC 24 10:45) 98 (DEC 25:09) Intake & Output Totals Last 24 Hours (7a-7a) Intake (3 Events) Medications (20 mL) Oral Intake (120 mL) Output (1 Events) Urine Voided (Volume) (150 mL) Input Total: 140 mL Output Total: 150 mL Balance: -10 mL GENERAL: Awake, in no distress HEENT: [...] review: Labs (Last four charted values) WBC 6.5 (DEC 25) 4.6 (DEC 24) HB L 13.3 (DEC 25) L 12.1 (DEC 24) HCT 41.6 (DEC 25) L 37.8 (DEC 24) Plt 330 (DEC 25) 285 (DEC 24) Na 140 (DEC 25) 139 (DEC 24) K 4.2 (DEC 25) 4.6 (DEC 24) Cl 109 (DEC 25) 110 (DEC 24) CO2 24 (DEC 25) 22 (DEC 24) BUN H 26 (DEC 25) H 31 (DEC 24) Cr H 2.00 (DEC 25) H 2.20 (DEC 24) Glu R H 181 (DEC 25) H 315 (DEC 24) Ca 8.7 (DEC 25) 9.0 (DEC 24) PT 11.0 (DEC 25) INR 1.0 (DEC 25) AST 13 (DEC 24) ALT 22 (DEC 24) ALK P 41 (DEC 24) T Bili 0.3 (DEC 24) PTN 6.8 (DEC 24) ALB L 2.9 (DEC 24) . Blood Gases (Current Encounter/Past 24 Hours) No Blood Gas Results Found (Past 24 Hours) Radiology Results (Last 48 hours) [id number] -- 12/23/2018 13:03 CT Head WO (12/24/2018 14:00) Result: HEAD CT HISTORY: Right arm weakness.COMPARISON: None .TECHNIQUE: Multiple axial CT images were performed from the foramenmagnum to the vertex without enhancement. This study was performed withtechniques to keep radiation doses as low as reasonably achievable,(ALARA). Automatic exposure control and/or changing of the mA/ kVaccording to patient size were utilized for radiation dose reduction.FINDINGS: The ventricles are enlarged. There is diffuse moderateatrophy. There is periventricular white matter change likely related tosmall vessel disease. There is an old left frontal infarct. There is noevidence of hemorrhage . No masses are identified. No extra-axialfluid is seen. The sinuses are normal. IMPRESSION: Atrophy and chronic changes without acute process. Images reviewed, interpreted, and dictated by Dr. Tremayne Hayden.Transcribed by Klarissa Arndt PA-C.I have personally viewed, interpreted and dictated the examination. Ihave read and agree with the above final transcribed report. Impression and Plan Professional Services 1. Chronic kidney disease stage III: Related to diabetic and hypertensive nephrosclerosis. Current serum creatinine is probably close to his usual baseline 2. Uncontrolled hypertension: Possibly related to his renal disease and possible renovascular disease. 3. New CVA: Has had right lower extremity weakness and some new right upper extremity weakness after a hypotensive episode Plan 1. Continue current and hypertensive medications 2. Would give 1 L normal saline 3. Check urine studies 4. Avoid excessive lowering of blood pressure even his new ischemic stroke 5. Discussed with family and the patient that contrast enhanced studies for imaging of his cranial arteries could be done if necessary to assist with his management. He will need IV hydration before and after contrast exposure documented in this encounter Plan of Treatment Not on file documented as of this encounter Visit Diagnoses Not on filedocumented in this encounter Care Teams Poultry Sexer Relationship Specialty Start Date End Date Nikolai Tse, EMPLOYEE TRAINING SPECIALIST [address] [place] [id number] PCP - General Nurse Practitioner 02/17/24 documented as of this encounter
--- OUTSIDE RECORDS SUMMARY | 2024-10-09 09:11 | XMS_ITS | Encounter Summary ---
Author Organization [employer] ([place], [place], [place], [place]) Address [address] [place] [address] Care Team Providers Care Housekeeping Supervisor Name Role Phone LinuskarimeMayakeerthianh Dhillon APRN Primary Care Provider + Encounter Details Date Type Department Care Team (Late st Contact Info) Description 12/28/2018 Transcribed Document [facility] [place] [address] ProviderKevin MD [address] [place] [address] Social History Tobacco Use Types Packs/Day Years Used Date Smoking Tobacco: Never Assessed Sex and Gender Information Value Date Recorded Sex Assigned at Not on file Legal Sex Male 4:12 PM CDT Gender Identity Not on file Sexual Orientation Not on file documented as of this encounter Miscellaneous Notes * Cerner Conversion Note - Kevin Pickering MD - 12/28/2018 4:29 PM CELLOPHANE TESTER On Going Discharge Planning Entered On: 12/28/2018 16:31 EST Performed On: 12/28/2018 16:29 EST by BISI VIRGEN, RN-Ion Implant Machine OperatorTechnical Sales Representatives Progress Note Discharge Arrangements : Patient Post-Acute Information Patient Name: PRAVEEN FOX Gender: Male : 46 Age: 68 Years No Post-Acute Placement(s) Listed No Post-Acute Service(s) Listed No Curaspan Referral(s) Listed BISI VIRGEN, RN-Ion Implant Machine Operator - 12/28/2018 16:33 EST Discharge Options Discussed with Patient : Acute rehabilitation Barriers to Discharge Identified : Clinical Condition [...] you Attend Multidisciplinary Rounds? : No BISI IVRGEN, RN-Ion Implant Machine Operator - 12/28/2018 16:29 EST Narrative Progress Note Narrative Progress Note : CEA scheduled for Wednesday per vascular. Lara from [facility] states that they most likely cannot take pt for a few days and then send back for procedure. states that she cannot take pt home until after rehab. Called Dr Anh Aden to make him aware. He stated that pt would stay until after procedure. Lara from [facility] following for rehab when ready for discharge. Historical Progress Note : surgical consult and recommended left cea--decision TBD by Dr. Green and family. Pt will need inpt rehab and Lara from [facility] is following. may qualify for ems r/t mentation and and weakness. RODNEY CRENSHAW RN-Ion Implant Machine Operator - 12/27/18 10:57:09 Lara from [facility] following for potential DC 12/27 via EMS. RODNEY CRENSHAW RN-Ion Implant Machine Operator - 12/26/18 11:08:12 BISI VIRGEN, RN-Ion Implant Machine Operator - 12/28/2018 16:33 EST Electronically signed by Kyra [facility] Conversion Parts Sales Representative Cerner at 06/04/2022 9:54 AM CDT documented in this encounter Plan of Treatment Not on file documented as of this encounter Visit Diagnoses Not on filedocumented in this encounter Care Teams Housekeeping Supervisor Relationship Specialty Start Date End Date Nikolai Tse, SIXTH GRADE TEACHER [address] [phone] PCP - General Nurse Practitioner 02/17/24 documented as of this encounter
--- OUTSIDE RECORDS SUMMARY | 2024-10-09 09:11 | XMS_ITS | Encounter Summary ---
Author Organization [employer] ([place], [place], [place], [place]) Address [address] [place] [address] Care Team Providers Care Painter And Decorator Name Role Phone LinuskarimeMayakeerthianthony Dhillon APRN Primary Care Provider + Encounter Details Date Type Department Care Team (Late st Contact Info) Description 12/27/2018 Transcribed Document [facility] [place] [facility] [place] [address] ProviderKevin MD [address] [place] [id number] Social History Tobacco Use Types Packs/Day Years Used Date Smoking Tobacco: Never Assessed Sex and Gender Information Value Date Recorded Sex Assigned at Not on file Legal Sex Male 4:12 PM CDT Gender Identity Not on file Sexual Orientation Not on file documented as of this encounter Miscellaneous Notes * Cerner Conversion Note - Kevin Pickering MD - 12/27/2018 10:56 AM VENDER On Going Discharge Planning Entered On: 12/27/2018 10:57 EST Performed On: 12/27/2018 10:56 EST by RODNEY CRENSHAW RN-Bag BundlerHospital Cook Progress Note Discharge Arrangements : Patient Post-Acute Information Patient Name: PRAVEEN FOX Gender: Male : 46 Age: 68 Years No Post-Acute Placement(s) Listed No Post-Acute Service(s) Listed No Curaspan Referral(s) Listed Discharge Options Discussed with Patient : Acute rehabilitation Barriers to Discharge Identified : Clinical Condition of Patient Barriers to Discharge Unresolved : Clinical Condition of Patient Patient Offered Choice/Affiliations Explained : Yes RODNEY CRENSHAW RN-Bag Bundler - 12/27/2018 10:56 EST Narrative Progress Note Narrative Progress Note : surgical consult and recommended left cea--decision TBD by Dr. Green and family. Pt will need inpt rehab and Lara from [facility] is following. may qualify for ems r/t mentation and and weakness. Historical Progress Note : Lara from [facility] following for potential DC 12/27 via EMS. RODNEY CRENSHAW RN-Bag Bundler - 12/26/18 11:08:12 RODNEY CRENSHAW RN-Bag Bundler - 12/27/2018 10:56 EST documented in this encounter Plan of Treatment Not on file documented as of this encounter Visit Diagnoses Not on filedocumented in this encounter Care Teams Painter And Decorator Relationship Specialty Start Date End Date Nikolai Tse, TIRE CENTER SUPERVISOR [address] [place] [phone] PCP - General Nurse Practitioner 02/17/24 documented as of this encounter
--- OUTSIDE RECORDS SUMMARY | 2024-10-09 09:11 | XMS_ITS | Referral Summary ---
Author Organization [employer] ([place], [place], [place], [place]) Address [address] [place] [address] Care Team Providers Care Chemical Recovery Operator Name Role Phone Nikolai Tse APRN Primary Care Provider + Encounters Date Type Department Care Team Description 08/26/2024 Lab Requisition [facility] Lab [address] [place] [address] Nikolai Tse APRN Urinary tract infection, site not specified 08/26/2024 1:15 PM EDT Lab Patient Walk-In [facility] Lab [address] [place] [phone] Nikolai Tse APRN Urinary tract infection without hematuria, site unspecified 08/26/2024 Outside Orders [facility] Admitting [address] [place] [address] Nikolai Tse APRN Urinary tract infection without hematuria, site unspecified (Primary Dx) 07/27/2024 1:00 PM EDT Evaluation [facility] Lymphedema Therapy [address] [place] [address] [address] [place] [phone] Sonal El PA Curd, Jennifer W, PT Lymphedema (Primary Dx); Neoplasm of uncertain behavior 07/26/2024 Lab Requisition [facility] Lab [address] [place] [address] Justine Tse APRN Urinary tract infection, site not specified; Encounter for screening for other disorder 07/26/2024 Travel 07/26/2024 4:45 PM EDT Lab Patient Walk-In [facility] Lab [address] [facility] [place] [address] [facility], Provider Not In The System, Urinary tract infection, site not specified 07/26/2024 Outside Orders [facility] Admitting [address] [facility] [place] [address] Justine Tse APRN Urinary tract infection, site not specified (Primary Dx) 07/11/2024 Lab Requisition [facility] [address] [facility] [place] [address] Nikolai Tse APRN Urinary tract infection, site not specified 07/11/2024 Travel 07/11/2024 3:45 PM EDT Lab Patient Walk-In [facility] [address] [facility] [place] [address] Nikolai Tse, JULIO CÉSAR Urinary tract infection, site not specified 07/11/2024 Outside Orders [facility] Admitting [address] [facility] [place] [address] Nikolai Tse APRN Urinary tract infection, site not specified (Primary Dx) from Last 3 Months Allergies No known active allergies Medications aspirin [...] (10 mg total) by mouth nightly. 5 026 Active bumetanide (BUMEX) 1 MG tablet Take 1 tablet (1 mg total) by mouth daily. 5 026 Active gabapentin (NEURONTIN) 100 MG capsule Take [...] mouth 3 (three) times daily as needed. 5 Active melatonin 3 mg tablet Take 1 tablet (3 mg total) by mouth every night as needed for insomnia. Active sennosides-doc usate sodium (SENOKOT S) 8.6-50 mg per tablet Take 1 tablet by mouth 2 (two) times daily. 5 Active Active Problems Problem Noted Date Diagnosed Date CHF (congestive heart failur e), NYHA class I, acute on chronic, combined 02/17/2024 Social History Tobacco Use Types Packs/Day Years Used Date Smoking Tobacco: Former Cigarettes Smokeless Tobacco: Never Tobacco Cessation:Counseling Given: Not Answered Alcohol Use Standard Drinks/Week Comments Never 0 (1 standard drink = 0.6 oz pur e alcohol) Utilities Answer Date Recorded In the past 12 months, has t he [employer], [employer], [employer], or water [employer] threatened to shut off services in your [...] Do you speak a language other than Lithuanian at [facility]? No 02/18/2024 Do you want [...] 02/17/2024 11:58 AM EST Plan of Treatment Not on file Procedures Procedure Name Priority Date/Time Associated Diagnosis [...] Color, UA Yellow 08/26/2024 1:28 PM EDT [facility] Clarity, UA Cloudy 08/26/2024 1:28 PM EDT [facility] Specific [place], UA 1.010 1.002 - 1.030 08/26/2024 1:28 PM EDT [facility] pH, UA 6.5 5.0 - 9.0 08/26/2024 1:28 PM EDT [facility] Leukocytes, UA 3+(A) Negative 08/26/2024 1:28 PM EDT [facility] Nitrite, UA Negative Negative 08/26/2024 1:28 PM EDT [facility] Protein, UA 1+(A) Negative 08/26/2024 1:28 PM EDT [facility] Glucose, UA 3+(A) Negative 08/26/2024 1:28 PM EDT [facility] Ketones, UA Negative Negative 08/26/2024 1:28 PM EDT [facility] Bilirubin, UA Negative Negative 08/26/2024 1:28 PM EDT [facility] Blood, UA 1+(A) Negative 08/26/2024 1:28 PM EDT [facility] Urobilinogen, UA 0.2 mg/dL Normal 08/26/2024 1:28 PM EDT [facility] Specimen Source Urine, clean catch 08/26/2024 1:28 PM EDT [facility] Urine 08/26/2024 1:12 PM EDT 08/26/2024 1:12 PM EDT us Nikolai Tse COMPLIANCE CONSULTANT URINE ORDERABLES Final R esult [facility] [address] [place] [address] * (ABNORMAL) Urinalysis Microscopic Only (08/26/2024 1:12 PM EDT) Only the most recent of3 resultswithin the time period is included. WBC, UA Too Numerous To Count(A) None Seen, Occasional , 0-5 /HPF 08/26/2024 1:28 PM EDT [facility] RBC, UA 5-10(A) None Seen, Rare /HPF 08/26/2024 1:28 PM EDT [facility] Bacteria, UA 2+(A) None Seen 08/26/2024 1:28 PM EDT [facility] Yeast 2+(A) Trace 08/26/2024 1:28 PM EDT [facility] SQUAMOUS EPITHELIAL 5-10(A) None Seen, Rare /HPF 08/26/2024 1:28 PM EDT [facility] Urine 08/26/2024 1:12 PM EDT 08/26/2024 1:12 PM EDT us Nikolai Tse APRN URINE ORDERABLES Final R esult Performing Organization Address City/[facility]/ZIP Co de Phone Number [facility] [address] [place] [address], [facility] [phone] * Urine Culture (08/26/2024 1:12 PM EDT) Only the most recent of3 resultswithin the time period is included. Result Recollect Specimen - 3 or more organisms suggests contamination 08/28/2024 9:33 AM EDT [facility] Urine 08/26/2024 1:12 PM EDT 08/26/2024 1:27 PM EDT us Nikolai Tse APRN MICROBIOLOGY - GENERAL O RDERABLES Final Result Performing Organization Address [facility]/ZIP Co de Phone Number [facility] [address] [place], [place] [address] [phone] * Hemoglobin A1c (06/22/2024 12:25 PM EDT) Hemoglobin A1C 13.8 % 06/23/2024 11:57 AM EDT [facility] eAVG Glucose 349.36 mg/dL 06/23/2024 11:57 AM EDT [facility] Blood 06/22/2024 12:2 5 PM EDT 06/23/2024 10:31 AM EDT us Nikolai Tse APRN LAB BLOOD ORDERABLES Fin al Result [facility] [address] [place] [address], [facility] [phone] from Last 3 Months or Most Recently Relevant to Health Maintenance Insurance MEDICARE [place] [address] [address] SUPP Advance Directives For more information, please contact: [phone] Documents on File Type Date Recorded Patient Carbide Tool Maker Expl anation Advance Directives and Living Will 02/17/2024 * Full Code (Latest Code Status on File) Date Activated Date Inactivated Comments 02/17/2024 12:19 PM 02/24/2024 6:13 PM Care Teams Chemical Recovery Operator Relationship Specialty Start Date End Date Nikolai Tse, COMPLIANCE CONSULTANT [address] [place] [address] PCP - General Nurse Practitioner 02/17/24
--- OUTSIDE RECORDS SUMMARY | 2024-10-09 09:12 | XMS_ITS | Encounter Summary ---
Author Organization [employer] ([place], [place], [place], [place]) Address [address] [place] [address] Care Team Providers Care Account Development Associate Name Role Phone Nikolai Tse MACHINE FINISHER Primary Care Provider + Encounter Details Date Type Department Care Team (Late st Contact Info) Description 12/31/2018 Transcribed Document [facility] [place] [facility] [place] [address] ProviderKevin MD [address] [place] [address] Social History Tobacco Use Types Packs/Day Years Used Date Smoking Tobacco: Never Assessed Sex and Gender Information Value Date Recorded Sex Assigned at Not on file Legal Sex Male 4:12 PM CDT Gender Identity Not on file Sexual Orientation Not on file documented as of this encounter Miscellaneous Notes * Cerner Conversion Note - Kevin ProviderMD - 12/31/2018 5:00 AM JAVA WEB USER INTERFACE DEVELOPER Chart Check - Review Order Profile Entered On: 12/31/2018 5:15 EST Performed On: 12/31/2018 5:00 EST by Lacey Harris RN-Chad Chart Check Powerplans Initiated/Discontinued as Appropriate : Yes All Active Orders Reviewed : Yes Lacey Harris RN-Chad - 12/31/2018 5:15 EST documented in this encounter Plan of Treatment Not on file documented as of this encounter Visit Diagnoses Not on filedocumented in this encounter Care Teams Account Development Associate Relationship Specialty Start Date End [place] [address] PCP - General Nurse Practitioner 02/17/24 documented as of this encounter
--- OUTSIDE RECORDS SUMMARY | 2024-10-09 09:12 | XMS_ITS | Encounter Summary ---
Author Organization [employer] ([place], [place], [place], [place]) Address [address] [place] [address] Care Team Providers Care Electoral Officer Name Role Phone LinuskarimeMayakeerthianh Dhillon APRN Primary Care Provider + Encounter Details Date Type Department Care Team (Late st Contact Info) Description 12/29/2018 Transcribed Document [facility] Family [place] [address] ProviderKevin MD [address] [place] [id number] Social History Tobacco Use Types Packs/Day Years Used Date Smoking Tobacco: Never Assessed Sex and Gender Information Value Date Recorded Sex Assigned at Not on file Legal Sex Male 4:12 PM CDT Gender Identity Not on file Sexual Orientation Not on file documented as of this encounter Miscellaneous Notes * Cerner Conversion Note - Kevin Pickering MD - 12/29/2018 3:14 PM INSULATOR TESTER On Going Discharge Planning Entered On: 12/29/2018 15:14 EST Performed On: 12/29/2018 15:14 EST by BISI VIRGEN, RN-Director Of AcquisitionsLaborer Sawmill Progress Note Discharge Arrangements : Patient Post-Acute [...] you Attend Multidisciplinary Rounds? : No BISI VIRGEN, RN-Director Of Acquisitions - 12/29/2018 15:14 EST Narrative Progress Note Narrative Progress Note : CEA scheduled for Wednesday. Lara from [facility] following. Historical Progress Note : CEA scheduled for Wednesday per vascular. Lara from [facility] following for rehab when ready for discharge. BSII VIRGEN, RN-Director Of Acquisitions - 12/28/18 16:31:32 CEA scheduled for Wednesday per vascular. Lara from [facility] states that they most likely cannot take pt for a few days and then send back for procedure. states that she cannot take pt home until after rehab. Called Dr Anh Aden to make him aware. He stated that pt would stay until after procedure. Lara from [facility] following for rehab when ready for discharge. BISI VIRGEN RN-Director Of Acquisitions - 12/28/18 16:34:36 surgical consult and recommended left cea--decision TBD by Dr. Green and family. Pt will need inpt rehab and Lara from [facility] is following. may qualify for ems r/t mentation and and weakness. RODNEY CRENSHAW RN-Director Of Acquisitions - 12/27/18 10:57:09 Lara from [facility] following for potential DC 12/27 via EMS. RODNEY CRENSHAW RN-Director Of Acquisitions - 12/26/18 11:08:12 BISI VIRGEN, RN-Director Of Acquisitions - 12/29/2018 15:14 EST Electronically signed by Kyra [facility] Conversion Assessment Director Lex at 06/04/2022 9:55 AM CDT documented in this encounter Plan of Treatment Not on file documented as of this encounter Visit Diagnoses Not on filedocumented in this encounter Care Teams Electoral Officer Relationship Specialty Start Date End Date Nikolai Tse, APRON TRIMMER [address] [place] [address] PCP - General Nurse Practitioner 02/17/24 documented as of this encounter
--- OUTSIDE RECORDS SUMMARY | 2024-10-09 09:12 | XMS_ITS | Encounter Summary ---
Author Organization [employer] ([place], [place], [place], [place]) Address [address] [place] [address] Care Team Providers Care Kiln Maintenance Name Role Phone Linuskarime Mayakeerthianthony Dhillon APRN Primary Care Provider + Encounter Details Date Type Department Care Team (Late st Contact Info) Description 12/26/2018 Transcribed Document [facility] [place] [facility] [place] [address] ProviderKevin MD [address] [place], [place] [phone] Social History Tobacco Use Types Packs/Day Years Used Date Smoking Tobacco: Never Assessed Sex and Gender Information Value Date Recorded Sex Assigned at Not on file Legal Sex Male 4:12 PM CDT Gender Identity Not on file Sexual Orientation Not on file documented as of this encounter Miscellaneous Notes * Cerner Conversion Note - Kevin Pickering MD - 12/26/2018 2:00 AM MAXILLOFACIAL SURGEON Ranger Aide Details Entered On: 12/26/2018 7:41 EST Performed On: 12/26/2018 2:00 EST by Jennifer Kat RN Order Details Transport Mode Order Detail : Wheelchair Order Detail : N/A IV Order Detail : 1 Oxygen Order Detail : 0 Nurse Collect Order Detail : 0 Lift/Transfer : Moderate assist Central Line Order Detail : No Room Service : Needs Assistance Arterial Line : No Jennifer Kat, RN - 12/26/2018 7:40 EST Electronically signed by Kyra [facility] Conversion Oncology Research Rn Cerner at 06/04/2022 9:59 AM CDT documented in this encounter Plan of Treatment Not on file documented as of this encounter Visit Diagnoses Not on filedocumented in this encounter Care Teams Kiln Maintenance Relationship Specialty Start Date End Date Nikolai Tse, PERISHABLE FRUIT INSPECTOR [address] [place] [address] PCP - General Nurse Practitioner 02/17/24 documented as of this encounter
--- OUTSIDE RECORDS SUMMARY | 2024-10-09 09:12 | XMS_ITS | Encounter Summary ---
Author Organization [employer] ([place], [place], [place], [place]) Address [address] [place] [address] Care Team Providers Care Claim Analyst Name Role Phone LinuslongNikolai cruz APRN Primary Care Provider + Encounter Details Date Type Department Care Team (Late st Contact Info) Description 12/26/2018 Transcribed Document [facility] [place] Family Medicine [facility] [address] ProviderKevin MD [address] [place] [address] Social History Tobacco Use Types Packs/Day Years Used Date Smoking Tobacco: Never Assessed Sex and Gender Information Value Date Recorded Sex Assigned at Not on file Legal Sex Male 4:12 PM CDT Gender Identity Not on file Sexual Orientation Not on file documented as of this encounter Miscellaneous Notes * Cerner Conversion Note - Kevin Pickering MD - 12/26/2018 11:41 AM COMPLIANCE EXAMINER Patient: PRAVEEN FXO Age: 68 years Sex: Male : 1950 Associated Diagnoses: None Author: MJ ANG [facility] NEPHROLOGY CONSULTATION NOTE Basic Information Time Seen: Date & Time 12/26/2018 11:42:00. Source of history: Nurse, Medical personnel, Medical record, Not patient. History limitation: Altered level of consciousness, Clinical condition. History of Present Illness 68 years old [...] At risk for sleep apnea / IMO [id number] / Confirmed CAD - Coronary artery disease / SNOMED CT 3581009249 / Confirmed HLD - Hyperlipidemia / SNOMED CT 838804583 / Confirmed HTN - Hypertension / SNOMED CT 4449515581 / Confirmed Type 2 diabetes mellitus / SNOMED CT 861673330 / Confirmed, Active Problems (9) At risk [...] At Bedtime Lipitor: 20 mg, Oral, Daily Lopressor: 25 mg, Oral, BID Normal Saline [...] Oral, At Bedtime heparin: 5,000 Units, SubCutaneous, [id number] hydrALAZINE: 10 mg, IV Push, Q3H, PRN: [...] mL inj 5,000 Units 1 mL, SubCutaneous, [id number] insulin glargine 1 unit/0.01 mL inj 30 [...] History: Active CAD - Coronary artery disease (0303408024) HTN - Hypertension (7733943107) HLD - Hyperlipidemia (751634493) Type 2 diabetes mellitus (550986777) Family History: No family history items have [...] Last Charted Minimum Maximum Temp 97.2 (DEC 26:) 97.2 (DEC 26:) 98.1 (DEC 25:28) Apical HR 74 (DEC 26 10:10) 74 (DEC 26 06:38) 74 (DEC 26 06:38) Mon HR 70 (DEC 26:) 70 (DEC 25:28) 75 (DEC 25 23:30) Resp Rate 16 (DEC 26:) 16 (DEC 25 14:30) 20 (DEC 26 06:30) SBP H 155 (DEC 26:) H 145 (DEC 25:28) H 197 (DEC 26 06:36) DBP 68 (DEC 26:) 65 (DEC 25:28) H 96 (DEC 25 23:30) MAP 85 (DEC 26:) 85 (DEC 26:) 120 (DEC 25 23:30) SpO2 97 (DEC 26:) 97 (DEC 25:28) 98 (DEC 25 14:30) Intake & Output Totals Last 24 Hours (7a-7a) Intake (6 Events) Medications (10.75 mL) Oral Intake (690 mL) Output (6 Events) Urine Voided (Volume) (1325 mL) Input Total: 700.75 mL Output Total: 1325 mL Balance: -624.25 mL GENERAL: Awake, in no distress HEENT: [...] review: Labs (Last four charted values) WBC 5.1 (DEC 26) 6.5 (DEC 25) 4.6 (DEC 24) HB L 13.2 (DEC 26) L 13.3 (DEC 25) L 12.1 (DEC 24) HCT 41.3 (DEC 26) 41.6 (DEC 25) L 37.8 (DEC 24) Plt 314 (DEC 11) 330 (DEC 10) 285 (DEC 09) Na 137 (DEC 26) 140 (DEC 25) 139 (DEC 24) K 4.5 (DEC 26) 4.2 (DEC 25) 4.6 (DEC 24) Cl 106 (DEC 26) 109 (DEC 25) 110 (DEC 09) CO2 23 (DEC 26) 24 (DEC 25) 22 (DEC 24) BUN H 31 (DEC 26) H 26 (DEC 25) H 31 (DEC 24) Cr H 2.10 (DEC 26) H 2.00 (DEC 25) H 2.20 (DEC 24) Glu R H 263 (DEC 26) H 181 (DEC 25) H 315 (DEC 24) Ca 9.2 (DEC 26) 8.7 (DEC 25) 9.0 [...] 24 Hours) Radiology Results (Last 48 hours) [id number] -- 12/23/2018 13:03 CT Head WO (12/24/2018 [...] agree with the above final transcribed report. MRI Brain WO (12/26/2018 08:34) Result: MRI [...] personally viewed, interpreted and dictated the examination. Dylan read and agree with the above final transcribed report. Impression and Plan 1. Chronic kidney disease stage III: Related to diabetic and hypertensive nephrosclerosis. Current serum creatinine is probably close to his usual baseline, serum creatinine is stable around 2.1 mg/dL 2. Uncontrolled hypertension: Possibly related to his renal disease and possible renovascular disease. Continue with the current regimen. Blood pressure is acceptable today around 145 systoli 3. 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
--- OUTSIDE RECORDS SUMMARY | 2024-10-09 09:12 | XMS_ITS | Encounter Summary ---
Author Organization [employer] ([place], [place], [place], [place]) Address [address] [place] [address] Care Team Providers Care Software Development Project Manager Name Role Phone Nikolai Tse APRN Primary Care Provider + Encounter Details Date Type Department Care Team (Late st Contact Info) Description 12/26/2018 Transcribed Document [facility] [place] [facility] [place] [address] ProviderKevin MD [address] [place] [address] Social History Tobacco Use Types Packs/Day Years Used Date Smoking Tobacco: Never Assessed Sex and Gender Information Value Date Recorded Sex Assigned at Not on file Legal Sex Male 4:12 PM CDT Gender Identity Not on file Sexual Orientation Not on file documented as of this encounter Miscellaneous Notes * Cerner Conversion Note - Kevin ProviderMD - 12/26/2018 4:52 PM SECOND HAND Consult Phone Call Documentation Entered On: 12/26/2018 18:37 EST Performed On: 12/26/2018 16:52 EST by JAMES GRANT Phone Call for Consults Consult, Additional Information : called Vascular on 12/26/2018 JAMES GRANT - 12/26/2018 18:36 EST Electronically signed by Suzy Rae Conversion Air Control/Anti Air Warfare Officer Cerner at 06/04/2022 9:56 AM CDT documented in this encounter Plan of Treatment Not on file documented as of this encounter Visit Diagnoses Not on filedocumented in this encounter Care Teams Software Development Project Manager Relationship Specialty Start Date End Date Nikolai Tse APRN [address] [place] [address] PCP - General Nurse Practitioner 02/17/24 documented as of this encounter
--- OUTSIDE RECORDS SUMMARY | 2024-10-09 09:12 | XMS_ITS | Encounter Summary ---
Author Organization [employer] ([place], [place], [place], [place]) Address [address] [place] [address] Care Team Providers Care Primary Class Teacher Name Role Phone Nikolai Tse APRN Primary Care Provider + Encounter Details Date Type Department Care Team (Late st Contact Info) Description 12/28/2018 Transcribed Document [facility] [place] Family Medicine [address] [place] [address] ProviderKevin MD [address] [place] [address] Social History Tobacco Use Types Packs/Day Years Used Date Smoking Tobacco: Never Assessed Sex and Gender Information Value Date Recorded Sex Assigned at Not on file Legal Sex Male 4:12 PM CDT Gender Identity Not on file Sexual Orientation Not on file documented as of this encounter Miscellaneous Notes * Cerner Conversion Note - Kevin Pickering MD - 12/28/2018 5:21 PM BIOLOGY SPECIMEN TECHNICIAN Patient: PRAVEEN FOX Age: 68 Years Sex: Male : 1950 Subjective Since I last saw the patient , he has had a CTA of head and neck which shows greater than 80% stenosis of left ICA . I thus consulted Dr. Ritter who is planning TCAR on January 02 . Patient still has right sided weakness but it is getting better. Review of Systems Renal - creatinine has improved to 1.8 Objective Vitals & Measurements T: 36.6 ??C TMIN: 36.3 ??C TMAX: 36.6 ??C HR: 73(Monitored) RR: 16 BP: 140/80 SpO2: 96% Physical Exam Speech - identifies objects easily. Motor - right sided hemiparesis TESTS CTA of head and neck - a) Greater than 80% stenosis of left ICA. Assessment/Plan Praveen Fox is a 68-year-old male with multiple stroke risk factors including diabetes, hypertension, hyperlipidemia, and coronary artery disease, who on December 22 had some transient right arm numbness followed by right leg weakness. He waited until December 23 to go to [facility] and then was transferred here. The patient [...] setting of relative hypotension. His cranial MRI of December 26 shows multiple small areas of cortical infarction ( left > right ) and many of these areas of ischemia appear to be in the watershed areas of the bilateral AKOSUA/MCA distribution. His CTA of the neck shows severe stenosis of the left ICA. I feel that his initial stroke of December 22 was probably a left AKOSUA stroke secondary to the left ICA stenosis and then he had watershed infarctions in the setting of hypotension on December 24 . RECOMMENDATIONS: At this time, I would recommend the followin. I agree with the stroke order sets that have been ordered. 2. I agree with heparin for DVT prevention. 3. I have added Plavix to aspirin as this stroke occurred while on aspirin . 4. I agree with TCAR. 5. I am not reordering lumbar and sacral MRIs as I do not think these studies will change the management of condition. I have left instructions for patient to discuss the lumbar CT report from [place] with his outpatient physicians. 6. If his heart monitor was to show atrial fibrillation, we would need to consider anticoagulating the patient. 7. At discharge, he should follow up with an outpatient neurologist and we instructed him not to drive until released by physician. 8. Try to avoid hypotension if possible. Medications Inpatient amLODIPine, 5 mg= 1 Tab, Oral, BID [...] Daily heparin, 5000 Units= 1 mL, SubCutaneous, [id number] hydrALAZINE, 10 mg= 0.5 mL, IV Push, [...] IV Push, Q4H, PRN Electronically signed by [facility] Conversion Movable Bulkhead Installer Cerner at 06/04/2022 10:03 AM CDT documented in this encounter Plan of Treatment Not on file documented as of this encounter Visit Diagnoses Not on filedocumented in this encounter Care Teams Primary Class Teacher Relationship Specialty Start Date End Date Nikolai Tse, COUNTER MANAGER [address] [place] [address] PCP - General Nurse Practitioner 02/17/24 documented as of this encounter
--- OUTSIDE RECORDS SUMMARY | 2024-10-09 09:12 | XMS_ITS | Encounter Summary ---
Author Organization [employer] ([place], [place], [place], [place]) Address [address] [place] [address] Care Team Providers Care Coach Professional Athletes Name Role Phone Nikolai Tse APRN Primary Care Provider + Encounter Details Date Type Department Care Team (Late st Contact Info) Description 12/26/2018 Transcribed Document [facility] [place] [facility] [place] [address] ProviderKevin MD [address] [place], [place] [phone] Social History Tobacco Use Types Packs/Day Years Used Date Smoking Tobacco: Never Assessed Sex and Gender Information Value Date Recorded Sex Assigned at Not on file Legal Sex Male 4:12 PM CDT Gender Identity Not on file Sexual Orientation Not on file documented as of this encounter Miscellaneous Notes * Cerner Conversion Note - Kevin ProviderMD - 12/26/2018 2:06 PM MALT LOADER TRAILER PARK MANAGER Attempt to Treat Entered On: 12/26/2018 14:07 EST Performed On: 12/26/2018 14:06 EST by WALDO BACON SLP Attempt to Treat Inability to Treat Comment : Per RN, patient is sleepy today due to need for Ativan. Will hold communication eval until alert, for more reliable results. WALDO BACON TRAILER PARK MANAGER - 12/26/2018 14:06 EST Electronically signed by [facility] Conversion Barber Instructor Cerner at 06/04/2022 10:00 AM CDT documented in this encounter Plan of Treatment Not on file documented as of this encounter Visit Diagnoses Not on filedocumented in this encounter Care Teams Coach Professional Athletes Relationship Specialty Start Date End Date Nikolai Tse, BOATING SAFETY OFFICER [address] [place], [place] [phone] PCP - General Nurse Practitioner 02/17/24 documented as of this encounter
--- OUTSIDE RECORDS SUMMARY | 2024-10-09 09:12 | XMS_ITS | Encounter Summary ---
Author Organization [employer] ([place], [place], [place], [place]) Address [address] [place] [address] Care Team Providers Care Incident Engineer Name Role Phone Nikolai Tse APRN Primary Care Provider + Encounter Details Date Type Department Care Team (Late st Contact Info) Description 12/30/2018 Transcribed Document [facility] [place] [facility] [place] [address] ProviderKevin MD [address] [place], [place] [id number] Social History Tobacco Use Types Packs/Day Years Used Date Smoking Tobacco: Never Assessed Sex and Gender Information Value Date Recorded Sex Assigned at Not on file Legal Sex Male 4:12 PM CDT Gender Identity Not on file Sexual Orientation Not on file documented as of this encounter Miscellaneous Notes * Cerner Conversion Note - Kevin ProviderMD - 12/30/2018 1:10 PM MANAGER INFUSION DERMATOLOGIST Attempt to Treat Entered On: 12/30/2018 13:42 EST Performed On: 12/30/2018 13:10 EST by VIVI VIRGEN SLP Attempt to Treat Unable to Treat Due To : Patient Unavailable Inability to Treat Comment : Pt working with physical therapy. ST will check back as schedule allows Notification : FRANCISCO Galan RUSH T., SLP - 12/30/2018 13:41 EST documented in this encounter Plan of Treatment Not on file documented as of this encounter Visit Diagnoses Not on filedocumented in this encounter Care Teams Incident Engineer Relationship Specialty Start Date End Date Nikolai Tse, KEYBOARD ACTION ASSEMBLER [address] [place] [phone] PCP - General Nurse Practitioner 02/17/24 documented as of this encounter
--- OUTSIDE RECORDS SUMMARY | 2024-10-09 09:12 | XMS_ITS | Encounter Summary ---
Author Organization [employer] ([place], [place], [place], [place]) Address [address] [place] [address] Care Team Providers Care Senior Sourcing Manager Name Role Phone Nikolai Tse FACSIMILE MACHINE OPERATOR Primary Care Provider + Encounter Details Date Type Department Care Team (Late st Contact Info) Description 12/26/2018 Transcribed Document [facility] [place] Family Medicine [facility] [place] [address] ProviderKevin MD [address] [place], [place] [phone] Social History Tobacco Use Types Packs/Day Years Used Date Smoking Tobacco: Never Assessed Sex and Gender Information Value Date Recorded Sex Assigned at Not on file Legal Sex Male 4:12 PM CDT Gender Identity Not on file Sexual Orientation Not on file documented as of this encounter Miscellaneous Notes * Cerner Conversion Note - Kevin ProviderMD - 12/26/2018 5:00 AM INSURANCE COMMISSIONER Chart Check - Review Order Profile Entered On: 12/26/2018 7:41 EST Performed On: 12/26/2018 5:00 EST by Jennifer Kat RN Chart Check Powerplans Initiated/Discontinued as Appropriate : Yes All Active Orders Reviewed : Yes Jennifer Kat RN - 12/26/2018 7:41 EST documented in this encounter Plan of Treatment Not on file documented as of this encounter Visit Diagnoses Not on filedocumented in this encounter Care Teams Senior Sourcing Manager Relationship Specialty Start Date End Date Nikolai Tse APRN [address] [place] [address] PCP - General Nurse Practitioner 02/17/24 documented as of this encounter
--- OUTSIDE RECORDS SUMMARY | 2024-10-09 09:12 | XMS_ITS | Encounter Summary ---
Author Organization [email or web address] ([place], [place], [place], [place]) Address [address] [place] [address] Care Team Providers Care Blast Furnace Tender Name Role Phone Nikolai Tse APRN Primary Care Provider + Encounter Details Date Type Department Care Team (Late st Contact Info) Description 12/29/2018 Transcribed Document [facility] [place] [facility] [place] [address] ProviderKevin MD [address] [place], [place] [address] Social History Tobacco Use Types Packs/Day Years Used Date Smoking Tobacco: Never Assessed Sex and Gender Information Value Date Recorded Sex Assigned at Not on file Legal Sex Male 4:12 PM CDT Gender Identity Not on file Sexual Orientation Not on file documented as of this encounter Miscellaneous Notes * Cerner Conversion Note - Kevin ProviderMD - 12/29/2018 5:00 AM PASTRY MIXER Chart Check - Review Order Profile Entered On: 12/29/2018 4:11 EST Performed On: 12/29/2018 5:00 EST by Eunice Iraheta RN Chart Check Powerplans Initiated/Discontinued as Appropriate : Yes Euince Iraheta RN - 12/29/2018 4:11 EST documented in this encounter Plan of Treatment Not on file documented as of this encounter Visit Diagnoses Not on filedocumented in this encounter Care Teams Blast Furnace Tender Relationship Specialty Start Date End Date Nikolai Tse APRN [address] [place] [phone] PCP - General Nurse Practitioner 02/17/24 documented as of this encounter
--- OUTSIDE RECORDS SUMMARY | 2024-10-09 09:12 | XMS_ITS | Encounter Summary ---
Author Organization [email or web address] ([place], [place], [place], [place]) Address [address] [place] [address] Care Team Providers Care Container Packer Operator Name Role Phone LinuskarimeMayakeerthianthony Dhillon APRN Primary Care Provider + Encounter Details Date Type Department Care Team (Late st Contact Info) Description 12/26/2018 Transcribed Document [facility] [place] [facility] [place] [address] ProviderKevin MD [address] [place] [address] Social History Tobacco Use Types Packs/Day Years Used Date Smoking Tobacco: Never Assessed Sex and Gender Information Value Date Recorded Sex Assigned at Not on file Legal Sex Male 4:12 PM CDT Gender Identity Not on file Sexual Orientation Not on file documented as of this encounter Miscellaneous Notes * Cerner Conversion Note - Kevin Pickering MD - 12/26/2018 11:06 AM CONFERENCE MANAGER On Going Discharge Planning Entered On: 12/26/2018 11:08 EST Performed On: 12/26/2018 11:06 EST by RODNEY CRENSHAW, FRANCISCO-Assistant Program DirectorHog Man Progress Note Discharge Arrangements : Patient Post-Acute Information Patient Name: PRAVEEN FOX Gender: Male : [birth year] Age: 68 Years No Post-Acute Placement(s) Listed No Post-Acute Service(s) Listed No [place] Referral(s) Listed Discharge Options Discussed with Patient : Acute rehabilitation Barriers to Discharge Identified : Clinical Condition of Patient Barriers to Discharge Unresolved : Clinical Condition of Patient Designation of Choice Signed : Yes Patient Offered Choice/Affiliations Explained : Yes Were Referrals Sent to Post Acute Providers : Yes Certification for Post-Acute Care Initiated : 12/26/2018 RODNEY RAMIRES, RN-Assistant Program Director - 12/26/2018 11:06 EST Narrative Progress Note Narrative Progress Note : Lara from [facility] following for potential DC 12/27 via EMS. RODNEY CRENSHAW RN-Assistant Program Director - 12/26/2018 11:06 EST documented in this encounter Plan of Treatment Not on file documented as of this encounter Visit Diagnoses Not on filedocumented in this encounter Care Teams Container Packer Operator Relationship Specialty Start Date End Date Nikolai Tse, DESK LIEUTENANT [address] [place] [address] PCP - General Nurse Practitioner 02/17/24 documented as of this encounter
--- OUTSIDE RECORDS SUMMARY | 2024-10-09 09:12 | XMS_ITS | Encounter Summary ---
Author Organization [employer] ([place], [place], [place], [place]) Address [address] [place] [address] Care Team Providers Care Shirrer Name Role Phone Nikolai Tse APRN Primary Care Provider + Encounter Details Date Type Department Care Team (Late st Contact Info) Description 12/29/2018 Transcribed Document [facility] [place] [facility] [place] [address] ProviderKevin MD [address] [place] [address] Social History Tobacco Use Types Packs/Day Years Used Date Smoking Tobacco: Never Assessed Sex and Gender Information Value Date Recorded Sex Assigned at Not on file Legal Sex Male 4:12 PM CDT Gender Identity Not on file Sexual Orientation Not on file documented as of this encounter Miscellaneous Notes * Cerner Conversion Note - Kevin Pickering MD - 12/29/2018 1:03 PM TAX RECORD CLERK Toolroom Clerk Inpatient Document Entered On: 12/29/2018 13:07 EST Performed On: 12/29/2018 13:03 EST by Lesly Medina Rn-Educator Diabetes Toolroom Clerk Inpatient Document Reason for Toolroom Clerk Visit : Other: Elevated hgb a1c Endocrine/Metabolic History : Diabetes Diabetes Type : Diabetes, Type 2 Hyperglycemic Medication Regime, History : Oral, Basal insulin Hyperglycemic Med Regime, Inpatient : Basal insulin, Correction insulin Diabetes Education Assessment Summary : C chart review r/t elevated hgb a1c of 12.6%. Pt alert and oriented for education. Family at bedside. FSBS's last 24 hrs: 229, 196, 219, 170 mg/dl. Pt not motivated to make changes to control diabetes. He states that he eats a lot of cakes at home. 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 Pt states that he checks his glucose once daily. Attempted to discuss snf complications of poor glycemic control. Pt states that he is already aware and is not concerned. Advised pt if he had any questions to contact DNC. DNC available PRN. Lesly Medina, Rn-Educator Diabetes - 12/29/2018 13:03 EST Teaching/Learning Assessment Barriers To Learning : Other: aphasia/cog deficits Individuals Taught : Patient, Family member Readiness to Learn : Denies need for education, Uninterested Baseline Knowledge of Topic : Good Readiness to Learn : Explanation, Printed materials Learning Style Preferences Patient : None Learning Style Preferences Family : None Lesly Medina, Rn-Educator Diabetes - 12/29/2018 13:03 EST Education, IP Diabetes Diabetes Inpatient Education Grid Diabetes : Verbalizes understanding Lesly Medina, Rn-Educator Diabetes - 12/29/2018 13:03 EST inpatient diabetes education grid A1C : Verbalizes understanding Home Blood Glucose Monitoring : Verbalizes understanding Insulin Administration : Verbalizes understanding Meal Planning : Needs further teaching Monitoring Diabetes : Verbalizes understanding Lesly Medina, Rn-Educator Diabetes - 12/29/2018 13:03 EST documented in this encounter Plan of Treatment Not on file documented as of this encounter Visit Diagnoses Not on filedocumented in this encounter Care Teams Shirrer Relationship Specialty Start Date End Date Nikolai Tse, ACCOUNT MAINTENANCE REPRESENTATIVE [address] [place] [id number] PCP - General Nurse Practitioner 02/17/24 documented as of this encounter
--- OUTSIDE RECORDS SUMMARY | 2024-10-09 09:12 | XMS_ITS | Encounter Summary ---
Author Organization [employer] ([place], [place], [place], [place]) Address [address] [place] [address] Care Team Providers Care Defensive Secondary Coach Name Role Phone Nikolai Tse APRN Primary Care Provider + Encounter Details Date Type Department Care Team (Late st Contact Info) Description 12/28/2018 Transcribed Document [facility] [place] [facility] [place] [address] ProviderKevin MD [address] [place], [place] [address] Social History Tobacco Use Types Packs/Day Years Used Date Smoking Tobacco: Never Assessed Sex and Gender Information Value Date Recorded Sex Assigned at Not on file Legal Sex Male 4:12 PM CDT Gender Identity Not on file Sexual Orientation Not on file documented as of this encounter Miscellaneous Notes * Cerner Conversion Note - Kevin ProviderMD - 12/28/2018 2:00 AM FINAL TOUCH UP PAINTER Tow Motor Driver Details Entered On: 12/28/2018 2:12 EST Performed On: 12/28/2018 2:00 EST by Eunice Iraheta RN Order Details Transport Mode Order Detail : Portable Order Detail : N/A Lift/Transfer : Moderate assist Central Line Order Detail : No Room Service : Needs Assistance Arterial Line : No Eunice Iraheta RN - 12/28/2018 2:12 EST documented in this encounter Plan of Treatment Not on file documented as of this encounter Visit Diagnoses Not on filedocumented in this encounter Care Teams Defensive Secondary Coach Relationship Specialty Start Date End Date Nikolai Tse, BLOOD AND PLASMA LABORATORY ASSISTANT [address] [phone] PCP - General Nurse Practitioner 02/17/24 documented as of this encounter
--- OUTSIDE RECORDS SUMMARY | 2024-10-09 09:12 | XMS_ITS | Encounter Summary ---
Author Organization [employer] ([place], [place], [place], [place]) Address [address] [place] [address] Care Team Providers Care Carpet Floor Layer Apprentice Name Role Phone Nikolai Tse APRN Primary Care Provider + Encounter Details Date Type Department Care Team (Late st Contact Info) Description 12/29/2018 Transcribed Document [facility] [place] [facility] [place] [address] ProviderKevin MD [address] [place] [address] Social History Tobacco Use Types Packs/Day Years Used Date Smoking Tobacco: Never Assessed Sex and Gender Information Value Date Recorded Sex Assigned at Not on file Legal Sex Male 4:12 PM CDT Gender Identity Not on file Sexual Orientation Not on file documented as of this encounter Miscellaneous Notes * Cerner Conversion Note - Kevin Pickering MD - 12/29/2018 10:01 AM BUSHEL GIRL Patient: PRAVEEN FOX Age: 68 years Sex: Male : 1950 Associated Diagnoses: None Author: [facility] NEPHROLOGY CONSULTATION NOTE Basic Information Patient is feeling okay. History of Present Illness 68 years old [...] At risk for sleep apnea / IMO [id number] / Confirmed CAD - Coronary artery disease / SNOMED CT 7137545018 / Confirmed HLD - Hyperlipidemia / SNOMED CT 432101728 / Confirmed HTN - Hypertension / SNOMED CT 2226858857 / Confirmed Type 2 diabetes mellitus / SNOMED CT 716782412 / Confirmed, Active Problems (9) At risk for sleep apnea CAD - Coronary artery disease Chronic kidney insufficiency Diabetes mellitus type II HLD - Hyperlipidemia HTN - Hypertension Hyperlipidemia Hypertension Type 2 diabetes mellitus Allergies: Allergic Reactions (All) No Known Allergies, Allergies (1) Active Reaction No Known Allergies None Documented Current medications: (Selected) Inpatient Medications Ordered Ambien: 5 mg, Oral, At Bedtime, PRN: Sleep Ativan: 0.5 mg, IV Push, Q6H, PRN: [...] Oral, At Bedtime heparin: 5,000 Units, SubCutaneous, [id number] hydrALAZINE: 10 mg, IV Push, Q3H, PRN: [...] SubCutaneous, AC and at Bedtime, 0 Refill(s), Medications (25) Active Scheduled: (15) #NaCl 0.9% *FLUSH* inj [...] mL inj 5,000 Units 1 mL, SubCutaneous, P15MIkg insulin glargine 1 unit/0.01 mL inj 30 [...] mL 1,000 mL, IntraVENous, 75 mL/Hr PRN: (9) #NaCl 0.9% *FLUSH* inj 10 mL 10 [...] tab 5 mg 1 Tab, Oral, Q6H zolpidem 5 mg tab 5 mg 1 Tab, Oral, At Bedtime Histories Past Medical History: Active CAD - Coronary artery disease (0668426080) HTN - Hypertension (7208486431) HLD - Hyperlipidemia (436334047) Type 2 diabetes mellitus (742429953) Family History: No family history items have [...] 24 hrs) Last Charted Minimum Maximum Temp 97.4 (DEC 29 05:41) 97.4 (DEC 29 05:41) 97.4 (DEC 28:21) Apical HR 70 (DEC 29 08:18) 70 (DEC 29 08:18) 76 (DEC 28 20:35) Mon HR 60 (DEC 29 05:41) 60 (DEC 29 05:41) 77 (DEC 28 11:21) Resp Rate 16 (DEC 29 05:41) 16 (DEC 28 11:21) 18 (DEC 28 18:00) SBP H 151 (DEC 29 08:18) 134 (DEC 28 22:15) H 179 (DEC 28:21) DBP 77 (DEC 29 08:18) 64 (DEC 28 22:15) H 98 (DEC 28:21) MAP 93 (DEC 29 05:41) 93 (DEC 29 05:41) 124 (DEC 28 11:21) SpO2 96 (DEC 28 15:15) 95 (DEC 28:21) 96 (DEC 28 15:15) Intake & Output Totals Last 24 Hours (7a-7a) Intake (4 Events) Medications (40.25 mL) Oral Intake (360 mL) Output (1 Events) Urine Voided (Volume) (50 mL) Input Total: 400.25 mL Output Total: 50 mL Balance: 350.25 mL GENERAL: Awake, in no distress HEENT: [...] review: Labs (Last four charted values) WBC 6.3 (DEC 29) 5.2 (DEC 28) 5.8 (DEC 27) 5.1 (DEC 26) HB 13.8 (DEC 29) L 13.2 (DEC 28) L 12.9 (DEC 27) L 13.2 (DEC 26) HCT 43.3 (NOV 14) 40.8 (NOV 13) 40.3 (DEC 12) 41.3 (DEC 11) Plt H 405 (DEC 14) 348 (DEC 13) 299 (DEC 12) 314 (DEC 11) Na 140 (DEC 14) 140 (DEC 13) 138 (DEC 12) 137 (DEC 11) K 4.5 (DEC 14) 4.2 (DEC 13) 4.6 (DEC 27) 4.5 (DEC 11) Cl 110 (DEC 14) 112 (DEC 13) H 114 (DEC 12) 106 (DEC 11) CO2 26 (DEC 14) 24 (DEC 28) L 19 (DEC 27) 23 (DEC 26) BUN H 33 (DEC 29) H 33 (DEC 28) H 28 (DEC 27) H 31 (DEC 26) Cr H 2.00 (DEC 29) H 1.80 (DEC 28) H 1.60 (DEC 27) H 2.10 (DEC 26) Glu R H 229 (DEC 29) H 219 (DEC 28) H 184 (DEC 27) H 263 (DEC 26) Ca 9.5 (DEC 29) 9.5 (DEC 28) L 8.3 (DEC 27) 9.2 (DEC 26) PT 11.0 (DEC 25) INR 1.0 (DEC 25) AST 13 (DEC 24) ALT 22 (DEC 24) ALK P 41 (DEC 24) T Bili 0.3 (DEC 24) PTN 6.8 (DEC 24) ALB L 2.9 (DEC 24) . Blood Gases (Current Encounter/Past 24 Hours) No Blood Gas Results Found (Past 24 Hours) No Radiology Results Found Impression and Plan 1. Chronic kidney disease [...] stenosis noted and surgical consultation is appreciated. Surgical intervention is planned for Wednesday. 4. Acute kidney injury most probably secondary to poor fluids intake, encourage oral fluids intake. Professional Services documented in this encounter Plan of Treatment Not on file documented as of this encounter Visit Diagnoses Not on filedocumented in this encounter Care Teams Carpet Floor Layer Apprentice Relationship Specialty Start Date End Date Nikolai Tse, TRANSITIONS RN CARE COORDINATOR [address] [place] [address] PCP - General Nurse Practitioner 02/17/24 documented as of this encounter
--- OUTSIDE RECORDS SUMMARY | 2024-10-09 09:12 | XMS_ITS | Encounter Summary ---
Author Organization [employer] ([place], [place], [place], [place]) Address [address] [place] [address] Care Team Providers Care Senior Administrative Support Name Role Phone Nikolai Tse APRN Primary Care Provider + Encounter Details Date Type Department Care Team (Late st Contact Info) Description 12/29/2018 Transcribed Document [facility] [place] [facility] [place] [address] ProviderKevin MD [address] [place] [address] Social History Tobacco Use Types Packs/Day Years Used Date Smoking Tobacco: Never Assessed Sex and Gender Information Value Date Recorded Sex Assigned at Not on file Legal Sex Male 4:12 PM CDT Gender Identity Not on file Sexual Orientation Not on file documented as of this encounter Miscellaneous Notes * Cerner Conversion Note - Kevin ProviderMD - 12/29/2018 7:44 AM BEEF PUSHER Admission History, Adult Entered On: 12/29/2018 7:44 EST Performed On: 12/29/2018 7:44 EST by ELANA BECKER RN Advance Directive Patient has Advance Directive *Q : Yes, Advance Directive on file Advance Directive Type : Living will Copy Advance Directive Verified/on Chart : Yes ELANA BECKER RN - 12/29/2018 7:44 EST Anesthesia/Transfusion History Family History of Anesthesia Reaction : No prior transfusion(s) Transfusion History : Prior anesthesia without reaction Family History of Anesthesia Reaction : None Eunice Iraheta RN - 12/30/2018 3:09 EST Functional Assessment Living Situation : Home Patient Lives With : Spouse Current Home Treatments : None Eunice Iraheta RN - 12/30/2018 3:09 EST General Info Want Family/Rep/Phys Notified of Admit : No Emergency Contact #1 : Alma Delia Pedroza Emergency Contact #1 Emergency Contact #1 Relationship : Emergency Contact #2 : Fuentes Pedroza Emergency Contact #2 Emergency Contact #2 Relationship : bother Primary Language : Romansh Communication Barrier : None Eunice Iraheta RN - 12/30/2018 3:09 EST Fall Risk Scales ABCs Fall Injury Risk Identification : Bones, Coagulation ABC Fall Injury Risk : Moderate to high injury risk ZHOU Hx Falls Immediate/Within 3 Months : Yes Zhou Secondary Diagnosis : Yes ZHOU Use of Ambulatory Aid : Bed rest/Nurse assist ZHOU IV Therapy or IV Access : Yes Zhou Gait/Transferring : Weak Zhou Mental Status : Oriented to own ability Zhou Fall Risk Score : 70 ZHOU Fall Scale Risk Level : 46 or > High Risk Bath Fall Interventions : Adequate lighting, Assistive devices within reach, Bed in low position, Call device within reach, Fall prevention handout/education per facility policy, Frequent orientation to call device, Frequent orientation to surroundings, Hourly comfort/safety rounds, Non-slip footwear, Personal items within reach, Reinforced to call for assistance before getting out of bed, Room free of clutter/spills, Wheels locked, Wires/Cords secured Barriers to Learning : Other: aphasia/cog deficits Learning Style Preferences Family : None Learning Style Preferences Patient : None Eunice Iraheta RN - 12/30/2018 3:09 EST Health Histories Smoking Status : Never (less than 100 in lifetime; none in last 30 days) Smokeless Tobacco Status : Never Eunice Iraheta RN - 12/30/2018 3:09 EST Social History (As Of: 12/30/2018 03:10:28 EST) Tobacco: Smoking Status Current every day smoker. Years of Use: 50. Packs/Tins Daily: 1. (Last Updated: 09/23/2012 08:05:08 EDT by PRAVEEN STEPHENS, RN) Alcohol: Days/Week: 7. # Drinks/Day: 4. Total Drinks/Week: 28. (Last Updated: 09/23/2012 08:05:33 EDT by PRAVEEN STEPHENS, RN) Height and Weight, Clinical Dosing Height Source : Stated Height Entry Format : [place] Height, Feet : 5 ft(Converted to: 152 cm, 60 Inch) Height, Inches : 7 Inch(Converted to: 0 ft 7 Inch, 17.78 cm) Clinical Height : 170.18 cm Weight Source : Standing scale Weight Entry Format : [place]olls Clinical Dosing Weight : 92.27 kg Weight, Pounds : 203 lb Body Surface Area (BSA) : 2.04 m2 Body Mass Index : 31.9 kg/m2 (HI) [place] Body Weight : 65 kg ELANA BECKER RN - 12/29/2018 7:44 EST Infectious Disease History Infectious Disease History : None, C-Difficile, Influenza Fever/Chills Last 48 Hours : No Travel To Regions with Travel Advisories : No Travel Outside [place] Within Last 30 Days : No Contact With Traveler to Advisory Region : No Tuberculosis Symptoms : None Eunice Iraheta RN - 12/30/2018 3:09 EST Influenza Vaccine Asmt, Adult Previous Vaccines from Immunization Schedule : No qualifying data available. Influenza Immunization, Current Season : Yes Eunice Iraheta RN - 12/30/2018 3:09 EST Pneumococcal Vaccine Previous Vaccines from Immunization Schedule : No qualifying data available. Pneumonia Immunization Received : Yes Eunice Iraheta RN - 12/30/2018 3:09 EST Order Details Transport Mode Order Detail : Portable Order Detail : N/A Lift/Transfer : Moderate assist Central Line Order Detail : No Room Service : Needs Assistance Arterial Line : No Eunice Iraheta RN - 12/30/2018 3:09 EST Nutrition History Eating Poorly Due to Decreased Appetite : No Unplanned Weight Loss in Past 3-6 Months : No Malnutrition Screening Tool Total(mal) : 0 Malnutrition Screening Tool Risk Level : Patient not at risk Eunice Iraheta RN - 12/30/2018 3:09 EST [place] Suicide Severity Rating Scale (C-SSRS) CSSRS Past Month Wish to be : No CSSRS Past Month Suicidal Thoughts : No CSSRS Lifetime Suicide Behavior : No Suicide Severity Rating Score : 0 Suicide Severity Rating : No Additional Care Required at this time Eunice Iraheta RN - 12/30/2018 3:09 EST Psychosocial History Currently in Unsafe Situation : No Eunice Iraheta RN - 12/30/2018 3:09 EST Sleep Apnea Risk Assmt Hx of Obstructive Sleep Apnea Diagnosis : No Snore Loudly : No Tired, Fatigued, or Sleepy During Day : No Observed Stopping Breathing During Sleep : No Have/Are Being Treated for Hypertension : Yes BMI Greater Than 35 kg/m2 : Yes Age over 50 Years Old : Yes Neck Circumference Greater Than 40 cm : Yes Gender Male : Yes STOP-BANG Sleep Apnea Risk Level Score : 5 Eunice Iraheta RN - 12/30/2018 3:09 EST Valuables and Belongings Valuables and Belongings : Clothing Clothing : Common streetwear Clothing Disposition : Bedside, With family, With patient Eunice Iraheta RN - 12/30/2018 3:09 EST Electronically signed by [facility], [facility] Conversion Cooper Apprentice Cerner at 06/04/2022 10:03 AM CDT documented in this encounter Plan of Treatment Not on file documented as of this encounter Visit Diagnoses Not on filedocumented in this encounter Care Teams Senior Administrative Support Relationship Specialty Start Date End Date Nikolai Tse, BANQUET STEWARD [address] [place] [address] PCP - General Nurse Practitioner 02/17/24 documented as of this encounter
--- OUTSIDE RECORDS SUMMARY | 2024-10-09 09:12 | XMS_ITS | Encounter Summary ---
Author Organization [employer] ([place], [place], [place], [place]) Address [address] [place] [address] Care Team Providers Care Tactical Air Defense Controller Name Role Phone LinuslongMaya cruzkeerthianh Dhillon APRN Primary Care Provider + Encounter Details Date Type Department Care Team (Late st Contact Info) Description 12/30/2018 Transcribed Document [facility] [place] [facility] [place] [address] ProviderKevin MD [address] [place] [address] Social History Tobacco Use Types Packs/Day Years Used Date Smoking Tobacco: Never Assessed Sex and Gender Information Value Date Recorded Sex Assigned at Not on file Legal Sex Male 4:12 PM CDT Gender Identity Not on file Sexual Orientation Not on file documented as of this encounter Miscellaneous Notes * Cerner Conversion Note - Kevin Pickering MD - 12/30/2018 10:10 AM UNIX ADMINISTRATOR On Going Discharge Planning Entered On: 12/30/2018 10:10 EST Performed On: 12/30/2018 10:10 EST by BISI VIRGEN, RN-Outside Sales EngineerBlanket Weaver Progress Note Discharge Arrangements : Patient Post-Acute [...] Attend Multidisciplinary Rounds? : No BISI VIRGEN, RN-Outside Sales Engineer - 12/30/2018 10:10 EST Narrative Progress Note Narrative Progress Note : CEA scheduled for Wednesday. Lara from [facility] following. Historical Progress Note : CEA scheduled for Wednesday. Lara from [facility] following. BISI VIRGEN, RN-Outside Sales Engineer - 12/29/18 15:14:54 CEA scheduled for Wednesday per vascular. Lara from [facility] following for rehab when ready for discharge. BISI VIRGEN RN-Outside Sales Engineer - 12/28/18 16:31:32 CEA scheduled for Wednesday per vascular. [place] from [facility] states that they most likely cannot take pt for a few days and then send back for procedure. states that she cannot take pt home until after rehab. Called Dr Anh Aden to make him aware. He stated that pt would stay until after procedure. Lara from [facility] following for rehab when ready for discharge. BISI VIRGEN RN-Outside Sales Engineer - 12/28/18 16:34:36 surgical consult and recommended left cea--decision TBD by Dr. Green and family. Pt will need inpt rehab and Lara from [facility] is following. may qualify for ems r/t mentation and and weakness. RODNEY CRENSHAW RN-Outside Sales Engineer - 12/27/18 10:57:09 [place] from [facility] following for potential DC 12/27 via EMS. RODNEY CRENSHAW RN-Outside Sales Engineer - 12/26/18 11:08:12 BISI VIRGEN, RN-Outside Sales Engineer - 12/30/2018 10:10 EST Electronically signed by [facility] Conversion Nurse Paralegal Cerner at 06/04/2022 9:32 AM CDT documented in this encounter Plan of Treatment Not on file documented as of this encounter Visit Diagnoses Not on filedocumented in this encounter Care Teams Tactical Air Defense Controller Relationship Specialty Start Date End Date Nikolai Tse, TECHNICAL DESIGNER [address] [phone] PCP - General Nurse Practitioner 02/17/24 documented as of this encounter
--- OUTSIDE RECORDS SUMMARY | 2024-10-09 09:12 | XMS_ITS | Encounter Summary ---
Author Organization [employer] ([place], [place], [place], [place]) Address [address] [place] [address] Care Team Providers Care International Trade Compliance Manager Name Role Phone Nikolai Tse APRN Primary Care Provider + Encounter Details Date Type Department Care Team (Late st Contact Info) Description 12/31/2018 Transcribed Document [facility] [place] [facility] [place] [address] ProviderKevin MD [address] [place] [address] Social History Tobacco Use Types Packs/Day Years Used Date Smoking Tobacco: Never Assessed Sex and Gender Information Value Date Recorded Sex Assigned at Not on file Legal Sex Male 4:12 PM CDT Gender Identity Not on file Sexual Orientation Not on file documented as of this encounter Miscellaneous Notes * Cerner Conversion Note - Kevin Pickering MD - 12/31/2018 12:56 PM RX SPECIALIST Patient: PRAVEEN FOX Age: 68 Years Sex: Male : 1950 Subjective He is feeling better. He continues to have some right foot weakness. He denies right hand weakness. He denies swallow dysfunction, speech dysfunction or other focal neurologic problems. He is scheduled to undergo carotid surgery on Wednesday. His baseline serum creatinine is approximately 2 mg/dL and he seems to be at his baseline. His blood pressure is being controlled and his diabetes is stable although he has intermittent hyperglycemia. In general he's feeling much better and he is tolerating oral nutrition. Vital Signs T: 36.7 ??C TMIN: 36.6 ??C TMAX: 36.9 ??C HR: 67(Monitored) RR: 16 BP: 144/72 SpO2: 96% Oxygen Settings (Last) Oxygen Therapy Mode: Room air (12/30/18 18:43:00) Oxygen Flow Rate: 2 Liter/Min (12/25/18 14:30:00) Intake & Output Totals Last 24 Hours (7a-7a) Input Total: 20 mL Output Total: 0 mL Balance: 20 mL Physical Exam Gen.: Alert,conversant, bright affect, no distress Cardiovascular: Normal S1-S2, regular rhythm, normal rate no rub no gallop Pulmonary: Clear to auscultation bilaterally no wheezes or rhonchi, fair air movement Gastrointestinal: Abdomen is soft, nontender, nondistended, no guarding Musculoskeletal good muscle tone no significant lower extremity edema Neuro/psych: Mood and affect are appropriate, thoughts are fluent, moves all extremities spontaneously, right leg is weaker than left. No other focal neurologic deficits Skin: No lesions, rashes or ecchymoses, I did not examine the sacral area Assessment and plan: Chronic kidney disease stage III-probably secondary to diabetic nephropathy/hypertensive nephrosclerosis: CVA Atherosclerotic disease, anticipating CEA From a nephrology standpoint he is clinically stable. His clearance is near his baseline. He needs continued glycemic control. I discussed strategies to optimize chronic kidney disease function and recovery with the patient. I stressed the importance of blood sugar management and blood pressure control. From a nephrology standpoint he will be okay for to undergo carotid surgery on Wednesday. If he is exposed to significant iodinated contrast with angiography then he may need IV fluids to reduce his risk of contrast-induced nephropathy. -We will continue to monitor his clearance, blood pressure and the metabolic sequelae of chronic kidney disease. I've made no changes to his medication regimen today. Epifanio Blum M.D. Nephrology Partner with , Dr. Cole and Dr. Jackson dictated with [employer] recognition system Medications Ambien, 5 mg= 1 [...] Daily heparin, 5000 Units= 1 mL, SubCutaneous, [id number] hydrALAZINE, 10 mg= 0.5 mL, IV Push, [...] Test Name Test Result Date/Time Sodium Level 140 mmol/L 12/31/2018 11:07 EST Potassium Level 4.5 mmol/L 12/31/2018 11:07 EST Chloride Level 108 mmol/L 12/31/2018 11:07 EST Carbon Dioxide Level 26 mmol/L 12/31/2018 11:07 EST Anion Gap 10 12/31/2018 11:07 EST Glucose Level 329 mg/dL (High) 12/31/2018 11:07 EST Blood Urea Nitrogen 33 mg/dL (High) 12/31/2018 11:07 EST Creatinine Level 2.20 mg/dL (High) 12/31/2018 11:07 EST eGFR 36 mL/min/1.73m2 (Low) 12/31/2018 11:07 EST eGFR NonAfrican 30 mL/min/1.73m2 (Low) 12/31/2018 11:07 EST Bun/Creatinine 15.0 12/31/2018 11:07 EST Calcium Level 9.1 mg/dL 12/31/2018 11:07 EST Protein Total 6.9 Gram/dL 12/31/2018 11:07 EST Albumin Level 3.0 Gram/dL (Low) 12/31/2018 11:07 EST Globulin 3.9 Gram/dL 12/31/2018 11:07 EST A/G Ratio 0.8 (Low) 12/31/2018 11:07 EST Bilirubin Total 0.4 mg/dL 12/31/2018 11:07 EST Alk Phos 50 Units/Liter 12/31/2018 11:07 EST AST 21 Units/Liter 12/31/2018 11:07 EST ALT 30 Units/Liter 12/31/2018 11:07 EST Magnesium Level 2.2 mg/dL 12/31/2018 11:07 EST Device Comment 1 Received Meds 12/31/2018 11:29 EST Device Comment 1 Received Meds 12/30/2018 20:06 EST Device Comment 1 Received Meds 12/30/2018 16:32 EST Glucose POC2 304 mg/dL (High) 12/31/2018 11:29 EST Glucose POC2 288 mg/dL (High) 12/30/2018 20:06 EST Glucose POC2 237 mg/dL (High) 12/30/2018 16:32 EST WBC 6.0 K/uL 12/31/2018 11:07 EST RBC 4.37 Million/uL 12/31/2018 11:07 EST Hgb 12.7 g/dL (Low) 12/31/2018 11:07 EST Hct 40.0 % (Low) 12/31/2018 11:07 EST MCV 91.5 fL 12/31/2018 11:07 EST MCH 29.1 pg 12/31/2018 11:07 EST MCHC 31.8 Gram/dL (Low) 12/31/2018 11:07 EST Platelet Count 361 K/uL 12/31/2018 11:07 EST MPV 9.5 fL 12/31/2018 11:07 EST RDW 13.3 % 12/31/2018 11:07 EST Slide Review No 12/31/2018 11:07 EST Electronically signed by [facility], [facility] Conversion Freelance Art Director Cerner at 06/04/2022 9:36 AM CDT documented in this encounter Plan of Treatment Not on file documented as of this encounter Visit Diagnoses Not on filedocumented in this encounter Care Teams International Trade Compliance Manager Relationship Specialty Start Date End Date Nikolai Tse, SUPERVISING BROKER [address] [place] [address] PCP - General Nurse Practitioner 02/17/24 documented as of this encounter
--- OUTSIDE RECORDS SUMMARY | 2024-10-09 09:12 | XMS_ITS | Encounter Summary ---
Author Organization [employer] ([place], [place], [place], [place]) Address [address] [place] [address] Care Team Providers Care Front Desk Host Name Role Phone Nikolai Tse APRN Primary Care Provider + Encounter Details Date Type Department Care Team (Late st Contact Info) Description 12/30/2018 Transcribed Document [facility] [address] ProviderKevin MD [address] [place] [address] Social History Tobacco Use Types Packs/Day Years Used Date Smoking Tobacco: Never Assessed Sex and Gender Information Value Date Recorded Sex Assigned at Not on file Legal Sex Male 4:12 PM CDT Gender Identity Not on file Sexual Orientation Not on file documented as of this encounter Miscellaneous Notes * Cerner Conversion Note - Kevin Pickering MD - 12/30/2018 11:40 AM MILK ROUTE DELIVERER Patient: PRAVEEN FOX Age: 68 years Sex: Male : 1950 Associated Diagnoses: None Author: MJ ANG MD-[facility] NEPHROLOGY CONSULTATION NOTE Basic Information Patient is feeling much better today, no new complaints History of Present Illness 68 years old [...] At risk for sleep apnea / IMO [id number] / Confirmed CAD - Coronary artery disease / SNOMED CT 4677288112 / Confirmed HLD - Hyperlipidemia / SNOMED CT 826676507 / Confirmed HTN - Hypertension / SNOMED CT 7499015733 / Confirmed Type 2 diabetes mellitus / SNOMED CT 540908812 / Confirmed, Active Problems (9) At risk [...] Oral, At Bedtime heparin: 5,000 Units, SubCutaneous, [id number] hydrALAZINE: 10 mg, IV Push, Q3H, PRN: [...] mL inj 5,000 Units 1 mL, SubCutaneous, [id number] insulin glargine 1 unit/0.01 mL inj 30 [...] History: Active CAD - Coronary artery disease (3127897449) HTN - Hypertension (0729781589) HLD - Hyperlipidemia (276177595) Type 2 diabetes mellitus (211118257) Family History: No family history items have [...] Last Charted Minimum Maximum Temp 97.3 (DEC 30 05:59) 97.3 (DEC 30 05:59) 97.5 (DEC 29 18:00) Apical HR 74 (DEC 30 09:18) 71 (DEC 29 20:59) 74 (DEC 30 09:18) Mon HR 61 (DEC 30 05:59) 61 (DEC 30 05:59) 73 (DEC 29 22:14) Resp Rate 18 (DEC 30 05:59) 18 (DEC 29 18:00) 18 (DEC 29 18:00) SBP H 154 (DEC 30 05:59) 139 (DEC 29 22:14) H 154 (DEC 30 05:59) DBP 79 (DEC 30 05:59) 73 (DEC 29 22:14) 79 (DEC 30 05:59) MAP 93 (DEC 30 05:59) 90 (DEC 29 18:00) 93 (DEC 29 22:14) SpO2 94 (DEC 29 18:00) 94 (DEC 29 18:00) 94 (DEC 29 18:00) Intake & Output Totals Last 24 Hours (7a-7a) Intake (3 Events) Medications (50 mL) Output (0 Events) No output events found in the last 24 hours. Input Total: 50 mL Output Total: 0 mL Balance: 50 mL GENERAL: Awake, in no distress HEENT: [...] review: Labs (Last four charted values) WBC 6.2 (DEC 30) 6.3 (DEC 29) 5.2 (DEC 28) 5.8 (DEC 27) HB L 13.4 (DEC 30) 13.8 (DEC 29) L 13.2 (DEC 28) L 12.9 (DEC 27) HCT 42.1 (DEC 30) 43.3 (DEC 29) 40.8 (DEC 28) 40.3 (DEC 27) Plt H 402 (DEC 15) H 405 (DEC 14) 348 (DEC 28) 299 (DEC 27) Na 140 (DEC 15) 140 (DEC 14) 140 (DEC 13) 138 (DEC 12) K 4.6 (DEC 15) 4.5 (DEC 14) 4.2 (DEC 28) 4.6 (DEC 27) Cl 110 (DEC 15) 110 (DEC 14) 112 (DEC 13) H 114 (DEC 27) CO2 28 (DEC 30) 26 (DEC 29) 24 (DEC 28) L 19 (DEC 27) BUN H 34 (DEC 30) H 33 (DEC 29) H 33 (DEC 28) H 28 (DEC 27) Cr H 2.00 (DEC 30) H 2.00 (DEC 29) H 1.80 (DEC 28) H 1.60 (DEC 27) Glu R H 233 (DEC 30) H 229 (DEC 29) H 219 (DEC 28) H 184 (DEC 27) Ca 9.2 (DEC 30) 9.5 (DEC 29) 9.5 (DEC 28) L 8.3 (DEC 27) PT 11.0 (DEC 25) INR 1.0 (DEC [...] creatinine is stable and improved down to 2.0-1.8 mg/dL, no evidence of acute kidney injury [...] on filedocumented in this encounter Care Teams Front Desk Host Relationship Specialty Start Date End Date Nikolai Tse, AUTO SELF SERVICE STATION ATTENDANT [address] [place] [address] PCP - General Nurse Practitioner 02/17/24 documented as of this encounter
--- OUTSIDE RECORDS SUMMARY | 2024-10-09 09:12 | XMS_ITS | Encounter Summary ---
Author Organization [employer] ([place], [place], [place], [place]) Address [address] [place] [address] Care Team Providers Care Gradall Operator Name Role Phone LinuskarimeNikolai APRN Primary Care Provider + Encounter Details Date Type Department Care Team (Late st Contact Info) Description 12/31/2018 Transcribed Document [facility] [place] [facility] [place] [address] ProviderKevin MD [address] [place] [address] Social History Tobacco Use Types Packs/Day Years Used Date Smoking Tobacco: Never Assessed Sex and Gender Information Value Date Recorded Sex Assigned at Not on file Legal Sex Male 4:12 PM CDT Gender Identity Not on file Sexual Orientation Not on file documented as of this encounter Miscellaneous Notes * Cerner Conversion Note - Kevin Pickering MD - 12/31/2018 1:51 PM POWERHOUSE MECHANIC HELPER Patient: PRAVEEN FOX Age: 68 Years Sex: Male : 1950 Subjective Patient was seen and examined this morning, he denies any speech deficits, and he reports that his right side has improved, but still not back to baseline. Vital Signs T: 36.7 ??C TMIN: 36.6 ??C TMAX: 36.9 ??C HR: 67(Monitored) RR: 16 BP: 144/72 SpO2: 96% Oxygen Settings (Last) Oxygen Therapy Mode: Room air (12/30/18 18:43:00) Oxygen Flow Rate: 2 Liter/Min (12/25/18 14:30:00) Intake & Output Totals Last 24 Hours (7a-7a) Input Total: 20 mL Output Total: 0 mL Balance: 20 mL Physical Exam General: [Alert and oriented, [...] of 5 in all extremities, gross sensation intact, cerebellar testing negative,deficits Assessment/Plan 1. Left AKOSUA stroke due to left ICA stenosis , complicated by watershed ischemia due to hypotension. Patient will go for left TCAR on Wednesday. Patient's symptoms are improving. Neurology following. Continue aspirin, plavix, and lipitor 2. CKD stage 3, currently at baseline as per nephrology, it appears the patient's creatinine is steadily increasing, continue IV fluids for now 3. HTN urgency, better today, management as per nephrology VTE Prophylaxis - Medical Clopidogrel 75 mg, Oral, Tab, Daily, NOW, Start 12/24/18 22:05:00 EST (TACO ELY) Heparin 5,000 Units, SubCutaneous, Inj, [id number], Routine, Start 12/23/18 14:00:00 EST (MARIN MCCLELLAND [...] Daily heparin, 5000 Units= 1 mL, SubCutaneous, Z34YTtm hydrALAZINE, 10 mg= 0.5 mL, IV Push, [...] No 12/31/2018 11:07 EST Electronically signed by [facility], [facility] Conversion Blood Bank Calendar Control Clerk Cerner at 06/04/2022 9:46 AM CDT documented in this encounter Plan of Treatment Not on file documented as of this encounter Visit Diagnoses Not on filedocumented in this encounter Care Teams Gradall Operator Relationship Specialty Start Date End Date Nikolai Tse, COLOR WORKER [address] [place], [place] [phone] PCP - General Nurse Practitioner 02/17/24 documented as of this encounter
--- OUTSIDE RECORDS SUMMARY | 2024-10-09 09:12 | XMS_ITS | Encounter Summary ---
Author Organization [employer] ([place], [place], [place], [place]) Address [address] [place] [address] Care Team Providers Care Integrity Manager Name Role Phone LinuskarimeNikolai APRN Primary Care Provider + Encounter Details Date Type Department Care Team (Late st Contact Info) Description 12/29/2018 Transcribed Document [facility] [place] [address] ProviderKevin MD [address] [place] [address] Social History Tobacco Use Types Packs/Day Years Used Date Smoking Tobacco: Never Assessed Sex and Gender Information Value Date Recorded Sex Assigned at Not on file Legal Sex Male 4:12 PM CDT Gender Identity Not on file Sexual Orientation Not on file documented as of this encounter Miscellaneous Notes * Cerner Conversion Note - Kevin Pickering MD - 12/29/2018 10:43 AM ADHESIVE BONDING MACHINE OPERATOR Patient: PRAVEEN FOX Age: 68 years Sex: Male : 1950 Associated Diagnoses: None Author: GORDO APPLE MD[facility] Subjective Chief complaint. better today moves all [...] Oral, At Bedtime heparin: 5,000 Units, SubCutaneous, [id number] hydrALAZINE: 10 mg, IV Push, Q3H, PRN: [...] = 1 Tab, Oral, Daily , Medications (25) Active Scheduled: (15) #NaCl 0.9% [...] mL inj 5,000 Units 1 mL, SubCutaneous, Z99RCwh insulin glargine 1 unit/0.01 mL inj 30 [...] 5 mg 1 Tab, Oral, At Bedtime Problem list: Medical Type 2 diabetes mellitus / SNOMED CT 361655895 / Confirmed HTN - Hypertension / SNOMED CT 4132135158 / Confirmed HLD - Hyperlipidemia / SNOMED CT 003116553 / Confirmed CAD - Coronary artery disease / SNOMED CT 2436978437 / Confirmed At risk for sleep apnea / IMO 60795660 / Confirmed, Active Problems (9) At risk for sleep apnea CAD - Coronary artery disease Chronic kidney insufficiency Diabetes mellitus type II HLD - Hyperlipidemia HTN - Hypertension Hyperlipidemia Hypertension Type 2 diabetes mellitus Objective VS/Measurements Vitals Signs (last 24 hrs) Last Charted Minimum Maximum Temp 97.4 (DEC 29 05:41) 97.4 (DEC 29 05:41) 97.4 (DEC 28 11:21) Apical HR 70 (DEC 29 08:18) 70 (DEC 29 08:18) 76 (DEC 28 20:35) Mon HR 60 (DEC 29 05:41) 60 (DEC 29 05:41) 77 (DEC 28 11:21) Resp Rate 16 (DEC 29 05:41) 16 (DEC 28 11:21) 18 (DEC 28 18:00) SBP H 151 (DEC 29 08:18) 134 (DEC 28:15) H 179 (DEC 28:21) DBP 77 (DEC 29 08:18) 64 (DEC 28 22:15) H 98 (DEC 28 11:21) MAP 93 (DEC 29 05:41) 93 (DEC 29 05:41) 124 (DEC 28 11:21) SpO2 96 (DEC 28 15:15) 95 (DEC 28:21) 96 (DEC 28:15) General: Alert and oriented, No acute distress. [...] & affect, Normal judgment. Results Review DEC 29 06:37 140 110 H 33 / H 229 4.5 26 H 2.00 \ DEC 29 06:37 \ 13.8 / 6.3 H 405 / 43.3 \ DEC 29 06:37 140 110 H 33 / H 229 4.5 26 H 2.00 \ DEC 29 06:37 \ 13.8 / 6.3 H 405 / 43.3 \ Impression and Plan Right lower extremity [...] carotid Stenosis vascular surgery following Need CEA 1. 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 2. Hypertensive urgency. 3. Acute renal failure. 4. Chronic kidney disease. 5. Diabetes mellitus, type 2. 6. Hyperlipidemia. 7. Peripheral neuropathy. 8. Left internal carotid stenosis. Plan Surgery Wednesday D/W patient and CM time spent 25 min time spent 28 min Electronically signed by [facility] Conversion Carry Out Clerk And Shelf Stocker Cerner at 06/04/2022 9:39 AM CDT documented in this encounter Plan of Treatment Not on file documented as of this encounter Visit Diagnoses Not on filedocumented in this encounter Care Teams Integrity Manager Relationship Specialty Start Date End Date Nikolai Tse, PATTERNMAKER APPRENTICE WOOD [address] [place] [address] PCP - General Nurse Practitioner 02/17/24 documented as of this encounter
--- OUTSIDE RECORDS SUMMARY | 2024-10-09 09:12 | XMS_ITS | Encounter Summary ---
Author Organization [employer] ([place], [place], [place], [place]) Address [address] [place] [address] Care Team Providers Care Baseball Inspector And Repairer Name Role Phone Linuskarime Mayakeerthianthony Dhillon APRN Primary Care Provider + Encounter Details Date Type Department Care Team (Late st Contact Info) Description 12/31/2018 Transcribed Document [facility] [place] [facility] [place] [address] ProviderKevin MD [address] [place], [place] [address] Social History Tobacco Use Types Packs/Day Years Used Date Smoking Tobacco: Never Assessed Sex and Gender Information Value Date Recorded Sex Assigned at Not on file Legal Sex Male 4:12 PM CDT Gender Identity Not on file Sexual Orientation Not on file documented as of this encounter Miscellaneous Notes * Cerner Conversion Note - Kevin ProviderMD - 12/31/2018 2:00 AM SENIOR ACCOUNTANT Document Management Consultant Details Entered On: 12/31/2018 0:45 EST Performed On: 12/31/2018 2:00 EST by Lacey Harris RN-Resource Order [...] Line : No Lacey Harris RN-Resource - 12/31/2018 0:45 EST documented in this encounter Plan of Treatment Not on file documented as of this encounter Visit Diagnoses Not on filedocumented in this encounter Care Teams Baseball Inspector And Repairer Relationship Specialty Start Date End Date Nikolai Tse, SHIRRING MACHINE OPERATOR AUTOMATIC [address] [place], [place] [phone] PCP - General Nurse Practitioner 02/17/24 documented as of this encounter
--- OUTSIDE RECORDS SUMMARY | 2024-10-09 09:12 | XMS_ITS | Encounter Summary ---
Author Organization [employer] ([place], [place], [place], [place]) Address [address] [place] [address] Care Team Providers Care Pulmonary Physical Therapist Name Role Phone Nikolai Tse APRN Primary Care Provider + Encounter Details Date Type Department Care Team (Late st Contact Info) Description 12/30/2018 Transcribed Document [facility] Family Medicine [facility] [place] [address] ProviderKevin MD [address] [place], [place] [address] Social History Tobacco Use Types Packs/Day Years Used Date Smoking Tobacco: Never Assessed Sex and Gender Information Value Date Recorded Sex Assigned at Not on file Legal Sex Male 4:12 PM CDT Gender Identity Not on file Sexual Orientation Not on file documented as of this encounter Miscellaneous Notes * Cerner Conversion Note - Kevin ProviderMD - 12/30/2018 2:00 AM PLATE MOUNTER Project Finance Analyst Details Entered On: 12/30/2018 3:09 EST Performed On: 12/30/2018 2:00 EST by Eunice Iraheta RN Order Details Transport Mode Order Detail : Portable Order Detail : N/A Lift/Transfer : Moderate assist Central Line Order Detail : No Room Service : Needs Assistance Arterial Line : No Eunice Iraheta RN - 12/30/2018 3:09 EST documented in this encounter Plan of Treatment Not on file documented as of this encounter Visit Diagnoses Not on filedocumented in this encounter Care Teams Pulmonary Physical Therapist Relationship Specialty Start Date End Date Nikolai Tse, MARGARINE MAKER [address] [phone] PCP - General Nurse Practitioner 02/17/24 documented as of this encounter
--- OUTSIDE RECORDS SUMMARY | 2024-10-09 09:12 | XMS_ITS | Encounter Summary ---
Author Organization [employer] ([place], [place], [place], [place]) Address [address] [place] [address] Care Team Providers Care Casing In Line Feeder Name Role Phone Nikolai Tse APRN Primary Care Provider + Encounter Details Date Type Department Care Team (Late st Contact Info) Description 12/29/2018 Transcribed Document [facility] [place] [facility] [place] [address] ProviderKevin MD [address] [place], [place] [address] Social History Tobacco Use Types Packs/Day Years Used Date Smoking Tobacco: Never Assessed Sex and Gender Information Value Date Recorded Sex Assigned at Not on file Legal Sex Male 4:12 PM CDT Gender Identity Not on file Sexual Orientation Not on file documented as of this encounter Miscellaneous Notes * Cerner Conversion Note - Kevin ProviderMD - 12/29/2018 2:00 AM DEPUTY ATTORNEY GENERAL Websphere Portal Architect Details Entered On: 12/29/2018 2:09 EST Performed On: 12/29/2018 2:00 EST by Eunice Iraheta RN Order Details Transport Mode Order Detail : Portable Order Detail : N/A Lift/Transfer : Moderate assist Central Line Order Detail : No Room Service : Needs Assistance Arterial Line : No Eunice Iraheta RN - 12/29/2018 2:09 EST documented in this encounter Plan of Treatment Not on file documented as of this encounter Visit Diagnoses Not on filedocumented in this encounter Care Teams Casing In Line Feeder Relationship Specialty Start Date End Date Nikolai Tse, SCREEN MAKING SUPERVISOR [address] [phone] PCP - General Nurse Practitioner 02/17/24 documented as of this encounter
--- OUTSIDE RECORDS SUMMARY | 2024-10-09 09:12 | XMS_ITS | Encounter Summary ---
Author Organization [employer] ([place], [place], [place], [place]) Address [address] [place] [address] Care Team Providers Care Argon Tester Name Role Phone Nikolai Tse APRN Primary Care Provider + Encounter Details Date Type Department Care Team (Late st Contact Info) Description 12/30/2018 Transcribed Document [facility] Family Medicine [facility] [place] [address] ProviderKevin MD [address] [place], [place] [phone] Social History Tobacco Use Types Packs/Day Years Used Date Smoking Tobacco: Never Assessed Sex and Gender Information Value Date Recorded Sex Assigned at Not on file Legal Sex Male 4:12 PM CDT Gender Identity Not on file Sexual Orientation Not on file documented as of this encounter Miscellaneous Notes * Cerner Conversion Note - Kevin ProviderMD - 12/30/2018 11:14 AM MUSIC PROFESSIONALS Attempt to Treat, OT Entered On: 12/30/2018 11:15 EST Performed On: 12/30/2018 11:14 EST by STAN GRAHAM OTR/Chel Attempt to Treat Unable to Treat Due To : Patient Refusal Inability to Treat Comment : Pt refused this AM stating just back from bathroom. Will f/u as schedule permits Notification : STAN MAYES OTR/L - 12/30/2018 11:14 EST Electronically signed by [facility] Conversion Merchandise Support Associate Cerner at 06/04/2022 9:29 AM CDT documented in this encounter Plan of Treatment Not on file documented as of this encounter Visit Diagnoses Not on filedocumented in this encounter Care Teams Argon Tester Relationship Specialty Start Date End Date Nikolai Tse, PROCESSING ENGINEER [address] [place], [place] [phone] PCP - General Nurse Practitioner 02/17/24 documented as of this encounter
--- OUTSIDE RECORDS SUMMARY | 2024-10-09 09:12 | XMS_ITS | Encounter Summary ---
Author Organization [employer] ([place], [place], [place], [place]) Address [address] [place] [address] Care Team Providers Care Regional Environmental Manager Name Role Phone LinuskarimeNikolai APRN Primary Care Provider + Encounter Details Date Type Department Care Team (Late st Contact Info) Description 12/30/2018 Transcribed Document [facility] [place] [facility] [place] [address] ProviderKevin MD [address] [place] [address] Social History Tobacco Use Types Packs/Day Years Used Date Smoking Tobacco: Never Assessed Sex and Gender Information Value Date Recorded Sex Assigned at Not on file Legal Sex Male 4:12 PM CDT Gender Identity Not on file Sexual Orientation Not on file documented as of this encounter Miscellaneous Notes * Cerner Conversion Note - Kevin Pickering MD - 12/30/2018 3:17 PM CAN FILLING ROOM SWEEPER Patient: PRAVEEN FOX Age: 68 Years Sex: Male : 1950 Subjective Patient was seen and examined this morning, he reports that his expressive aphasia and right sided symptoms are improved, but not back to baseline. Vital Signs T: 36.9 ??C TMIN: 36.3 ??C TMAX: 37 ??C HR: 65(Monitored) RR: 14 BP: 134/75 SpO2: 97% Oxygen Settings (Last) Oxygen Therapy Mode: Room air (12/30/18 14:45:00) Oxygen Flow Rate: 2 Liter/Min (12/25/18 14:30:00) Intake & Output Totals Last 24 Hours (7a-7a) Input Total: 50 mL Output Total: 0 mL Balance: 50 mL Physical Exam General: [Alert and oriented, [...] Psychiatric: [Cooperative, appropriate mood and affect]. neuro: Strength testing is 4-5 on the right upper and right lower extremity. Sensation grossly intact, cranial nerves intact, no speech deficits noted. Cerebellar testing negative. Assessment/Plan 1. Left AKOSUA stroke due to [...] (TACO ELY) Heparin 5,000 Units, SubCutaneous, Inj, J91CPub, Routine, Start 12/23/18 14:00:00 EST (MARIN MCCLELLAND [...] Daily heparin, 5000 Units= 1 mL, SubCutaneous, [id number] hydrALAZINE, 10 mg= 0.5 mL, IV Push, [...] Test Result Date/Time Sodium Level 140 mmol/L 12/30/2018 07:01 EST Potassium Level 4.6 mmol/L 12/30/2018 07:01 EST Chloride Level 110 mmol/L 12/30/2018 07:01 EST Carbon Dioxide Level 28 mmol/L 12/30/2018 07:01 EST Anion Gap 7 (Low) 12/30/2018 07:01 EST Glucose Level 233 mg/dL (High) 12/30/2018 07:01 EST Blood Urea Nitrogen 34 mg/dL (High) 12/30/2018 07:01 EST Creatinine Level 2.00 mg/dL (High) 12/30/2018 07:01 EST eGFR 40 mL/min/1.73m2 (Low) 12/30/2018 07:01 EST eGFR NonAfrican 33 mL/min/1.73m2 (Low) 12/30/2018 07:01 EST Bun/Creatinine 17.0 12/30/2018 07:01 EST Calcium Level 9.2 mg/dL 12/30/2018 07:01 EST Device Comment 1 Protocols Followed 12/30/2018 12:54 EST Device Comment 1 Received Meds 12/30/2018 11:19 EST Device Comment 1 Protocols Followed 12/29/2018 23:54 EST Device Comment 2 Protocols Followed 12/30/2018 11:19 EST Glucose POC2 311 mg/dL (High) 12/30/2018 12:54 EST Glucose POC2 402 mg/dL (High) 12/30/2018 11:19 EST Glucose POC2 260 mg/dL (High) 12/29/2018 23:54 EST Glucose POC2 279 mg/dL (High) 12/29/2018 17:06 EST WBC 6.2 K/uL 12/30/2018 07:01 EST RBC 4.62 Million/uL 12/30/2018 07:01 EST Hgb 13.4 g/dL (Low) 12/30/2018 07:01 EST Hct 42.1 % 12/30/2018 07:01 EST MCV 91.1 fL 12/30/2018 07:01 EST MCH 29.0 pg 12/30/2018 07:01 EST MCHC 31.8 Gram/dL (Low) 12/30/2018 07:01 EST Platelet Count 402 K/uL (High) 12/30/2018 07:01 EST MPV 9.7 fL 12/30/2018 07:01 EST RDW 13.2 % 12/30/2018 07:01 EST Slide Review No 12/30/2018 07:01 EST Electronically signed by [facility], [facility] Conversion Senior Marketing Analyst Cerner at 06/04/2022 9:39 AM CDT documented in this encounter Plan of Treatment Not on file documented as of this encounter Visit Diagnoses Not on filedocumented in this encounter Care Teams Regional Environmental Manager Relationship Specialty Start Date End Date Nikolai Tse, HEALTH SCIENCES PROGRAM COORDINATOR [address] [place] [address] PCP - General Nurse Practitioner 02/17/24 documented as of this encounter
--- OUTSIDE RECORDS SUMMARY | 2024-10-09 09:12 | XMS_ITS | Encounter Summary ---
Author Organization [employer] ([place], [place], [place], [place]) Address [address] [place] [address] Care Team Providers Care Sap Grc Security Name Role Phone Nikolai Tse APRN Primary Care Provider + Encounter Details Date Type Department Care Team (Late st Contact Info) Description 12/30/2018 Transcribed Document [facility] [place] [facility] [place] [address] ProviderKevin MD [address] [place], [place] [address] Social History Tobacco Use Types Packs/Day Years Used Date Smoking Tobacco: Never Assessed Sex and Gender Information Value Date Recorded Sex Assigned at Not on file Legal Sex Male 4:12 PM CDT Gender Identity Not on file Sexual Orientation Not on file documented as of this encounter Miscellaneous Notes * Cerner Conversion Note - Kevin ProviderMD - 12/30/2018 5:00 AM COAL PASSER Chart Check - Review Order Profile Entered On: 12/30/2018 4:10 EST Performed On: 12/30/2018 5:00 EST by Eunice Iraheta RN Chart Check Powerplans Initiated/Discontinued as Appropriate : Yes Eunice Iraheta RN - 12/30/2018 4:10 EST documented in this encounter Plan of Treatment Not on file documented as of this encounter Visit Diagnoses Not on filedocumented in this encounter Care Teams Sap Grc Security Relationship Specialty Start Date End Date Nikolai Tse APRN [address] [place] [id number] PCP - General Nurse Practitioner 02/17/24 documented as of this encounter
--- OUTSIDE RECORDS SUMMARY | 2024-10-09 09:12 | XMS_ITS | Encounter Summary ---
Author Organization [employer] ([place], [place], [place], [place]) Address [address] [place] [address] Care Team Providers Care Garden Labourer Name Role Phone Nikolai Tse APRN Primary Care Provider + Encounter Details Date Type Department Care Team (Late st Contact Info) Description 12/30/2018 Transcribed Document [facility] [place] [address] [place] [address] ProviderKevin MD [address] [place] [address] Social History Tobacco Use Types Packs/Day Years Used Date Smoking Tobacco: Never Assessed Sex and Gender Information Value Date Recorded Sex Assigned at Not on file Legal Sex Male 4:12 PM CDT Gender Identity Not on file Sexual Orientation Not on file documented as of this encounter Miscellaneous Notes * Cerner Conversion Note - Kevin Pickering MD - 12/30/2018 3:41 PM CHARTER BOAT OPERATOR Patient: PRAVEEN FOX Age: 68 Years Sex: Male : 1950 Subjective Patient states his right side continues to get stronger. Review of Systems Cardiac - no chest pain. Objective Vitals & Measurements T: 36.9 ??C TMIN: 36.3 ??C TMAX: 37 ??C HR: 65(Monitored) RR: 14 BP: 134/75 SpO2: 97% Physical Exam EOMI Motor - 4-4+/ 5 strength in right arm and right leg. Assessment/Plan Praveen Fox is a 68-year-old male with multiple stroke risk factors including diabetes, hypertension, hyperlipidemia, and coronary artery disease, who on December 22 had some transient right arm numbness followed by right leg weakness. He waited until December 23 to go to [facility] and then was transferred here. The patient [...] to discuss the lumbar CT report from [place] with his outpatient physicians. I have discussed [...] . Over half that time was spent counseling patient . I will check back next week. Medications Inpatient Ambien, 5 mg= 1 Tab, Oral, At [...] Daily heparin, 5000 Units= 1 mL, SubCutaneous, X99WOae hydrALAZINE, 10 mg= 0.5 mL, IV Push, [...] IV Push, Q4H, PRN Electronically signed by Kyra [facility] Conversion Agricultural Engineering Technologist Cerner at 06/04/2022 9:53 AM CDT documented in this encounter Plan of Treatment Not on file documented as of this encounter Visit Diagnoses Not on filedocumented in this encounter Care Teams Garden Labourer Relationship Specialty Start Date End Date Nikolai Tse APRN [address] [place], [place] [phone] PCP - General Nurse Practitioner 02/17/24 documented as of this encounter
--- OUTSIDE RECORDS SUMMARY | 2024-10-09 09:12 | XMS_ITS | Encounter Summary ---
Author Organization [employer] ([place], [place], [place], [place]) Address [address] [place] [address] Care Team Providers Care Certified Art Therapist Name Role Phone YanethanthonyNikolai APRN Primary Care Provider + Encounter Details Date Type Department Care Team (Late st Contact Info) Description 12/26/2018 Transcribed Document [facility] [place] Family Medicine [facility] [place] [address] ProviderKevin MD [address] [place] [address] Social History Tobacco Use Types Packs/Day Years Used Date Smoking Tobacco: Never Assessed Sex and Gender Information Value Date Recorded Sex Assigned at Not on file Legal Sex Male 4:12 PM CDT Gender Identity Not on file Sexual Orientation Not on file documented as of this encounter Miscellaneous Notes * Cerner Conversion Note - Kevin Pickering MD - 12/26/2018 2:26 PM SIDEROGRAPHIST Treatment Intervention, OT Entered On: 12/28/2018 15:17 EST Performed On: 12/28/2018 9:30 EST by STAN GRAHAM OTR/Chel General Information, OT Visit Type, OT : Treatment Note Patient Orders : Order Date Order Ordering 12/23/2018 13:27 OT Evaluation and Treatment Ordered By: MARIN MCCLELLAND MD 12/26/2018 14:26 OT Additional Treatment Ordered By: Active Diagnoses : 12/28/2018 12:00 Weakness Admission Date : 12/23/2018 13:03 Co-treated by, OT : Physical Therapist Personal Devices : Personal Devices No Devices Recorded Assistive Devices : Assistive Devices No Devices Recorded STAN GRAHAM OTR/L - 12/28/2018 15:10 EST General Status Patient Received Status : Supine in bed Treatment Start Time : 12/28/2018 9:07 EST Patient Left Status : Supine in bed, Bed alarm activated, RN/PCT informed, Family/Visitors at bedside, All needs met and within reach Treatment End Time : 12/28/2018 9:30 EST Treatment Time : 23 Minute(s) STAN GRAHAM OTR/L - 12/28/2018 15:10 EST Functional Mobility Mobility Grid Bed Roll Right : Supervision/set-up Bed Scooting : Supervision/set-up Supine to Sit : Supervision/set-up Sit to Stand : Rehab Minimal assistance Bed to Chair : Rehab Minimal assistance Chair to Bed : Rehab Minimal assistance Stand to Sit : Rehab Minimal assistance Sit to Supine : Supervision/set-up STAN GRAHAM OTR/L - 12/28/2018 15:10 EST Plan of Care, OT OT Tx Plan/Goals Established w Patient : Yes STAN GRAHAM OTR/L - 12/28/2018 15:10 EST Jail Goals, OT Self Feeding LTG Grid Goal #1 Activity : Self feeding Assist : Supervision or set-up Date to Meet : 01/09/2019 EST Goal Status : Goal met Date Met : 12/28/2018 EST STAN GRAHAM OTR/L - 12/28/2018 15:10 EST Grooming LTG Grid Goal #1 Activity : Grooming Assist : Supervision or set up Date to Meet : 01/09/2019 EST Goal Status : Initial goal STAN GRAHAM OTR/L - 12/28/2018 15:10 EST Bathing LTG Grid Goal #1 Activity : Bathing, Upper Extremity Assist : Assist, minimal Date to Meet : 01/09/2019 EST Goal Status : Initial goal STAN GRAHAM OTR/L - 12/28/2018 15:10 EST Toilet Transfer LTG Grid Goal #1 Goal #2 Activity : Toilet Transfer, Stand Pivot Sit Toilet Transfer, Ambulatory Assist : Assist, moderate Assist, minimal Equipment : Raised Toilet Seat, With Handles, Rolling walker Date to Meet : 01/09/2019 EST 01/10/2019 EST Goal Status : Goal met Initial goal Date Met : 12/27/2018 EST STAN GRAHAM OTR/Chel - 12/28/2018 15:10 EST STAN GRAHAM OTR/Chel - 12/28/2018 15:10 EST Bed Mobility/ Bed Transfer LTG Grid Goal #1 Goal #2 Activity : Bed Mobility/Bed Transfer Bed Mobility/Bed Transfer Assist : Assist, moderate Supervision or set up Date to Meet : 01/09/2019 EST 01/10/2019 EST Goal Status : Goal met Initial goal Date Met : 12/27/2018 EST STAN GRAHAM OTR/Chel - 12/28/2018 15:10 EST STAN GRAHAM OTR/Chel - 12/28/2018 15:10 EST Other LTG Grid Goal #1 Goal #2 Goal : pt to sit EOB 10 minutes unsupported while participating in ADL or other functinal task pt to demonstrate integration of BUE during ADL task with cuein g Date to Meet : 01/09/2019 EST 01/09/2019 EST Goal Status : Progressing, continue Progressing, continue STAN GRAHAM OTR/Chel - 12/28/2018 15:10 EST STAN GRAHAM OTR/Chel - 12/28/2018 15:10 EST Treatment Note Subjective Comment : agreeable Patient's Response to Treatment : pt tolerated fairly Additional Objective Information : pt to EOB supervision. Sat unsupported. Pt max donning socks . reports pt is now self feeding R UE. Pt stood min assist. CUeing for safety. Transfers with RWx chair follow. pt Sat up in chair. exercise in chair with R UE. Reach and grasp focusing on gross motor, fine motor, and endurance. Transfered back to bed min assist. Alarm set. Supervision ot supine. Assessment : pt progressing. NOT safe for dc home. Needs inpatient rehab Plan for Treatment : see poc STAN GRAHAM OTR/Chel - 12/28/2018 15:10 EST Pain Assessment Pain Scaled Used : 0-10 Pain scale Pain Score During-Intervention : 0 STAN GRAHAM OTR/Chel - 12/28/2018 15:10 EST Image 1 - Images currently included in the form version of this document have not been included in the text rendition version of the form. Anticipated Discharge Needs, OT/PT Anticipated Discharge to : Unit, rehabilitation STAN GRAHAM OTR/Chel - 12/28/2018 15:[address] [facility] OT Charges OT Selfcare/Hm Mgmt Ea 15 Min : 1 OT Ther Activities Ea 15 Min : 1 STAN GRAHAM OTR/Chel - 12/28/2018 15:10 EST Electronically signed by Interface, [facility] Conversion Location Manager Cerner at 06/04/2022 9:55 AM CDT documented in this encounter Plan of Treatment Not on file documented as of this encounter Visit Diagnoses Not on filedocumented in this encounter Care Teams Certified Art Therapist Relationship Specialty Start Date End Date Nikolai Tse, DIRECTOR INTEGRATED [address] [place], [place] [phone] PCP - General Nurse Practitioner 02/17/24 documented as of this encounter
--- OUTSIDE RECORDS SUMMARY | 2024-10-09 09:13 | XMS_ITS | Encounter Summary ---
[facility] Organization [facility] Address [address] [place] [address] Care Team Providers Care Shaker Out Name Role Phone Dontrell Tseanthony JoelRamirez STRUCTURAL STEEL WORKER APPRENTICE Primary Care Provi lui Reason for Visit * Reason Onset Date Comments Hugo CANO - PATIENT CALL BACK 09/25/2024 Encounter Details Date Type Department Care Team (Late st Contact Info) Description 09/25/2024 Telephone [facility] CARDIOLOGY [address] [place] [address] Chandrika Cano, STRUCTURAL STEEL WORKER APPRENTICE [address] [place] [address] Hugo CANO - PATIENT CALL BACK Social History Tobacco Use Types Packs/Day Years [...] as of this encounter Miscellaneous Notes * Telephone Encounter - Josee Choudhury MA - 09/25/2024 3:43 PM EDT I spoke to gagan Flannery verbal. Pt is unable to stand or walk right now. When discharged from [facility] he will be going to [facility] for rehab. * Telephone Encounter - Duy Hazel RegSched Rep - 09/25/2024 2:58 PM EDT PT TRANSFERRED FROM [facility], ATTEMPTED TO CALL [facility] OFFICE NO ANSWER. PT WOULD LIKE A CALL BACK. THANKS. * Telephone Encounter - Myesha Go, FRANCISCO - 09/25/2024 11:51 AM EDT LVM for pt to call back. * Telephone Encounter - Winifred Henderson RegSched Rep - 09/25/2024 8:54 AM EDT Caller: stanislav vaca Relationship: Emergency Contact Best call back number: [phone] What is the best time to reach you: ANYTIME Who are you requesting to speak with (clinical staff, provider, specific staff member): ANY What was the call regarding: PATIENT'S CALLING TO INFORM HE IS IN THE HOSPITAL AND IF THEY AREWANTING ANY TESTS, HE IS ALREADY THERE. PLEASE ADVISE. documented in this encounter Plan of Treatment Not on file documented as of this encounter Visit Diagnoses Not on filedocumented in this encounter Care Teams Shaker Out Relationship Specialty Start Date End Date Nikolai Tse APRN [address] [place] [id number] PCP - General Nurse Practitioner 03/16/24 documented as of this encounter
--- OUTSIDE RECORDS SUMMARY | 2024-10-09 09:13 | XMS_ITS | Encounter Summary ---
Author Organization [employer] ([place], [place], [place], [place]) Address [address] [place] [address] Care Team Providers Care Rn Lab Name Role Phone Nikolai Tse EDUCATION AND DEVELOPMENT MANAGER Primary Care Provider + Encounter Details Date Type Department Care Team (Late st Contact Info) Description 07/11/2024 Lab Requisition [facility] Lab [address] [place] [address] Nikolai Tse APRN [address] [place], [place] [phone] Urinary tract infection, site not specified Social History Tobacco Use Types Packs/Day Years Used Date Smoking Tobacco: Former Cigarettes Smokeless Tobacco: Never Alcohol Use Standard Drinks/Week Comments Never 0 (1 standard drink = 0.6 oz pur e alcohol) Utilities Answer Date Recorded In the past 12 months, has t he [employer], gas, oil, or water company threatened to shut off services in your [...] your living situation today? I have a [facility] place to live 02/18/2024 Think about the [...] Do you speak a language other than [place] at [facility]? No 02/18/2024 Do you want help with [...] on file documented as of this encounter Procedures Procedure Name Priority Date/Time Associated Diagnosis Comments URINALYSIS, REFLEX MICROSCOPIC AND CULTURE IF INDICATED Routine 07/11/2024 12:00 PM EDT Urinary tract infection, site not specified URINALYSIS MICROSCOPIC Routine 07/11/2024 12:00 PM EDT Urinary tract infection, site not specified URINE CULTURE Routine 07/11/2024 12:00 PM EDT Urinary tract infection, site not specified documented in this encounter Results * Urine Culture (07/11/2024 12:00 PM EDT) Result Recollect Specimen - 3 or more organisms suggests contamination 07/13/2024 7:46 AM EDT [facility] Urine 07/11/2024 12:0 0 PM EDT 07/11/2024 5:30 PM EDT us Nikolai Tse EDUCATION AND DEVELOPMENT MANAGER MICROBIOLOGY - GENERAL O RDERABLES Final Result Performing Organization Address City/State/[facility] Co de Phone Number [facility] [address] [phone] * (ABNORMAL) Urinalysis Microscopic Only (07/11/2024 12:00 PM EDT) WBC, UA 20-30(A) None Seen, Occasional , 0-5 /HPF 07/11/2024 5:30 PM EDT [facility] RBC, UA 0-5(A) None Seen, Rare /HPF 07/11/2024 5:30 PM EDT [facility] Bacteria, UA 1+(A) None Seen 07/11/2024 5:30 PM EDT [facility] Mucus 1+(A) Trace 07/11/2024 5:30 PM EDT [facility] SQUAMOUS EPITHELIAL 0-5(A) None Seen, Rare /HPF 07/11/2024 5:30 PM EDT [facility] Urine 07/11/2024 12:0 0 PM EDT 07/11/2024 4:59 PM EDT us Nikolai Tse EDUCATION AND DEVELOPMENT MANAGER URINE ORDERABLES Final R esult [facility] [address] [place] [address] * (ABNORMAL) Urinalysis, Reflex Microscopic and Culture If Indicated (07/11/2024 12:00 PM EDT) Color, UA Straw 07/11/2024 5:28 PM EDT [facility] Clarity, UA Clear 07/11/2024 5:28 PM EDT [facility] Specific [place], UA 1.010 1.002 - 1.030 07/11/2024 5:28 PM EDT [facility] pH, UA 5.5 5.0 - 9.0 07/11/2024 5:28 PM EDT [facility] Leukocytes, UA 2+(A) Negative 07/11/2024 5:28 PM EDT [facility] Nitrite, UA Negative Negative 07/11/2024 5:28 PM EDT [facility] Protein, UA Negative Negative 07/11/2024 5:28 PM EDT [facility] Glucose, UA 3+(A) Negative 07/11/2024 5:28 PM EDT [facility] Ketones, UA Negative Negative 07/11/2024 5:28 PM EDT [facility] Bilirubin, UA Negative Negative 07/11/2024 5:28 PM EDT [facility] Blood, UA 1+(A) Negative 07/11/2024 5:28 PM EDT [facility] Urobilinogen, UA 0.2 mg/dL Normal 07/11/2024 5:28 PM EDT [facility] Specimen Source Random 07/11/2024 5:28 PM EDT [facility] Urine 07/11/2024 12:0 0 PM EDT 07/11/2024 4:59 PM EDT us Nikolai Tse EDUCATION AND DEVELOPMENT MANAGER URINE ORDERABLES Final R esult [facility] [address] [place] [address], [facility] [phone] documented in this encounter Visit Diagnoses Diagnosis Urinary tract infection, site not specified documented in this encounter Care Teams Rn Lab Relationship Specialty Start Date End Date Nikolai Tse APRN [address] [phone] PCP - General Nurse Practitioner 02/17/24 documented as of this encounter
--- OUTSIDE RECORDS SUMMARY | 2024-10-09 09:13 | XMS_ITS | Encounter Summary ---
Author Organization [employer] ([place], [place], [place], [place]) Address [address] [place] [address] Care Team Providers Care Automation Software Engineer Name Role Phone Nikolai Tse GLUING MACHINE ADJUSTER Primary Care Provider + Encounter Details Date Type Department Care Team (Late st Contact Info) Description 07/06/2024 Outside Orders [facility] Admitting [address] [place] [address] Justine Tse, GLUING MACHINE ADJUSTER [address] [facility] [address] [place] [address] Urinary tract infection, site not specified (Primary Dx) Social History Tobacco Use Types Packs/Day Years Used Date Smoking Tobacco: Former Cigarettes Smokeless Tobacco: Never Alcohol Use Standard Drinks/Week Comments Never 0 (1 standard drink = 0.6 oz pur e alcohol) Utilities Answer Date Recorded In the past 12 months, has t he [employer], gas, oil, or water [employer] threatened to shut off services in your [...] Do you speak a language other than [place] Islander at [facility]? No 02/18/2024 Do you want help with [...] Diagnoses Diagnosis Urinary tract infection, site not specified- Primary documented in this encounter Care Teams Automation Software Engineer Relationship Specialty Start Date End Date Nikolai Tse, GLUING MACHINE ADJUSTER [address] [place], [place] [phone] PCP - General Nurse Practitioner 02/17/24 documented as of this encounter
--- OUTSIDE RECORDS SUMMARY | 2024-10-09 09:13 | XMS_ITS | Clinical Summary ---
Author Organization [facility] Address [address] [place] [address] Phone Care Team Providers Care Vice President Corporate Communications Name Role Phone Unavailable Unavailable Conditions or Problems No information available. Medications No information available. Medications Administered No information available. Allergies, Adverse Reactions, Alerts No information available. Results No information available. Plan of Care No information available. Procedures No information available. Vital Signs No information available. Immunizations No information available. Advance Directives No information available.
--- OUTSIDE RECORDS SUMMARY | 2024-10-09 09:13 | XMS_ITS ---
Author Organization [facility] Care Team Providers Care English Composition Teacher Name Role Phone Emeka Up Unavailable Shea Tao Unavailable Unavailable Allergies and adverse reactions No Known Allergies Care Team Name Role Address Phone Organization Dates Emeka Up PCP [address] [place] [address], [address] [place] [address] (Office): : [facility] 09/20/2023 - 09/30/2023 Shea Tao [address] [place] [address], [address] [place] [address] (Office): : [facility] 09/20/2023 - 09/30/2023 Goals Section Goals Description Status Target Date #1 The resident will have no complications r/t to the skin injury by the review date Active 09/04/2024 #2 Blistered site will remai n free from infection through next review Active 09/04/2024 Advanced Directives will be honored through next review Active 09/04/2024 Maintain optimal oral hygiene status through nex t review Active 09/04/2024 Prevent/heal wounds and prev ent avoidable skin breakdown through next review Active 09/04/2024 Resident will be free from a dverse side effects of antiplatelet through the next review Active 09/04/2024 Resident will communicate an y complaints of discomfort and/or pain to staff through next review Active 09/04/2024 Resident will have decreased risk for falls through nursing interventions through next review Active 09/04/2024 Resident will have no injury r/t side rail use through next review. Active 09/04/2024 Resident will have toileting needs met by staff through nursing interventions daily through next review Active 09/04/2024 Resident will maintain adequ ate nutrition AEB having a stable weight through next review Active 09/04/2024 Resident's fracture will heal through next revie w Active 09/04/2024 The resident will be able to resume normal daily activities of daily living by the review date. Active 09/04/2024 The resident will be able to return to the commu nity. Active 09/04/2024 The resident will be free fr om complications related to infection through the review date. Active 09/04/2024 The resident will be free fr om s/sx of complications of cardiac problems through the review date. Active 09/04/2024 The resident will be free of any discomfort or adverse side effects of diuretic therapy through the review date. Active 0 09/04/2024 The resident will have no co mplications related to SOB though the review date. Active 09/04/2024 The resident will have no co mplications related to diabetes through the review date. Active 09/04/2024 The resident will have no co mplications resulting from the cellulitis through the review date. Active 09/04/2024 Will achieve/maintain maximu m functional mobility through next review. Active 09/04/2024 Will attend/participate in a ctivities of choice through next review Active 09/04/2024 Will express/exhibit satisfa ction with stay and care through next review Active 09/04/2024 Will have needs met by milli varun of staff as needed through next review Active 09/04/2024 Will not exhibit an avoidable decline in mood th rough next review Active 09/04/2024 Immunizations Immunization Status Vaccine Details Vaccine Code CodeSystem Date Notes Influenza cancelled Influenza, high-dose, split virus, quadrivalent, injectable, preservative free 197 CVX created date: 09/22/2023 consent date: 09/22/2023 TB 2 Step Mantoux Skin Test completed tuberculin skin test; unspecified formulation lotNumber: [id number] expiry: 03/18/2025 Mfg: [employer] Given 0.1 ml Left Forearm intradermally Step 2 of Multi-step with next step required 98 CVX created date: 09/28/2023 consent date: 09/28/2023 administer ed date: 09/28/2023 TB 2 Step Mantoux Skin Test completed tuberculin skin test; unspecified formulation lotNumber: [id number] expiry: 03/18/2025 Mfg: PAR Given 0.1 ml Right Forearm intradermally Step 1 of Multi-step with next step required 98 CVX created date: 09/21/2023 consent date: 09/20/2023 administer ed date: 09/21/2023 Educated by fernandez on 09/20/2023 COVID-19 Vaccine Dose 1 completed unknown vaccine or immune globulin 999 CVX created date: 09/22/2023 administer ed date: 04/18/2020 MODERNA COVID-19 Vaccine Dose 2 completed unknown vaccine or immune globulin 999 CVX created date: 09/22/2023 administer ed date: 05/16/2020 COVID-19 Vaccine Additional Dose/Booster completed unknown vaccine or immune globulin 999 CVX created date: 09/22/2023 administer ed date: 11/04/2021 COVID-19 Vaccine Additional Dose/Booster completed unknown vaccine or immune globulin 999 CVX created date: 09/22/2023 consent date: 09/22/2023 administer ed date: 11/28/2020 RSV Vaccine completed Respiratory syncytial virus (RSV), vaccine, recombinant, protein subunit RSV prefusion F, adjuvant reconstituted, 0.5 mL, preservative free 303 CVX created date: 09/22/2023 administer ed date: 12/15/2022 influenza, injectable, quadrivalent completed Influenza, split virus, quadrivalent, injectable, contains preservative 158 CVX created date: 09/22/2023 administer ed date: 10/31/2022 Mental Status Section Date Assessment Total Score Description 09/30/2023 BIMS 15 cognitively int act CAM 0 No delirium ind icated PHQ-9 00 09/22/2023 BIMS 15 cognitively int act CAM 0 No delirium ind icated PHQ-9 11 moderate depres dorcas Problems Problem # Description Date of onset Resolved Date Code CodeSystem Concern Status 1 ACUTE KIDNEY FAILURE, UNSPECIFIED [address] active 2 ALLERGIC RHINITIS, UNSPECIFIED [address] active 3 ATHEROSCLEROSIS OF CORONARY ARTERY BYPASS GRAFT(S) WITHOUT ANGINA PECTORIS [address] active 4 BODY MASS INDEX [BMI] 45.0-49.9, ADULT [address] active 5 CELLULITIS, UNSPECIFIED [address] active 6 CHRONIC KIDNEY DISEASE, STAGE 4 (SEVERE) [address] active 7 CONSTIPATION, UNSPECIFIED [address] active 8 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 [address] active 9 DIFFICULTY IN WALKING, NOT ELSEWHERE CLASSIFIED [address] active 10 EDEMA, UNSPECIFIED [address] active 11 ESSENTIAL (PRIMARY) HYPERTENSION [address] active 12 GASTRO-ESOPHAGEAL REFLUX DISEASE WITHOUT ESOPHAGITIS [address] active 13 HYPERLIPIDEMIA, UNSPECIFIED [address] active 14 PENITENTIARY (CURRENT) USE OF ANTICOAGULANTS [address] active 15 PENITENTIARY (CURRENT) USE OF INSULIN [address] active 16 MORBID (SEVERE) OBESITY DUE TO EXCESS CALORIES [address] active 17 MUSCLE WASTING AND ATROPHY, NOT ELSEWHERE CLASSIFIED, LEFT LOWER LEG [address] active 18 MUSCLE WASTING AND ATROPHY, NOT ELSEWHERE CLASSIFIED, RIGHT LOWER LEG [address] active 19 MUSCLE WEAKNESS (GENERALIZED) [address] active 20 OTHER SPECIFIED DISORDERS INVOLVING THE IMMUNE MECHANISM, NOT ELSEWHERE CLASSIFIED [address] active 21 PSEUDOMONAS (AERUGINOSA) (MALLEI) (PSEUDOMALLEI) THE CAUSE OF DISEASES CLASSIFIED ELSEWHERE 4 09/27/[address] completed 22 RESPIRATORY DISORDERS IN DISEASES CLASSIFIED ELSEWHERE [address] active 23 RETENTION OF URINE, UNSPECIFIED [address] active 24 TYPE 2 DIABETES MELLITUS WITH DIABETIC CHRONIC KIDNEY DISEASE [address] active 25 UNSPECIFIED FALL, SUBSEQUENT ENCOUNTER [address] active 26 UNSPECIFIED FRACTURE OF FIFTH METACARPAL BONE, RIGHT HAND, SUBSEQUENT ENCOUNTER FOR FRACTURE WITH ROUTINE HEALING [address] active 27 UNSTEADINESS ON FEET [address] active 28 URINARY TRACT INFECTION, SITE NOT SPECIFIED 4 09/27/[address] completed Reason for Referral No Reasons for Referral Entered Social History Social History Observation Description Start Date End Date Code Code System Current Smoking Status Tobacco smoking consumption unknown 803235585 SNOMED CT Sex Assigned At Male 1950 27914-0 [facility] Gender Identity Male 50578420707109 [address] Vital Signs Code Code System Vitals Name Values and Units Timing Information 2339-0 [facility] Blood Sugar Hknrw=706.0 Units=mg/dL 09/30/2023 9279-1 [facility] Respiratory Rate Value=20.0 Units=/m in 09/30/2023 8462-4 [facility] Blood Pressure-Diastolic Value=65 Un its=mmHg 09/30/2023 8480-6 [facility] Blood Pressure-Systolic Iqtxq=706 Un its=mmHg 09/30/2023 8310-5 [facility] Body Temperature Value=98.2 Units= F 09/30/2023 8867-4 [facility] Heart rate Value=94.0 Units=/min 11834-5 [facility] O2 % BldC Oximetry Value=94.0 Units= % 09/30/2023 52621-1 [facility] Pain Level Value=0.0 09/30/2023 71317-8 [facility] Weight Ftjws=276.0 Units=Lbs 01/2024 8302-2 [facility] Height Value=67.0 Units=Inches 09/20/2023
--- OUTSIDE RECORDS SUMMARY | 2024-10-09 09:13 | XMS_ITS | Encounter Summary ---
Author Organization [facility] ([place], [place], [place], [place]) Address [address] [place] [address] Care Team Providers Care Fixing Machine Operator Name Role Phone Nikolai Tse MAIL PROCESSOR Primary Care Provider + Encounter Details Date Type Department Care Team (Late st Contact Info) Description 08/26/2024 Lab Requisition [facility] [address] [place] [address] Nikolai Tse APRN [address] [place], [place] [id number] Urinary tract infection, site not specified Social History Tobacco Use Types Packs/Day Years Used Date Smoking Tobacco: Former Cigarettes Smokeless Tobacco: Never Alcohol Use Standard Drinks/Week Comments Never 0 (1 standard drink = 0.6 oz pur e alcohol) Utilities Answer Date Recorded In the past 12 months, has t he [employer], gas, oil, or water company threatened to [...] your living situation today? I have a [facility] to live 02/18/2024 Think about the [...] Do you speak a language other than [place] at [facility]? No 02/18/2024 Do you want help with [...] infection, site not specified URINALYSIS MICROSCOPIC Routine 08/26/2024 1:12 PM EDT Urinary tract infection, site not specified URINE CULTURE Routine 08/26/2024 1:12 PM EDT Urinary tract infection, site not specified documented in this encounter Results * Urine Culture (08/26/2024 1:12 PM EDT) Result Recollect Specimen - 3 or more organisms suggests contamination 08/28/2024 9:33 AM EDT [facility] Urine 08/26/2024 1:12 PM EDT 08/26/2024 1:27 PM EDT us Nikolai Tse MAIL PROCESSOR MICROBIOLOGY - GENERAL O RDERABLES Final Result Performing Organization Address City/State/[facility] Co de Phone Number [facility] [address] [phone] * (ABNORMAL) Urinalysis Microscopic Only (08/26/2024 1:12 PM EDT) WBC, UA Too Numerous To Count(A) None Seen, Occasional , 0-5 /HPF 08/26/2024 1:28 PM EDT [facility] RBC, UA 5-10(A) None Seen, Rare /HPF 08/26/2024 1:28 PM EDT [facility] Bacteria, UA 2+(A) None Seen 08/26/2024 1:28 PM EDT [facility] Yeast 2+(A) Trace 08/26/2024 1:28 PM EDT [facility] SQUAMOUS EPITHELIAL 5-10(A) None Seen, Rare /HPF 08/26/2024 1:28 PM EDT [facility] Urine 08/26/2024 1:12 PM EDT 08/26/2024 1:12 PM EDT us Nikolai Tse MAIL PROCESSOR URINE ORDERABLES Final R esult [facility] [address] [place] [address] * (ABNORMAL) Urinalysis, Reflex Microscopic and Culture If Indicated (08/26/2024 1:12 PM EDT) Color, UA Yellow 08/26/2024 1:28 PM EDT [facility] Clarity, UA Cloudy 08/26/2024 1:28 PM EDT [facility] Specific [place], UA 1.010 1.002 - 1.030 08/26/2024 1:28 PM EDT [facility] pH, UA 6.5 5.0 - 9.0 08/26/2024 1:28 PM EDT [facility] Leukocytes, UA 3+(A) Negative 08/26/2024 1:28 PM EDT [facility] Nitrite, UA Negative Negative 08/26/2024 1:28 PM EDT [facility] Protein, UA 1+(A) Negative 08/26/2024 1:28 PM EDT [facility] Glucose, UA 3+(A) Negative 08/26/2024 1:28 PM EDT [facility] Ketones, UA Negative Negative 08/26/2024 1:28 PM EDT [facility] Bilirubin, UA Negative Negative 08/26/2024 1:28 PM EDT [facility] Blood, UA 1+(A) Negative 08/26/2024 1:28 PM EDT [facility] Urobilinogen, UA 0.2 mg/dL Normal 08/26/2024 1:28 PM EDT [facility] Specimen Source Urine, clean catch 08/26/2024 1:28 PM EDT [facility] Urine 08/26/2024 1:12 PM EDT 08/26/2024 1:12 PM EDT us Nikolai Tse MAIL PROCESSOR URINE ORDERABLES Final R esult [facility] [address] [place] [address], [facility] [phone] documented in this encounter Visit Diagnoses Diagnosis Urinary tract infection, site not specified documented in this encounter Care Teams Fixing Machine Operator Relationship Specialty Start Date End Date Nikolai Tse APRN [address] [place], [place] [id number] PCP - General Nurse Practitioner 02/17/24 documented as of this encounter
--- OUTSIDE RECORDS SUMMARY | 2024-10-09 09:13 | XMS_ITS | Patient Health Record ---
Author Organization [facility] . Address [address] [place] [address] Care Team Providers Care Commercial Instructor Supervisor Name Role Phone Roberta Villalobos Primary Care Provider Mansoor ANG MD, Dr. BARKER Unavailable [phone] Allergies Allergen (clinical drug ingredient) Drug/Non Drug Allergy documented on EMR Reaction Allergy Type Onset Date Status semaglutide Rybelsus diarrhea Drug Allergy 11/12/2021 Acti ve Reason For Referral No Information Medications Medication SIG (Take, Route, Frequency, Duration) Notes Start Date End Date Status Atorvastatin Calcium 80 MG 1 tablet Oral ly Once a day; Duration: 30 day(s) 05/31/2023 Active Bumetanide 2 MG 1 tablet Orally twice a day; Duration: 90 days As needed 07/07/2021 Active Florastor Baby 250 MG 1 packet Orally Tw ice a day; Duration: 30 days Active Ferrous Sulfate 325 (65 Fe) MG 1 tablet Orally Every other day 05/31/2023 Active Aspir-Low 81 MG 1 tablet Orally Once a day; Duration: 30 day(s) 05/31/2023 Active Pioglitazone HCl 30 MG 1 tablet Orally O nce a day 05/31/2023 Active Acetaminophen 500 MG 1 capsule as needed Orally every 6 hrs 05/31/2023 Active Betamethasone Valerate 0.1 % 1 application Externally Once a day 05/31/2023 Active Vitamin B12 1000 MCG 1 tablet Orally Onc e a day 05/31/2023 Active metOLazone 5 MG 1 tablet as directed Orally every other day; Duration: 90 days 05/31/2023 Active Metoprolol Tartrate 25 MG 1 tablet with food Orally Twice a day; Duration: 30 day(s) 05/31/2023 Active Gabapentin 300 MG 1 capsule Orally Onc e a day 05/31/2023 Active amLODIPine Besylate 5 MG 1 tablet Orally bid 05/30 Active Lantus SoloStar 100 UNIT/ML as directed Subcutaneous daily 05/31/2023 Active tiZANidine HCl 4 MG 1 tablet as needed O rally qd 05/31/2023 Active Famotidine 20 MG 1 tablet at bedtime as needed Orally Once a day; Duration: 30 day(s) 05/31/2023 Active Albuterol Sulfate HFA 108 (90 Base) MCG/ACT 1 puff as needed Inhalation every 6 hrs; Duration: 30 days 11/18/2022 Active Clopidogrel Bisulfate 75 MG 1 tablet Ora lly Once a day; Duration: 30 day(s) 05/31/2023 Active Tamsulosin HCl 0.4 MG 1 capsule Orally O nce a day; Duration: 30 days Active Social History Tobacco Use: Social History Observation Description Date Details (start date - stop date) Former Smoker NA - NA Tobacco Use/Smoking Question Answer Notes Status: former smoker How long has it been since you last smoked? 5-10 years Alcohol Screen (Audit-C) Question Answer Notes Did you have a drink containing alcohol in the p ast year? No Points 0 Interpretation Negative Problems Problem Type SNOMED Code ICD Code Onset Dates Problem Status W/U Status Risk Notes Problem Hypertension (37814834) Hypertension (I10) Active confirmed blood pressure is well controlled on current regimen unfortunately angiotensin receptor ann was stopped due to acute kidney injury. Problem Type 2 diabetes mellitus (19073812) Type 2 diabetes mellitus (E11.9) Active confirmed Hb A1c is 11.4% he was counseled again about the importance of having good glycemic control and he understands that diabetic nephropathy with get worse from here on. Problem Vitamin D deficiency (79920406) Vitamin D deficiency (E55.9) Active confirmed Vitamin D level is above goal at 120 ng/mL. Patient is encouraged to reduce supplementation to every other day. I will check vitamin D level periodically Problem Coronary artery disease (96033415) Coronary artery disease (I25.10) Active confirmed Quadruple bypas s in 2013, left carotid stents in 2019, patient is followed by his ribbing machine operator Dr. Bennett. He is on Plavix, aspirin and statin medication. Problem Anemia (743854276) Anemia (D64.9) Active confirmed Hemoglobi n has had been very stable , Patient was started on ferrous sulfate dailyand he will continue on the same supplements as his iron sat is 18%. Problem Hyperlipidemia (96463657) Hyperlipidemia (E78.5) Active confirmed Patient has bee n on statin medication for an extended period of time, managed by his primary care and cardiology team. Patient asked about atorvastatin and renal toxicity, and I assured them that they should take statin medication if prescribed by the primary care physician or ribbing machine operator. Problem Benign prostatic hyperplasia (004644037) BPH (benign prostatic hyperplasia) (N40.0) Active confirmed as above patien t has symptoms of lower tract obstructive symptoms, will start tamsulosin 0.4 daily Problem Chronic kidney disease stage 4 (703910600) Chronic kidney disease (CKD) stage G4/A1, severely decreased glomerular filtration rate (GFR) between 15-29 mL/min/1.73 square meter and albuminuria creatinine ratio less than 30 mg/g (N18.4) Active confirmed diabetic nephropathy, with renovascular disease Plan Of Treatment Pending Test Test Name Order Date Uric Acid, Serum 01/20/2022 Uric Acid, Serum 08/10/2022 Uric Acid, Serum 11/17/2022 Uric Acid, Serum 05/31/2023 Urinalysis, Complete 04/02/2020 Urinalysis, Complete 01/20/2022 Urinalysis, Complete 02/21/2019 Urinalysis, Complete 04/25/2019 Urinalysis, Complete 11/28/2019 Urinalysis, Complete 10/14/2021 Urinalysis, Complete 05/05/2022 Urinalysis, Complete 08/10/2022 PTH, Intact 05/05/2022 PTH, Intact 04/25/2019 PTH, Intact 04/02/2020 PTH, Intact 05/31/2023 urine protein/creatinine ratio 4 urine protein/creatinine ratio 1 urine protein/creatinine ratio 0 urine protein/creatinine ratio 0 urine protein/creatinine ratio 0 urine protein/creatinine ratio 2 urine protein/creatinine ratio 2 urine protein/creatinine ratio 3 urine protein/creatinine ratio 3 IRON, TIBC AND FERRITIN PANEL 11/17/2022 IRON, TIBC AND FERRITIN PANEL 10/14/2021 Urinalysis 05/31/2023 .Renal Function Panel 05/31/2023 .Renal Function Panel 04/02/2020 .Renal Function Panel 10/14/2021 .Renal Function Panel 05/05/2022 .Renal Function Panel 11/17/2022 .Renal Function Panel 08/10/2022 .Renal Function Panel 01/20/2022 .Renal Function Panel 02/21/2019 .Renal Function Panel 11/28/2019 .Renal Function Panel 04/25/2019 HGB & HCT 04/25/2019 HGB & HCT 11/28/2019 HGB & HCT 10/14/2021 CBC W/AUTO DIFF 05/05/2022 CBC W/AUTO DIFF 01/20/2022 CBC W/AUTO DIFF 04/02/2020 CBC W/AUTO DIFF 08/10/2022 CBC W/AUTO DIFF 11/17/2022 VIT D (25-OH) 11/17/2022 VIT D (25-OH) 05/31/2023 VIT D (25-OH) 04/02/2020 VIT D (25-OH) 11/28/2019 VIT D (25-OH) 04/25/2019 VIT D (25-OH) 05/05/2022 HGB A1C (GLYCOHEMOGLOBIN) 08/10/2022 Future Test Test Name Order Date Uric Acid, Serum 12/01/2019 Urinalysis, Complete 12/01/2019 urine protein/creatinine ratio .Renal Function Panel 12/01/2019 HGB & HCT 12/01/2019 .Renal Function Panel 03/30/2020 Uric Acid, Serum 09/22/2020 PTH, Intact 09/22/2020 Vitamin D, 25 -hydroxy 09/22/2020 .spot urine for creatinine 09/22/2020 .spot urine for protein 09/22/2020 RENAL FUNCTION PANEL 09/22/2020 URINALYSIS COMPLETE 09/22/2020 CBC W AUTOMATED DIFFERENTIAL 09/22/2020 Uric Acid, Serum 11/24/2020 .spot urine for creatinine 11/24/2020 .spot urine for protein 11/24/2020 RENAL FUNCTION PANEL 11/24/2020 URINALYSIS COMPLETE 11/24/2020 Urinalysis, Complete 03/15/2021 urine protein/creatinine ratio 2 IRON, TIBC AND FERRITIN PANEL 03/15/2021 .Renal Function Panel 03/15/2021 HGB & HCT 03/15/2021 Urinalysis, Complete 07/09/2021 urine protein/creatinine ratio 2 .Renal Function Panel 07/09/2021 HGB & HCT 07/09/2021 VIT D (25-OH) 07/09/2021 MAGNESIUM LEVEL 07/09/2021 .spot urine for creatinine 10/07/2021 .spot urine [...] Insured Coverage Start Date Coverage End Date [place] [address] [place] [address] [id number] Praveen Pedroza Self - patient is the insured [employer] [address] [place] [address] [id number] Praveen Pedroza Self - patient is the insured Medical (General) History Medical History History ICD Code At risk for sleep apnea Z91.89 Coronary artery disease, ang norma presence unspecified, unspecified vessel or lesion type, unspecified whether tejon or transplanted heart I25.10 Hyperlipidemia, unspecified hyperlipidem ia type E78.5 HTN (hypertension), benign I10 Type 2 diabetes mellitus wit hout complication, unspecified whether half-way insulin use E11.9 Chronic renal impairment, unspecified CK D stage N18.9 Surgical History Surgery Date(Month/Year) CABG X4 circumcision heart cath Hospitalization History Reason Date(Month/Year) stroke 12/2018
--- OUTSIDE RECORDS SUMMARY | 2024-10-09 09:13 | XMS_ITS | Encounter Summary ---
Author Organization [facility] ([place], [place], [place], [place]) Address [address] [place] [address] Care Team Providers Care Volunteer Services Coordinator Name Role Phone Nikolai Tse TONE CABINET ASSEMBLER Primary Care Provider + Encounter Details Date Type Department Care Team (Late st Contact Info) Description 12/23/2018 Transcribed Document [facility] [place] [facility] [place] [address] ProviderKevin MD [address] [place], [place] [address] Social History Tobacco Use Types Packs/Day Years Used Date Smoking Tobacco: Never Assessed Sex and Gender Information Value Date Recorded Sex Assigned at Not on file Legal Sex Male 4:12 PM CDT Gender Identity Not on file Sexual Orientation Not on file documented as of this encounter Miscellaneous Notes * Cerner Conversion Note - Kevin ProviderMD - 12/23/2018 2:38 PM DIRECTOR OF REHABILITATIVE SERVICES ETL TESTER Attempt to Treat Entered On: 12/23/2018 14:38 EST Performed On: 12/23/2018 14:38 EST by WALDO BACON SLP Attempt to Treat Inability to Treat Comment : Procedure in room. Will check back tomorrow. WALDO BACON SLP - 12/23/2018 14:38 EST documented in this encounter Plan of Treatment Not on file documented as of this encounter Visit Diagnoses Not on filedocumented in this encounter Care Teams Volunteer Services Coordinator Relationship Specialty Start Date End Date Nikolai Tse APRN [address] [place] [address] PCP - General Nurse Practitioner 02/17/24 documented as of this encounter
--- OUTSIDE RECORDS SUMMARY | 2024-10-09 09:13 | XMS_ITS | Encounter Summary ---
Author Organization [employer] ([place], [place], [place], [place]) Address [address] [place] [address] Care Team Providers Care Oil Extractor Name Role Phone Nikolai Tse LEARNING SUPPORT SERVICES DIRECTOR Primary Care Provider + Encounter Details Date Type Department Care Team (Late st Contact Info) Description 07/11/2024 Outside Orders [facility] Admitting [address] [place] [address] Nikolai Tse APRN [address] [place], [place] [id number] Urinary tract infection, site not specified (Primary Dx) Social History Tobacco Use Types Packs/Day Years Used Date Smoking Tobacco: Former Cigarettes Smokeless Tobacco: Never Alcohol Use Standard Drinks/Week Comments Never 0 (1 standard drink = 0.6 oz pur e alcohol) Utilities Answer Date Recorded In the past 12 months, has t he [employer], gas, oil, or water [employer] threatened to shut off services in your [...] your living situation today? I have a [facility] place to live 02/18/2024 Think about the [...] Do you speak a language other than Slovak at [facility]? No 02/18/2024 Do you want help [...] Primary documented in this encounter Care Teams Oil Extractor Relationship Specialty Start Date End Date Nikolai Tse, LEARNING SUPPORT SERVICES DIRECTOR [address] [place] [address] PCP - General Nurse Practitioner 02/17/24 documented as of this encounter
--- OUTSIDE RECORDS SUMMARY | 2024-10-09 09:13 | XMS_ITS | Encounter Summary ---
Author Organization [employer] ([place], [place], [place], [place]) Address [address] [place] [address] Care Team Providers Care Anode Adjuster Name Role Phone Nikolai Tse PRESS BOX CUSTODIAN Primary Care Provider + Encounter Details Date Type Department Care Team (Late st Contact Info) Description 08/26/2024 Outside Orders [facility] Admitting [address] [place] [address] Nikolai Tse APRN [address] [place], [place] [phone] Urinary tract infection without hematuria, site unspecified (Primary Dx) Social History Tobacco Use Types Packs/Day Years Used Date Smoking Tobacco: Former Cigarettes Smokeless Tobacco: Never Alcohol Use Standard Drinks/Week Comments Never 0 (1 standard drink = 0.6 oz pur e alcohol) Utilities Answer Date Recorded In the past 12 months, has t he electric, gas, oil, or water company threatened to [...] living situation today? I have a [facility] place to live 02/18/2024 Think about the [...] Do you speak a language other than Chilean at [facility]? No 02/18/2024 Do you want help with [...] Diagnosis Urinary tract infection without hematuria, site unspecified- Primary documented in this encounter Care Teams Anode Adjuster Relationship Specialty Start Date End Date Nikolai Tse, PRESS BOX CUSTODIAN [address] [place] [id number] PCP - General Nurse Practitioner 02/17/24 documented as of this encounter
--- OUTSIDE RECORDS SUMMARY | 2024-10-09 09:13 | XMS_ITS | Encounter Summary ---
Author Organization [employer] ([place], [place], [place], [place]) Address [address] [place] [address] Care Team Providers Care Employee Placement Specialist Name Role Phone Nikolai Tse VACATION PLANNER Primary Care Provider + Encounter Details Date Type Department Care Team (Late st Contact Info) Description 07/06/2024 Lab Requisition [facility] Lab [address] [place] [address] Justine Tse, VACATION PLANNER [address] [facility] [address] [place] [address] Urinary tract infection, site not specified Social History Tobacco Use Types Packs/Day Years Used Date Smoking Tobacco: Former Cigarettes Smokeless Tobacco: Never Alcohol Use Standard Drinks/Week Comments Never 0 (1 standard drink = 0.6 oz pur e alcohol) Utilities Answer Date Recorded In the past 12 months, has t he electric, gas, oil, or water [employer] threatened to shut off services in your [...] your living situation today? I have a [facility] place to live 02/18/2024 Think about the [...] Do you speak a language other than German at [facility]? No 02/18/2024 Do you want help with [...] Procedure Name Priority Date/Time Associated Diagnosis Comments URINE CULTURE Routine 07/06/2024 4:53 PM EDT Urinary tract infection, site not specified documented in this encounter Results * Urine Culture (07/06/2024 4:53 PM EDT) Result Recollect Specimen - 3 or more organisms suggests contamination 07/08/2024 7:[address] [facility] Urine 07/06/2024 4:53 PM EDT 07/06/2024 4:53 PM EDT us Justine Tse APRN MICROBIOLOGY - GENERAL O RDERABLES Final Result Performing Organization Address City/State/[facility] Co de Phone Number [facility] [address] [place] [address], [facility] [phone] documented in this encounter Visit Diagnoses Diagnosis Urinary tract infection, site not specified documented in this encounter Care Teams Employee Placement Specialist Relationship Specialty Start Date End Date Nikolai Tse APRN [address] [place] [address] PCP - General Nurse Practitioner 02/17/24 documented as of this encounter
--- OUTSIDE RECORDS SUMMARY | 2024-10-09 09:13 | XMS_ITS | Encounter Summary ---
Author Organization [employer] ([place], [place], [place], [place]) Address [address] [place] [address] Care Team Providers Care Space And Missile Operations Spacelift Name Role Phone Nikolai Tse POLICY CHANGE CLERKS SUPERVISOR Primary Care Provider + Encounter Details Date Type Department Care Team (Late st Contact Info) Description 07/26/2024 Lab Requisition [facility] Lab [address] [place] [address] Justine Tse, POLICY CHANGE CLERKS SUPERVISOR [address] [facility] [address] [place] [address] Urinary tract infection, site not specified; Encounter for screening for other disorder Social History Tobacco Use Types Packs/Day Years Used Date Smoking Tobacco: Former Cigarettes Smokeless Tobacco: Never Alcohol Use Standard Drinks/Week Comments Never 0 (1 standard drink = 0.6 oz pur e alcohol) Utilities Answer Date Recorded In the past 12 months, has t he [employer], gas, oil, or water [employer] threatened to shut off services in your [...] speak a language other than Lithuanian at [facility]? No 02/18/2024 Do you want help with [...] screening for other disorder URINALYSIS MICROSCOPIC Routine 07/26/2024 11:50 AM EDT Urinary tract infection, site not specified Encounter for screening for other disorder URINE CULTURE Routine 07/26/2024 11:50 AM EDT Urinary tract infection, site not specified Encounter for screening for other disorder documented in this encounter Results * Urine Culture (07/26/2024 11:50 AM EDT) Result Recollect Specimen - 3 or more organisms suggests contamination 07/28/2024 9:07 AM EDT [facility] Urine 07/26/2024 11:5 0 AM EDT 07/26/2024 3:32 PM EDT us Jusitne Tse POLICY CHANGE CLERKS SUPERVISOR MICROBIOLOGY - GENERAL O RDERABLES Final Result [facility] [address] [place] [address], [facility] [phone] * (ABNORMAL) Urinalysis Microscopic Only (07/26/2024 11:50 AM EDT) WBC, UA Too Numerous To Count(A) None Seen, Occasional , 0-5 /HPF 07/26/2024 3:33 PM EDT [facility] RBC, UA 5-10(A) None Seen, Rare /HPF 07/26/2024 3:33 PM EDT [facility] Bacteria, UA Trace(A) None Seen 07/26/2024 3:33 PM EDT [facility] Yeast 1+(A) Trace 07/26/2024 3:33 PM EDT [facility] BUDDING YEAST 1+(A) Trace 07/26/2024 3:33 PM EDT [facility] Mucus Trace Trace 07/26/2024 3:33 PM EDT [facility] SQUAMOUS EPITHELIAL Rare None Seen, Rare /HPF 07/26/2024 3:33 PM EDT [facility] Hyphae 1+(A) Trace 07/26/2024 3:33 PM EDT [facility] WBC Clumps Present(A) Absent 07/26/2024 3:33 PM EDT [facility] Urine 07/26/2024 11:5 0 AM EDT 07/26/2024 3:22 PM EDT us Justine Tse POLICY CHANGE CLERKS SUPERVISOR URINE ORDERABLES Final R esult [facility] [address] [place] [address] * (ABNORMAL) Urinalysis, Reflex Microscopic and Culture If Indicated (07/26/2024 11:50 AM EDT) Color, UA Light Yellow 07/26/2024 3:28 PM EDT [facility] Clarity, UA Cloudy 07/26/2024 3:28 PM EDT [facility] Specific [place], UA 1.010 1.002 - 1.030 07/26/2024 3:28 PM EDT [facility] pH, UA 6.0 5.0 - 9.0 07/26/2024 3:28 PM EDT [facility] Leukocytes, UA 2+(A) Negative 07/26/2024 3:28 PM EDT [facility] Nitrite, UA Negative Negative 07/26/2024 3:28 PM EDT [facility] Protein, UA Trace(A) Negative 07/26/2024 3:28 PM EDT [facility] Glucose, UA 2+(A) Negative 07/26/2024 3:28 PM EDT [facility] Ketones, UA Negative Negative 07/26/2024 3:28 PM EDT [facility] Bilirubin, UA Negative Negative 07/26/2024 3:28 PM EDT [facility] Blood, UA 2+(A) Negative 07/26/2024 3:28 PM EDT [facility] Urobilinogen, UA 0.2 mg/dL Normal 07/26/2024 3:28 PM EDT [facility] Specimen Source unknown 07/26/2024 3:28 PM EDT [facility] Urine 07/26/2024 11:5 0 AM EDT 07/26/2024 3:22 PM EDT us Justine Tse POLICY CHANGE CLERKS SUPERVISOR URINE ORDERABLES Final R esult [facility] [address] [place] [address] documented in this encounter Visit Diagnoses Diagnosis Urinary tract infection, site not specified Encounter for screening for other disorder documented in this encounter Care Teams Space And Missile Operations Spacelift Relationship Specialty Start Date End Date Nikolai Tse APRN [address] [place] [address] PCP - General Nurse Practitioner 02/17/24 documented as of this encounter
--- OUTSIDE RECORDS SUMMARY | 2024-10-09 09:13 | XMS_ITS | Encounter Summary ---
Author Organization [employer] ([place], [place], [place], [place]) Address [address] [place] [address] Care Team Providers Care Art Sales Consultant Name Role Phone Nikolai Tse HEAT AND FROST INSULATOR HELPER Primary Care Provider + Encounter Details Date Type Department Care Team (Late st Contact Info) Description 07/26/2024 Outside Orders [facility] Admitting [address] [place] [address] Justine Tse, HEAT AND FROST INSULATOR HELPER [address] [facility] [address] [place] [address] Urinary tract infection, site not specified (Primary Dx) Social History Tobacco Use Types Packs/Day Years Used Date Smoking Tobacco: Former Cigarettes Smokeless Tobacco: Never Alcohol Use Standard Drinks/Week Comments Never 0 (1 standard drink = 0.6 oz pur e alcohol) Utilities Answer Date Recorded In the past 12 months, has t he [email or web address], gas, oil, or water [employer] threatened to shut off services in your [...] Do you speak a language other than Paraguayan at [facility]? No 02/18/2024 Do you want help [...] Primary documented in this encounter Care Teams Art Sales Consultant Relationship Specialty Start Date End Date Nikolai Tse, HEAT AND FROST INSULATOR HELPER [address] [place], [place] [phone] PCP - General Nurse Practitioner 02/17/24 documented as of this encounter
--- OUTSIDE RECORDS SUMMARY | 2024-10-09 09:14 | XMS_ITS | Encounter Summary ---
Author Organization [employer] ([place], [place], [place], [place]) Address [address] [place] [address] Care Team Providers Care Patient Information Coordinator Name Role Phone Nikolai Tse APRN Primary Care Provider + Encounter Details Date Type Department Care Team (Latest Contact Info) Description 05/15/2024 Outside Orders [facility] Admitting [address] [place] [address] Kat Lee MD [address] [place] [address] [place] [address] Hypomagnesemia (Primary Dx) Social History Tobacco Use Types [...] your living situation today? I have a [facility] place to live 02/18/2024 Think about [...] Do you speak a language other than Mosotho at [facility]? No 02/18/2024 Do you want help with [...] as of this encounter Visit Diagnoses Diagnosis Hypomagnesemia- Primary Disorders of magnesium metabolism documented in this encounter Care Teams Patient Information Coordinator Relationship Specialty Start Date End Date Nikolai Tse, SENIOR ELECTRONICS DESIGN ENGINEER [address] [place], [place] [phone] PCP - General Nurse Practitioner 02/17/24 documented as of this encounter
--- OUTSIDE RECORDS SUMMARY | 2024-10-09 09:14 | XMS_ITS | Encounter Summary ---
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
--- OUTSIDE RECORDS SUMMARY | 2024-10-09 09:14 | XMS_ITS | Encounter Summary ---
Author Organization [employer] ([place], [place], [place], [place]) Address [address] [place] [address] Care Team Providers Care Communications Operator Name Role Phone Nikolai Tse MANUFACTURING AREA MANAGER Primary Care Provider + Encounter Details Date Type Department Care Team (Latest Contact Info) Description 06/23/2024 Lab Requisition [facility] Lab [address] [place] [address] Nikolai Tse APRN [address] [place], [place] [phone] Chronic diastolic (congestive) heart failure (HCC); Essential (primary) hypertension; Hypothyroidism, unspecified; Type 2 diabetes mellitus with unspecified complications (HCC); Hypomagnesemia Social History Tobacco Use Types Packs/Day Years Used Date Smoking Tobacco: Former Cigarettes Smokeless Tobacco: Never Alcohol Use Standard Drinks/Week Comments Never 0 (1 standard drink = 0.6 oz pur e alcohol) Utilities Answer Date Recorded In the past 12 months, has t he [employer], gas, oil, or water [employer] threatened to shut off services in your [...] Do you speak a language other than Saudi Arabian at [facility]? No 02/18/2024 Do you want [...] Procedure Name Priority Date/Time Associated Diagnosis Comments CBC W/ AUTO DIFF Routine 06/22/2024 12:2 5 PM EDT Chronic diastolic (congestive) heart failure (HCC) Essential (primary) hypertension Hypothyroidism, unspecified Type 2 diabetes mellitus with unspecified complications (HCC) Hypomagnesemia PROBNP Routine 06/22/2024 12:25 PM EDT Chronic diastolic (congestive) heart failure (HCC) Essential (primary) hypertension Hypothyroidism, unspecified Type 2 diabetes mellitus with unspecified complications (HCC) Hypomagnesemia T4, FREE Routine 06/22/2024 12:25 PM EDT Chronic diastolic (congestive) heart failure (HCC) Essential (primary) hypertension Hypothyroidism, unspecified Type 2 diabetes mellitus with unspecified complications (HCC) Hypomagnesemia MAGNESIUM Routine 06/22/2024 12:25 PM EDT Chronic diastolic (congestive) heart failure (HCC) Essential (primary) hypertension Hypothyroidism, unspecified Type 2 diabetes mellitus with unspecified complications (HCC) Hypomagnesemia HEMOGLOBIN A1C Routine 06/22/2024 12:25 PM EDT Chronic diastolic (congestive) heart failure (HCC) Essential (primary) hypertension Hypothyroidism, unspecified Type 2 diabetes mellitus with unspecified complications (HCC) Hypomagnesemia COMPREHENSIVE METABOLIC PANEL Routine 06/22/2024 12:25 PM EDT Chronic diastolic (congestive) heart failure (HCC) Essential (primary) hypertension Hypothyroidism, unspecified Type 2 diabetes mellitus with unspecified complications (HCC) Hypomagnesemia documented in this encounter Results * (ABNORMAL) PROBNP (06/22/2024 12:25 PM EDT) Pathologist [facility] ProBNP (pg/mL) 2,485(H) 5 - 450 pg/mL 06/23/2024 11:16 AM EDT [facility] Blood 06/22/2024 12:2 5 PM EDT 06/23/2024 10:31 AM EDT us Nikolai Tse MANUFACTURING AREA MANAGER LAB BLOOD ORDERABLES Fin al Result [facility] [address] [place] [address] * (ABNORMAL) CBC with automated diff (06/22/2024 12:25 PM EDT) [facility] WBC 7.5 4.8 - 10.8 K/ L 06/23/2024 10:35 AM EDT [facility] RBC 3.98 3.80 - 5.20 M/ L 06/23/2024 10:35 AM EDT [facility] Hemoglobin 11.0(L) 12.8 - 17.4 GM/DL 06/23/2024 10:35 AM EDT [facility] Hematocrit 36.6(L) 39.0 - 51.0 % 06/23/2024 10:35 AM EDT [facility] MCV 92 81 - 101 fL 06/23/2024 10:35 AM EDT [facility] MCH 27.6 27.0 - 34.0 pg 06/23/2024 10:35 AM EDT [facility] MCHC 30.1(L) 32.0 - 36.0 GM/DL 06/23/2024 10:35 AM EDT [facility] RDW 13.4 11.5 - 14.5 % 06/23/2024 10:35 AM EDT [facility] Platelets 261 150 - 400 K/CU MM 06/23/2024 10:35 AM EDT [facility] MPV 9.8 9.4 - 12.4 fL 06/23/2024 10:35 AM EDT [facility] Nucleated Red Blood Cell 0.0 0 - 0.2 % 06/23/2024 10:35 AM EDT [facility] % Neutros 51 37 - 80 % 06/23/2024 10:35 AM EDT [facility] % Lymphs 29 10 - 50 % 06/23/2024 10:35 AM EDT [facility] % Monos 11 5 - 13 % 06/23/2024 10:35 AM EDT [facility] % Eos 8(H) 0 - 7 % 06/23/2024 10:35 AM EDT [facility] % Baso 1 0 - 3 % 06/23/2024 10:35 AM EDT [facility] NRBC Absolute <0.01 0 - 0.012 K/ul 06/23/2024 10:35 AM EDT [facility] # Neutros 3.83 2.00 - 6.90 K/ L 06/23/2024 10:35 AM EDT [facility] # Lymphs 2.20 0.60 - 3.40 K/ L 06/23/2024 10:35 AM EDT [facility] # Monos 0.82 0.00 - 0.90 K/ L 06/23/2024 10:35 AM EDT [facility] # Eos 0.56 0.00 - 0.70 K/ L 06/23/2024 10:35 AM EDT [facility] # Baso 0.06 0.00 - 0.20 K/ L 06/23/2024 10:35 AM EDT [facility] Immature Granulocytes-Re lative 0.30 % 06/23/2024 10:35 AM EDT [facility] # IG 0.02(H) 0.00 - 0.00 K/uL 06/23/2024 10:35 AM EDT [facility] Blood 06/22/2024 12:2 5 PM EDT 06/23/2024 10:31 AM EDT Narrative [facility] - 06/23/2024 10:35 AM EDT When CBC w/ Auto Diff is ordered the lab will add a Manual Differential as a quality check at no additional charge if: Lymphocytes greater than seventy five percent with normal or increased WBC Monocytes greater than Fifteen percent Basophil greater than four percent Bands >10% or several immature myeloids are seen on scan Blast? Flag noted Atypical Lymph flag noted Nikolai Tse MANUFACTURING AREA MANAGER LAB BLOOD ORDERABLES Fin al Result Performing Organization Address City/[facility]/ZIP Co de Phone Number [facility] [address] [place] [address] * T4, free (06/22/2024 12:25 PM EDT) Free T4 0.87 0.76 - 1.46 ng/dL 06/23/2024 11:16 AM EDT [facility] Blood 06/22/2024 12:2 5 PM EDT 06/23/2024 10:31 AM EDT Nikolai Tse MANUFACTURING AREA MANAGER LAB BLOOD ORDERABLES Fin al Result Performing Organization Address City/[facility]/ZIP Co de Phone Number [facility] [address] [place] [address] * Magnesium (06/22/2024 12:25 PM EDT) Magnesium 2.1 1.8 - 2.4 mg/dL 06/23/2024 11:16 AM EDT [facility] Blood 06/22/2024 12:2 5 PM EDT 06/23/2024 10:31 AM EDT Nikolai Tse MANUFACTURING AREA MANAGER LAB BLOOD ORDERABLES Fin al Result Performing Organization Address City/[facility]/ZIP Co de Phone Number [facility] [address] [phone] * Hemoglobin A1c (06/22/2024 12:25 PM EDT) Pathologist [facility] Hemoglobin A1C 13.8 % 06/23/2024 11:57 AM EDT [facility] eAVG Glucose 349.36 mg/dL 06/23/2024 11:57 AM EDT [facility] Blood 06/22/2024 12:2 5 PM EDT 06/23/2024 10:31 AM EDT us Nikolai Tse MANUFACTURING AREA MANAGER LAB BLOOD ORDERABLES Fin al Result [facility] [address] [place] [address] * (ABNORMAL) Comprehensive metabolic panel (06/22/2024 12:25 PM EDT) [facility] Sodium 142 136 - 145 meq/L 06/23/2024 11:16 AM EDT [facility] Potassium 4.1 3.5 - 5.1 meq/L 06/23/2024 11:16 AM EDT [facility] Chloride 103 98 - 107 meq/L 06/23/2024 11:16 AM EDT [facility] CO2 29 21 - 32 meq/L 06/23/2024 11:16 AM EDT [facility] Calcium 8.9 8.5 - 10.1 mg/dL 06/23/2024 11:16 AM EDT [facility] Glucose 178(H) 70 - 99 mg/dL 06/23/2024 11:16 AM EDT [facility] BUN 57(H) 7 - 18 mg/dL 06/23/2024 11:16 AM EDT [facility] Creatinine 3.27(H) 0.70 - 1.20 mg/dL 06/23/2024 11:16 AM EDT [facility] BUN/Creatinine 17 06/23/2024 11:16 AM EDT [facility] Albumin 2.7(L) 3.4 - 5.0 g/dL 06/23/2024 11:16 AM EDT [facility] Alkaline Phosphatase 173(H) 46 - 116 U/L 06/23/2024 11:16 AM EDT [facility] ALT 37 12 - 78 U/L 06/23/2024 11:16 AM EDT [facility] AST 31 15 - 37 U/L 06/23/2024 11:16 AM EDT [facility] Total Bilirubin 0.3 0.2 - 1.0 mg/dL 06/23/2024 11:16 AM EDT [facility] Protein, Total 7.6 6.4 - 8.2 gm/dL 06/23/2024 11:16 AM EDT [facility] Anion Gap 14 11 - 22 06/23/2024 11:16 AM EDT [facility] A/G Ratio 0.6 06/23/2024 11:16 AM EDT [facility] Globulin 4.9 g/dL 06/23/2024 11:16 AM EDT [facility] Osmolality Calc 303.4 mOsm/kg 11:16 AM EDT [facility] eGFR (mL/min/1.73m2) 19(L) >=60 mL/min/1.7 3m2 06/23/2024 11:16 AM EDT [facility] Comment:ESTIMATED GFR IS NOT ACCURATE CREATININE CLEARANCE IN PREDICTING GLOMERULAR FILTRATION RATE. ESTIMATED GFR IS NOT APPLICABLE FOR DIALYSIS PATIENTS. Blood 06/22/2024 12:2 5 PM EDT 06/23/2024 10:31 AM EDT us Nikolai Tse APRN LAB BLOOD ORDERABLES Fin al Result [facility] [address] [place] [address] documented in this encounter Visit Diagnoses Diagnosis Chronic diastolic (congestive) heart failure (HCC) Essential (primary) hypertension Unspecified essential hypertension Hypothyroidism, unspecified Type 2 diabetes mellitus with unspecified complications (HCC) Hypomagnesemia Disorders of magnesium metabolism documented in this encounter Care Teams Communications Operator Relationship Specialty Start Date End Date Nikolai Tse, MANUFACTURING AREA MANAGER [address] [place] [address] PCP - General Nurse Practitioner 02/17/24 documented as of this encounter
--- OUTSIDE RECORDS SUMMARY | 2024-10-09 09:14 | XMS_ITS | Encounter Summary ---
Author Organization [employer] ([place], [place], [place], [place]) Address [address] [place] [address] Care Team Providers Care Recoater Name Role Phone Nikolai Tse APRN Primary Care Provider + Encounter Details Date Type Department Care Team (Late st Contact Info) Description 05/15/2024 Lab Requisition [facility] [address] [place] [address] Kat Lee MD [address] [place], [place] [id number] Chronic diastolic (congestive) heart failure (HCC); Hypomagnesemia Social History Tobacco Use Types Packs/Day Years Used Date Smoking Tobacco: Former Cigarettes Smokeless Tobacco: Never Alcohol Use Standard Drinks/Week Comments Never 0 (1 standard drink = 0.6 oz pur e alcohol) Utilities Answer Date Recorded In the past 12 months, has t he [employer], gas, oil, or water [employer] threatened to shut off services in your [...] living situation today? I have a [facility] [place] place to live 02/18/2024 Think about the [...] Do you speak a language other than [place]ese at [facility]? No 02/18/2024 Do you want help [...] Diagnosis Comments CBC W/ AUTO DIFF Routine 05/15/2024 10:0 0 AM EDT Chronic diastolic (congestive) heart failure (HCC) Hypomagnesemia PROBNP Routine 05/15/2024 10:00 AM EDT Chronic diastolic (congestive) heart failure (HCC) Hypomagnesemia MAGNESIUM Routine 05/15/2024 10:00 AM EDT Chronic diastolic (congestive) heart failure (HCC) Hypomagnesemia COMPREHENSIVE METABOLIC PANEL Routine 05/15/2024 10:00 AM EDT Chronic diastolic (congestive) heart failure (HCC) Hypomagnesemia documented in this encounter Results * (ABNORMAL) PROBNP (05/15/2024 10:00 AM EDT) Pathologist [facility] ProBNP (pg/mL) 2,576(H) 5 - 450 pg/mL 05/15/2024 3:09 PM EDT [facility] Blood 05/15/2024 10:0 0 AM EDT 05/15/2024 2:08 PM EDT us Kat Lee MD LAB BLOOD ORDERABLES Final Res ult [facility] [address] [place], [place] [address] [phone] * (ABNORMAL) CBC with automated diff (05/15/2024 10:00 AM EDT) Pathologist [facility] WBC 6.9 4.8 - 10.8 K/ L 05/15/2024 2:26 PM EDT [facility] RBC 4.31 3.80 - 5.20 M/ L 05/15/2024 2:26 PM EDT [facility] Hemoglobin 11.9(L) 12.8 - 17.4 GM/DL 05/15/2024 2:26 PM EDT [facility] Hematocrit 37.8(L) 39.0 - 51.0 % 05/15/2024 2:26 PM EDT [facility] MCV 88 81 - 101 fL 05/15/2024 2:26 PM EDT [facility] MCH 27.6 27.0 - 34.0 pg 05/15/2024 2:26 PM EDT [facility] MCHC 31.5(L) 32.0 - 36.0 GM/DL 05/15/2024 2:26 PM EDT [facility] RDW 12.4 11.5 - 14.5 % 05/15/2024 2:26 PM EDT [facility] Platelets 272 150 - 400 K/CU MM 05/15/2024 2:26 PM EDT [facility] MPV 10.0 9.4 - 12.4 fL 05/15/2024 2:26 PM EDT [facility] Nucleated Red Blood Cell 0.0 0 - 0.2 % 05/15/2024 2:26 PM EDT [facility] % Neutros 56 37 - 80 % 05/15/2024 2:26 PM EDT [facility] % Lymphs 28 10 - 50 % 05/15/2024 2:26 PM EDT [facility] % Monos 8 5 - 13 % 05/15/2024 2:26 PM EDT [facility] % Eos 7 0 - 7 % 05/15/2024 2:26 PM EDT [facility] % Baso 1 0 - 3 % 05/15/2024 2:26 PM EDT [facility] NRBC Absolute <0.01 0 - 0.012 K/ul 05/15/2024 2:26 PM EDT [facility] # Neutros 3.82 2.00 - 6.90 K/ L 05/15/2024 2:26 PM EDT [facility] # Lymphs 1.91 0.60 - 3.40 K/ L 05/15/2024 2:26 PM EDT [facility] # Monos 0.52 0.00 - 0.90 K/ L 05/15/2024 2:26 PM EDT [facility] # Eos 0.51 0.00 - 0.70 K/ L 05/15/2024 2:26 PM EDT [facility] # Baso 0.05 0.00 - 0.20 K/ L 05/15/2024 2:26 PM EDT [facility] Immature Granulocytes-Re lative 0.60 % 05/15/2024 2:26 PM EDT [facility] # IG 0.04(H) 0.00 - 0.00 K/uL 05/15/2024 2:26 PM EDT [facility] Blood 05/15/2024 10:0 0 AM EDT 05/15/2024 2:08 PM EDT Narrative [facility] - 05/15/2024 2:26 PM EDT When CBC w/ Auto Diff is ordered the lab will add a Manual Differential as a quality check at no additional charge if: Lymphocytes greater than seventy five percent with normal or increased WBC Monocytes greater than Fifteen percent Basophil greater than four percent Bands >10% or several immature myeloids are seen on scan Blast? Flag noted Atypical Lymph flag noted us Kat Lee MD LAB BLOOD ORDERABLES Final Res ult [facility] [address] [place], [place] [address] [phone] * Magnesium (05/15/2024 10:00 AM EDT) Magnesium 2.1 1.8 - 2.4 mg/dL 05/15/2024 3:09 PM EDT [facility] Blood 05/15/2024 10:0 0 AM EDT 05/15/2024 2:08 PM EDT us Kat Lee MD LAB BLOOD ORDERABLES Final Res ult [facility] [address] [phone] * (ABNORMAL) Comprehensive metabolic panel (05/15/2024 10:00 AM EDT) Sodium 131(L) 136 - 145 meq/L 05/15/2024 3:12 PM EDT [facility] Potassium 4.8 3.5 - 5.1 meq/L 05/15/2024 3:12 PM EDT [facility] Chloride 97(L) 98 - 107 meq/L 05/15/2024 3:12 PM EDT [facility] CO2 27 21 - 32 meq/L 05/15/2024 3:12 PM EDT [facility] Calcium 9.0 8.5 - 10.1 mg/dL 05/15/2024 3:12 PM EDT [facility] Glucose 477(HH) 70 - 99 mg/dL 05/15/2024 3:12 PM EDT [facility] BUN 83(H) 7 - 18 mg/dL 05/15/2024 3:12 PM EDT [facility] Creatinine 3.94(H) 0.70 - 1.20 mg/dL 05/15/2024 3:12 PM EDT [facility] BUN/Creatinine 21 05/15/2024 3:12 PM EDT [facility] Albumin 2.7(L) 3.4 - 5.0 g/dL 05/15/2024 3:12 PM EDT [facility] Alkaline Phosphatase 194(H) 46 - 116 U/L 05/15/2024 3:12 PM EDT [facility] ALT 21 12 - 78 U/L 05/15/2024 3:12 PM EDT [facility] AST 22 15 - 37 U/L 05/15/2024 3:12 PM EDT [facility] Total Bilirubin 0.3 0.2 - 1.0 mg/dL 05/15/2024 3:12 PM EDT [facility] Protein, Total 7.8 6.4 - 8.2 gm/dL 05/15/2024 3:12 PM EDT [facility] Anion Gap 12 11 - 22 05/15/2024 3:12 PM EDT [facility] A/G Ratio 0.5 05/15/2024 3:12 PM EDT [facility] Globulin 5.1 g/dL 05/15/2024 3:12 PM EDT [facility] Osmolality Calc 308.8 mOsm/kg 3:12 PM EDT [facility] eGFR (mL/min/1.73m2) 15(L) >=60 mL/min/1.7 3m2 05/15/2024 3:12 PM EDT [facility] Comment:ESTIMATED GFR IS NOT ACCURATE CREATININE CLEARANCE IN PREDICTING GLOMERULAR FILTRATION RATE. ESTIMATED GFR IS NOT APPLICABLE FOR DIALYSIS PATIENTS. Blood 05/15/2024 10:0 0 AM EDT 05/15/2024 2:08 PM EDT us Kat Lee MD LAB BLOOD ORDERABLES Final Res ult [facility] [address] [place], [place] [address], [facility] [phone] documented in this encounter Visit Diagnoses Diagnosis Chronic diastolic (congestive) heart failure (HCC) Hypomagnesemia Disorders of magnesium metabolism documented in this encounter Care Teams Recoater Relationship Specialty Start Date End Date Nikolai Tse, SPOUT TENDER [address] [place] [address] PCP - General Nurse Practitioner 02/17/24 documented as of this encounter
--- OUTSIDE RECORDS SUMMARY | 2024-10-09 09:14 | XMS_ITS | Encounter Summary ---
Author Organization [employer] ([place], [place], [place], [place]) Address [address] [place] [address] Care Team Providers Care Veterinary Manager Name Role Phone Dedrick Nikolai Dhillon APRN Primary Care Provider + Encounter Details Date Type Department Care Team (Late st Contact Info) Description 12/23/2018 Transcribed Document [facility] [place] [address] [place] [address] ProviderKevin MD [address] [place] [address] Social History Tobacco Use Types Packs/Day Years Used Date Smoking Tobacco: Never Assessed Sex and Gender Information Value Date Recorded Sex Assigned at Not on file Legal Sex Male 4:12 PM CDT Gender Identity Not on file Sexual Orientation Not on file documented as of this encounter Miscellaneous Notes * [employer]ner Conversion Note - Kevin Pickering MD - 12/23/2018 1:27 PM LOG PROCESSOR OPERATOR Language/Communication/Cognition Eval Entered On: 12/27/2018 13:40 EST Performed On: 12/27/2018 13:10 EST by VIVI VIRGEN, CAMPAIGN MANAGER General Information Visit Type, CAMPAIGN MANAGER : Initial evaluation Patient Orders : Speech Language Pathology Additional Tx -111 Start: 12/27/18 13:09:00 EST, For Aphasia, Continuous Order - Speech Language Pathology Evaluation and Treatment - Start: 12/23/18 13:27:00 EST, Routine, For Speech Language Cognitive Eval and Treat -111 MARIN MCCLELLAND MD Admission Date : Admission Date/Time: 12/23/18 13:03:00 Medical Chart Reviewed, CAMPAIGN MANAGER : Yes Personal Devices : Personal Devices No Devices Recorded Assistive Devices : Assistive Devices No Devices Recorded Active Diagnoses : No Qualifying Diagnoses Therapy Diagnosis, CAMPAIGN MANAGER : Anomic aphasia, 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 Weights display the last 5 within 7 days. Initial Wt: No Data Available Respiratory Assessment Comment : room air VIVI VIRGEN SLP - 12/27/2018 13:10 EST General Status Patient Received Status, CAMPAIGN MANAGER : Long sitting in bed Patient Left Status, CAMPAIGN MANAGER : Long sitting in bed VIVI VIRGEN SLP - 12/27/2018 13:10 EST Pain Assessment Pain Scaled Used : 0-10 Pain scale Pain Score Pre-Intervention : 0 (Comment: pt answers no to all pain questions [VIVI VIRGEN SLP - 12/27/2018 13:10 EST] ) VIVI VIRGEN SLP - 12/27/2018 13:10 EST Image 1 - Images currently included in the form version of this document have not been included in the text rendition version of the form. Oral Mechanism Dysarthria : Yes Dysarthria Comment : mild Oral Mechanism for Daily Living : Other: functional for reg/thin diet Facial Appearance: : Symmetrical Labial Appearance : Droop, right (Comment: very slight [VIVI VIRGEN SLP - 12/27/2018 13:10 EST] ) Dental/Orthodontia : Teeth, own Condition of Dentition : Dental caries, Teeth, broken, Other: teeth, missing VIVI VIRGEN SLP - 12/27/2018 13:10 EST Evaluation Methods Types of Evaluation, CAMPAIGN MANAGER : Formal and subtests Formal and Subtests Eval Types, All Ages : Western Aphasia Battery (WAB) WAB, Spontaneous Speech: Content : 7 WAB, Spontaneous Speech: Fluency : 9 WAB, Aud Vrbl Comprehension: Yes/No Qstn : 8 WAB, Aud Vrbl Comprehension: Seq Command : 8 WAB, Naming: Object Naming : 8 WAB, Total Score : 40 VIVI VIRGEN SLP - 12/27/2018 13:10 EST LCC Impressions Impressions, Speech/Lang/Cog : Dysarthria, Aphasia, Cognitive impairment Aphasia Type : Anomia Cognitive Impairment : Impaired memory [facility] Overall Impressions : Pt seen for full communication after L>R [...] will follow. Education with pt and brother VIVI VIRGEN, CAMELIA - 12/27/2018 13:10 EST Therapy Indication Assessment CAMPAIGN MANAGER Indicated : Yes CAMPAIGN MANAGER Problem List : Impaired, Memory, Impaired, Motor Speech, Impaired, Spoken Language Expression VIVI VIRGEN SLP - 12/27/2018 13:10 EST LTG Lang/Comm/Cog LTG CAMPAIGN MANAGER Retirement Goal 1 Instrument Operator Goal 2 Retirement Goal 3 Goals : Improved auditory/spoken language comprehension at the time of discharge Improved spoken language expression at the time of discharge Improved speech intelligibility at the time of discharge Status : Initial Initial Initial VIVI VIRGEN SLP - 12/27/2018 13:10 EST VIVI VIRGEN SLP - 12/27/2018 13:10 EST VIVI VIRGEN SLP - 12/27/2018 13:10 EST STG Lang_Comm_Cog Treatment Frequency, LCC : 5 times per wk Treatment Plan Est w/Pt/Caregvr, LCC : Yes VIVI VIRGEN SLP - 12/27/2018 13:10 EST Motor Speech STG Grid Goal #1 Activity : Improve intelligibility of speech Comp Strategies : Slow rate, Overarticulation, Increased loudness Status : Initial VIVI VIRGEN SLP - 12/27/2018 13:10 EST Auditory Comprehension Grid Goal #1 Goal #2 Activity : Answer yes/no questions, complex Follow directions, 3 step commands simple Status : Initial Initial VIVI VIRGEN SLP - 12/27/2018 13:10 EST VIVI VIRGEN SLP - 12/27/2018 13:10 EST Verbal Expression STG Grid Goal #1 Goal #2 Activity : Verbally complete phrases Generate items in a category Status : Initial Initial VIVI VIRGEN SLP - 12/27/2018 13:10 EST VIVI VIRGEN SLP - 12/27/2018 13:10 EST Reading Comprehension STG Grid Goal #1 Activity : Other: probe VIVI VIRGEN SLP - 12/27/2018 13:10 EST Written Exrpression STG Grid Goal #1 Activity : Other: VIVI Green SLP - 12/27/2018 13:10 EST Education Barriers To Learning : None evident Individuals Taught : Patient, Sibling VIVI VIRGEN SLP - 12/27/2018 13:10 EST CAMPAIGN MANAGER Education Assessment Grid 1 Cognition, Effects of Impairment : Needs further teaching Communication, Effects of Impairment : Needs further teaching Communication, Strategies For Partner : Needs further teaching Communication, Strategies For Patient : Needs further teaching VIVI VIRGEN SLP - 12/27/2018 13:10 EST CAMPAIGN MANAGER Education Assessment Grid 2 Speech Language Pathology Treatment Plan : Needs further teaching VIVI VIRGEN SLP - 12/27/2018 13:[address] [facility] CAMPAIGN MANAGER Charges Evaluation of Speech Production & Language : 1 VIVI VIRGEN SLP - 12/27/2018 13:10 EST Electronically signed by Kyra [facility] Conversion Vegetable Worker Cerner at 06/04/2022 9:46 AM CDT documented in this encounter Plan of Treatment Not on file documented as of this encounter Visit Diagnoses Not on filedocumented in this encounter Care Teams Veterinary Manager Relationship Specialty Start Date End Date Nikolai Tse, MAINTENANCE SHOP LABORER [address] [place] [address] PCP - General Nurse Practitioner 02/17/24 documented as of this encounter
--- OUTSIDE RECORDS SUMMARY | 2024-10-09 09:14 | XMS_ITS | Encounter Summary ---
Author Organization [employer] ([place], [place], [place], [place]) Address [address] [place] [address] Care Team Providers Care Pipe Racker Name Role Phone Nikolai Tse APRN Primary Care Provider + Encounter Details Date Type Department Care Team (Late st Contact Info) Description 12/23/2018 Transcribed Document [facility] [place] [address] [place] [address] ProviderKevin MD [address], [place] [address] Social History Tobacco Use Types Packs/Day Years Used Date Smoking Tobacco: Never Assessed Sex and Gender Information Value Date Recorded Sex Assigned at Not on file Legal Sex Male 4:12 PM CDT Gender Identity Not on file Sexual Orientation Not on file documented as of this encounter Miscellaneous Notes * Cerner Conversion Note - Kevin Pickering MD - 12/23/2018 9:00 PM MERCHANDISING EXECUTION MANAGER NIH Stroke Scale *Q Entered On: 12/26/2018 7:35 EST Performed On: 12/23/2018 21:00 EST by Jennifer Kat RN NIH Stroke Scale *Q NIH Assessment Interval : 24 hours post onset of symptoms ??20 minutes NIH Level of Consciousness (1A) : Alert NIH LOC Questions (1B) : Answers both questions correctly NIH LOC Commands (1C) : Performs both tasks correctly NIH Best Gaze (2) : Normal NIH Visual (3) : No visual loss NIH Facial Palsy (4) : Normal symmetrical movements NIH Motor Arm, Left (5A) : Some effort against gravity NIH Motor Arm, Right (5B) : No movement NIH Motor Leg, Left (6A) : No drift NIH Motor Leg, Right (6B) : Some effort against gravity NIH Limb Ataxia (7) : Absent NIH Sensory (8) : Normal NIH Best Language (9) : No aphasia NIH Dysarthria (10) : Normal Extinction and Inattention (11) : No abnormality NIH Scale Score : 8 Jennifer Kat RN - 12/26/2018 7:33 EST Electronically signed by [facility] Conversion Supervisor [employer]attoir Cerner at 06/04/2022 9:43 AM CDT documented in this encounter Plan of Treatment Not on file documented as of this encounter Visit Diagnoses Not on filedocumented in this encounter Care Teams Pipe Racker Relationship Specialty Start Date End Date Nikolai Tse, ENVIRONMENTAL FIELD TEAM MEMBER [address] [place] [address] PCP - General Nurse Practitioner 02/17/24 documented as of this encounter
--- OUTSIDE RECORDS SUMMARY | 2024-10-09 09:14 | XMS_ITS | Encounter Summary ---
Author Organization [employer] ([place], [place], [place], [place]) Address [address] [place] [address] Care Team Providers Care Flap Presser Name Role Phone Nikolai Tse Alejo ANGELA Primary Care Provider + Encounter Details Date Type Department Care Team (Late st Contact Info) Description 03/17/2018 Transcribed Document [facility] [place] [facility] [place] [address] ProviderKevin MD [address] [place] [address] Social History Tobacco Use Types Packs/Day Years Used Date Smoking Tobacco: Never Assessed Sex and Gender Information Value Date Recorded Sex Assigned at Not on file Legal Sex Male 4:12 PM CDT Gender Identity Not on file Sexual Orientation Not on file documented as of this encounter Miscellaneous Notes * Cerner Conversion Note - Kevin Pickering MD - 03/17/2018 8:00 AM DISEASE CONTROL INSPECTOR Patient: PRAVEEN FOX Age: 67 years Sex: Male : 1950 Associated Diagnoses: None Author: KRISTINE BEAN MD-CAR Basic Information PCP: Dinora Myers Card: Puja Wesley Chief Complaint Abnormal stress test/ dyspnea History of Present Illness 67 year old male with history of CAD s/p CABG x 4 (09/2012), HTN, HLD, carotid stenosis, and DMII. he was seen by Dr Wesley for progressively worsening dyspnea. He underwent a Lexsican MPI that was abnormal suggesting moderate lateral ischemia.He has been scheduled for [facility] with Dr. Kristine Bean. Review of Systems Constitutional: Negative except as documented in history of present illness. Eye: Negative except as documented in history of present illness. Ear/Nose/Mouth/Throat: Negative except as documented in history of present illness. Respiratory: Negative except as documented in history of present illness. Cardiovascular: Negative except as documented in history of present illness. Gastrointestinal: Negative except as documented in history of present illness. Genitourinary: Negative except as documented in history of present illness. Hematology/Lymphatics: Negative except as documented in history of present illness. Endocrine: Negative except as documented in history of present illness. Immunologic: Negative except as documented in history of present illness. Musculoskeletal: Negative except as documented in history of present illness. Integumentary: Negative except as documented in history of present illness. Neurologic: Negative except as documented in history of present illness. Psychiatric: Negative except as documented in history of present illness. Health Status Allergies (1) Active Reaction No Known Allergies None Documented Home Medications (6) Active amlodipine 10 mg, Oral, Daily aspirin aspirin 81 mg oral tablet 243 mg = 3 Tab, Oral, Daily atorvastatin 10 mg oral tablet 10 mg = 1 Tab, Oral, Daily losartan 50 mg oral tablet 50 mg = 1 Tab, Oral, Daily metformin 1000 mg oral tablet 1,000 mg = 1 Tab, Oral, BID Allergies: Allergic Reactions (Selected) No Known Allergies Current medications: (Selected) Documented Medications Documented amlodipine: 10 mg, Oral, Daily aspirin 81 mg oral tablet: 3 Tab, Oral, Daily aspirin: atorvastatin 10 mg oral tablet: 1 Tab, Oral, Daily, 90 Tab losartan 50 mg oral tablet: 1 Tab, Oral, Daily, 30 Tab metformin 1000 mg oral tablet: 1 Tab, Oral, BID, PATIENT TOKE SELF OFF METFORMIN 1 MONTH AGO, 60 Tab Problem list: All Problems Diabetes mellitus type II / SNOMED CT 13829101 / Confirmed Hypertension / SNOMED CT 90973938 / Confirmed Hyperlipidemia / SNOMED CT 20133728 / Confirmed CAD - Coronary artery disease / SNOMED CT 8965366171 / Confirmed HTN - Hypertension / SNOMED CT 9229039719 / Confirmed HLD - Hyperlipidemia / SNOMED CT 991904982 / Confirmed Type 2 diabetes mellitus / SNOMED CT 681901224 / Confirmed Histories No education data available. Social & Psychosocial Habits Alcohol 09/23/2012 Days Per Week of Alcohol Use 7 Number of Drinks per Day 4 Total Drinks Per Week 28 Tobacco 09/23/2012 Smoking Status Current every day smoker Years of Tobacco Use 50 Packs/Tins Daily 1 Past Medical History: Active CAD - Coronary artery disease (0924354568) HLD - Hyperlipidemia (587555577) HTN - Hypertension (2299030895) Type 2 diabetes mellitus (298343430) Family History: sister has pig valve Brother has CAD Procedure history: CABG x 4 in 2013 at 64 Years. Social History Social & Psychosocial Habits Alcohol 09/23/2012 Days Per Week of Alcohol Use 7 Number of Drinks per Day 4 Total Drinks Per Week 28 Tobacco 09/23/2012 Smoking Status Current every day smoker Years of Tobacco Use 50 Packs/Tins Daily 1 . Physical Examination VS/Measurements No qualifying data available General: Alert and oriented, No acute distress. Neck: No carotid bruit, No jugular venous distention. Respiratory: Lungs are clear to auscultation. Cardiovascular: Normal rate, Regular rhythm, No gallop, Good pulses equal in all extremities, Normal peripheral perfusion, No edema. Gastrointestinal: Soft, Normal BS. Musculoskeletal: Normal range of motion, Normal strength. Integumentary: Warm, Dry, [place]. Neurologic: Alert, Oriented. Psychiatric: Cooperative, Appropriate mood & affect. Review / Management Results review: No qualifying data available. Impression and Plan IMPRESSION: * Progressivelly worsening FC II dyspnea, rare CP. Lexsican MPI syggesting Moderate sized lateral defect. H/o CABG x 4 (09/2012) * HTN * HLD * carotid stenosis * DMII * Stage III CKD. PLAN; Left heart catheterization via femoral artery, risks and benefits discussed. patient wishes to proceed. Minimize NAIDS. Consider Jardiance if CrCl persistently > 45. Low cardiac risk for colonoscopy. documented in this encounter Plan of Treatment Not on file documented as of this encounter Visit Diagnoses Not on filedocumented in this encounter Care Teams Flap Presser Relationship Specialty Start Date End Date Nikolai Tse, GIFT SHOP CLERK [address] [place] [address] PCP - General Nurse Practitioner 02/17/24 documented as of this encounter
--- OUTSIDE RECORDS SUMMARY | 2024-10-09 09:14 | XMS_ITS | Encounter Summary ---
Author Organization [employer] ([place], [place], [place], [place]) Address [address] [place] [address] Care Team Providers Care Lpta Name Role Phone Nikolai Tse APRN Primary Care Provider + Encounter Details Date Type Department Care Team (Late st Contact Info) Description 12/23/2018 Transcribed Document [facility] [place] [facility] [place] [address] ProviderKevin MD [address] [place] [address] Social History Tobacco Use Types Packs/Day Years Used Date Smoking Tobacco: Never Assessed Sex and Gender Information Value Date Recorded Sex Assigned at Not on file Legal Sex Male 4:12 PM CDT Gender Identity Not on file Sexual Orientation Not on file documented as of this encounter Miscellaneous Notes * Cerner Conversion Note - Kevin ProviderMD - 12/23/2018 1:27 PM CIVIL LAWYER Consult Phone Call Documentation Entered On: 12/23/2018 13:55 EST Performed On: 12/23/2018 13:27 EST by JAMES GRANT Phone Call for Consults Consult, Additional Information : called Neurology on 12/23/2018 JAMES GRANT - 12/23/2018 13:55 EST documented in this encounter Plan of Treatment Not on file documented as of this encounter Visit Diagnoses Not on filedocumented in this encounter Care Teams Lpta Relationship Specialty Start Date End Date Nikolai Tse APRN [address] [place] [id number] PCP - General Nurse Practitioner 02/17/24 documented as of this encounter
--- OUTSIDE RECORDS SUMMARY | 2024-10-09 09:14 | XMS_ITS | Encounter Summary ---
Author Organization [employer] ([place], [place], [place], [place]) Address [address] [place] [address] Care Team Providers Care Tier Truck Driver Name Role Phone Nikolai Tse APRN Primary Care Provider + Encounter Details Date Type Department Care Team (Late st Contact Info) Description 12/23/2018 Transcribed Document [facility] [place] [address] [place] [address] ProviderKevin MD [address] [place] [address] Social History Tobacco Use Types Packs/Day Years Used Date Smoking Tobacco: Never Assessed Sex and Gender Information Value Date Recorded Sex Assigned at Not on file Legal Sex Male 4:12 PM CDT Gender Identity Not on file Sexual Orientation Not on file documented as of this encounter Miscellaneous Notes * Cerner Conversion Note - Kevin Pickering MD - 12/23/2018 1:27 PM BELT REPAIRER Evaluation, Physical Therapy Entered On: 12/24/2018 9:42 EST Performed On: 12/24/2018 9:39 EST by ARNOLD COOK, PT General Information, PT Visit Type, PT : Initial evaluation ARNOLD COOK, PT - 12/24/2018 9:39 EST Patient Orders : Order Date Order Ordering 12/23/2018 13:27 PT Evaluation and Treatment Ordered By: MARIN MCCLELLAND MD Active Diagnoses : No Qualifying Diagnoses ARNOLD COOK, PT - 12/24/2018 10:41 EST Therapy Diagnosis, PT : Decreased functional mobility; R LE weakness and neglect Onset of Problem, PT : 12/23/2018 EST ARNOLD COOK, PT - 12/24/2018 9:39 EST Admission Date : 12/23/2018 13:03 Personal Devices : Personal Devices No Devices Recorded Assistive Devices : Assistive Devices No Devices Recorded ARNOLD COOK, PT - 12/24/2018 10:41 EST General Information Comment, PT : 68 y/o M presentes with chief c/o R LE weakness; working diagnosis of ischemic stroke; also presents with severe L5/S1 bilateral stenosis. PMH includes CAD, CABG, HTN, DM II with peripheral nueropathy ARNOLD COOK, PT - 12/24/2018 9:39 EST General Status Patient Received Status : Supine in bed, Other: RN present in room; MD entered room as well Treatment Start Time : 12/24/2018 8:45 EST Patient Left Status : Up in chair, Chair alarm activated, RN/PCT informed, Other: present in room with patient; patient sitting up eating RN/PCT Informed Comment : FRANCISCO Spain consented to treatment Treatment End Time : 12/24/2018 9:39 EST Treatment Time : 54 Minute(s) ARNOLD COOK, PT - 12/24/2018 9:39 EST History and Environment Living Situation, Therapy : Home Patient Lives With : Spouse Persons Providing Information : Patient, Spouse Home [...] Steps : 2 Railing Outside : Yes ARNOLD COOK, PT - 12/24/2018 9:42 EST Prior Level of Function PT GRID Prior LOF Ambulation, Household : Independent Prior LOF Ambulation, Community : Independent Prior LOF Bed Mobility : Independent Prior LOF Toileting : Independent Prior LOF Transfer : Independent ARNOLD COOK, PT - 12/24/2018 9:42 EST Upper Extremity Right UE Active ROM : WFL Right UE Strength : WFL Left UE Active ROM : WFL Left UE Strength : WFL Right UE Strength : WFL Left UE Strength : WFL ARNOLD COOK, PT - 12/24/2018 9:42 EST Lower Extremity RLE Active ROM : WFL Right LE Strength : Impaired LLE Active ROM : WFL Left LE Strength : WFL ARNOLD COOK, PT - 12/24/2018 9:42 EST Right Lower Extremity MMT Hip Flexion (0-125) : 4/good Knee Flexion (0-140) : 3+/fair Knee Extension (0-0) : 3+/fair Ankle Dorsiflexion (0-20) : 3+/fair Ankle Plantarflexion (0-45) : 3/fair ARNOLD COOK, PT - 12/24/2018 9:42 EST Left Lower Extremity MMT Hip Flexion (0-125) : 4/good Knee Flexion (0-140) : 5/normal Knee Extension (0-0) : 5/normal Ankle Dorsiflexion (0-20) : 4/good Ankle Plantarflexion (0-45) : 4/good ARNLOD COOK, PT - 12/24/2018 9:42 EST Functional Mobility Mobility Grid Supine to Sit : Supervision/set-up Sit to Stand : Rehab Minimal assistance Stand to Sit : Rehab Minimal assistance ARNOLD COOK, PT - 12/24/2018 9:42 EST Gait Training/Assessment, PT Weight Bearing Status : Full Gait Assistance Level : Assist, minimal Walking Distance : 25' Ambulatory Devices : Gait belt, Walker, front wheel Gait Deviations : Yes ARNOLD COOK, PT - 12/24/2018 9:42 EST Neurological/Sensory Dermatomes or Pattern Comments : Patient reports even bilateral LE dermatomes ARNOLD COOK, PT - 12/24/2018 9:42 EST Cognition Assessment, PT Orientation : Oriented x 4 Attention Assessment : Present ARNOLD COOK, PT - 12/24/2018 9:42 EST Edu Topics Physical Therapy Education Grid Role of Physical Therapy : Verbalizes understanding ARNOLD COOK, PT - 12/24/2018 10:41 EST Teaching/Learning Assessment Barriers To Learning : None evident ARNOLD COOK, PT - 12/24/2018 9:42 EST Indication Assesessment, PT Physical Therapy Indicated : Yes Interdisciplinary Consultation(s) Needed : No PT Problem List : Impaired, activities daily living, Impaired, endurance tolerance, Impaired, gait, Impaired, standing balance, Impaired, strength Potential Barriers To Therapy : None evident Rehabilitation Potential : Good JOYCEARNOLD, PT - 12/24/2018 9:42 EST Plan of Care, PT PT Tx Plan/Goals Established w Patient : Yes PT Frequency Rehab : Daily PT Duration Rehab : Fourteen days PT Treatments Planned : Balance training, Gait training, Safety education, Stair training, Therapeutic exercises, Transfer training Plan of Care Comment, PT : Daily PT while present in hospital. ARNOLD COOK, PT - 12/24/2018 9:42 EST Short Term Goals Mobility/Bed Mobility STG PT Grid Goal #1 Goal #2 Activity : Supine to sit Sit to stand Assist : Independent, modified Independent, modified Date to Meet : 12/31/2018 EST 12/31/2018 EST Goal Status : Initial goal Initial goal ARNOLD COOK, PT - 12/24/2018 9:42 EST ARNOLD COOK, PT - 12/24/2018 9:42 EST Transfer STG Grid Goal #1 Destination : Chair, with arms Type : Stand Pivot Sit Assist : Independent, modified Equipment : Walker, front wheel Date to Meet : 12/31/2018 EST Goal Status : Intial Goal ARNOLD COOK, PT - 12/24/2018 9:42 EST Ambulation STG Grid Goal #1 Device : Walker, front wheel Distance : 50' Cues : Minimum verbal cues Assist : Assist, minimal Date to Meet : 12/31/2018 EST Goal Status : Intial Goal ARNOLD COOK, PT - 12/24/2018 9:42 EST Engineering Officer Goals Ambulation LTG Grid Goal #1 Device : Walker, front wheel Distance : 200' Cues : No cues Assist : Independent, modified Date to Meet : 01/07/2019 EST Goal Status : Intial Goal ARNOLD COOK, PT - 12/24/2018 9:42 EST Treatment Note Subjective Comment : Agreeable; concerned he won't be able to walk Patient's Response to Treatment : Patient content for having ambulated; noted fatigued Additional Objective Information : Min A for sit to stand and ambulation; supervision during bed mobility. Assisted patient to bathroom; patient had an accident and therapist assisted in cleaning patient and changing underwear. Assessment : Required assistance of one for ambulation and sit to stand. Required heavy cues to check where his R LE is during ambulation; presents with some neglect of R LE. Strength is impaired in R LE. Patient likely to progress well and will be safe to go home with and with home health follow up; recommend patient have a Walker for safety. Plan for Treatment : Daily inpatient PT; D/C home with home health when appropriate. ARNOLD COOK, PT - 12/24/2018 9:42 EST Pain Assessment Pain Scaled Used : 0-10 Pain scale Pain Score Pre-Intervention : 0 Pain Score During-Intervention : 0 Pain Score Post-Intervention. : 0 ARNOLD COOK, PT - 12/24/2018 9:42 EST Image 1 - Images currently included in the form version of this document have not been included in the text rendition version of the form. Anticipated Discharge Needs, OT/PT Anticipated Discharge to : Home, with home health Anticipated Home Equipment : Shower Equipment, Walker Shower Equipment : Shower Chair, with back Walker : Walker, four wheel, Walker, front wheel ARNOLD COOK, PT - 12/24/2018 9:42 EST [place] PT Charges PT Ther Activities Ea 15 Min : 1 PT Eval High Complexity : 1 ARNOLD COOK, PT - 12/24/2018 9:42 EST Electronically signed by [facility] Conversion Table Games Dual Rate Supervisor Cerner at 06/04/2022 9:50 AM CDT documented in this encounter Plan of Treatment Not on file documented as of this encounter Visit Diagnoses Not on filedocumented in this encounter Care Teams Tier Truck Driver Relationship Specialty Start Date End Date Nikolai Tse, COVERING AND LINING SUPERVISOR [address] [place] [address] PCP - General Nurse Practitioner 02/17/24 documented as of this encounter
--- OUTSIDE RECORDS SUMMARY | 2024-10-09 09:14 | XMS_ITS | Encounter Summary ---
Author Organization [employer] ([place], [place], [place], [place]) Address [address] [place] [address] Care Team Providers Care Rock Wool Insulator Name Role Phone Nikolai Tse TREATMENT COUNSELOR Primary Care Provider + Encounter Details Date Type Department Care Team (Late st Contact Info) Description 12/23/2018 Transcribed Document [facility] [place] [facility] [place] [address] ProviderKevin MD [address] [place] [address] Social History Tobacco Use Types Packs/Day Years Used Date Smoking Tobacco: Never Assessed Sex and Gender Information Value Date Recorded Sex Assigned at Not on file Legal Sex Male 4:12 PM CDT Gender Identity Not on file Sexual Orientation Not on file documented as of this encounter Miscellaneous Notes * Cerner Conversion Note - Kevin ProviderMD - 12/23/2018 2:45 PM CASHIER HOST/HOSTESS Attempt to Treat Entered On: 12/23/2018 14:46 EST Performed On: 12/23/2018 14:45 EST by KENYATTA EID Attempt to Treat Unable to Treat Due To : Patient Unavailable Inability to Treat Comment : With medical staff KENYATTA EID - 12/23/2018 14:46 EST documented in this encounter Plan of Treatment Not on file documented as of this encounter Visit Diagnoses Not on filedocumented in this encounter Care Teams Rock Wool Insulator Relationship Specialty Start Date End Date Nikolai Tse APRN [address] [place] [id number] PCP - General Nurse Practitioner 02/17/24 documented as of this encounter
--- OUTSIDE RECORDS SUMMARY | 2024-10-09 09:14 | XMS_ITS | Encounter Summary ---
Author Organization [employer] ([place], [place], [place], [place]) Address [address] [place] [address] Care Team Providers Care Engineering Teacher Name Role Phone Linuskarime Mayakeerthianthony Dhillon APRN Primary Care Provider + Encounter Details Date Type Department Care Team (Late st Contact Info) Description 12/23/2018 Transcribed Document [facility] [place] [address] ProviderKevin MD [address] [place] [address] Social History Tobacco Use Types Packs/Day Years Used Date Smoking Tobacco: Never Assessed Sex and Gender Information Value Date Recorded Sex Assigned at Not on file Legal Sex Male 4:12 PM CDT Gender Identity Not on file Sexual Orientation Not on file documented as of this encounter Miscellaneous Notes * Cerner Conversion Note - Kevin Pickering MD - 12/23/2018 1:27 PM HUMAN RESOURCES COORDINATOR Evaluation, Occupational Therapy Entered On: 12/26/2018 14:25 EST Performed On: 12/26/2018 9:44 EST by STAN GRAHAM OTR/Chel General Information, OT Visit Type, OT : Initial evaluation Patient Orders : Order Date Order Ordering 12/23/2018 13:27 OT Evaluation and Treatment Ordered By: MARIN MCCLELLAND MD Active Diagnoses : No Qualifying Diagnoses Therapy Diagnosis, OT : decreased independence secondary to R weakness Onset of Problem, OT : 12/23/2018 EST Admission Date : 12/23/2018 13:03 Co-treated by, OT : assistant professor of physics (BLOOD BANK LABORATORY PROFESSIONAL) Personal Devices : Personal Devices No Devices Recorded Assistive Devices : Assistive Devices No Devices Recorded General Information Comment, OT : Acute CVA R weakness STAN GRAHAM OTR/L - 12/26/2018 14:13 EST General Status Patient Received Status : Supine in bed Treatment Start Time : 12/26/2018 9:21 EST Patient Left Status : Up in chair, Chair alarm activated, RN/PCT informed, Family/Visitors at bedside, All needs met and within reach, Other: lift under RN/PCT Informed Comment : FRANCISCO Spain requested pt to chair. RN states pt has been given Ativan for MRI. Treatment End Time : 12/26/2018 9:44 EST Treatment Time : 23 Minute(s) STAN GRAHAM OTR/Chel - 12/26/2018 14:13 EST History and Environment, OT Living Situation, Therapy : Home Patient Lives With : Spouse Persons Providing Information : Patient, Spouse Home Setup : Basement Bedroom Location : Main level Bathroom #1 Location : Main level Bathroom #1 Features : Tub Stairs : Yes Stair Location(s) : Inside, Outside Stairs Inside Comment : Patient does not have to climb steps inside home; does not need to go into basement Outside Stairs, Number of Steps : 2 Railing Outside : Yes STAN GRAHAM OTR/L - 12/26/2018 14:13 EST Prior LOF Bathing, OT : Independent Prior LOF Bed Mobility : Independent Prior LOF Upper Body Dressing, OT : Independent Prior LOF Lower Body Dressing, OT : Assist needed Prior LOF Toileting : Independent Prior LOF Transfer : Independent Prior LOF Grooming, OT : Independent Prior LOF for IADLs, OT : Assist needed STAN GRAHAM OTR/Chel - 12/26/2018 14:13 EST Upper Extremity Upper Extremity Dominance : Right Right UE Active ROM : Impaired Right UE Active Assist ROM : Impaired Right UE Passive ROM : Impaired Right UE Strength : Impaired Left UE Active ROM : WFL Left UE Strength : WFL STAN GRAHAM OTR/Chel - 12/26/2018 14:13 EST Self Care/Home Management, OT Self Feeding Assist Level, OT : Assist, maximal Grooming Assist Level, OT : Assist, maximal Bathing Assist Level, OT : Assist, maximal Upper Body Dressing Assist Level, OT : Assist, maximal Lower Body Dressing Assist Level, OT : Assist, maximal Toileting Assist Level : Assist, maximal Toilet Transfer Assist Level : Assist, maximal Toilet Transfer Device : Belt, gait, Commode, bedside STAN GRAHAM OTR/Chel 12/26/2018 14:13 EST Functional Mobility Mobility Grid Bed Roll Left : Rehab Maximal assistance Bed Roll Right : Rehab Maximal assistance Bed Scooting : Rehab Maximal assistance Supine to Sit : Rehab Maximal assistance (Comment: 2 [STAN GRAHAM OTR/Chel - 12/26/2018 14:13 EST] ) Sit to Stand : Rehab Maximal assistance Bed to Chair : Rehab Maximal assistance Chair to Bed : Rehab Maximal assistance Stand to Sit : Rehab Maximal assistance Sit to Supine : Rehab Maximal assistance STAN GRAHAM OTR/Chel 12/26/2018 14:13 EST Cognition Assessment, OT Orientation : Unable to assess Cognition Assessment, OT : Impaired Comprehension Assessment, OT : Impaired Safety/Judgment Assessment, OT : Impaired Follows Basic Command Assessment, OT : Impaired Attention Assessment : Impaired STAN GRAHAM OTR/Chel 12/26/2018 14:13 EST Indication Assessment, OT Occupational Therapy Indicated : Yes Problem List, OT : Impaired, bed mobility, Impaired, activities daily living, Impaired, coordination/proprioception, Impaired, endurance tolerance, Impaired functional mobility, Impaired, joint mobility, Impaired, muscle tone, Impaired, perception, Impaired, sitting balance, Impaired, standing balance, Impaired, strength, Impaired, transfers, Impaired, visual perception Potential Barriers, OT : Acuity of illness, Pain, Patient compliance Rehabilitation Potential, OT : Guarded STAN GRAHAM OTR/Chel 12/26/2018 14:13 EST Plan of Care, OT OT Tx Plan/Goals Established w Patient : Yes OT Frequency Rehab : Five days per week OT Duration Rehab : Fourteen days OT Treatments Planned : Activities of daily living, Balance training, Functional mobility training, Safety education, Therapeutic activities, Therapeutic exercises STAN GRAHAM OTR/Chel 12/26/2018 14:13 EST Fdc Goals, OT Self Feeding LTG Grid Goal #1 Activity : Self feeding Assist : Supervision or set-up Date to Meet : 01/09/2019 EST Goal Status : Initial STAN GRAHAM OTR/Chel - 12/26/2018 14:13 EST Grooming LTG Grid Goal #1 Activity : Grooming Assist : Supervision or set up Date to Meet : 01/09/2019 EST Goal Status : Initial goal STAN GRAHAM OTR/Chel - 12/26/2018 14:13 EST Bathing LTG Grid Goal #1 Activity : Bathing, Upper Extremity Assist : Assist, minimal Date to Meet : 01/09/2019 EST Goal Status : Initial goal STAN GRAHAM OTR/Chel - 12/26/2018 14:13 EST Toilet Transfer LTG Grid Goal #1 Activity : Toilet Transfer, Stand Pivot Sit Assist : Assist, moderate Date to Meet : 01/09/2019 EST Goal Status : Initial goal STAN GRAHAM OTR/Chel - 12/26/2018 14:13 EST Bed Mobility/ Bed Transfer LTG Grid Goal #1 Activity : Bed Mobility/Bed Transfer Assist : Assist, moderate Date to Meet : 01/09/2019 EST Goal Status : Initial goal STAN GRAHAM OTR/Chel - 12/26/2018 14:13 EST Other LTG Grid Goal #1 Goal #2 Goal : pt to sit EOB 10 minutes unsupported while participating in ADL or other functinal task pt to demonstrate integration of BUE during ADL task with cuein g Date to Meet : 01/09/2019 EST 01/09/2019 EST Goal Status : Initial goal Initial goal STAN GRAHAM OTR/Chel - 12/26/2018 14:13 EST STAN GRAHAM OTR/Chel - 12/26/2018 14:13 EST Treatment Note Subjective Comment : agreeable, agitates easily Patient's Response to Treatment : pt tolerated fairly Additional Objective Information : pt to EOB max assist. Sat with min assist . Pt impulsive to jump up out of bed. Pt Stood from EOB max assist. Pivot transfer to chair on L LE max assist. Lift pad under pt and alarm set. Family present. Educated family on promoting self feeding. AAROm x8 of R UE. Pt has functional movement when cued to do so. Redirection required. 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 Assessment : pt agitated very easily. Pt pivot transfer to chair. assist. Plan for Treatment : see poc STAN GRAHAM OTR/Chel - 12/26/2018 14:13 EST Pain Assessment Pain Scaled Used : 0-10 Pain scale Pain Score During-Intervention : not rated SANTOS JOAN PIERCER/L - 12/26/2018 14:13 EST Image 1 - Images currently included in the form version of this document have not been included in the text rendition version of the form. Anticipated Discharge Needs, OT/PT Anticipated Discharge to : Unit, rehabilitation STAN GRAHAM OTR/Chel - 12/26/2018 14:13 EST [place] OT Charges OT Ther Activities Ea 15 Min : 1 OT Eval High Complexity : 1 STAN GRAHAM OTR/Chel - 12/26/2018 14:13 EST Electronically signed by [facility] Conversion Leaflet Or Newspaper Deliverer Cerner at 06/04/2022 9:40 AM CDT documented in this encounter Plan of Treatment Not on file documented as of this encounter Visit Diagnoses Not on filedocumented in this encounter Care Teams Engineering Teacher Relationship Specialty Start Date End Date Nikolai Tse, DATA WAREHOUSING SPECIALIST [address] [place] [address] PCP - General Nurse Practitioner 02/17/24 documented as of this encounter
--- OUTSIDE RECORDS SUMMARY | 2024-10-09 09:14 | XMS_ITS | Clinical Summary ---
[facility] Organization [facility] Address [address] [place] [address] Care Team Providers Care Fingerprint Expert Name Role Phone Nikolai Tse APRN Primary Care Provi lui Allergies No known active allergies Medications famotidine (PEPCID) 20 MG tablet Take 1 tablet by mouth At Night As Needed. 04/09/19 Active aspirin 81 MG EC tablet Take 1 tablet by mouth Daily. Active ferrous sulfate 325 (65 FE) MG tablet Take 1 tablet by mouth Daily With Breakfast. Active montelukast (SINGULAIR) 10 MG tablet Take 1 tablet by mouth Daily. Active finasteride (PROSCAR) 5 MG tablet Take 1 tablet by mouth Daily. 02/24/19 25 026 Active hydrOXYzine (ATARAX) 25 MG tablet 03/09/19 Active tamsulosin (FLOMAX) 0.4 MG capsule 24 hr capsule Take 1 capsule by mouth Daily. Active gabapentin (NEURONTIN) 100 MG capsule Take 1 capsule by mouth 3 (Three) Times a Day. 02/23/19 25 026 Active sennosides-docus ate (senna-docusate sodium) 8.6-50 MG per tablet Take 1 tablet by mouth Daily. Active insulin glargine (LANTUS, SEMGLEE) 100 UNIT/ML injection Inject under the skin into the appropriate area as directed Daily. Active Insulin Lispro 100 UNIT/ML solution cartridge Inject under the skin into the appropriate area as directed. Active metoprolol tartrate (LOPRESSOR) 25 MG tabletIndication s:Essential hypertension,Cor onary artery disease of [place] heart with stable angina pectoris, unspecified vessel or lesion type Take 1.5 tablets by mouth Every 12 (Twelve) Hours. 270 tablet 03/16/19 25 Active atorvastatin (LIPITOR) 10 MG tablet Take 1 tablet by mouth Daily. 07/05/19 25 Active tiZANidine (ZANAFLEX) 4 MG tablet Take 1 tablet by mouth Daily. 07/05/19 25 Active NovoLOG FlexPen 100 UNIT/ML solution pen-injector sc pen INJECT 8 TO 10 UNITS SUBCUTANEOUSLY THREE TIMES DAILY WITH MEALS 06/28/19 25 Active bumetanide (BUMEX) 1 MG tabletIndication s:Chronic diastolic congestive heart failure TAKE 1 TABLET BY MOUTH EVERY DAY 90 tablet 07/19/19 25 Active amLODIPine (NORVASC) 5 MG tabletIndication s:Essential hypertension TAKE 1 TABLET BY MOUTH TWICE A DAY 180 tablet 07/19/19 25 Active Active Problems Problem Noted Date Diagnosed Date Hyperkalemia 03/20/2024 Assessment & Plan (03/20/2024 12:24 PM EST): Received his discharge summary from [facility] and was able to review this today. Noted that his potassium had been 5.7 and he had held his spironolactone on 03/09/2024. Last lab shows potassium down to 5.2. Reviewed his discharge instructions and he is spironolactone was restarted. Noted he is currently on his Bumex and spironolactone. Orders are given to recheck labs and patient's plans to get that done at PCP office follow-up that is scheduled. Will follow lab results Chronic diastolic congestive heart failure 03/16 Assessment & Plan (07/06/2024 4:06 PM EDT): White is 350 pounds in February 2024. Hospitalized for acute on chronic heart failure and chronic kidney disease. Weight is down to 263 pounds today. His weight was 265 pounds in May. So weight is stable. He has coexisting stage IV chronic kidney disease and follows with geothermal plant manager Dr. Malathi Acharya. Last visit with geothermal plant manager was June 29, 2024 telehealth visit. Last labs 06/22/2024. Noted creatinine improved from 3.94 down to 3.27. Slight improvement and stable. BNP 05/15/2024 2576. BNP down to 3485. Slight improvement and stable. He is on medical management of Bumex 1 mg daily. Plan: Continue medical management of Bumex 1 mg daily Recheck labs in 3 months. Check labs at least 2 weeks prior to seeing his geothermal plant manager. Order sent to home health for lab draw. Assessment & Plan (05/25/2024 6:37 PM EDT): He will about 350 pounds February 17, 2024. Was hospitalized for acute on chronic heart failure and chronic kidney disease His weight was down to 282 pounds March 16, 2024 His weight today is 265 pounds. He has coexisting stage IV chronic kidney disease and is following with neurologist Dr. Byers His last labs were 05/15/2024: Creatinine 3.94 and this has increased from his March labs when he was creatinine was 2.9. Actually suspect he is dry BNP 05/15/2024 has increased 2576. BNP on March 30 was 253 but greatly improved from the 18,000 it was during his hospital stay He has been on medical management of Bumex 1 mg daily and spironolactone 25 mg We have made the decision to stop the spironolactone with all the weight loss Plan: Continue Bumex 1 mg daily Stop the spironolactone 25 mg daily Recheck labs in 1 month prior to seeing his geothermal plant manager. Order sent to home health for labs Watch his weight and edema. If edema increasing or weight gain greater than 5 pounds in a week should be reported verbalized understanding Assessment & Plan (03/16/2024 5:28 PM EST): reports that he was 350 pounds and he is admission to [facility] February 17, 2024. Reports hospital stay February 16 through February 24, 2024 for acute on chronic diastolic heart failure and acute kidney injury and chronic kidney disease. They report that he also had a rehab stay at [facility]. He reports he was discharged home last Wednesday. Patient was able to be weighed in the office today he weighs 282 pounds Patient has home health and nurses are weighing him once a week at home reports weight is stable. Discussed with patient and that his coexisting kidney disease that appears to be stage IV is contributing to this problem and he needs follow-up with nephrology to determine if he will need dialysis. reports that she will make an appointment with geothermal plant manager for hospital follow-up visit. reports good urinary output Current medication: -Bumex 1 mg daily -Spironolactone 25 mg twice daily Plan: Continue current medication request refills Plan lab work: CBC, CMP and BNP. reports that she will have this drawn at PCP office next week with his office visit there Encouraged to call for greater than 3 pound weight gain in 1 day or 5 pounds in 1 week or to ER for increased edema, weight gain shortness of air or any symptom concerning for congestive heart failure and chronic kidney disease. 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 She reports that she will call and make this appointment with the geothermal plant manager that he seen at [facility]. She has the number. We will plan to go on and check his labs. Lab orders given for CBC CMP and BNP reports she will get those done with his PCP office visit next week We discussed if decreased urination or no urinary output to the emergency room. She verbalized understanding Chronic systolic congestive heart failure 2022 Assessment & Plan (05/18/2022 2:19 PM EDT): Euvolemic. We will update echo next visit. Chronic cellulitis 05/18/2022 Stroke 02/19/2022 Overview (05/18/2022): s/p 2x left carotid stents Carotid stenosis Overview (05/18/2022): S/P STENT RIGHT Assessment & Plan (05/18/2022 2:19 PM EDT): Followed by cardiac vascular surgery CAD (coronary artery disease) Assessment & Plan (07/06/2024 4:02 PM EDT): Known history of CAD. He is status post CABG in 2013. Last stents were in 2019. 02/23/2024 Tatiana nuclear stress test showing probably normal nuclear Tatiana with no evidence of ischemia His symptoms are stable. He continues to be on medical management for CAD including and we plan to continue: -Aspirin -Beta-ann -Statin and check fasting lipids with next blood draw Assessment & Plan (05/25/2024 6:33 PM EDT): Known history of CAD. He is status post CABG in 2013. Last stents were in 2019. 02/23/2024 Tatiana nuclear stress test showing probably normal nuclear Tatiana with no evidence of ischemia His symptoms are stable. He continues to be on medical management for CAD including and we plan to continue: -Aspirin -Beta-ann -Statin Assessment & Plan (03/16/2024 5:53 PM EST): Known history of coronary artery disease CABG 2012. I believe he is also status post stenting in 2019. During his hospitalization he had Lexiscan nuclear stress test and this is reviewed showing probably normal Tatiana and no evidence of ischemia. He denies any chest pain. Plan: Continue medical management He is on aspirin, beta-ann and statin. Assessment & Plan (05/18/2022 2:18 PM EDT): Stable. Medical therapy. Hypercholesterolemia Essential hypertension Assessment & Plan (07/06/2024 4:07 PM EDT): Blood pressure today 122/61. Patient and report that blood pressure has been stable. He is currently on blood pressure medication regimen of the following: -Metoprolol tartrate 25 mg takes 1-1/2 pill twice a day. Total dose 37.5 mg twice a day -Amlodipine 5 mg 2 pills/day total dose 10 mg daily Plan: Continue to check home blood pressure and heart rate Continue current blood pressure medication regimen Assessment & Plan (05/25/2024 6:40 PM EDT): Blood pressure today 129/54. Blood pressure does appear to be well controlled. He is taking metoprolol 25 mg 1-1/2 pills twice a day. reports that he is amlodipine 5 mg 2 pills a day had been restarted. And she request a refill. Plan: Continue metoprolol Continue amlodipine Watch blood pressure closely and if any low blood pressure should lower or discontinue the amlodipine Assessment & Plan (03/16/2024 5:26 PM EST): Blood pressure in the office today 110/62. This is well-controlled. Patient reports that he has been taking metoprolol 25 mg 1-1/2 pills twice a day. Total of 37.5 mg twice daily since discharge home. He is off amlodipine Patient's reports they check blood pressure at home and it has been stable. Plan: Continue metoprolol as above and discussed if blood pressure is low then we may need to consider lowering this medication. verbalized understanding. Encounters Date Type Department Care Team Description 09/26/2024 5:00 AM EDT Outside Facility Service [facility] [address] [phone] Kat Lee MD 09/25/2024 Telephone [facility] [address] [phone] Chandrika Hoover APRN K. FIVE POINTS - PATIENT CALL BACK 07/18/2024 Refill [facility] [address] [id number] Chandrika Hoover APRN Med Refill from Last 3 Months Immunizations Immunization Administration Dates Next Due COVID-19 (MODERNA) 1st,2nd,3 rd Dose Monovalent 11/28/2020,05/16/2020,04/18/2020 COVID-19 (MODERNA) BIVALENT 12+YRS 11/04/2021 Fluad Quad 65+ 10/31/2022,10/25/2019 Fluzone High-Dose 65+YRS 10/20/2018 Fluzone High-Dose 65+yrs 11/10/2020 Tdap 02/19/2022 Family History Medical History Relation Name Comments Heart disease Brother 1 Cancer Sister 2 Relation Name Status Comments Brother 1 Alive Brother 2 Alive Brother 3 Alive Father Alive Mother Sister 1 Alive Sister 2 Social History Tobacco Use Types Packs/Day Years Used Date Smoking Tobacco: Former Cigarettes Q uit: 2013 Passive Smoke Exposure: Past Smokeless Tobacco: Never Tobacco Cessation:Counseling Given: Not Answered Alcohol Use Standard Drinks/Week Comments Defer 0 [...] file Not on file Not on file Last Filed Vital Signs Vital Sign Reading Time Taken Comments Blood Pressure 122/61 07/06/2024 3:53 PM EDT Pulse 62 07/06/2024 3:53 PM EDT Temperature 36.4 C (97.6 F) 07/06/2024 3:53 PM EDT Respiratory Rate - - Oxygen Saturation 93% 07/06/2024 3:53 PM EDT Inhaled Oxygen Concentration - - Weight 119 kg (263 lb) 07/06/2024 3:53 PM EDT Height 172.7 cm (5' 8 ) 07/06/2024 3:53 PM EDT Body Mass Index 39.99 07/06/2024 3:53 PM EDT Plan of Treatment Health Maintenance Due Date Last Done Comments DIABETIC EYE EXAM 1960 DIABETIC FOOT EXAM 1960 URINE MICROALBUMIN-CREATININ E RATIO (uACR) 1960 Pneumococcal Vaccine 50+ (1 of 2 - PCV) 09/30/1967 ZOSTER VACCINE (1 of 2) 1998 ANNUAL WELLNESS VISIT 05/13/2022 HEPATITIS C SCREENING 05/13/2022 RSV Vaccine - Adults (1 - 1- dose 75+ series) 09/30/2023 COVID-19 Vaccine (5 - 2023-2 5 season) 2023 11/04/2021, 11/28/2020, 05/16/2020, Additional history exists INFLUENZA VACCINE 11/15/2024 10/31/2022, , 10/25/2019, Additional history exists HEMOGLOBIN A1C 01/06/2025 07/06/2024, 05/0 09/2024, 06/22/2024, Additional history exists LIPID PANEL 02/16/2025 02/17/2024, 02/17/2024 TDAP/TD VACCINES (2 - Td or Tdap) 02/20/2032 023 COLONOSCOPY Discontinued 05/04/2018 COLORECTAL CANCER SCREENING Discontinued COLOGUARD Discontinued COLON CANCER SCREENING 5 YEA R SIGMOIDOSCOPY Discontinued CT COLONOGRAPHY Discontinued FECAL OCCULT BLOOD TEST Discontinued FIT Testing (1 year) Discontinued Procedures Procedure Name Priority Date/Time Associated Diagnosis Comments SCANNED - IMAGING 09/25/2024 SCANNED EKG 09/23/2024 SCANNED - IMAGING 09/23/2024 SCANNED NUCLEAR MED 09/23/2024 HEMOGLOBIN A1C Routine 07/06/2024 DM (diabetes mellitus), type 2 with complications from Last 3 Months or Most Recently Relevant to Health Maintenance Results * IMAGING SCANNED (09/25/2024) Only the most recent of2 resultswithin the time period is included. Anatomical Region Laterality Modality Radiographic Thao ging us Chandrika Hoover APRN IM DIAGNOSTIC IMAGING ORDERABLES Final Result * NUCLEAR MED SCANNED (09/23/2024) Anatomical Region Laterality Modality Nuclear Medicine us Chandrika Hoover APRN IMG NM ORDERABLES Final Result * ECG Scan (09/23/2024) us Chandrika Hoover APRN ECG ORDERABLES Final R esult * Hemoglobin A1c (07/06/2024) Blood us Chandrika Hoover APRN LAB BLOOD ORDERABLES Fi nal Result [facility] from Last 3 Months or Most Recently Relevant to Health Maintenance Insurance MEDICARE A & B [facility] Advance Directives Documents on File Type Date Recorded Patient Water Sponger Expl anation LIVING WILL - SCAN 05/28/2023 12:25 PM Care Teams Fingerprint Expert Relationship Specialty Start Date End Date Nikolai Tse APRN [address] [id number] PCP - General Nurse Practitioner 03/16/24
--- OUTSIDE RECORDS SUMMARY | 2024-10-09 09:14 | XMS_ITS | Encounter Summary ---
Author Organization [facility] [employer] ([place], [place], [place], [place]) Address [address] [address] Care Team Providers Care Station Operator Name Role Phone Nikolai Tse APRN Primary Care Provider + Encounter Details Date Type Department Care Team (Late st Contact Info) Description 12/23/2018 Transcribed Document [facility] [place] Medicine [facility] [place] [address] ProviderKevin MD [address] [place] [address] Social History Tobacco Use Types Packs/Day Years Used Date Smoking Tobacco: Never Assessed Sex and Gender Information Value Date Recorded Sex Assigned at Not on file Legal Sex Male 4:12 PM CDT Gender Identity Not on file Sexual Orientation Not on file documented as of this encounter Miscellaneous Notes * Cerner Conversion Note - Kevin Pickering MD - 12/23/2018 1:01 PM FIRE TECHNOLOGY INSTRUCTOR Admission History, Adult Entered On: 12/23/2018 17:18 EST Performed On: 12/23/2018 13:30 EST by Aida Carlos RN Advance Directive Patient has Advance Directive *Q : Yes, Advance Directive on file Advance Directive Type : Living will Copy Advance Directive Verified/on Chart : Yes Aida Carlos RN - 12/23/2018 17:13 EST Anesthesia/Transfusion History Family History of Anesthesia Reaction : No prior transfusion(s) Transfusion History : Prior anesthesia without reaction Family History of Anesthesia Reaction : None Aida Carlos RN - 12/23/2018 17:13 EST Functional Assessment Living Situation : Home Patient Lives With : Spouse Current Home Treatments : None Aida Carlos RN - 12/23/2018 17:13 EST General Info Want Family/Rep/Phys Notified of Admit : No Emergency Contact #1 : Alma Delia Pedroza Emergency Contact #1 Emergency Contact #1 Relationship : Emergency Contact #2 : Fuentes Pedroza Emergency Contact #2 Emergency Contact #2 Relationship : bother Primary Language : Icelandic Communication Barrier : None Aida Carlos RN - 12/23/2018 17:13 EST Fall Risk Scales ABCs Fall Injury Risk Identification : None Injury Moderate to High Risk Interventions : Bed alarm on, Chair alarm on, High Risk for Fall Injury sign in place per policy RAYGOZA Hx Falls Immediate/Within 3 Months : No [place]za Secondary Diagnosis : Yes RAYGOZA Use of Ambulatory Aid : Bed rest/Nurse assist RAYGOZA IV Therapy or IV Access : Yes [place] Gait/Transferring : Normal, bedrest, immobile Raygoza Mental Status : Oriented to own ability Ray[place] Fall Risk Score : 35 RAYGOZA Fall Scale Risk Level : 25-45 Medium Risk [place] Fall Interventions : Adequate lighting, Bed in low position, Call device within reach, Fall prevention handout/education per facility policy, Frequent orientation to call device, Frequent orientation to surroundings, Hourly comfort/safety rounds, Non-slip footwear, Personal items within reach, Reinforced to call for assistance before getting out of bed, Room free of clutter/spills, Upper side-rails up, Wheels locked, Wires/Cords secured Barriers to Learning : None evident Fall Risk Scale Calc Temp : 1 Aida Carlos RN - 12/23/2018 17:13 EST Health Histories Smoking Status : Never (less than 100 in lifetime; none in last 30 days) Smokeless Tobacco Status : Never Aida Carlos RN - 12/23/2018 17:13 EST Social History (As Of: 12/23/2018 17:18:36 EST) Tobacco: Smoking Status Current every day smoker. Years of Use: 50. Packs/Tins Daily: 1. (Last Updated: 09/23/2012 08:05:08 EDT by PRAVEEN STEPHENS, RN) Alcohol: Days/Week: 7. # Drinks/Day: 4. Total Drinks/Week: 28. (Last Updated: 09/23/2012 08:05:33 EDT by PRAVEEN STEPHENS RN) Height and Weight, Clinical Dosing Height Source : Stated Height Entry Format : [place] Height, Feet : 5 ft(Converted to: 152 cm, 60 Inch) Height, Inches : 7 Inch(Converted to: 0 ft 7 Inch, 17.78 cm) Clinical Height : 170.18 cm Weight Source : Stated [place] Body Weight : 65 kg Aida Carlos RN - 12/23/2018 17:13 EST Estimated Weight Type of Weight Measurement Est : [place] Weight, est lb : 200 lb(Converted to: 91 kg) Estimated Clinical Dosing Weight : 90.91 kg Aida Carlos RN - 12/23/2018 17:13 EST Infectious Disease History Infectious Disease History : None, C-Difficile, Influenza Fever/Chills Last 48 Hours : No Travel To Regions with Travel Advisories : No Travel Outside [place] Within Last 30 Days : No Contact With Traveler to Advisory Region : No Tuberculosis Symptoms : None Aida Carlos RN - 12/23/2018 17:13 EST Influenza Vaccine Asmt, Adult Previous Vaccines from Immunization Schedule : No qualifying data available. Influenza Immunization, Current Season : Yes Aida Carlos RN - 12/23/2018 17:13 EST Pneumococcal Vaccine Previous Vaccines from Immunization Schedule : No qualifying data available. Pneumonia Immunization Received : Yes Aida Carlos RN - 12/23/2018 17:13 EST Nutrition History Eating Poorly Due to Decreased Appetite : No Unplanned Weight Loss in Past 3-6 Months : No Malnutrition Screening Tool Total(mal) : 0 Malnutrition Screening Tool Risk Level : Patient not at risk Aida Carlos RN - 12/23/2018 17:13 EST Psychosocial History Currently in Unsafe Situation : No Tried to Harm Yourself in the Past? : No Thoughts of Harming/Killing Yourself : No Aida Carlos RN - 12/23/2018 17:13 EST Sleep Apnea Risk Assmt Hx of [...] Sleep Apnea Risk Level Score : 5 Aida Carlos RN - 12/23/2018 17:13 EST Valuables and Belongings Valuables and Belongings : Clothing Clothing : Common streetwear Clothing Disposition : Bedside, With family, With patient Aida Carlos RN - 12/23/2018 17:13 EST documented in this encounter Plan of Treatment Not on file documented as of this encounter Visit Diagnoses Not on filedocumented in this encounter Care Teams Station Operator Relationship Specialty Start Date End Date Nikolai Tse, COPYRIGHT EXPERT [address] [place], [place] [id number] PCP - General Nurse Practitioner 02/17/24 documented as of this encounter
--- OUTSIDE RECORDS SUMMARY | 2024-10-09 09:14 | XMS_ITS | Encounter Summary ---
Author Organization [employer] ([place], [place], [place], [place]) Address [address] [place] [address] Care Team Providers Care Gluing Crew Leader Name Role Phone Nikolai Tse APRN Primary Care Provider + Encounter Details Date Type Department Care Team (Late st Contact Info) Description 12/24/2018 Transcribed Document [facility] [place] [facility] [place] [address] ProviderKevin MD [address], [place] [id number] Social History Tobacco Use Types Packs/Day Years Used Date Smoking Tobacco: Never Assessed Sex and Gender Information Value Date Recorded Sex Assigned at Not on file Legal Sex Male 4:12 PM CDT Gender Identity Not on file Sexual Orientation Not on file documented as of this encounter Miscellaneous Notes * Cerner Conversion Note - Kevin Pickering MD - 12/24/2018 11:01 AM PRODUCTS MECHANICAL DESIGN ENGINEER Event Note Entered On: 12/24/2018 11:27 EST Performed On: 12/24/2018 11:01 EST by Judit Clement RN Event Note Event Date/Time : 12/24/2018 11:01 EST Event Details : Change in condition Description of Event : At approximately 1015 patient became confused, displayed signs of expressive aphasia, and was unable to move right upper and lower extremities. 0900 BP was 199/92 and pt was given Hydralazine 10mg IV. VS at 10:00 was BP 104/[address] Salmeron was notified and stated he did not feel a code stroke was necessary at this time. He stated he felt this event was related to small vessel disease and ordered NS @ 100ml/hr and for patient to be placed in trendelenburg postition to raise the blood pressure. BP is currently 145/72. Pt contiues to have expressive aphasia and hypotonic in is right upper and lower extremities. Judit Clement RN - 12/24/2018 11:01 EST Electronically signed by Interface, [facility] Conversion Emission Technician Cerner at 06/04/2022 9:43 AM CDT documented in this encounter Plan of Treatment Not on file documented as of this encounter Visit Diagnoses Not on filedocumented in this encounter Care Teams Gluing Crew Leader Relationship Specialty Start Date End Date Nikolai Tse, KICK BOXER [address] [place] [address] PCP - General Nurse Practitioner 02/17/24 documented as of this encounter
--- OUTSIDE RECORDS SUMMARY | 2024-10-09 09:14 | XMS_ITS | Encounter Summary ---
Author Organization [employer] ([place], [place], [place], [place]) Address [address] [place] [address] Care Team Providers Care Onion Tier Name Role Phone Linuskarime Mayakeerthianthony Dhillon APRN Primary Care Provider + Encounter Details Date Type Department Care Team (Late st Contact Info) Description 03/17/2018 Transcribed Document [facility] [place] Family Medicine [facility] [place] [address] ProviderKevin MD [address] [place] [address] Social History Tobacco Use Types Packs/Day Years Used Date Smoking Tobacco: Never Assessed Sex and Gender Information Value Date Recorded Sex Assigned at Not on file Legal Sex Male 4:12 PM CDT Gender Identity Not on file Sexual Orientation Not on file documented as of this encounter Miscellaneous Notes * Cerner Conversion Note - Kevin Pickering MD - 03/17/2018 6:28 PM PIGMENT PUSHER Nursing Discharge Summary Entered On: 03/17/2018 18:28 EST Performed On: 03/17/2018 18:28 EST by JOSEPHINE ZAIDI RN Discharge Documentation Discharge Date/Time : 02/15/2018 20:30 EST Patient Disposition, General : Discharge Discharge To : Home with ambulatory/outpatient follow-up Mode Of Departure, General Discharge : Private vehicle Accompanied By, Discharge : Spouse IV Discontinued : Yes Personal Belongings With Patient : Yes Pt's Own Supply of Medications Returned : Yes Teaching Method : Explanation, Printed materials Teaching Evaluation : Returns demonstration, Verbalizes understanding JOSEPHINE ZAIDI RN - 03/17/2018 18:28 EST documented in this encounter Plan of Treatment Not on file documented as of this encounter Visit Diagnoses Not on filedocumented in this encounter Care Teams Onion Tier Relationship Specialty Start Date End Date Nikolai Tse, EXAMINATION SCORER [address] [place], [place] [id number] PCP - General Nurse Practitioner 02/17/24 documented as of this encounter
--- OUTSIDE RECORDS SUMMARY | 2024-10-09 09:14 | XMS_ITS | Encounter Summary ---
Author Organization [employer] ([place], [place], [place], [place]) Address [address] [place] [address] Care Team Providers Care Button Grader Name Role Phone Nikolai Tse APRN Primary Care Provider + Encounter Details Date Type Department Care Team (Late st Contact Info) Description 12/23/2018 Transcribed Document [facility] [place] Family Medicine [address] [place] [address] ProviderKevin MD [address] [place] [address] Social History Tobacco Use Types Packs/Day Years Used Date Smoking Tobacco: Never Assessed Sex and Gender Information Value Date Recorded Sex Assigned at Not on file Legal Sex Male 4:12 PM CDT Gender Identity Not on file Sexual Orientation Not on file documented as of this encounter Miscellaneous Notes * Cerner Conversion Note - Kevin Pickering MD - 12/23/2018 1:27 PM BILINGUAL STUDENT TUTOR Swallow Evaluation Entered On: 12/23/2018 15:27 EST Performed On: 12/23/2018 15:00 EST by WALDO BACON SHOVEL LOGGER General Information Visit Type, SHOVEL LOGGER : Initial evaluation Patient Orders : Speech Language Pathology Swallow Evaluation and Treatment -111 Start: 12/23/18 13:27:00 EST, Routine, For Swallow Eval and Treat, Ischemic Stroke - MARIN MCCLELLAND MD Speech Language Pathology Evaluation and Treatment - Start: 12/23/18 13:27:00 EST, Routine, For Speech Language Cognitive Eval and Treat -111 MARIN MCCLELLAND MD Admission Date : Admission Date/Time: 12/23/18 13:03:00 Medical Chart Reviewed, SHOVEL LOGGER : Yes Personal Devices : Personal Devices No Devices Recorded Assistive Devices : Assistive Devices No Devices Recorded Active Diagnoses : No Qualifying Diagnoses Therapy Diagnosis, SHOVEL LOGGER : No overt patterns of oropharyngeal dysphagia with any consistency. Recs: 1. Ongoing regular diet Will check back re: need for full evaluation, pending neuro work up Previous Swallow Precautions : None in EMR Diet/Intake Prior to Current Admission : regular Diet/Intake During Current Admission : regular Intubation Comment, SHOVEL LOGGER : n/a Vital Signs RTF : Vitals [...] Available Respiratory Assessment Comment : room air WALDO BACON SLP - 12/23/2018 15:19 EST General Status Patient Received Status, SHOVEL LOGGER : Long sitting in bed Patient Left Status, SHOVEL LOGGER : Long sitting in bed WALDO BACON SLP - 12/23/2018 15:19 EST Pain Assessment Pain Scaled Used : 0-10 Pain scale Pain Score Pre-Intervention : 0 WALDO BACON SLP - 12/23/2018 15:19 EST Image 1 - Images currently included in the form version of this document have not been included in the text rendition version of the form. Oral Mechanism Dysarthria : No Resonance Types : Appropriate Oral Mechanism for Daily Living : Intact SHOVEL LOGGER Cough : Strong Facial Appearance: : Symmetrical Labial Appearance : Symmetrical Labial Function : All function intact Dental/Orthodontia : Teeth, own Condition of Dentition : Other: teeth missing Lingual Appearance : Symmetrical Lingual Function : All function intact Soft Palate (Velum) Appearance : Symmetrical Soft Palate Function : Function intact Hard Palate Appearance/ Structure : Structure intact Mandible Appearance/Structure : Intact Mandibular Function : All function intact WALDO BACON SLP - 12/23/2018 15:19 EST Bedside Swallow Swallow Outcome BS Swallow : Intact Head Control BS Swallow : Neutral head position Presentation Style BS Swallow : Self Swallow Position BS Swallow : Upright 90 degrees Trunk Control BS Swallow : Upright centered position Consistencies Trialed BS Swallow : Thin by straw, Pureed, Regular solids WALDO BACON SLP - 12/23/2018 15:19 EST Swallow Impressions Impressions, BS Swallow : No evidence of dysphagia present Swallowing Outcome Measures : Functional Oral Intake Scale (FOIS) Functional Oral Intake Scale (FOIS) : Level VII Bedside Swallow Overall Impressions : Patient was transferred here for stroke work up, due to right leg weakness (no H&P on the chart at the time of this eval). No overt patterns of oropharyngeal dysphgia with any consistency. No overt communication deficits. Recommend onging regular diet. Will check back re: need for full communication evaluation, pending neuro work-up. Discussed with patient, spouse and family and alerted RN. WALDO BACON SLP - 12/23/2018 15:19 EST Swallow Recommendations Recommended Diet Type, SwRec : Regular Recommended Liquid Diet, SwRec : Thin Feeding Presentation Style, SwRec : No restrictions Swallow Position, SwRec : Upright 90 degrees Supervision Level w/Meals, SwRec : Independent, complete Recommended Med Present, SwRec : As per nursing WALDO BACON SLP - 12/23/2018 15:19 EST Therapy Indication Assessment SHOVEL LOGGER Indicated : No SHOVEL LOGGER Not Indicated : At prior level of function, No skilled services indicated WALDO BACON SLP - 12/23/2018 15:19 EST Education Barriers To Learning : None evident Individuals Taught : Patient, Spouse, Family member Readiness to Learn : Cooperative Readiness to Learn : Explanation WALDO BACON SLP - 12/23/2018 15:19 EST SHOVEL LOGGER Education Assessment Grid 1 Aspiration : Verbalizes understanding Diet Recommendation : Verbalizes understanding Dysphagia : Verbalizes understanding Evaluation Results : Verbalizes understanding WALDO BACON SLP - 12/23/2018 15:[address] [facility] SHOVEL LOGGER Charges Evaluation Swallowing Function : 1 WALDO BACON SLP - 12/23/2018 15:19 EST Anticipated Discharge Needs, SHOVEL LOGGER Anticipated Discharge to : Home, independently WALDO BACON SLP - 12/23/2018 15:19 EST Electronically signed by [facility] Conversion Law Enforcement Instructor Cerner at 06/04/2022 9:48 AM CDT documented in this encounter Plan of Treatment Not on file documented as of this encounter Visit Diagnoses Not on filedocumented in this encounter Care Teams Button Grader Relationship Specialty Start Date End Date Nikolai Tse, ARCH CUSHION PRESS OPERATOR [address] [place] [address] PCP - General Nurse Practitioner 02/17/24 documented as of this encounter
--- OUTSIDE RECORDS SUMMARY | 2024-10-09 09:14 | XMS_ITS | Encounter Summary ---
Author Organization [employer] ([place], [place], [place], [place]) Address [address] [place] [address] Care Team Providers Care Mechanic Insulator Name Role Phone Nikolai Tse APRN Primary Care Provider + Encounter Details Date Type Department Care Team (Late st Contact Info) Description 12/23/[address] [facility] [place] Family Medicine [address] [place] [address] ProviderKevin MD [address] [place] [address] Social History Tobacco Use Types Packs/Day Years Used Date Smoking Tobacco: Never Assessed Sex and Gender Information Value Date Recorded Sex Assigned at Not on file Legal Sex Male 4:12 PM CDT Gender Identity Not on file Sexual Orientation Not on file documented as of this encounter Miscellaneous Notes * Cerner Conversion Note - Kevin Pickering MD - 12/23/2018 1:27 PM HAND ORNAMENT MAKER Spiritual Care Assessment Entered On: 12/23/2018 19:39 EST Performed On: 12/23/2018 13:27 EST by ABEL FRANCO Chaplain General Information Initial Visit : Yes Referred by : Physician Referral Reason Comment : order for routine food counselor visit. Ministry Provided to : Patient Spiritual Framework : Not integrated, provides little strength/resource Active in a Jew/Yu Group : No Mormonism Preference : Other: unaffiliated at this time, though raised Presbyterian ABEL FRANCO Chaplain - 12/23/2018 19:32 EST Spiritual Assessment Spiritual Assessment Comment/Summary Points : Visited with Praveen this evening to assess any spiritism/spiritual need. Praveen presents as a happy camper this evening, though not happy that his leg is incapacitated at the moment. He shares he could be busy if it did work. He confesses that he loves to kid around and give a hard time and during this encounter gave examples of this well developed skill. Thankfully, the staff is equally skilled to match his wits this evening. He states he does not go to shinto at this time. He was raised in a [employer] shinto while growing up in [place], [place]. Currently he receives spiritual support from his brother in law, who is a Sabianist processing manager, and who has visited with him this evening at [facility]. Spirital Assessment Comment/Summary Report : SPIRITUAL ASSESSMENT COMMENT/SUMMARY No qualifying data available. ABEL FRANCO Chaplain - 12/23/2018 19:32 EST Electronically signed by [facility] Conversion Building Services Engineer Cerner at 06/04/2022 9:28 AM CDT documented in this encounter Plan of Treatment Not on file documented as of this encounter Visit Diagnoses Not on filedocumented in this encounter Care Teams Mechanic Insulator Relationship Specialty Start Date End Date Nikolai Tse, LEAD WELDER [address] [place] [address] PCP - General Nurse Practitioner 02/17/24 documented as of this encounter
--- OUTSIDE RECORDS SUMMARY | 2024-10-09 09:14 | XMS_ITS | Encounter Summary ---
Author Organization [employer] ([place], [place], [place], [place]) Address [address] [place] [address] Care Team Providers Care Mechanic Name Role Phone Linuskarime Mayabertrand Alejo ANGELA Primary Care Provider + Encounter Details Date Type Department Care Team (Late st Contact Info) Description 12/23/2018 Transcribed Document [facility] Radiology [address] [place] [address] Marin Mcclelland MD [address] [place] [address] [address] [place] [id number] Social History Tobacco Use Types Packs/Day Years Used Date Smoking Tobacco: Never Assessed Sex and Gender Information Value Date Recorded Sex Assigned at Not on file Legal Sex Male 4:12 PM CDT Gender Identity Not on file Sexual Orientation Not on file documented as of this encounter Miscellaneous Notes * Cerner Conversion Note - Marin Mcclelland MD - 12/23/2018 4:17 PM EST Patient: PRAVEEN FOX Age: 68 years Sex: Male : 1950 Associated Diagnoses: None Author: MARIN MCCLELLAND MD Basic Information Source of history: Self, Family member, Spouse, Medical record. Present at bedside: Family member, Medical personnel. Referral source: Direct physician admit. History limitation: None. Primary Care Provider HEAVENLY BREWER PA-ADAM Chief Complaint Right lower extremity weakness and numbness History of Present Illness This is a 68 years old white male patient with significant past medical history of coronary artery disease status post CABG, hyperlipidemia, hypertension, diabetes mellitus and peripheral neuropathy, patient presented to outside facility emergency department with right-sided lower extremity weakness and numbness started yesterday, according to the patient his he was walking to his primary care physician office and he starting having some weakness in his lower part of his right extremity from his knee down with some numbness patient has difficulty to walk, however when he tried to get to his car he couldn't, his helped him to get to his car, he denied any altered mental status, no facial drooping no difficulty swallowing, no change in vision or hearing, he had some right upper extremity numbness the night before, now patient still continues to have weakness and numbness in his lower part of his right lower extremity, at the emergency department patient was hypertensive with systolic blood pressure above 220, hyperglycemia of blood glucose 358, creatinine was 2.2, CT head did not show any acute changes, CT lumbar spine showed L5-S1 severe bilateral neural foraminal stenosis, patient taking daily Lipitor and aspirin and beta ann for his coronary artery disease, patient was transferred or facility for suspected acute ischemic stroke for neurology evaluation. Review of Systems Constitutional: [No fevers, chills, sweats] Eye: [No recent visual problems, eye discharge, eye pain, redness] HEENT: [No ear pain, nasal congestion, sore throat, voice changes] Respiratory: [No shortness of breath, cough, pain on breathing, sputum production] Cardiovascular: [No Chest pain, palpitations, syncope, shortness of breath while laying flat] Gastrointestinal: [No nausea, vomiting, diarrhea, constipation] Genitourinary: [No hematuria, dysuria, incontinence, lesions on genitalia] Cecil/Lymph: [Negative for bruising tendency, swollen lymph glands, nosebleeds, history of anticoagulation] Endocrine: [Negative for excessive thirst, excessive hunger, excessive urination, heat or cold intolerance] Musculoskeletal: [No back pain, neck pain, joint pain, muscle pain, decreased range of motion] Integumentary: [No rash, pruritus, abrasions, lesions] Neurologic: Lower extremity numbness and weakness Psychiatric: [No anxiety, depression, mood changes, hallucinations] Health Status Allergies: Allergic Reactions (Selected) No Known Allergies, Allergies (1) Active Reaction No Known Allergies None Documented Current medications: (Selected) Inpatient Medications Ordered Habitrol 21 mg/24 hr transdermal film, extended release: 1 Patch, TransDermal, Daily Lantus: 30 Units, SubCutaneous, At Bedtime Lipitor: 20 mg, Oral, Daily Normal Saline Flush: 10 mL, IV Push, Q12H Normal Saline Flush: 10 mL, IV Push, See Comment, PRN: IV Use Pepcid: 20 mg, Oral, BID Sodium Chloride 0.9% intravenous solution 1,000 mL: 50 mL/Hr, IntraVENous Toprol-XL: 25 mg, Oral, Daily Tylenol: 650 mg, Oral, Q6H, PRN: Fever Zofran: 4 mg, IV Push, Q4H, PRN: Nausea/Vomiting aspirin: 81 mg, Oral, Daily gabapentin: 300 mg, Oral, At Bedtime heparin: 5,000 Units, SubCutaneous, [id number] hydrALAZINE: 10 mg, IV Push, Q6H, PRN: Other (See Comment) insulin lispro sliding scale: Scale C:, SubCutaneous, AC and at Bedtime Incomplete fenofibrate: 160 mg, Oral, Daily Documented Medications Documented D3 1000 oral tablet: Tab, Oral, Daily, 0 Refill(s) Gen-Pioglitazone: 30 mg, 0 Refill(s) aspirin 81 mg oral tablet: 3 Tab, Oral, Daily, 0 Refill(s) aspirin: 81 mg, 0 Refill(s) fenofibrate: 160 mg, Oral, Daily, 0 Refill(s) losartan 50 mg oral tablet: 1/2 tab, Oral, Daily, 30 Tab, 0 Refill(s) metoclopramide: 25 mg, Oral, BID, 0 Refill(s) vancomycin: 250 mg, Q6H, 0 Refill(s), Medications (15) Active Scheduled: (10) #NaCl 0.9% *FLUSH* inj 10 mL 10 mL, IV Push, Q12H aspirin 81 mg chew tab 81 mg 1 Tab, Oral, Daily atorvastatin 20 mg tab 20 mg 1 Tab, Oral, Daily famotidine 20 mg tab 20 mg 1 Tab, Oral, BID gabapentin 300 mg cap 300 mg 1 Cap, Oral, At Bedtime heparin 5,000 units/1 mL inj 5,000 Units 1 mL, SubCutaneous, [id number] insulin glargine 1 unit/0.01 mL inj 30 Units 0.3 mL, SubCutaneous, At Bedtime insulin lispro 1 unit/0.01 mL inj Scale C:, SubCutaneous, AC and at Bedtime metoprolol succinate XL 25 mg tab 25 mg 1 Tab, Oral, Daily nicotine 21 mg/24 hr patch 1 Patch, TransDermal, Daily Continuous: (1) NaCl 0.9% 1,000 mL 1,000 mL, IntraVENous, 50 mL/Hr PRN: (4) #NaCl 0.9% *FLUSH* inj 10 mL 10 mL, IV Push, See Comment acetaminophen 325 mg tab 650 mg 2 Tab, Oral, Q6H hydrALAZINE 20 mg/1 mL inj 10 mg 0.5 mL, IV Push, Q6H ondansetron 4 mg/2 mL inj 4 mg 2 mL, IV Push, Q4H Problem list: Medical CAD - Coronary artery disease / SNOMED CT 1543544621 / Confirmed HTN - Hypertension / SNOMED CT 4457889184 / Confirmed HLD - Hyperlipidemia / SNOMED CT 772871117 / Confirmed Type 2 diabetes mellitus / SNOMED CT 365073291 / Confirmed, Active Problems (8) CAD - Coronary artery disease Chronic kidney insufficiency Diabetes mellitus type II HLD - Hyperlipidemia HTN - Hypertension Hyperlipidemia Hypertension Type 2 diabetes mellitus Histories Past Medical History: Active CAD - Coronary artery disease (7070165941) HTN - Hypertension (8612648204) HLD - Hyperlipidemia (106439577) Type 2 diabetes mellitus (272643787) Family History: No family history items have been selected or recorded. Procedure history: CABG x 4 in 2013 at 62 Years. CABG. Circumcision. Heart Cath. Social History Social & Psychosocial Habits Alcohol 09/23/2012 Days Per Week of Alcohol Use 7 Number of Drinks per Day 4 Total Drinks Per Week 28 Tobacco 09/23/2012 Smoking Status Current every day smoker Years of Tobacco Use 50 Packs/Tins Daily 1 . Physical Examination VS/Measurements Vitals Signs (last 24 hrs) Last Charted Minimum Maximum Temp 97.8 (DEC 23 15:00) 97.8 (DEC 23 15:00) 97.8 (DEC 23 15:00) Mon HR 62 (DEC 23 15:00) 62 (DEC 23:) 62 (DEC 23:) SBP H 177 (DEC 23:) H 177 (DEC 23:) H 177 (DEC 23:) DBP 84 (DEC 23:) 84 (DEC 23 15:00) 84 (DEC 23 15:00) MAP 124 (DEC 23:00) 124 (DEC 23 15:00) 124 (DEC 23:) GENERAL: The patient is a well-developed, well-nourished, no apparent distress. alert and oriented x3. Head : is normocephalic and atraumatic. EYES: Extraocular muscles are intact. Pupils are equal, round, and reactive to light and accommodation. NECK: Supple. No carotid bruits. No lymphadenopathy or thyromegaly. LUNGS: Clear to auscultation. No added sounds. No tenderness HEART: Regular rate and rhythm without murmur. No heave ABDOMEN: Soft, nontender, and nondistended. Positive bowel sounds. No hepatosplenomegaly was noted. EXTREMITIES: Without any cyanosis, clubbing, rash, lesions or edema. PSYCHIATY: Anxious and cooperative SKIN: No ulceration or induration present. Musculoskeletal : No joint pain, swelling or tenderness Impression and Plan Right lower extremity numbness [...] bedtime Peripheral neuropathy Continue gabapentin Neurology consulted DVT prophylaxis GI prophylaxis Past medical history reviewed Labs reviewed Medications reviewed Images reviewed Discussed with family at the bedside CODE STATUS full code Time spent 45 minutes documented in this encounter Plan of Treatment Not on file documented as of this encounter Visit Diagnoses Not on filedocumented in this encounter Care Teams Mechanic Relationship Specialty Start Date End Date Nikolai Tse, FRAME COVERER [address] [place], [place] [id number] PCP - General Nurse Practitioner 02/17/24 documented as of this encounter
--- OUTSIDE RECORDS SUMMARY | 2024-10-09 09:14 | XMS_ITS | Encounter Summary ---
Author Organization [employer] ([place], [place], [place], [place]) Address [address] [place] [address] Care Team Providers Care End Frazer Name Role Phone Linuskarime Mayakeerthianthony Dhillon APRN Primary Care Provider + Encounter Details Date Type Department Care Team (Late st Contact Info) Description 12/24/2018 Transcribed Document [facility] [place] [facility] [place] [address] ProviderKevin MD [address] [place] [address] Social History Tobacco Use Types Packs/Day Years Used Date Smoking Tobacco: Never Assessed Sex and Gender Information Value Date Recorded Sex Assigned at Not on file Legal Sex Male 4:12 PM CDT Gender Identity Not on file Sexual Orientation Not on file documented as of this encounter Miscellaneous Notes * Cerner Conversion Note - Kevin Pickering MD - 12/24/2018 9:53 AM YELLOW PAGES SPACE SALESPERSON Treatment Intervention, PT Entered On: 12/29/2018 11:02 EST Performed On: 12/29/2018 11:01 EST by PAPO FLANNERY PT General Information, PT Visit Type, PT : Treatment Note PAPO FLANNERY PT - 12/29/2018 11:01 EST Patient Orders : Order Date Order Ordering 12/23/2018 13:27 PT Evaluation and Treatment Ordered By: MARIN MCCLELLAND MD 12/24/2018 09:53 PT Additional Treatment Ordered By: ARNOLD COOK, PT Active Diagnoses : 12/28/2018 12:00 Weakness Admission Date : 12/23/2018 13:03 Personal Devices : Personal Devices No Devices Recorded Assistive Devices : Assistive Devices No Devices Recorded PAPO FLANNERY, PT - 12/29/2018 12:40 EST General Status Patient Received Status : Supine in bed Treatment Start Time : 12/29/2018 10:35 EST Treatment End Time : 12/29/2018 11:02 EST Treatment Time : 27 Minute(s) Actual Treatment Time : 27 Minute(s) PAPO FLANNERY, PT - 12/29/2018 11:01 EST Functional Mobility Mobility Grid Supine to Sit : Rehab Minimal assistance Sit to Stand : Supervision/set-up Stand to Sit : Supervision/set-up PAPO FLANNERY, PT - 12/29/2018 12:40 EST Gait Training/Assessment, PT Weight Bearing Status : Full Gait Assistance Level : Assist, minimal Walking Distance : 45' 45' 30' Ambulatory Devices : Gait belt, Walker, front wheel Gait Deviations : Yes Right Lower Gait Deviation : Circumduction, Foot clearance, decreased, Knee, hyperextension/recurvatum, Stride length, decreased PAPO FLANNERY, PT - 12/29/2018 12:40 EST Edu Topics Physical Therapy Education Grid Bed Mobility Training : Returns demonstration, Needs further teaching Gait Training : Needs further teaching, Returns demonstration Transfer Training : Needs further teaching, Returns demonstration Use of Assistive Device : Needs further teaching, Returns demonstration PAPO FLANNERY, PT - 12/29/2018 12:40 EST Plan of Care, PT PT Tx Plan/Goals Established w Patient : Yes PAPO FLANNERY, PT - 12/29/2018 12:40 EST Short Term Goals Mobility/Bed Mobility STG PT Grid Goal #1 Goal #2 Activity : Supine to sit Sit to stand Assist : Independent, modified Independent, modified Date to Meet : 12/31/2018 EST 12/31/2018 EST Goal Status : Progressing, continue Progressing, continue PAPO FLANNERY, PT - 12/29/2018 12:40 EST PAPO FLANNERY, PT - 12/29/2018 12:40 EST Transfer STG Grid Goal #1 Destination : Chair, with arms Type : Stand Pivot Sit Assist : Independent, modified Equipment : Walker, front wheel Date to Meet : 12/31/2018 EST Goal Status : Progressing, continue PAPO FLANNERY, PT - 12/29/2018 12:40 EST Ambulation STG Grid Goal #1 Device : Walker, front wheel Distance : 50' Cues : Minimum verbal cues Assist : Assist, minimal Date to Meet : 12/31/2018 EST Goal Status : Progressing, continue PAPO FLANNERY, PT - 12/29/2018 12:40 EST Stretch Press Operator Goals Ambulation LTG Grid Goal #1 Device : Walker, front wheel Distance : 200' Cues : No cues Assist : Independent, modified Date to Meet : 01/07/2019 EST Goal Status : Intial Goal PAPO FLANNERY, PT - 12/29/2018 12:40 EST Treatment Note Subjective Comment : agreed to oob with PT Assessment : The patient continues to display significant gait deficits as well and difficulty with bed mobility and transfers. He is not safe for unassisted home level function. He would benefit most from further inpatient rehab upon discharge. Plan for Treatment : cont poc PAPO FLANNERY, PT - 12/29/2018 12:40 EST Pain Assessment Pain Scaled Used : 0-10 Pain scale Pain Score Pre-Intervention : 0 Pain Score During-Intervention : 0 Pain Score Post-Intervention. : 0 PAPO FLANNERY, PT - 12/29/2018 12:40 EST Image 1 - Images currently included in the form version of this document have not been included in the text rendition version of the form. Anticipated Discharge Needs, OT/PT Anticipated Discharge to : Unit, rehabilitation PAPO FLANNERY, PT - 12/29/2018 12:[address] [facility] PT Charges PT Ther Activities Ea 15 Min : 1 Gait Training Each 15 Min : 1 PAPO FLANNERY, PT - 12/29/2018 11:01 EST documented in this encounter Plan of Treatment Not on file documented as of this encounter Visit Diagnoses Not on filedocumented in this encounter Care Teams End Frazer Relationship Specialty Start Date End Date Nikolai Tse, JULIO CÉSAR [address] [place] [id number] PCP - General Nurse Practitioner 02/17/24 documented as of this encounter
--- OUTSIDE RECORDS SUMMARY | 2024-10-09 09:14 | XMS_ITS | Encounter Summary ---
Author Organization [employer] ([place], [place], [place], [place]) Address [address] [place] [address] Care Team Providers Care Assessment Coordinator Name Role Phone Nikolai Tse APRN Primary Care Provider + Encounter Details Date Type Department Care Team (Late st Contact Info) Description 12/23/2018 Transcribed Document [facility] [place] [facility] [place] [address] ProviderKevin MD [address] [place] [address] Social History Tobacco Use Types Packs/Day Years Used Date Smoking Tobacco: Never Assessed Sex and Gender Information Value Date Recorded Sex Assigned at Not on file Legal Sex Male 4:12 PM CDT Gender Identity Not on file Sexual Orientation Not on file documented as of this encounter Miscellaneous Notes * Cerner Conversion Note - Kevin Pickering MD - 12/23/2018 7:10 PM PREMIX CONCRETE BATCHER DATE OF CONSULTATION: 12/23/2018 Praveen Pedroza is a 68-year-old white male with multiple stroke risk factors including diabetes, hypertension, hyperlipidemia, and coronary artery disease, who was transferred to our hospital today from the emergency room at [facility] for further evaluation of a suspected stroke causing left leg weakness. I have been asked to evaluate him for the stroke. The patient tells me that he was in his usual state of health until yesterday morning when he noticed that his right hand and right arm felt a little bit numb. Then, sometime yesterday, when he was running some errands, all of a sudden, when he was getting into his car, his right leg gave out on him. He did not become completely paralyzed, but he did become weak. He stayed this way throughout the day, but his right arm got better. Today, he was still having the right leg weakness, so therefore, he thought he better go to the emergency room at [facility]. On presentation to the emergency room at [facility], his blood pressure was high, and shortly after arrival there, his blood pressure was as high as 235/102, and he had to be treated with clonidine and hydralazine. Additionally, his blood sugar was greater than 300. The emergency room physician at [facility] contacted me, and we discussed the distinct possibility that this was a stroke, and we quickly determined this patient was not a candidate for tPA as his symptoms have been going on for more than 4-1/2 hours. Additionally, because his symptoms have been going on for more than 24 hours and his NIH stroke scale was relatively low at 3, I do not feel that he would be a good candidate for interventional radiology, and therefore, I did not arrange for a stat CT perfusion scan. However, his creatinine apparently was 2.2 as well. The patient was already on an aspirin a day at home, and he has been transferred here. He has been continued on aspirin here. He has never had a stroke before. CURRENT MEDICATIONS: Include, in the hospital: 1. Aspirin. 2. Lipitor. 3. Pepcid. 4. Tricor. 5. Gabapentin. 6. Subcu heparin. 7. Insulin. 8. Metoprolol. 9. Habitrol. Medications at home, according to a computerized home medication list may or may not include: 1. Aspirin. 2. Januvia. 3. Insulin. 4. Metoprolol. 5. Tizanidine. 6. Gabapentin. 7. Meloxicam. 8. Atorvastatin. 9. Losartan. 10. Fenofibrate. 11. Reglan. 12. Cholecalciferol. ALLERGIES: None known. PAST MEDICAL HISTORY: 1. Up until 2012, he was smoking 3 packs a day of cigarettes per week, but quit this after he had coronary artery bypass grafting. 2. He denies any alcohol use. 3. He denies any illicit drug use. 4. He has had a coronary artery bypass grafting in 2013 at [facility]. 5. Diabetes. 6. Hypertension. 7. Hyperlipidemia. 8. He tells me he has chronic kidney disease. 9. Earlier this year, he developed C difficile colitis and this was successfully treated with antibiotics. He was treated at a local hospital. SOCIAL HISTORY: The patient lives in [facility] with his . 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 He has two biological children. He drives and walks independently. FAMILY HISTORY: His mother from complications of diabetes. His father from old age. REVIEW OF SYSTEMS: GENERAL: He denies any fever. HEENT: Eyes: He denies any visual loss yesterday. Ears: He does have chronic hearing loss. CARDIAC: He denies any recent chest pain. RESPIRATORY: He denies any shortness of breath. GI: He says his diarrhea, that he had back a year ago, has resolved. : He denies any changes in his urinary habits. SKIN: He denies any rashes. ENDOCRINE: He says running a high blood sugar greater than 300 is not unusual for him. MUSCULAR: He says he does have muscle aches and pains, but he denies any back pain. He denies any neck pain. PSYCHIATRIC: He denies any depression. HEMATOLOGIC: He denies any history of blood transfusions. PHYSICAL EXAMINATION: GENERAL: He is a well-developed male, in no acute distress, resting comfortably in bed. VITAL SIGNS: As stated above, at the outside emergency room, his blood pressure was 235/102, but currently is 167/97; temperature is 98; pulse is 70. HEART: Regular rate and rhythm. LUNGS: Clear. NECK: Supple without any bruits. NEURO: An ophthalmologic exam was done and his pupils react and equal to light, but I could not see his disk. Motor exam shows 5/5 strength in both of his arms. He has about 4/5 strength in his right leg and 5/5 strength in his left leg. Tone in both arms and legs is normal. He is alert and oriented x3. He has good recent and remote recall. His attention span and concentration are normal. Language skills are normal and fund of knowledge is adequate. Cranial nerves II through XII were intact. Coordination shows intact [id number]-lv-ekzq bilaterally, but he had difficulty doing [id number]-fo-[id number] on his right, but he was able to do it on his left. Reflexes were 0 to 1+. Gait was not tested. DIAGNOSTIC STUDIES: IMAGING STUDIES: The patient had a head CT at the outside hospital that was within normal limits. The patient did have a CT scan of his lumbar spine at the outside hospital as well that suggested 10 mm of anterolisthesis of L5 on S1, resulting in severe bilateral neural foraminal narrowing at this level. The patient has had a carotid ultrasound that is pending. An echocardiogram is pending. The patient is on a heart monitor. The patient has had an MRI that has been ordered here and is pending. The patient also has an MRI of his sacrum and lumbar spine that has been ordered and is pending. LABORATORY RESULTS: His outside blood work showed a BUN of 31 and creatinine elevated at 2.2 with a GFR of only 32. His PT is normal at 10.6, hematocrit was 39.6. I do not see a platelet count. ASSESSMENT: Praveen Pedroza is a 68-year-old male with multiple stroke risk factors including diabetes, hypertension, hyperlipidemia, and coronary artery disease, who yesterday had some transient right arm numbness followed by right leg weakness that is persisting. On exam, he does have some mild right leg weakness and some right leg ataxia. The differential for symptoms could include one or combination of the followin. A stroke-I suspect this is most likely cause. 2. Structural disease of his spine-this is a potential possibility, but I think this is less likely. 3. Manifestations of his hypertension and/or hyperglycemia yesterday. 4. Migraine. RECOMMENDATIONS: At this time, I suspect the most likely cause of his symptoms is a stroke. At this time, I would recommend the followin. I agree with the stroke order sets that have been ordered. 2. I agree with heparin for DVT prevention. 3. I agree with an anti-platelet agent of aspirin at this time, but at some point in time, we may need to change this depending on the stroke workup. 4. Follow up on his MRI of his brain. 5. Follow up on his carotid ultrasound and an echocardiogram. 6. If his heart monitor was to show atrial fibrillation, we would need to consider anticoagulating the patient. 7. Follow up on his MRIs. 8. At discharge, he should follow up with an outpatient neurologist and we instructed him not to drive until released by physician. 9. To follow up on repeat labs tomorrow, including a platelet count. Of note, I have spent over 80 minutes on this case today. Over half that time was spent counseling the patient and coordinating care with the emergency room physician at [facility] today. I did school counsellor the patient that if he ever develops sudden neurologic symptoms again, he should go to an emergency room immediately because if he erratically catches a stroke within the first 4-1/2 hours, there is a medicine that can be helpful in 1/3 patients. /[id number] MD GRIS Carlos/AQ / WSKeyla / MODL /[id number] Electronically signed by Kyra, [facility] Conversion Catalyst Operator Gasoline Cerner at 06/04/2022 9:51 AM CDT documented in this encounter Plan of Treatment Not on file documented as of this encounter Visit Diagnoses Not on filedocumented in this encounter Care Teams Assessment Coordinator Relationship Specialty Start Date End Date Nikolai Tse, JULIO CÉSAR [address] [place] [address] PCP - General Nurse Practitioner 02/17/24 documented as of this encounter
--- OUTSIDE RECORDS SUMMARY | 2024-10-09 09:14 | XMS_ITS | Encounter Summary ---
Author Organization [employer] ([place], [place], [place], [place]) Address [address] [place] [address] Care Team Providers Care Bullard Operator Name Role Phone Nikolai Tse APRN Primary Care Provider + Encounter Details Date Type Department Care Team (Late st Contact Info) Description 12/23/2018 Transcribed Document [facility] [place] [address] [place] [address] ProviderKevin MD [address] [place], [place] [address] Social History Tobacco Use Types Packs/Day Years Used Date Smoking Tobacco: Never Assessed Sex and Gender Information Value Date Recorded Sex Assigned at Not on file Legal Sex Male 4:12 PM CDT Gender Identity Not on file Sexual Orientation Not on file documented as of this encounter Miscellaneous Notes * Cerner Conversion Note - Kevin Pickering MD - 12/23/2018 1:27 PM BASIN CLEANER Nutrition Assessment Entered On: 12/24/2018 13:31 EST Performed On: 12/24/2018 13:31 EST by Melissa Jones Dietitian Nutrition Assessment Nutrition Assessment Reason : Automatic referral Melissa Jones Dietitian - 12/24/2018 13:29 EST Nutrition Recommendations Dietitian Recommendations : 12/24: RD consult rec'd for stroke. Seen by COAL CAGER today and placed on 60gCHO diet. Intakes are being established. Spoke with RN who states family brought pt food in today and he ordered lunch. Pt is eating well. Noted no wt recorded in pt chart. Labs/meds reviewed. No skin breakdown noted. LBM 12/23. RD will rescreen in 3-4 days to reassess po intakes and provide diet education if desired. RD available prn. Melissa Jones Dietitian - 12/24/2018 16:03 EST Nutrition Care Level : No nutritional risk Melissa Jones Dietitian - 12/24/2018 13:29 EST documented in this encounter Plan of Treatment Not on file documented as of this encounter Visit Diagnoses Not on filedocumented in this encounter Care Teams Bullard Operator Relationship Specialty Start Date End Date Nikolai Tse, STOREKEEPER STEWARD [address] [place], [place] [id number] PCP - General Nurse Practitioner 02/17/24 documented as of this encounter
--- OUTSIDE RECORDS SUMMARY | 2024-10-09 09:14 | XMS_ITS | Encounter Summary ---
Author Organization [employer] ([place], [place], [place], [place]) Address [address] [place] [address] Care Team Providers Care Marine Driller Name Role Phone Nikolai Tse APRN Primary Care Provider + Encounter Details Date Type Department Care Team (Late st Contact Info) Description 12/24/2018 Transcribed Document [facility] [place] [facility] [place] [address] ProviderKevin MD [address] [place] [address] Social History Tobacco Use Types Packs/Day Years Used Date Smoking Tobacco: Never Assessed Sex and Gender Information Value Date Recorded Sex Assigned at Not on file Legal Sex Male 4:12 PM CDT Gender Identity Not on file Sexual Orientation Not on file documented as of this encounter Miscellaneous Notes * Cerner Conversion Note - Kevin Pickering MD - 12/24/2018 12:54 PM FRONTLOAD DRIVER UM Authorization Entered On: 12/24/2018 12:54 EST Performed On: 12/24/2018 12:54 EST by LG HINOJOSA RN Primary Insurance Authorization Authorization and Policy Numbers : Insurance 1 Health Plan: MEDICARE Policy Number: [id number] Authorization Number: Insurance 2 Health Plan: [employer] Policy Number: [id number] Authorization Number: Insurance Primary Name : MEDICARE Policy Number: [id number] Historical Authorization Comments-Primary : No Authorization Comments Found LG HINOJOSA RN - 12/24/2018 12:54 EST documented in this encounter Plan of Treatment Not on file documented as of this encounter Visit Diagnoses Not on filedocumented in this encounter Care Teams Marine Driller Relationship Specialty Start Date End Date Nikolai Tse, LOST CHARGE CARD CLERK [address] [place], [place] [phone] PCP - General Nurse Practitioner 02/17/24 documented as of this encounter
--- OUTSIDE RECORDS SUMMARY | 2024-10-09 09:14 | XMS_ITS | Encounter Summary ---
Author Organization [employer] ([place], [place], [place], [place]) Address [address] [place] [address] Care Team Providers Care Wrapper Stemmer Hand Name Role Phone Nikolai Tse HAIR PREPARER Primary Care Provider + Encounter Details Date Type Department Care Team (Late st Contact Info) Description 03/24/2024 Lab Requisition [facility] [address] [place] [address] Nikolai Tse APRN [address], [place] [phone] Hypertensive heart and chronic kidney disease with heart failure and stage 1 through stage 4 chronic kidney disease, or unspecified chronic kidney disease (HCC) Social History Tobacco Use Types Packs/Day Years Used Date Smoking Tobacco: Former Cigarettes Smokeless Tobacco: Never Alcohol Use Standard Drinks/Week Comments Never 0 (1 standard drink = 0.6 oz pur e alcohol) Utilities Answer Date Recorded In the past 12 months, has t he [employer], gas, oil, or water [employer] threatened to shut off services in your [...] Do you speak a language other than Macedonian at [facility]? No 02/18/2024 Do you want [...] Procedure Name Priority Date/Time Associated Diagnosis Comments POTASSIUM Routine 03/24/2024 3:00 PM EST Hypertensive heart and chronic kidney disease with heart failure and stage 1 through stage 4 chronic kidney disease, or unspecified chronic kidney disease (HCC) documented in this encounter Results * (ABNORMAL) Potassium (03/24/2024 3:00 PM EST) Potassium 5.5(H) 3.5 - 5.1 meq/L 03/24/2024 4:42 PM EST [facility] Blood 03/24/2024 3:00 PM EST 03/24/2024 4:32 PM EST Nikolai Tse APRN LAB BLOOD ORDERABLES Fin al Result Performing Organization Address City/State/[facility] Co de Phone Number [facility] [address] [place] [address], [facility] [phone] documented in this encounter Visit Diagnoses Diagnosis Hypertensive heart and chronic kidney disease with heart failure and stage 1 through stage 4 chronic kidney disease, or unspecified chronic kidney disease (HCC) documented in this encounter Care Teams Wrapper Stemmer Hand Relationship Specialty Start Date End Date Nikolai Tes, JULIO CÉSAR [address] [place] [address] PCP - General Nurse Practitioner 02/17/24 documented as of this encounter
--- OUTSIDE RECORDS SUMMARY | 2024-10-09 09:15 | XMS_ITS | Encounter Summary ---
Author Organization [employer] ([place], [place], [place], [place]) Address [address] [place] [address] Care Team Providers Care Clinic Business Manager Name Role Phone LinuslongNikolai cruz APRN Primary Care Provider + Encounter Details Date Type Department Care Team (Late st Contact Info) Description 12/24/2018 Transcribed Document [facility] [place] Family Medicine [address] [place] [address] ProviderKevin MD [address] [place] [address] Social History Tobacco Use Types Packs/Day Years Used Date Smoking Tobacco: Never Assessed Sex and Gender Information Value Date Recorded Sex Assigned at Not on file Legal Sex Male 4:12 PM CDT Gender Identity Not on file Sexual Orientation Not on file documented as of this encounter Miscellaneous Notes * Cerner Conversion Note - Kevin Pickering MD - 12/24/2018 12:02 PM HEDIS MANAGER Pain Assessment Entered On: 12/25/2018 3:53 EST Performed On: 12/24/2018 19:45 EST by FRED HANNA, RN Intervention Information: oxyCODONE Performed by Judit Clement RN on 12/24/2018 18:45:00 EST oxyCODONE,5mg Oral,Pain (Moderate 4-6) Pain Assessment Pain Assessment : Follow-up assessment Pain Scale Used : 0-10 Scale FRED HANNA RN - 12/25/2018 3:52 EST Pain Scale Intensity : 0 FRED HANNA RN - 12/25/2018 3:52 EST Image 4 - Images currently included in the form version of this document have not been included in the text rendition version of the form. documented in this encounter Plan of Treatment Not on file documented as of this encounter Visit Diagnoses Not on filedocumented in this encounter Care Teams Clinic Business Manager Relationship Specialty Start Date End Date Nikolai Tse, MAIL CARRIER TECHNICIAN [address] [place], [place] [phone] PCP - General Nurse Practitioner 02/17/24 documented as of this encounter
--- OUTSIDE RECORDS SUMMARY | 2024-10-09 09:15 | XMS_ITS | Encounter Summary ---
Author Organization [employer] ([place], [place], [place], [place]) Address [address] [place] [address] Care Team Providers Care Tmd Teacher Assistant Name Role Phone Dedrick Mayakeerthianthony Dhlilon APRN Primary Care Provider + Encounter Details Date Type Department Care Team (Late st Contact Info) Description 12/24/2018 Transcribed Document [facility] [place] [facility] [place] [address] ProviderKevin MD [address] [place] [id number] Social History Tobacco Use Types Packs/Day Years Used Date Smoking Tobacco: Never Assessed Sex and Gender Information Value Date Recorded Sex Assigned at Not on file Legal Sex Male 4:12 PM CDT Gender Identity Not on file Sexual Orientation Not on file documented as of this encounter Miscellaneous Notes * Cerner Conversion Note - Kevin Pickering MD - 12/24/2018 9:24 AM CIVIL CELEBRANT Patient: PRAVEEN FOX Age: 68 years Sex: Male : 1950 Associated Diagnoses: None Author: GORDO [facility]PLE [facility] Subjective Chief complaint. weak not feeling well anxious Health Status Allergies: Allergic Reactions (Selected) No [...] IV Push, See Comment, PRN: IV Use Protonix: 40 mg, Oral, Daily Sodium Chloride 0.9% intravenous solution 1,000 mL: 50 mL/Hr, IntraVENous Toprol-XL: 25 mg, Oral, Daily TriCor 145 mg oral tablet: 145 mg, Oral, Daily Tylenol: 650 mg, Oral, Q6H, PRN: Fever Zofran: 4 mg, IV Push, Q4H, PRN: Nausea/Vomiting amLODIPine: 5 mg, Oral, 1-Time amLODIPine: 5 mg, Oral, Daily aspirin: 81 mg, Oral, Daily cloNIDine: 0.1 mg, Oral, Q3H, PRN: Hypertension gabapentin: 300 mg, Oral, At Bedtime heparin: 5,000 Units, SubCutaneous, [id number] hydrALAZINE: 10 mg, IV Push, Q3H, PRN: Hypertension insulin lispro sliding scale: Scale C:, SubCutaneous, AC and at Bedtime Documented Medications Documented D3 1000 oral tablet: [...] Bedtime vancomycin 250 mg, Q6H , Medications (19) Active Scheduled: (13) #NaCl 0.9% *FLUSH* inj 10 mL 10 mL, IV Push, Q12H amLODIPine 5 mg tab 5 mg 1 Tab, Oral, 1-Time amLODIPine 5 mg tab 5 mg 1 Tab, Oral, Daily aspirin 81 mg chew tab 81 mg 1 Tab, Oral, Daily atorvastatin 20 mg tab 20 mg 1 Tab, Oral, Daily fenofibrate 145 mg tab 145 mg 1 Tab, Oral, Daily gabapentin 300 mg cap 300 mg 1 Cap, Oral, At Bedtime heparin 5,000 units/1 mL inj 5,000 Units 1 mL, SubCutaneous, [id number] insulin glargine 1 unit/0.01 mL inj 30 [...] mL 1,000 mL, IntraVENous, 50 mL/Hr PRN: (5) #NaCl 0.9% *FLUSH* inj 10 mL 10 mL, IV Push, See Comment acetaminophen 325 mg tab 650 mg 2 Tab, Oral, Q6H cloNIDine 0.1 mg tab 0.1 mg 1 Tab, Oral, Q3H hydrALAZINE 20 mg/1 mL inj 10 mg 0.5 mL, IV Push, Q3H ondansetron 4 mg/2 mL inj 4 mg 2 mL, IV Push, Q4H Problem list: Medical Type 2 diabetes mellitus / SNOMED CT 674056557 / Confirmed HTN - Hypertension / SNOMED CT 8313392318 / Confirmed HLD - Hyperlipidemia / SNOMED CT 370103147 / Confirmed CAD - Coronary artery disease / SNOMED CT 6759858202 / Confirmed At risk for sleep apnea / IMO [id number] / Confirmed, Active Problems (9) At risk for sleep apnea CAD - Coronary artery disease Chronic kidney insufficiency Diabetes mellitus type II HLD - Hyperlipidemia HTN - Hypertension Hyperlipidemia Hypertension Type 2 diabetes mellitus Objective VS/Measurements Vitals Signs (last 24 hrs) Last Charted Minimum Maximum Temp 98.7 (DEC 24 03:36) 97.6 (DEC 23 22:15) 98 (DEC 23 17:53) Apical HR 91 (DEC 24 08:47) 91 (DEC 24 08:47) 91 (DEC 24 08:47) Mon HR 66 (DEC 24 03:22) 57 (DEC 23 13:25) 70 (DEC 23 17:53) Resp Rate 14 (DEC 24 03:22) 14 (DEC 23 21:00) 16 (DEC 23 13:25) SBP 136 (DEC 24 03:22) 125 (DEC 23 23:00) H 177 (DEC 23 15:00) DBP 68 (DEC 24 03:22) 62 (DEC 23 22:15) H 97 (DEC 23 17:53) MAP 83 (DEC 24 03:22) 78 (DEC 23 22:15) 130 (DEC 23 17:53) SpO2 97 (DEC 23 20:00) 96 (DEC 23 19:17) 98 (DEC 23 13:25) General: Alert and oriented, No acute distress. [...] & affect, Normal judgment. Results Review DEC 24 07:03 139 110 H 31 / H 315 4.6 22 H 2.20 \ DEC 24 07:03 \ L 12.1 / 4.6 285 / L 37.8 \ DEC 24 07:03 139 110 H 31 / H 315 4.6 22 H 2.20 \ DEC 24 07:03 \ L 12.1 / 4.6 285 / L 37.8 \ Impression and Plan Right lower extremity [...] bedtime Peripheral neuropathy Continue gabapentin Neurology consulted plan MRI PT/OT Labs in am d/w patient and RN time spent 35 min documented in this encounter Plan of Treatment Not on file documented as of this encounter Visit Diagnoses Not on filedocumented in this encounter Care Teams Tmd Teacher Assistant Relationship Specialty Start Date End Date Nikolia Tse, BLOWER ROOM ATTENDANT [address] [place] [address] PCP - General Nurse Practitioner 02/17/24 documented as of this encounter
--- OUTSIDE RECORDS SUMMARY | 2024-10-09 09:15 | XMS_ITS | Encounter Summary ---
Author Organization [employer] ([place], [place], [place], [place]) Address [address] [place] [address] Care Team Providers Care General Manager Land Department Name Role Phone Nikolai Tse APRN Primary Care Provider + Encounter Details Date Type Department Care Team (Late st Contact Info) Description 12/25/[address] [facility] [place] [facility] [place] [address] ProviderKevin MD [address] [place], [place] [address] Social History Tobacco Use Types Packs/Day Years Used Date Smoking Tobacco: Never Assessed Sex and Gender Information Value Date Recorded Sex Assigned at Not on file Legal Sex Male 4:12 PM CDT Gender Identity Not on file Sexual Orientation Not on file documented as of this encounter Miscellaneous Notes * Cerner Conversion Note - Kevin Pickering MD - 12/25/2018 3:27 PM MOVER Discharge Instructions Entered On: 12/25/2018 15:27 EST Performed On: 12/25/2018 15:27 EST by TACO ELY MD-[facility] DC Instructions HWD Driving After Discharge : Do not drive, Other: No driving until released by a physician. TACO ELY MD-NEU - 12/25/2018 15:27 EST Electronically signed by Kyra [facility] Conversion Milk Drier Cerner at 06/04/2022 9:50 AM CDT documented in this encounter Plan of Treatment Not on file documented as of this encounter Visit Diagnoses Not on filedocumented in this encounter Care Teams General Manager Land Department Relationship Specialty Start Date End Date Nikolai Tse APRN [address] [phone] PCP - General Nurse Practitioner 02/17/24 documented as of this encounter
--- OUTSIDE RECORDS SUMMARY | 2024-10-09 09:15 | XMS_ITS | Encounter Summary ---
Author Organization [employer] ([place], [place], [place], [place]) Address [address] [place] [address] Care Team Providers Care Rail Car Welder Name Role Phone Nikolai Tse APRN Primary Care Provider + Encounter Details Date Type Department Care Team (Late st Contact Info) Description 12/25/2018 Transcribed Document [facility] [place] [address] [place] [address] ProviderKevin MD [address] [place], [place] [id number] Social History Tobacco Use Types Packs/Day Years Used Date Smoking Tobacco: Never Assessed Sex and Gender Information Value Date Recorded Sex Assigned at Not on file Legal Sex Male 4:12 PM CDT Gender Identity Not on file Sexual Orientation Not on file documented as of this encounter Miscellaneous Notes * Cerner Conversion Note - Kevin ProviderMD - 12/25/2018 9:00 PM ALL SOURCE ANALYST NIH Stroke Scale *Q Entered On: 12/26/2018 7:40 EST Performed On: 12/25/2018 21:00 EST by Jennifer Kat RN NIH [...] movements NIH Motor Arm, Left (5A) : No drift NIH Motor Arm, Right (5B) : Some effort against gravity NIH Motor Leg, Left (6A) : No drift NIH Motor Leg, Right (6B) : Some effort against gravity NIH Limb Ataxia (7) : Absent NIH Sensory (8) : Normal NIH Best Language (9) : No aphasia NIH Dysarthria (10) : Normal Extinction and Inattention (11) : No abnormality NIH Scale Score : 4 Jennifer Kat RN - 12/26/2018 7:38 EST Electronically signed by [facility], [facility] Conversion Research Laboratory Manager Cerner at 06/04/2022 9:49 AM CDT documented in this encounter Plan of Treatment Not on file documented as of this encounter Visit Diagnoses Not on filedocumented in this encounter Care Teams Rail Car Welder Relationship Specialty Start Date End Date Nikolai Tse, PROGRAMMING INTERNSHIP [address] [place] [address] PCP - General Nurse Practitioner 02/17/24 documented as of this encounter
--- OUTSIDE RECORDS SUMMARY | 2024-10-09 09:15 | XMS_ITS | Encounter Summary ---
Author Organization [employer] ([place], [place], [place], [place]) Address [address] [place] [address] Care Team Providers Care Cook Helper Fruit Name Role Phone Nikolai Tse APRN Primary Care Provider + Encounter Details Date Type Department Care Team (Late st Contact Info) Description 12/24/2018 Transcribed Document [facility] [place] [facility] [place] [address] ProviderKevin MD [address] [place] [address] Social History Tobacco Use Types Packs/Day Years Used Date Smoking Tobacco: Never Assessed Sex and Gender Information Value Date Recorded Sex Assigned at Not on file Legal Sex Male 4:12 PM CDT Gender Identity Not on file Sexual Orientation Not on file documented as of this encounter Miscellaneous Notes * Cerner Conversion Note - Kevin Pickering MD - 12/24/2018 11:16 AM ELECTRO MECHANICAL DESIGNER Patient: PRAVEEN FOX [facility]: [id number] Age: 68 Years Sex: Male : 1950 Subjective Patient had been stable through the night . This morning patient had a blood pressure of 199/112. He thus received 10 mg of Hydralazine . He then was assisted to the bathroom and sat in chair. Suddenly , while sitting in chair , he became unable to speak or move his right side. A blood pressure was taken and his systolic was 104. He was quickly moved to the bed and his systolic became 136. I was contacted immediately with his clinical worsening and asked that patient be placed in Trendelenburg position and IV fluids be started. He is now improving in that he is talking and moving right side. However, he has right sided hemiparesis. Review of Systems Cardiac - patient denies any chest pain. Objective Vitals & Measurements T: 36.4 ??C TMIN: 36.4 ??C TMAX: 36.6 ??C HR: 91 RR: 14 BP: 136/68 SpO2: 97% HT: 170.18 cm WT: 90.91 kg Physical Exam Facies - symmetric EOMI Speech - fluent motor - 1/5 strength in right arm but has good rn infusion strength in right hand. 3/5 strength in right leg. TESTS Carotid Ultrasound - a) at least 50 - 69% stenosis of left ICA . Echocardiogram - pending Cholesterol - 117 LDL - 49 Assessment/Plan Praveen Fox is a 68-year-old male with multiple stroke risk factors including diabetes, hypertension, hyperlipidemia, and coronary artery disease, who on december 22 had some transient right arm numbness followed by right leg weakness that is persisting. He waited until December 23 to go to [facility] and then was transferred here. The patient has worsened this morning after receiving Hydralazine for hypertension while sitting in chair . When he worsened , his systolic blood pressure was transiently 104. He is now improving with being in the Trendelenburg position and receiving fluids. However, he is not back to baseline and has significant right hemiparesis. I think he has had extension of his stroke this morning in the setting of relative hypotension. Hopefully , he will continue to improve. RECOMMENDATIONS: At this time, I would recommend the followin. I agree with the stroke order sets that have been ordered. 2. I agree with heparin for DVT prevention. 3. I agree with an anti-platelet agent of aspirin at this time, but at some point in time, we may need to change this depending on the stroke workup. 4. At this time , I am cancelling cranial MRI and MRI of lumbar spine and sacrum as I do not think these tests will change the management of his condition at this time. 5. Follow up on echo. 6. If his heart monitor was to show atrial fibrillation, we would need to consider anticoagulating the patient. 7. NPO until he passes a swallow evaluation. 8. At discharge, he should follow up with an outpatient neurologist and we instructed him not to drive until released by physician. 9. IV fluids and Trendelenburg position for now. 10. To consider tPA as his stroke symptoms worsened today . 11. To consider a stat CTA of his head and neck with perfusion scan of brain to look for a large vessel occlusion that would be amenable to intervention. 12. As he stabilizes, I may eventually order a cranial imaging study. As his stroke symptoms worsened , I did consider the use of IV tPA . However , given the recent stroke two days ago with some persistent deficits , I feel that the potential risks of IV tPA causing a hemorrhagic conversion of his recent stroke outweighs any potential benefit. Therefore, I did not order IV tPA. I explained my rationale for not recommending IV tPA to patient and and they expressed understanding. I considered a stat CTA of head and neck with CT perfusion scan of brain. However, when I explained to the patient and that the dye used for this test can cause kidney damage they ask that this test not be done . I have spent over 35 minutes on this case today . Over half that time was spent coordinating care with nursing staff and counseling patient and . Medications Inpatient amLODIPine, 5 mg= 1 Tab, Oral, 1-Time amLODIPine, 5 mg= 1 Tab, Oral, Daily aspirin, 81 mg= 1 Tab, Oral, Daily cloNIDine, 0.1 mg= 1 Tab, Oral, Q3H, PRN gabapentin, 300 mg= 1 Cap, Oral, At Bedtime Habitrol 21 mg/24 hr transdermal film, extended release, 1 Patch, TransDermal, Daily heparin, 5000 Units= 1 mL, SubCutaneous, [id number] hydrALAZINE, 10 mg= 0.5 mL, IV Push, Q3H, PRN insulin lispro sliding scale, Scale C:, SubCutaneous, AC and at Bedtime Lantus, 30 Units= 0.3 mL, SubCutaneous, At Bedtime Lipitor, 20 mg= 1 Tab, Oral, Daily Normal Saline Flush, 10 mL, IV Push, Q12H Normal Saline Flush, 10 mL, IV Push, See Comment, PRN Protonix, 40 mg= 1 Tab, Oral, Daily Sodium Chloride 0.9% intravenous solution 1,000 mL, 1000 mL, IntraVENous Toprol-XL, 25 mg= 1 Tab, Oral, Daily TriCor 145 mg oral tablet, 145 mg= 1 Tab, Oral, Daily Tylenol, 650 mg= 2 Tab, Oral, Q6H, PRN Zofran, 4 mg= 2 mL, IV Push, Q4H, PRN Electronically signed by Kyra, [facility] Conversion Dealership General Manager Cerner at 06/04/2022 9:47 AM CDT documented in this encounter Plan of Treatment Not on file documented as of this encounter Visit Diagnoses Not on filedocumented in this encounter Care Teams Cook Helper Fruit Relationship Specialty Start Date End Date Nikolai Tse, MACHINE HOOP MAKER [address] [place], [place] [phone] PCP - General Nurse Practitioner 02/17/24 documented as of this encounter
--- OUTSIDE RECORDS SUMMARY | 2024-10-09 09:15 | XMS_ITS | Encounter Summary ---
Author Organization [employer] ([place], [place], [place], [place]) Address [address] [place] [address] Care Team Providers Care Expediter Service Order Name Role Phone Dedrick Mayakeerthianthony Dhillon APRN Primary Care Provider + Encounter Details Date Type Department Care Team (Late st Contact Info) Description 12/25/2018 Transcribed Document [facility] [place] [address] ProviderKevin MD [address] [place] [phone] Social History Tobacco Use Types Packs/Day Years Used Date Smoking Tobacco: Never Assessed Sex and Gender Information Value Date Recorded Sex Assigned at Not on file Legal Sex Male 4:12 PM CDT Gender Identity Not on file Sexual Orientation Not on file documented as of this encounter Miscellaneous Notes * Cerner Conversion Note - Kevin Pickering MD - 12/25/2018 10:01 AM MICROELECTRONICS TECHNICIAN Patient: PRAVEEN FOX Age: 68 years Sex: Male : 1950 Associated Diagnoses: None Author: GORDO APPLE [facility] Subjective Chief complaint. slurred speech Rt LE weakness weak not feeling well anxious Health Status [...] Oral, At Bedtime heparin: 5,000 Units, SubCutaneous, [id number] hydrALAZINE: 10 mg, IV Push, Q3H, PRN: [...] Bedtime vancomycin 250 mg, Q6H , Medications (22) Active Scheduled: (14) #NaCl 0.9% *FLUSH* inj 10 mL 10 [...] mL inj 5,000 Units 1 mL, SubCutaneous, [id number] insulin glargine 1 unit/0.01 mL inj 30 [...] NaCl 0.9% 1,000 mL 1,000 mL, IntraVENous, 100 mL/Hr PRN: (7) #NaCl 0.9% *FLUSH* inj [...] Type 2 diabetes mellitus / SNOMED CT 515805192 / Confirmed HTN - Hypertension / SNOMED CT 3538276436 / Confirmed HLD - Hyperlipidemia / SNOMED CT 941386205 / Confirmed CAD - Coronary artery disease / SNOMED CT 5816533516 / Confirmed At risk for sleep apnea / IMO [id number] / Confirmed, Active Problems (9) At risk for sleep apnea CAD - Coronary artery disease Chronic kidney insufficiency Diabetes mellitus type II HLD - Hyperlipidemia HTN - Hypertension Hyperlipidemia Hypertension Type 2 diabetes mellitus Objective VS/Measurements Vitals Signs (last 24 hrs) Last Charted Minimum Maximum Temp 97.6 (DEC 25:) 97.6 (DEC 25:) 97.3 (DEC 24:15) Apical HR 91 (DEC 25 08:11) 91 (DEC 25 08:11) 91 (DEC 25 08:11) Mon HR 63 (DEC 25:) 63 (DEC 25:) 84 (DEC 24 10:15) Resp Rate 14 (DEC 25:) 14 (DEC 24 23:17) 18 (DEC 24 10:15) SBP H 170 (DEC 25:) 120 (DEC 24 10:30) H 185 (DEC 24 19:46) DBP 84 (DEC 25 03:) L 58 (DEC 24 11:00) H 97 (DEC 24 18:59) MAP 100 (DEC 25 03:) 73 (DEC 24 10:45) 133 (DEC 24 11:30) SpO2 98 (NOV 10 03:09) 95 (DEC 24 10:45) 98 (DEC 25 03:09) General: Alert and oriented, No acute distress. [...] & affect, Normal judgment. Results Review DEC 25 07:33 140 109 H 26 / H 181 4.2 24 H 2.00 \ DEC 25 07:33 \ L 13.3 / 6.5 330 / 41.6 \ DEC 25 07:33 140 109 H 26 / H 181 4.2 24 H 2.00 \ DEC 25 07:33 \ L 13.3 / 6.5 330 / 41.6 \ Impression and Plan Right lower extremity [...] neuropathy Continue gabapentin Neurology consulted ARF nephrology consult plan MRI PT/OT in am Labs in am neurology following d/w patient and RN CM for DC plan may need rehab time spent 25 min documented in this encounter Plan of Treatment Not on file documented as of this encounter Visit Diagnoses Not on filedocumented in this encounter Care Teams Expediter Service Order Relationship Specialty Start Date End Date Nikolai Tse, AIR PRESS OPERATOR [address] [phone] PCP - General Nurse Practitioner 02/17/24 documented as of this encounter
--- OUTSIDE RECORDS SUMMARY | 2024-10-09 09:15 | XMS_ITS | Encounter Summary ---
Author Organization [employer] ([place], [place], [place], [place]) Address [address] [place] [address] Care Team Providers Care Undergraduate Intern Name Role Phone Linuskarime Mayakeerthianthony Dhillon APRN Primary Care Provider + Encounter Details Date Type Department Care Team (Late st Contact Info) Description 12/24/2018 Transcribed Document [facility] [place] Family Medicine [facility] [place] [address] ProviderKevin MD [address] [place], [place] [address] Social History Tobacco Use Types Packs/Day Years Used Date Smoking Tobacco: Never Assessed Sex and Gender Information Value Date Recorded Sex Assigned at Not on file Legal Sex Male 4:12 PM CDT Gender Identity Not on file Sexual Orientation Not on file documented as of this encounter Miscellaneous Notes * Cerner Conversion Note - Kevin Pickering MD - 12/24/2018 11:15 AM SAND CONDITIONER MACHINE Swallow Evaluation Entered On: 12/24/2018 12:13 EST Performed On: 12/24/2018 12:09 EST by RON MCFADDEN, LANDCARE FACILITATOR General Information Visit Type, LANDCARE FACILITATOR : Re-Evaluation Patient Orders : Consult to Speech Language Pathology for Swallow Eval -111 Start: 12/24/18 11:15:00 EST, Routine, For Other (see special instructions), Please reevaluate as patient had worsening symptoms today. - TACO ELY MD-SCOTT Speech Language Pathology Evaluation and Treatment - Start: 12/23/18 13:27:00 EST, Routine, For Speech Language Cognitive Eval and Treat -111 EL-MARIN ETIENNE MD Admission Date : Admission Date/Time: 12/23/18 13:03:00 Medical Chart Reviewed, LANDCARE FACILITATOR : Yes Personal Devices : Personal Devices No Devices Recorded Assistive Devices : Assistive Devices No Devices Recorded Active Diagnoses : No Qualifying Diagnoses Therapy Diagnosis, LANDCARE FACILITATOR : normal swallow function Previous Swallow Precautions : None in EMR Diet/Intake Prior to Current Admission : regular Diet/Intake During Current Admission : regular Aspiration Risk : None Intubation Comment, LANDCARE FACILITATOR : n/a Vital Signs RTF : Vitals Temp BP Pulse RR SpO2 FIO2 Date Wt(kg) Wt(lb) 12/23 15:00 ---- 177/84 --- -- --- --- 24 Hr Tmax: No Data Available 36 Hr Tmax: No Data Available Vital Signs are the last 5 in the past 48 hours. Weights display the last 5 within 7 days. Initial Wt: No Data Available RON MCFADDEN SLP - 12/24/2018 12:09 EST General Status Patient Received Status, LANDCARE FACILITATOR : Long sitting in bed Patient Left Status, LANDCARE FACILITATOR : Long sitting in bed RN/PCT Informed Comment, LANDCARE FACILITATOR : discussed with RN and RON Carvalho SLP - 12/24/2018 12:09 EST Pain Assessment Pain Scaled Used : 0-10 Pain scale Pain Score Pre-Intervention : 0 RON MCFADDEN SLP - 12/24/2018 12:09 EST Image 1 - Images currently included in the form version of this document have not been included in the text rendition version of the form. Oral Mechanism Dysarthria : No Resonance Types : Appropriate Oral Mechanism for Daily Living : Intact Facial Appearance: : Symmetrical Labial Appearance : Symmetrical Labial Function : All function intact Dental/Orthodontia : Teeth, own, Edentulous Lingual Appearance : Symmetrical Lingual Function : All function intact Soft Palate (Velum) Appearance : Symmetrical Soft Palate Function : Function intact Hard Palate Appearance/ Structure : Structure intact Mandible Appearance/Structure : Intact Mandibular Function : All function intact RON MCFADDEN SLP - 12/24/2018 12:09 EST Bedside Swallow Swallow Outcome BS Swallow : Intact Head Control BS Swallow : Neutral head position Presentation Style BS Swallow : Clinician Swallow Position BS Swallow : Upright 90 degrees Trunk Control BS Swallow : Upright centered position Consistencies Trialed BS Swallow : Ice chips, Thin by straw, Pureed, Regular solids RON MCFADDEN SLP - 12/24/2018 12:09 EST Swallow Impressions Impressions, BS Swallow : No evidence of dysphagia present Further Evaluation Required, LANDCARE FACILITATOR : full speech/language cog eval once neuro workup complete. Today evidence of aphasia with perseveration, anomia Swallowing Outcome Measures : Functional Oral Intake Scale (FOIS) Functional Oral Intake Scale (FOIS) : Level VII Bedside Swallow Overall Impressions : Reconsulted due to decline in status today. Patient seen bedside with clear anomia and some perseveration. Speech was otherwise clear but very delayed. He was able to follow commands, was able to move right hand and arm sporadically. He was presented with PO trials of thin, puree and solids and demonstrated no signs of dysphagia or aspiration. He can continue with the regular diet as tolerated. Discussed with RN and MD. Reconsult with any other decline in function. Will follow up tomorrow or Wednesday for full speech/language/cog evaluation once neuro workup is completed. RON MCFADDEN SLP - 12/24/2018 12:09 EST Swallow Recommendations Recommended Diet Type, SwRec : Regular Recommended Liquid Diet, SwRec : Thin Feeding Presentation Style, SwRec : No restrictions Supervision Level w/Meals, SwRec : Assist, standby Recommended Med Present, SwRec : Other: per patient preference RON MCFADDEN SLP - 12/24/2018 12:09 EST Therapy Indication Assessment LANDCARE FACILITATOR Indicated : No LANDCARE FACILITATOR Not Indicated : At prior level of function LANDCARE FACILITATOR Interdisciplinary Consultation Needs : No Potential Barriers to LANDCARE FACILITATOR : Acuity of illness LANDCARE FACILITATOR Rehabilitation Potential : At prior level of function RON MCFADDEN SLP - 12/24/2018 12:09 EST Education Barriers To Learning : None evident Individuals Taught : Patient, Family member Readiness to Learn : Cooperative Baseline Knowledge of Topic : None Readiness to Learn : Explanation Learning Style Preferences Patient : None Learning Style Preferences Family : None RON MCFADDEN SLP - 12/24/2018 12:09 EST LANDCARE FACILITATOR Education Assessment Grid 1 Aspiration : Verbalizes understanding Diet Recommendation : Verbalizes understanding Evaluation Results : Verbalizes understanding RON MCFADDEN SLP - 12/24/2018 12:[address] [facility] LANDCARE FACILITATOR Charges Evaluation Swallowing Function : 1 RON MCFADDEN SLP - 12/24/2018 12:09 EST Electronically signed by Kyra [facility] Conversion Tool And Machine Maintainer Cerner at 06/04/2022 10:00 AM CDT documented in this encounter Plan of Treatment Not on file documented as of this encounter Visit Diagnoses Not on filedocumented in this encounter Care Teams Undergraduate Intern Relationship Specialty Start Date End Date Nikolai Tse, BUSINESS RULES ANALYST [address] [place] [address] PCP - General Nurse Practitioner 02/17/24 documented as of this encounter
--- OUTSIDE RECORDS SUMMARY | 2024-10-09 09:15 | XMS_ITS | Encounter Summary ---
Author Organization [id number] ([place], [place], [place], [place]) Address [address] [place] [address] Care Team Providers Care Line Mechanic Name Role Phone LinuskarimeNikolai APRN Primary Care Provider + Encounter Details Date Type Department Care Team (Late st Contact Info) Description 12/25/2018 Transcribed Document [facility] [place] Family Medicine [address] [place] [address] ProviderKevin MD [address] [place] [address] Social History Tobacco Use Types Packs/Day Years Used Date Smoking Tobacco: Never Assessed Sex and Gender Information Value Date Recorded Sex Assigned at Not on file Legal Sex Male 4:12 PM CDT Gender Identity Not on file Sexual Orientation Not on file documented as of this encounter Miscellaneous Notes * Cerner Conversion Note - Kevin Pickering MD - 12/25/2018 3:29 PM HOSPITAL CLINIC ASSISTANT Patient: PRAVEEN FOX Age: 68 Years Sex: Male : 1950 Subjective Patient 's right sided weakness has improved from yesterday but still has right arm and leg weakness. Review of Systems Renal - a renal consult has been placed. Heme - yesterday I went ahead and added Plavix to his aspirin as this stroke occurred while on aspirin. Objective Vitals & Measurements T: 36.8 ??C TMIN: 36.4 ??C TMAX: 37 ??C HR: 70(Monitored) RR: 18 BP: 161/79 SpO2: 96% Physical Exam EOMI Facies - symmetric Motor - 3-4/5 in both right arm and right leg. TESTS I had a head CT done yesterday - no acute changes. Echocardiogram - normal with negative bubble study. Assessment/Plan Praveen Fox is a 68-year-old male with multiple stroke risk factors including diabetes, hypertension, hyperlipidemia, and coronary artery disease, who on December 22 had some transient right arm numbness followed by right leg weakness. He waited until December 23 to go to [place] [facility] and then was transferred here. The patient had worsening right sided hemiparesis on the morning of December 24 after receiving Hydralazine for hypertension while sitting in chair . When he worsened , his systolic blood pressure was transiently 104. He is now improving but still has worse right sided hemiparesis than admission. However, he is not back to baseline and has significant right hemiparesis. I think he has had extension of his stroke on the morning of December 24 in the setting of relative hypotension. RECOMMENDATIONS: At this time, I would recommend the followin. I agree with the stroke order sets that have been ordered. 2. I agree with heparin for DVT prevention. 3. I have added Plavix to aspirin as this stroke occurred while on aspirin . 4. I am reordering cranial MRI for tomorrow. 5. I am not reordering lumbar and sacral MRIs as I do not think these studies will change the management of condition. I have left instructions for patient to discuss the lumbar CT report from [place] with his outpatient physicians. 6. If his heart monitor was to show atrial fibrillation, we would need to consider anticoagulating the patient. 7. Depending on the results of cranial MRI , I may order a CTA of head and neck. 8. At discharge, he should follow up with an outpatient neurologist and we instructed him not to drive until released by physician. 9. I have stopped IV fluids. 10. Try to avoid hypotension if possible. I have spent over 25 minutes on this case today . Over half that time was spent counseling patient and his brother. Medications Inpatient amLODIPine, 5 mg= 1 Tab, Oral, BID aspirin, 81 mg= 1 Tab, Oral, Daily Ativan, 0.5 mg= 0.25 mL, IV Push, Q6H, PRN cloNIDine, 0.1 mg= 1 Tab, Oral, Q3H, PRN gabapentin, 300 mg= 1 Cap, Oral, At Bedtime Habitrol 21 mg/24 hr transdermal film, extended release, 1 Patch, TransDermal, Daily heparin, 5000 Units= 1 mL, SubCutaneous, [id number] hydrALAZINE, 10 mg= 0.5 mL, IV Push, Q3H, PRN insulin lispro sliding scale, Scale C:, SubCutaneous, AC and at Bedtime Lantus, 30 Units= 0.3 mL, SubCutaneous, At Bedtime Lipitor, 20 mg= 1 Tab, Oral, Daily miconazole 2% topical powder, 1 Application, Topical, BID Normal Saline Flush, 10 mL, IV Push, [...] Push, Q4H, PRN Electronically signed by Kyra, [facility] Conversion Hoop Punch And Coiler Operator Cerner at 06/04/2022 9:39 AM CDT documented in this encounter Plan of Treatment Not on file documented as of this encounter Visit Diagnoses Not on filedocumented in this encounter Care Teams Line Mechanic Relationship Specialty Start Date End Date Nikolai Tse, INFANT TEACHER [address] [place], [place] [id number] PCP - General Nurse Practitioner 02/17/24 documented as of this encounter
--- OUTSIDE RECORDS SUMMARY | 2024-10-09 09:15 | XMS_ITS | Encounter Summary ---
Author Organization [employer] ([place], [place], [place], [place]) Address [address] [place] [address] Care Team Providers Care Transactional Paralegal Name Role Phone Nikolai Tse APRN Primary Care Provider + Encounter Details Date Type Department Care Team (Late st Contact Info) Description 12/24/2018 Transcribed Document [facility] [place] [address] ProviderKevin MD [address] [place] [address] Social History Tobacco Use Types Packs/Day Years Used Date Smoking Tobacco: Never Assessed Sex and Gender Information Value Date Recorded Sex Assigned at Not on file Legal Sex Male 4:12 PM CDT Gender Identity Not on file Sexual Orientation Not on file documented as of this encounter Miscellaneous Notes * Cerner Conversion Note - Kevin Pickering MD - 12/24/2018 10:34 AM MASK DESIGN ENGINEER Rapid Response Team Documentation Entered On: 12/24/2018 10:41 EST Performed On: 12/24/2018 10:34 EST by MACRINA BANKS RN Rapid Response Event Time Rapid Response Team Called : 12/24/2018 10:13 EST Rapid Response Team Arrival Time : 12/24/2018 10:15 EST Rapid Response Team Event End Time : 12/24/2018 10:28 EST Rapid Response Event Intiated By : Hospital Staff Rapid Response Team Initiation Reason : Acute neurological changes Rapid Response Event Location Type : Other: [facility] MACRINA BANKS RN - 12/24/2018 10:34 EST Rapid Response Admission Diagnosis : Acute cerebrovascular insufficiency Acute cerebrovascular insufficiency Rapid Response Medical Background : At risk for sleep apnea (Medical) CAD - Coronary artery disease (Medical) Chronic kidney insufficiency (Patient Stated) Diabetes mellitus type II (Patient Stated) HLD - Hyperlipidemia (Medical) HTN - Hypertension (Medical) Hyperlipidemia (Patient Stated) Hypertension (Patient Stated) Type 2 diabetes mellitus (Medical) Rapid Response Allergies : Substance Category Reactions Severity No Known Allergies Rapid Response Recent Vital Signs : 12/24/2018 03:22 Systolic Blood Pressure 136 12/24/2018 03:22 Diastolic Blood Pressure 68 12/24/2018 03:22 Heart Rate Monitored 66 12/24/2018 08:47 Heart Rate, Apical 91 12/24/2018 03:22 Respiratory Rate 14 12/24/2018 03:36 Temperature, Fahrenheit 98.7 Rapid Response Recent Lab Results : 12/24/2018 07:03 Sodium Level 139 (136-146) 12/24/2018 07:03 Potassium Level 4.6 (3.5-5.1) 12/24/2018 07:03 Calcium Level 9.0 (8.4-10.1) 12/24/2018 06:04 Glucose POC2 HI 301 (70-110) 12/24/2018 07:03 Chloride Level 110 (102-112) 12/24/2018 07:03 Carbon Dioxide Level 22 (21-32) 12/24/2018 07:03 Blood Urea Nitrogen HI 31 (7-22) 12/24/2018 07:03 Creatinine Level HI 2.20 (0.70-1.30) 12/24/2018 07:03 Hgb LOW 12.1 (13.5-17.3) 12/24/2018 07:03 Hct LOW 37.8 (40.1-51.0) 12/24/2018 07:03 RBC LOW 4.14 (4.20-5.70) 12/24/2018 07:03 WBC 4.6 (3.6-9.5) 12/24/2018 07:03 Platelet Count 285 (163-369) Weight/BMI : No qualifying data available. Judit Clement RN - 12/24/2018 15:54 EST Code Status Pre Event : Full Code Code Status Post Event : Full Code Rapid Response Team Recommendation/Response : primary nurse called ALIGNER BARREL AND RECEIVER nurse related to pt having a acute increase in NIHSS from a 1 to a 7. New symptoms include right upper and lower extermity weakness and ataxia. 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 Ataxia noted in both.Dr Salmeron notified and declines to have another code stroke called on this pt admitted for stroke. Dr Salmeron gave primary nurse orders and is on his way in to see the pt. Patient Condition at End of Event : S/S Acute Distress Patient Disposition Post Event : No change in location/level of care Rapid Response Transactional Paralegal #1 : MACRINA BANKS RN EGLESTON, JEREMY W, RN - 12/24/2018 10:34 EST NIH Stroke Scale *Q NIH Assessment Interval : Other: sudden increase of stroke type symptoms Time of Assessment : 12/24/2018 10:15 EST RUST Clinician Administering Scale : MACRINA BANKS RN NIH Level of Consciousness (1A) : Alert NIH LOC Questions (1B) : Answers both questions correctly NIH LOC Commands (1C) : Performs both tasks correctly NIH Best Gaze (2) : Normal NIH Visual (3) : No visual loss NIH Facial Palsy (4) : Normal symmetrical movements NIH Motor Arm, Left (5A) : No drift NIH Motor Arm, Right (5B) : No effort against gravity NIH Motor Leg, Left (6A) : No drift NIH Motor Leg, Right (6B) : Some effort against gravity NIH Limb Ataxia (7) : Present in two limbs NIH Sensory (8) : Normal NIH Best Language (9) : No aphasia NIH Dysarthria (10) : Normal Extinction and Inattention (11) : No abnormality NIH Scale Score : 7 MACRINA BANKS RN - 12/24/2018 10:50 EST Electronically signed by Suzy Rae Conversion Electrostatic Powder Coating Technician Cerner at 06/04/2022 10:01 AM CDT documented in this encounter Plan of Treatment Not on file documented as of this encounter Visit Diagnoses Not on filedocumented in this encounter Care Teams Transactional Paralegal Relationship Specialty Start Date End Date Nikolai Tse, GARAGE MANAGER [address] [place] [address] PCP - General Nurse Practitioner 02/17/24 documented as of this encounter
--- OUTSIDE RECORDS SUMMARY | 2024-10-09 09:15 | XMS_ITS | Encounter Summary ---
Author Organization [employer] ([place], [place], [place], [place]) Address [address] [place] [address] Care Team Providers Care Drums Teacher Name Role Phone Nikolai Tse APRN Primary Care Provider + Encounter Details Date Type Department Care Team (Late st Contact Info) Description 03/17/2018 Transcribed Document [facility] [place] Family Medicine [facility] [place] [address] ProviderKevin MD [address] [place] [address] Social History Tobacco Use Types Packs/Day Years Used Date Smoking Tobacco: Never Assessed Sex and Gender Information Value Date Recorded Sex Assigned at Not on file Legal Sex Male 4:12 PM CDT Gender Identity Not on file Sexual Orientation Not on file documented as of this encounter Miscellaneous Notes * Cerner Conversion Note - Kevin Pickering MD - 03/17/2018 4:41 PM COMMUTATOR PRESSER DATE OF PROCEDURE: LEFT HEART CATHETERIZATION ANGIOGRAPHY REPORT INDICATION: Intermittent angina, lateral ischemia by Lexiscan Myoview perfusion study. Functional class II dyspnea. REFERRING PHYSICIAN: 1. Dr. Howard Alas. 2. Dr. Anne Bennett. PROCEDURE: Standard left heart catheterization. TECHNIQUE: A 5/6-Egyptian sheath was placed in the right femoral artery. JL4, JR4 diagnostic catheters were used for selective angiography of the table mountain vessels. A 6-Egyptian pigtail catheter was advanced in the left ventricle where pressures were measured. Left ventriculogram was not performed. JR4 diagnostic catheter was then used for selective angiography of the bypass grafts. Following diagnostic catheterization, the femoral artery sheath was removed and the access site successfully compressed using a TR band. No complications. HEMODYNAMICS: Left ventricle 150/17 mmHg, aorta 150/80 mmHg. DIAGNOSES: 1. Severe three-vessel coronary artery disease. 2. Continued patency of left internal mammary artery bypass graft to the distal left anterior descending. 3. Continued sequential saphenous venous graft to the high lateral branch of circumflex artery and the posterolateral branch of circumflex artery. 4. Continued patency of saphenous venous graft to the posterior descending artery. CORONARY ANATOMY: 1. Left main trunk: Totally occluded. 2. LAD: Totally occluded proximally. Small caliber distal apical LAD is filled via the patent ROSENTHAL bypass graft to the LAD. 3. Circumflex artery: Small caliber vessel which gives rise to an occluded high lateral branch, two tiny lateral branches, and a small caliber posterolateral branch. The high lateral branch and the posterolateral branch are filled via the patent saphenous venous graft, the sequential saphenous venous graft to these two branches. There is 60% narrowing present in the small caliber mid circumflex artery. 4. Right coronary artery: Dominant vessel. Small caliber severely diseased vessel with total occlusion distally, 70% stenosis in the mid segment and another 90% stenosis in the distal segment before total occlusion. A small caliber posterior descending artery posterolateral branch is filled via the patent saphenous venous graft to the posterior descending artery. 5. Left ventricle: Normal left ventricular filling pressure without gradient across the aortic valve. 6. ROSENTHAL bypass graft: Moderate caliber conduit which is widely patent. There is a moderate caliber branch off the ROSENTHAL to the chest wall, which may divert blood flow from the distal apical LAD. 7. Sequential saphenous venous graft to the high lateral branch and the posterolateral branch of circumflex artery: Large caliber conduit with mild atherosclerosis, but widely patent. 8. Saphenous venous graft to the posterior descending artery: Moderate caliber conduit with mild atherosclerosis and widely patent. IMPRESSION: Angiographically, the patient has severe three-vessel coronary artery disease, but continued patency of left internal mammary artery bypass graft to the left anterior descending, sequential saphenous venous graft to the high lateral and posterolateral branch of circumflex artery and the saphenous venous graft to the posterior descending artery. There is no indication for revascularization. Risk factor modification, medical management is recommended. Jorge Bean M.D. Dict: 03/17/2018 16:41:58 Trans: 03/17/2018 20:34:12 CC1: Jorge Bean M.D. CC2: Dr. Howard Alas. CC3: Anne Bennett MD Electronically signed by Kyra [facility] Conversion Bread Molder Cerner at 06/04/2022 10:01 AM CDT documented in this encounter Plan of Treatment Not on file documented as of this encounter Visit Diagnoses Not on filedocumented in this encounter Care Teams Drums Teacher Relationship Specialty Start Date End Date Nikolai Tse, INDUSTRIAL ROOF PLUMBER [address] [place], [place] [id number] PCP - General Nurse Practitioner 02/17/24 documented as of this encounter
[2024-10-09 09:17] LABS: Hematocrit 41.5 % (42.0-52.0); Hemoglobin 12.6 g/dL (14.1-18.0); Immature Granulocytes % 0.4 %; Mean Corpuscular HGB Conc 30.4 g/dL (31.8-35.4); Mean Corpuscular Hemoglobin 27.3 pg (27.0-31.2); Mean Corpuscular Volume 89.8 fl (80-94); Nucleated Red Blood Cells % 0 %; Platelet Count 291 K/mm3 (142-424); Red Blood Count 4.62 M/mm3 (4.60-6.20); Red Cell Distribution Width-SD 46.7 fL; White Blood Count 4.9 K/mm3 (4.8-10.8)
[2024-10-09 09:48] LABS: Albumin Level 3.8 g/dl (3.5-5.0); Chloride 111 mmol/L (98-107); Potassium 5.4 mmoL/L (3.5-5.1); Sodium 143 mmol/L (136-145)
[2024-10-09 09:50] LABS: Alanine Aminotransferase 18 U/L (12-78); Anion Gap 15.4 mEq/L (5-15); Aspartate Amino Transferase 21 U/L (17-59); Blood Urea Nitrogen 33 mg/dl (9-20); Carbon Dioxide 22 mmol/L (22.0-30.0); Creatinine,Serum 2.20 mg/dl (0.66-1.25); Estimated Glomerular Filt Rate 29 ml/min (>60); GFR (African American) 35 ML/MIN (>60)
[2024-10-09 09:51] LABS: Albumin/Globulin Ratio 1.2 (1.1-1.8); Alkaline Phosphatase 151 U/L (38-126); Bilirubin,Total 0.5 mg/dl (0.2-1.3); Calcium 9.8 mg/dl (8.4-10.2); Cholesterol 140 mg/dl (140-200); Globulin 3.2 g/dL (1.3-3.2); Glucose 190 mg/dl (74-100); HDL Cholesterol 32 mg/dl (40-60); Total Protein,Serum 7.0 g/dl (6.3-8.2); Triglycerides 204 mg/dl (30-150)
[2024-10-09 10:07] LABS: Free T4 (Free Thyroxine) 1.14 ng/dl (0.78-2.19)
[2024-10-09 10:36] LABS: Hemoglobin A1C 12.4 % (4.0-6.0)
== END 2024-10-09 23:59 | disposition home or self-care (01) ==
PROVIDERS: PCP Family Medicine; Visit Provider Family Medicine
DX: J44.9 Chronic obstructive pulmonary disease, unspecified (principal); E11.22 Type 2 diabetes mellitus with diabetic chronic kidney disease; E78.5 Hyperlipidemia, unspecified; G93.41 Metabolic encephalopathy
CPT/HCPCS: 36415; 80053; 80061; 83036; 84439; 85025